=== PATIENT | male | born 1975 | race Caucasian/White ===

== ENCOUNTER 2018-07-10 16:10 | Inpatient (IN) ==
[2018-07-10] MEDS ORDERED: Aspirin 81 MG TAB.CHEW PO ONE (16:31)
[2018-07-10] MEDS ORDERED: Ondansetron ODT 4 MG TAB.RAPDIS SL ONE (16:32)
[2018-07-10] MEDS ORDERED: *HR* FentaNYL (PF) 100 MCG/2 ML VIAL IVP ONE (16:32)
--- NOTE | 2018-07-10 16:35 | Emergency Department Note ---
Disposition Clinical Impression: Pleural effusion Pneumonia Qualifiers: Pneumonia type: due to unspecified organism Laterality: left Lung location: lower lobe of lung Qualified Code(s): J18.1 - Lobar pneumonia, unspecified organism Disposition: Admitted As Inpatient Condition: Good Referrals: Kip Rojas DO [Primary Care Provider] - Time of Disposition: 18:52 Chest Pain HPI - General Chief Complaint: ED Chest Pain Stated Complaint: Chest Pain DEEPTHI Time Seen by Provider: 07/10/18 16:21 Source: patient Mode of arrival: ambulatory Limitations: no limitations Vital Signs Reviewed: Yes Nursing Notes Reviewed: Yes - History of Present Illness HPI Narrative: Mr. Prescott is a 43 year old male with history of chronic back pain with stimulator and COPD who presents to the ED with complaints of chest pain that radiates to his back and shortness of breath that gradually started to get worse over the last 4 days. Chest pain described as pressure and heavy and constant without necessarily any worsening with exertion. Patient reports some associated nausea and sweats. Patient reports that he also feels generalized weak overall that is unchanged since his hospitalization in 04/2018 for chest pain. Upon review of last hospitalization in 04/2018 for which patient reported similar symptoms, was determined to have a pleural effusion and inflammatory cells in fluid removed. Patient denies cough or productive cough. Patient denies fevers, headaches, changes in vision or hearing, neck pain, cough, abdominal pain, changes in bowels or bladder, loss of sensation, or rash. Severity scale (1-10): 9 - Related Data Home Medications Medication Instructions Recorded Confirmed Bupropion HCl [Wellbutrin Xl] 300 mg PO DAILY 04/21/18 04/21/18 Cyclobenzaprine [Flexeril] 10 mg PO TID PRN 04/21/18 04/21/18 Fesoterodine Fumarate [Toviaz] 8 mg PO HS 04/21/18 04/21/18 Lurasidone HCl [Latuda] 60 mg PO HS 04/21/18 04/21/18 OxyCODONE ER (12 HR) [OxyCONTIN] 20 mg PO Q12H 04/21/18 04/21/18 Oxycodone HCl/Acetaminophen 1 each PO Q4H PRN 04/21/18 04/21/18 [Percocet 10-325 mg Tablet] Pregabalin [Lyrica] 100 mg PO TID 04/21/18 04/21/18 Sertraline [Zoloft] 100 mg PO HS 04/21/18 04/21/18 Previous Rx's Medication Instructions Recorded Acetaminophen [Tylenol] 500 mg PO Q6HR PRN tablet 04/28/18 Ipratropium/Albuterol Neb [Duoneb] 3 ml IH [id number] inhsol 04/28/18 Allergies Allergy/AdvReac Type Severity Reaction Status Date / Time morphine Allergy Anaphylaxis Verified 07/10/18 16:17 Review of Systems: As Per HPI Chest Pain PMH - Past Medical History Medical history: Reports: COPD, other (chronic back pain with stimulator. ) Psychiatric history: Reports: depression - Social History Smoking Status: Former smoker Alcohol use: Reports: none Drug use: Reports: none Physical Exam - General General appearance: alert, in no apparent distress - Head Head exam: atraumatic - Eye Eye exam: Present: normal appearance - ENT ENT exam: normal exam, normal oropharynx, mucous membranes moist - Neck Neck exam: Present: normal inspection, full ROM, trachea midline. Absent: tenderness, lymphadenopathy - Chest Chest inspection: Present: normal inspection, symmetric chest wall rise - Respiratory Respiratory exam: Present: normal lung sounds bilaterally - Cardiovascular Cardiovascular exam: Present: regular rate, normal rhythm, normal heart sounds - Abdominal Exam Abdominal exam: Present: soft, Non-Tender, normal bowel sounds. Absent: tenderness, guarding, rigidity - Extremities Exam Extremities exam: Present: normal inspection, full ROM, normal capillary refill. Absent: tenderness, pedal edema - Back Exam Back exam: Present: normal inspection, full ROM. Absent: tenderness, CVA tenderness (R), CVA tenderness (L) - Neurological Exam Neurological exam: Present: alert, oriented X3, normal gait, reflexes normal - Psychiatric Psychiatric exam: Present: normal affect, normal mood - Skin Skin exam: Present: warm, intact, normal color, diaphoresis. Absent: rash, erythema Course Vital Signs Temperature 97.6 F 07/10/18 16:13 Pulse Rate 75 07/10/18 16:13 Respiratory Rate 16 07/10/18 16:13 Blood Pressure 113/75 07/10/18 16:13 O2 Sat by Pulse Oximetry 98 07/10/18 16:13 Temperature 97.6 F 07/10/18 16:13 Pulse Rate 71 07/10/18 19:01 Respiratory Rate 16 07/10/18 19:01 Blood Pressure 112/66 07/10/18 19:01 O2 Sat by Pulse Oximetry 97 07/10/18 19:01 Oxygen Delivery Oxygen Delivery Room Air Chest Pain - MDM Narrative Medical decision making narrative: 43 year old male with complaint of worsening chest pain that radiates to back an d shortness of breath that gradually got worse over last 4 days. Vitals stable. DDx including but not limited to ACS, pleural effusion, pneumonia, arrhythmia. Will obtain EKG, CXR, lab work. Administer aspirin and continue cardiac monitoring. EKG unchanged from prior but with T wave inversion in V1-V4. Spoke with Admitter about likely admission 16:58p Labs returned with elevated WBC and low potassium. Replaced with 40meQ oral potassium. CXR with confluent left lower lobe opaciication and effusion. Ordered zosyn and vancomycin for possible pneuomia as WBC elevated and sweats. 1745 - Medical Records Medical records reviewed: Yes I reviewed the patient's medical records. prior hospitalization in [facility] - Lab Data Lab results reviewed: Yes I reviewed the patient's lab results. Lab results narrative: potassium low, administer 40mEq oral potassium Laboratory Last Values WBC 13.5 K/mcL (4.3-11.1) H 07/10/18 16:59 RBC 4.25 M/mcL (4.19-5.50) 07/10/18 16:59 Hgb 10.2 g/dL (12.9-16.9) L 07/10/18 16:59 Hct 34.5 % (37.5-50.1) L 07/10/18 16:59 MCV 81.2 fL (83.0-100.0) L 07/10/18 16:59 MCH 24.0 pg (28.0-33.3) L 07/10/18 16:59 MCHC 29.6 g/dL (31.6-35.5) L 07/10/18 16:59 RDW 16.1 % (11.5-14.5) H 07/10/18 16:59 Plt Count 251 K/mcL (140-400) 07/10/18 16:59 MPV 10.4 fL (9.4-12.4) 07/10/18 16:59 Immature Gran % 0.4 % (0-4) 07/10/18 16:59 Seg Neutrophils % 83.6 % 07/10/18 16:59 11.8 % 07/10/18 16:59 2.9 % 07/10/18 16:59 1.2 % 07/10/18 16:59 0.1 % 07/10/18 16:59 11.3 K/mcL (1.6-8.9) H 07/10/18 16:59 1.6 K/mcL (0.6-4.6) 07/10/18 16:59 0.4 K/mcL (0.0-1.3) 07/10/18 16:59 0.2 K/mcL (0.0-0.6) 07/10/18 16:59 0.0 K/mcL (0.0-0.2) 07/10/18 16:59 PT 18.2 Seconds (9.4-12.1) H 07/10/18 16:31 INR 1.6 07/10/18 16:31 APTT 37.2 Seconds (26.0-36.0) H 07/10/18 16:31 Sodium 135 mEq/L (136-145) L 07/10/18 16:59 Potassium 2.9 mEq/L (3.5-5.1) L 07/10/18 16:59 Chloride 95 mEq/L (98-107) L 07/10/18 16:59 Carbon Dioxide 30 mEq/L (23-29) H 07/10/18 16:59 BUN 6 mg/dL (6-20) 07/10/18 16:59 0.86 mg/dL (0.70-1.30) 07/10/18 16:59 Est GFR ( Amer) > 60 (> 60) 07/10/18 16:59 Est GFR (Non-Af Amer) > 60 (> 60) 07/10/18 16:59 7 (6-26) 07/10/18 16:59 Glucose 107 mg/dL (70-105) H 07/10/18 16:59 278 (280-300) L 07/10/18 16:59 Calcium 8.5 mg/dL (8.6-10.3) L 07/10/18 16:59 < 0.03 ng/mL (< 0.04) 07/10/18 16:59 Result diagrams: 07/10/18 16:59 07/10/18 16:59 Lab Results 07/10/18 07/10/18 07/10/18 Range/Units 16:31 16:59 16:59 WBC 13.5 H (4.3-11.1) K/mcL RBC 4.25 (4.19-5.50) M/mcL Hgb 10.2 L (12.9-16.9) g/dL Hct 34.5 L (37.5-50.1) % MCV 81.2 L (83.0-100.0) fL MCH 24.0 L (28.0-33.3) pg MCHC 29.6 L (31.6-35.5) g/dL RDW 16.1 H (11.5-14.5) % Plt Count 251 (140-400) K/mcL MPV 10.4 (9.4-12.4) fL Immature Gran % 0.4 (0-4) % Seg Neutrophils % 83.6 % Lymphocytes % 11.8 % Monocytes % 2.9 % Eosinophils % 1.2 % Basophils % 0.1 % Neutrophils # 11.3 H (1.6-8.9) K/mcL Lymphocytes # 1.6 (0.6-4.6) K/mcL Monocytes # 0.4 (0.0-1.3) K/mcL Eosinophils # 0.2 (0.0-0.6) K/mcL Basophils # 0.0 (0.0-0.2) K/mcL PT 18.2 H (9.4-12.1) Seconds INR 1.6 APTT 37.2 H (26.0-36.0) Seconds Sodium 135 L (136-145) mEq/L Potassium 2.9 L (3.5-5.1) mEq/L Chloride 95 L (98-107) mEq/L Carbon Dioxide 30 H (23-29) mEq/L BUN 6 (6-20) mg/dL Creatinine 0.86 (0.70-1.30) mg/dL Est GFR ( Amer) > 60 (> 60) Est GFR (Non-Af Amer) > 60 (> 60) BUN/Creatinine Ratio 7 (6-26) Glucose 107 H (70-105) mg/dL Calculated Osmolality 278 L (280-300) Calcium 8.5 L (8.6-10.3) mg/dL Troponin I < 0.03 (< 0.04) ng/mL - Radiology Data Radiology results reviewed: Yes I reviewed the patient's radiology results. Chest X-Ray 07/10/18 16:31 IMPRESSION: More confluent left lower lobe opacification and effusion. Stable cardiomegaly. D/ / Jose Martinez MD / Jose Martinez MD Interpreting Provider: Jose Martinez MD - EKG Data EKG attestation: Yes I reviewed and interpreted this EKG. EKG results narrative: multiple consistent pacing spikes, but consistent with back pain stimulator EKG shows normal: sinus rhythm Rate: normal Rhythm: NSR T wave inversions noted in: v1, v2, v3, v4 When compared to previous EKG there are: other (st depressions vs t wave inversions in v1-v2-v3-v4 and compared to prior ekgs with variable findings of these) Interpretation: no acute changes, nonspecific ST-T wave changes Heart Score - Score History: Slightly Suspicious EKG: Non Specific repolarisation Disturbance Age: Less than 45 Risk Factors: No risk factors known Troponin: Less than normal limit HEART Score Total: 1
[2018-07-10 16:58] LABS: Basophils % 0.1 %; Eosinophils # 0.2 K/mcL (0.0-0.6); Eosinophils % 1.2 %; Hematocrit 34.5 % (37.5-50.1); Hemoglobin 10.2 g/dL (12.9-16.9); Immature Granulocytes % 0.4 % (0-4); Lymphocytes # 1.6 K/mcL (0.6-4.6); Lymphocytes % 11.8 %; Mean Corpuscular HGB Conc 29.6 g/dL (31.6-35.5); Mean Corpuscular Volume 81.2 fL (83.0-100.0); Mean Platelet Volume 10.4 fL (9.4-12.4); Monocytes # 0.4 K/mcL (0.0-1.3); Monocytes % 2.9 %; Neutrophils # 11.3 K/mcL (1.6-8.9); Platelet Count 251 K/mcL (140-400); Red Blood Count 4.25 M/mcL (4.19-5.50); Red Cell Distribution Width 16.1 % (11.5-14.5); Segmented Neutrophils % 83.6 %; White Blood Count 13.5 K/mcL (4.3-11.1)
[2018-07-10 16:59] LABS: INR 1.6; Prothrombin Time 18.2 Seconds (9.4-12.1)
[2018-07-10 17:01] LABS: Activated Partial Thrombo Time 37.2 Seconds (26.0-36.0)
[2018-07-10 17:12] LABS: BUN/Creatinine Ratio 7 (6-26); Blood Urea Nitrogen 6 mg/dL (6-20); Calcium 8.5 mg/dL (8.6-10.3); Carbon Dioxide 30 mEq/L (23-29); Chloride 95 mEq/L (98-107); Glucose 107 mg/dL (70-105); Osmolality,Calculated 278 (280-300); Potassium 2.9 mEq/L (3.5-5.1); Sodium 135 mEq/L (136-145); eGFR For African Americans > 60 (> 60); eGFR For Non-African Americans > 60 (> 60)
[2018-07-10 17:19] LABS: Troponin I < 0.03 ng/mL (< 0.04)
[2018-07-10] MEDS ORDERED: Piperacillin/Tazobactam 3.375 GM in 0.9 % Sodium Chloride Mini Bag 100 ML IVPB ONE (17:47)
--- NOTE | 2018-07-10 19:14 | Emergency Department Note ---
Disposition Clinical Impression: Pleural effusion Pneumonia Qualifiers: Pneumonia type: due to unspecified organism Laterality: left Lung location: lower lobe of lung Qualified Code(s): J18.1 - Lobar pneumonia, unspecified organism Disposition: Admitted As Inpatient Condition: Good Referrals: Kip Rojas DO [Primary Care Provider] - Time of Disposition: 18:52 General Adult HPI - General Chief complaint: ED Chest Pain Stated complaint: Chest Pain DEEPTHI Time Seen by Provider: 07/10/18 16:21 Source: patient Mode of arrival: ambulatory Limitations: no limitations - History of Present Illness Pain Scale: 9 - Related Data Home Medications Medication Instructions Recorded Confirmed Bupropion HCl [Wellbutrin Xl] 300 mg PO DAILY 04/21/18 04/21/18 Cyclobenzaprine [Flexeril] 10 mg PO TID PRN 04/21/18 04/21/18 Fesoterodine Fumarate [Toviaz] 8 mg PO HS 04/21/18 04/21/18 Lurasidone HCl [Latuda] 60 mg PO HS 04/21/18 04/21/18 OxyCODONE ER (12 HR) [OxyCONTIN] 20 mg PO Q12H 04/21/18 04/21/18 Oxycodone HCl/Acetaminophen 1 each PO Q4H PRN 04/21/18 04/21/18 [Percocet 10-325 mg Tablet] Pregabalin [Lyrica] 100 mg PO TID 04/21/18 04/21/18 Sertraline [Zoloft] 100 mg PO HS 04/21/18 04/21/18 Previous Rx's Medication Instructions Recorded Acetaminophen [Tylenol] 500 mg PO Q6HR PRN tablet 04/28/18 Ipratropium/Albuterol Neb [Duoneb] 3 ml IH [id number] inhsol 04/28/18 Allergies Allergy/AdvReac Type Severity Reaction Status Date / Time morphine Allergy Anaphylaxis Verified 07/10/18 16:17 Past Medical History - Past Medical History Medical history: Reports: COPD, other (chronic back pain with stimulator. ) Psychiatric history: Reports: depression - Social History Smoking Status: Former smoker Smokeless Tobacco Status: No Alcohol use: Reports: none Drug use: Reports: none Physical Exam - General Limitations: no limitations General appearance: alert, in no apparent distress Course Vital Signs Temperature 97.6 F 07/10/18 16:13 Pulse Rate 75 07/10/18 16:13 Respiratory Rate 16 07/10/18 16:13 Blood Pressure 113/75 07/10/18 16:13 O2 Sat by Pulse Oximetry 98 07/10/18 16:13 Temperature 97.6 F 07/10/18 16:13 Pulse Rate 71 07/10/18 19:01 Respiratory Rate 16 07/10/18 19:01 Blood Pressure 112/66 07/10/18 19:01 O2 Sat by Pulse Oximetry 97 07/10/18 19:01 Oxygen Delivery Oxygen Delivery Room Air Medical Decision Making - Lab Data Result diagrams: 07/10/18 16:59 07/10/18 16:59 Lab Results 07/10/18 07/10/18 07/10/18 Range/Units 16:31 16:59 16:59 WBC 13.5 H (4.3-11.1) K/mcL RBC 4.25 (4.19-5.50) M/mcL Hgb 10.2 L (12.9-16.9) g/dL Hct 34.5 L (37.5-50.1) % MCV 81.2 L (83.0-100.0) fL MCH 24.0 L (28.0-33.3) pg MCHC 29.6 L (31.6-35.5) g/dL RDW 16.1 H (11.5-14.5) % Plt Count 251 (140-400) K/mcL MPV 10.4 (9.4-12.4) fL Immature Gran % 0.4 (0-4) % Seg Neutrophils % 83.6 % Lymphocytes % 11.8 % Monocytes % 2.9 % Eosinophils % 1.2 % Basophils % 0.1 % Neutrophils # 11.3 H (1.6-8.9) K/mcL Lymphocytes # 1.6 (0.6-4.6) K/mcL Monocytes # 0.4 (0.0-1.3) K/mcL Eosinophils # 0.2 (0.0-0.6) K/mcL Basophils # 0.0 (0.0-0.2) K/mcL PT 18.2 H (9.4-12.1) Seconds INR 1.6 APTT 37.2 H (26.0-36.0) Seconds Sodium 135 L (136-145) mEq/L Potassium 2.9 L (3.5-5.1) mEq/L Chloride 95 L (98-107) mEq/L Carbon Dioxide 30 H (23-29) mEq/L BUN 6 (6-20) mg/dL Creatinine 0.86 (0.70-1.30) mg/dL Est GFR ( Amer) > 60 (> 60) Est GFR (Non-Af Amer) > 60 (> 60) BUN/Creatinine Ratio 7 (6-26) Glucose 107 H (70-105) mg/dL Calculated Osmolality 278 L (280-300) Calcium 8.5 L (8.6-10.3) mg/dL Troponin I < 0.03 (< 0.04) ng/mL Attestation Statement - Attestation Attestation: I saw and evalated the patient and and reviewed the resident's note/PA note/AUTOMOTIVE SERVICE CONSULTANT note, and I agree with the resident's findings and plan. I personally supervised and was present for the waldron/critical portions of the procedures. The medical decision-making was reviewed with the GARNETT MACHINE OPERATOR HELPER/PA/Advanced Practice Nurse/Resident Physician. I agree with the documented findings, disposition and treatment plan as described except to the extent set forth below. I did see the patient is spoke with him and examined him and evaluated the test results and the patient will be admitted for further evaluation of pleural effusion and treatment of pneumonia and this was discussed with the hospitalist who accepted the patient for admission. He is breathing comfortably. No acute distress. Nontoxic in appearance. [id number]
--- NOTE | 2018-07-10 20:06 | Internal Med History&Physical ---
<Tank Bowen S - Last Filed: 07/10/18 22:02> Date of Encounter: 07/10/18 Time of Encounter: 21:13 Internal Medicine - H&P: HPI Chief complaint: sob Admitted From: Home Plans for Post Hospital Care: Home History of present illness: Mr. Hutson is a 43 year old male with PMH of COPD and chronic back pain. He presented to the ER with the chief complaint of chest pain that felt like a tightness in his chest and had radiation to his back. The chest pain felt "heavy" and has been constant. Nothing has made it better or worse. Unrelated to exercise. No change with exertion. He also endorses shortness of breath that began to get worse in the last few days but is chronic in nature. He doesn't wear home oxygen. He has had some fevers/chills. He denies any hemoptysis, nosebleeds. He has had a cough but denies any associated sputum production. He denies TB contact, time spent in correction, pets other than dogs in the home. Pt does c/o nausea and generalized weakness. He denies any vomiting or abdominal pain. In the ER he was found to have a leukocytosis and XR with More confluent left lower lobe opacification and effusion. He will be admitted for further workup of recurrent pleural effusions. Past Med Surg Social Fam HX - Past Medical History Medical history: COPD, other (chronic back pain with stimulator. ) Additional medical history: CHRONIC BACK PAIN, collapsed lung, pneumonia, perstistant plurocy Psychiatric history: depression - Past Surgical History Additional surgical history: back, lung surgery - Social History Smoking Status: Former smoker Smokeless Tobacco Status: No Alcohol use: none Drug use: none - Family History Mother Living Status: Still Living Hx Family Cancer: No Internal Medicine - H&P: Meds Bupropion HCl [Wellbutrin Xl] 300 mg PO DAILY 04/21/18 [History] Cyclobenzaprine [Flexeril] 10 mg PO TID PRN 04/21/18 [History] Fesoterodine Fumarate [Toviaz] 8 mg PO HS 04/21/18 [History] Lurasidone HCl [Latuda] 60 mg PO HS 04/21/18 [History] OxyCODONE ER (12 HR) [OxyCONTIN] 20 mg PO Q12H 04/21/18 [History] Oxycodone HCl/Acetaminophen [Percocet 10-325 mg Tablet] 1 each PO Q4H PRN 04/21/18 [History] Pregabalin [Lyrica] 100 mg PO TID 04/21/18 [History] Sertraline [Zoloft] 100 mg PO HS 04/21/18 [History] Acetaminophen [Tylenol] 500 mg PO Q6HR PRN tablet 04/28/18 [Rx] Ipratropium/Albuterol Neb [Duoneb] 3 ml IH [id number] inhsol 04/28/18 [Rx] Allergy/AdvReac Type Severity Reaction Status Date / Time morphine Allergy Anaphylaxis Verified 07/10/18 16:17 All Systems PM: A 10-system review of systems was performed and is negative for pertinent findings except as documented above in the HPI. - Constitutional Constitutional: chills, fever(s), malaise - EENT Eyes: no blurry vision, no change in vision Ears: no tinnitus Nose, mouth and throat: no bleeding gums, no epistaxis - Cardiovascular Cardiovascular ROS IM: chest pain, dyspnea, dyspnea on exertion, no palpitations - Respiratory Respiratory: cough, dyspnea, dyspnea on exertion, chest congestion, excessive phlegm production, no hemoptysis - Gastrointestinal Gastrointestinal: no abdominal pain, no diarrhea, no nausea, no vomiting - Genitourinary Genitourinary ROS male: no dysuria, no hematuria - Musculoskeletal Musculoskeletal ROS IM: back pain, neck pain, stiffness - Integumentary Integumentary IM: no rash, no skin ulcer - Neurological Neurological ROS: weakness, no numbness, no tingling - Psychiatric Psychiatric: anxiety, depression - Endocrine Endocrine IM: fatigue - Hematologic/Lymphatic Hematologic/Lymphatic: no easy bleeding, no easy bruising - Constitutional Vitals: Temp Pulse Resp BP Pulse Ox 97.6 F 69 20 112/66 95 07/10/18 16:13 07/10/18 19:30 07/10/18 19:30 07/10/18 19:30 07/10/18 19:30 General appearance: Present: disheveled, mild distress, A&O X 3, obese Exam: general - aox3, mildly uncomfortable, laying in bed, speaking in full sentences heent - MMM, NCAT, no scleral icterus neck - no jvd, trachea midline cardio - rrr, s1s2 cta no mrg back - no rash, brusing or tenderness lungs - decreased breath sounds L > R, mild coarse breath sounds, not in respiratory distress abd - soft, obese, ntnd, no peritoneal signs or rebound/guarding extremities - moves all extremities equally, strength 5/5 UE/LE neuro - no FND, sensation intact psych - tearful on examination, anxious skin - warm,dry,intact Internal Med - H&P Results - Labs CBC & Chem 7: 07/10/18 16:59 07/10/18 16:59 Labs: Short CBC 07/10/18 Range/Units 16:59 WBC 13.5 H (4.3-11.1) K/mcL Hgb 10.2 L (12.9-16.9) g/dL Hct 34.5 L (37.5-50.1) % Plt Count 251 (140-400) K/mcL Neutrophils # 11.3 H (1.6-8.9) K/mcL BMP 07/10/18 16:59 Sodium 135 L Potassium 2.9 L Chloride 95 L Carbon Dioxide 30 H BUN 6 Creatinine 0.86 Glucose 107 H Calcium 8.5 L Cardiac Enzymes 07/10/18 Range/Units 16:59 Troponin I < 0.03 (< 0.04) ng/mL - Impressions ITS Impressions Chest X-Ray 07/10/18 16:31 IMPRESSION: More confluent left lower lobe opacification and effusion. Stable cardiomegaly. D/ / Jose Martinez MD / Jose Martinez MD Interpreting Provider: Jose Martinez MD - Assessment and Plan (1) Pneumonia Current Visit: Yes Status: Acute Assessment and plan: Pt with increasing SOB, cough, congestion and sputum production; pleural eff usion on left side present On 04/21/18 - large left pleural effusion drained by IR CT chest on 04/21/18 - Large left pleural effusion with complete atelectasis of the left lower lobe near total atelectasis of the left upper lobe. On 04/23/18 - Dr Wilson saw the pt for collapsed left lung, bronchoscopy performed at that time extrinsic compression in LLL with moderate airway narrowing BAL was performed SHAAN was negative for malignancy On 06/24/18 - large pleural effusion seen On 07/10/18 - More confluent left lower lobe opacification and effusion. Stable cardiomegaly In April pt had 1200 mL fluid drained from pleural effusion, Light's criteria suggested exudative pathology Cytopathology report showing no malignancy from biopsies performed Pleural effusion pathology report negative for maligancy ECHO on last evaluation: - LVEF 60-65%. - Normal LV chamber size, wall thickness and function. Pt does have a leukocytosis but doesn't meet criteria for SIRS Plan: - continue abx vancomycin and zosyn day 1 - urine antigens pending - continue telemetry monitoring - keep O2 sat >88% - duonebs - consult to pulmonology, pt needs outpatient follow up - will consult IR for thoracentesis all orders for pleural fluid analsis ordered pleural fluid LDH, pleural fluid total protein, gram stain, amylase AFB and fungal cultures pending pleural fluid culture pending - consider consult to CT surgery - FEN: regular diet - DVT prophylaxis: sq heparin - dispo: IR and pulmonology to see, consider cardiothoracic to see Qualifiers: Pneumonia type: due to Pneumococcus Laterality: left Lung location: lower lobe of lung Qualified Code(s): J13 - Pneumonia due to Streptococcus pneumoniae (2) Pleural effusion Current Visit: Yes Status: Acute Assessment and plan: Recurrent pleural effusion. XR chest on admission showed More confluent left lower lobe opacification and effusion. Stable cardiomegaly. Will consult pulmonology. Pt should have thoracentesis and definition by Light's criteria for exudative vs transudative process. (3) Hypokalemia Current Visit: Yes Status: Acute Assessment and plan: Potassium 2.9 on admission. Replaced PO in the ER. Continue to [facility]. (4) Former tobacco use Current Visit: No Status: Chronic Assessment and plan: Quit three years ago. Screened for current tobacco use, denies. (5) DVT prophylaxis Current Visit: No Status: Acute Assessment and plan: sq heparin (6) Leukocytosis Current Visit: Yes Status: Acute Assessment and plan: WBC count 13.5 on admission. Likely secondary to PNA/pleural effusion. Continue to monitor. Qualifiers: Leukocytosis type: unspecified Qualified Code(s): D72.829 - Elevated white blood cell count, unspecified (7) Chronic back pain Current Visit: No Status: Chronic Assessment and plan: Continue home pain meds when medicaion list reconciled. Qualifiers: Back pain location: low back pain Back pain laterality: bilateral Sciatica presence: with sciatica Sciatica laterality: bilateral sciatica Qualified Code(s): M54.42 - Lumbago with sciatica, left side; M54.41 - Lumbago with sciatica, right side; G89.29 - Other chronic pain (8) Obesity (BMI 30.0-34.9) Current Visit: No Status: Chronic Assessment and plan: chronic, BMI 34.3 - Time Spent With Patient Total time spent is greater than 50% in coordination of care (as documented) at patient's floor/unit and/or counseling patient: 25 - 35 minutes <Ryley Moreno - Last Filed: 07/11/18 00:10> Date of Encounter: 07/10/18 Past Med Surg Social Fam HX - Family History Mother Adopted: No Age: 62 Family Member Ethnicity: Non- Living Status: Still Living Hx Family Cardiac Disorders: No Hx Family Respiratory Disorders: Yes (Asthma) Hx Family Cancer: No Hx Family GI Disorders: No Hx Family Genitourinary Disorders: No Hx Family Endocrine Disorder: No Hx Family Musculoskeletal Disorders: No Hx Family Neuromuscular Disorders: No Hx Family Neurologic Disorders: No Hx Family HEENT Disorders: No Hx Family Autoimmune Disorders: No Hx Family Reproductive Disorders: No Hx Family Psychosocial Disorders: No Hx Family Medical Disorders: No Father Family Member Ethnicity: Non- Living Status: Hx Family Cardiac Disorders: Yes (triple bypass) Hx Family Cancer: Yes (gi) Hx Family GI Disorders: No Hx Family Genitourinary Disorders: No Hx Family Endocrine Disorder: No Hx Family Musculoskeletal Disorders: No Hx Family Neuromuscular Disorders: No Hx Family Neurologic Disorders: No Hx Family HEENT Disorders: No Hx Family Autoimmune Disorders: No Hx Family Reproductive Disorders: No Hx Family Psychosocial Disorders: No Hx Family Medical Disorders: No All Systems PM: A 10-system review of systems was performed and is negative for pertinent findings except as documented above in the HPI. - Constitutional Vitals: Temp Pulse Resp BP Pulse Ox 97.9 F 74 16 112/72 95 07/10/18 21:50 07/10/18 21:50 07/10/18 21:50 07/10/18 21:50 07/10/18 21:50 Internal Med - H&P Results - Labs CBC & Chem 7: 07/10/18 16:59 07/10/18 16:59 Labs: Short CBC 07/10/18 Range/Units 16:59 WBC 13.5 H (4.3-11.1) K/mcL Hgb 10.2 L (12.9-16.9) g/dL Hct 34.5 L (37.5-50.1) % Plt Count 251 (140-400) K/mcL Neutrophils # 11.3 H (1.6-8.9) K/mcL BMP 07/10/18 16:59 Sodium 135 L Potassium 2.9 L Chloride 95 L Carbon Dioxide 30 H BUN 6 Creatinine 0.86 Glucose 107 H Calcium 8.5 L Cardiac Enzymes 07/10/18 Range/Units 16:59 Troponin I < 0.03 (< 0.04) ng/mL Liver Function 07/10/18 Range/Units 16:59 Total Bilirubin 0.5 (0.3-1.0) mg/dL Direct Bilirubin 0.1 (0.0-0.2) mg/dL AST 157 H (13-39) Units/L ALT 87 H (7-52) Units/L Alkaline Phosphatase 127 H (34-104) Units/L Albumin 3.3 L (3.5-5.7) g/dL - Impressions ITS Impressions Chest X-Ray 07/10/18 16:31 IMPRESSION: More confluent left lower lobe opacification and effusion. Stable cardiomegaly. D/ / Jose Martinez MD / Jose Martinez MD Interpreting Provider: Jose Martinez MD - Assessment and Plan (1) Pleural effusion Current Visit: Yes Status: Acute (2) Pneumonia Current Visit: Yes Status: Acute Qualifiers: Pneumonia type: due to Pneumococcus Laterality: left Lung location: lower lobe of lung Qualified Code(s): J13 - Pneumonia due to Streptococcus pneumoniae (3) Hypokalemia Current Visit: Yes Status: Acute (4) Former tobacco use Current Visit: No Status: Chronic (5) DVT prophylaxis Current Visit: No Status: Acute (6) Leukocytosis Current Visit: Yes Status: Acute Qualifiers: Leukocytosis type: unspecified Qualified Code(s): D72.829 - Elevated white blood cell count, unspecified (7) Chronic back pain Current Visit: No Status: Chronic Qualifiers: Back pain location: low back pain Back pain laterality: bilateral Sciatica presence: with sciatica Sciatica laterality: bilateral sciatica Qualified Code(s): M54.42 - Lumbago with sciatica, left side; M54.41 - Lumbago with sciatica, right side; G89.29 - Other chronic pain (8) Obesity (BMI 30.0-34.9) Current Visit: No Status: Chronic - Time Spent With Patient Total time spent is greater than 50% in coordination of care (as documented) at patient's floor/unit and/or counseling patient: - Attending Attestation Patient seen on 07/10/18 Epi Hutson is a 43 year old man who was seen here 2 months ago for pneumonia with an effusion of unclear etiology. Studies done at the time were exudative in nature but it seems no cultures were sent on the fluid. Cytology was unremarkable. He also had a bronchoscopy done with no remarkable results other than Radha glabrata isolated on one specimen. He returns with complaints of ongoing left sided chest pain as well as cough and fatigue. CXR again reveals an infiltrate with a reaccumulation of fluid. Reduction of breath sounds on auscultation is in accordance with this finding. The etiology remains unclear. We will keep him on empiric broad spectrum antibiotics, consult IR for thoracentesis and order appropriate fluid studies. He should also be seen by thoracic surgery as he may require thoracoscopy and decortication. STAS COTE.
[2018-07-10] MEDS ORDERED: Naloxone 0.4 MG/ML INJ IVP PRN (20:51)
[2018-07-10] MEDS ORDERED: Ondansetron 4 MG/2 ML VIAL IVP PRN (20:53)
[2018-07-10] MEDS ORDERED: Potassium Chloride Elixir 20 MEQ/15 ML UDC PO ONE (22:02)
[2018-07-10 22:04] LABS: Lactate Dehydrogenase 265 Units/L (140-271); Magnesium 1.7 mg/dL (1.6-2.6); Total Protein 6.1 g/dL (6.4-8.9)
[2018-07-10 22:37] LABS: Alanine Aminotransferase 87 Units/L (7-52); Albumin 3.3 g/dL (3.5-5.7); Albumin/Globulin Ratio 1.2 (1.1-2.2); Alkaline Phosphatase 127 Units/L (34-104); Aspartate Amino Transferase 157 Units/L (13-39); Bilirubin,Direct 0.1 mg/dL (0.0-0.2); Bilirubin,Indirect 0.4 mg/dL (0.0-1.2); Bilirubin,Total 0.5 mg/dL (0.3-1.0); Globulin 2.8 g/dL (2.4-3.5)
[2018-07-10] MEDS: *HR* Heparin 5,000 UNIT/ML VIAL SQ SCH (22:43)
[2018-07-10] MEDS ORDERED: Vancomycin 1,750 MG in 0.9 % Sodium Chloride 250 ML IVPB SCH (23:00)
[2018-07-10] MEDS: Piperacillin/Tazobactam 3.375 GM in 0.9 % Sodium Chloride Mini Bag 100 ML IVPB SCH (23:03)
[2018-07-10] MEDS ORDERED: *HR* OxyCODONE/APAP 10/325 TABLET PO ONE (23:28)
[2018-07-11] MEDS: *HR* OxyCODONE ER (12 HR) 20 MG TABLET PO SCH ×2 (01:02→12:25)
[2018-07-11 02:51] LABS: Mean Corpuscular Hemoglobin 24.3 pg (28.0-33.3); Mean Corpuscular Volume 81.1 fL (83.0-100.0); Mean Platelet Volume 10.9 fL (9.4-12.4); Platelet Count 253 K/mcL (140-400); Red Cell Distribution Width 16.1 % (11.5-14.5); White Blood Count 12.5 K/mcL (4.3-11.1)
[2018-07-11 02:58] LABS: INR 1.6; Prothrombin Time 17.8 Seconds (9.4-12.1)
[2018-07-11 03:05] LABS: BUN/Creatinine Ratio 7 (6-26); Blood Urea Nitrogen 6 mg/dL (6-20); Calcium 8.2 mg/dL (8.6-10.3); Carbon Dioxide 31 mEq/L (23-29); Chloride 97 mEq/L (98-107); Glucose 89 mg/dL (70-105); Osmolality,Calculated 281 (280-300); Potassium 3.5 mEq/L (3.5-5.1); Sodium 137 mEq/L (136-145); eGFR For African Americans > 60 (> 60); eGFR For Non-African Americans > 60 (> 60)
[2018-07-11] MEDS: *HR* OxyCODONE/APAP 10/325 TABLET PO PRN ×4 (04:35→20:21)
--- NOTE | 2018-07-11 06:38 | Pulmonology Consult Note ---
Date of Encounter: 07/11/18 Time of Encounter: 06:38 Assessment and Plan (1) Pleural effusion Current Visit: Yes Status: Acute This is an unclear etiology but in the context of hilar/mediastinal lymphadenopathy suspect the same process and I suspect inflammatory condition (Doubt infectious cause) he would be at risk for a rheumatological conditions and cannot fully exclude malignancy at this time agree with repeat thoracentesis (has been scheduled in IR) please send studies for pH LDH total protein glucose amylase lipase triglycerides cell count Gram stain AFB/fungal/regular culture and cytology. Please send the CCP IgG rheumatoid factor and a panel and ANCA. Patient may need a diagnostic pleuroscopy Otherwise from my perspective a lot of this evaluation can be completed in the outpatient setting as it will take time to get the results back and patient not requiring any supplemental oxygen. If he is having relief after thoracentesis from my perspective could be discharged with appropriate follow-up scheduled. He states that he did not make his last outpatient pulmonary for appointment because his son did not tell him of the date but I suspect that this could be arranged effectively and he is adamant that he will follow up (2) Lymphadenopathy Current Visit: Yes Status: Acute Recommend repeating CT scan without contrast study of the chest abdomen and pel vis to look for a broader etiology as well as examination for transaminitis (3) Transaminitis Current Visit: Yes Status: Acute Unclear etiology patient denies any drug or alcohol abuse possibly medication effect consider GI consult imaging as requested above Pulmonary will continue to follow History of Present Illness Consult date: 07/11/18 Requesting physician: Tank Bowen Reason for consult: pleural effusion Chief complaint: Difficulty in Breathing History of present illness: This is a 43-year-old gentleman who I was consulted to see because of recurrent left-sided pleural effusion. It appears the patient initially had presented in early part of April and had undergone Thoracentesis which was exudative in nature with cytology negative for malignancy. Fel likely s/t to "pneumonia and parapneumonic process." He also underwent bronchoscopy with endobronchial ultrasound/findings aspiration for mediastinal lymph node which was negative for malignancy at that same admission. This too was negative for malignancy. Echocardiogram and limited windows at that time but was negative for any evidence of heart failure and was evaluated by Cardiology. He presented yesterday complaining of chest pain/tightness. In ED found to have elevated WBC count and left pleural effusion. 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 Former smoker from age of 17 developed about 3 years ago. No significant sick contacts travel or exotic pets exposure Past Med Surg Social Fam HX - Past Medical History Medical history: other Additional medical history: CHRONIC BACK PAIN, collapsed lung, pneumonia, perstistant plurocy Psychiatric history: depression - Past Surgical History Additional surgical history: back, lung surgery. nerve stimulator implant in left hip. left foot sx - Social History Smoking Status: Former smoker Smokeless Tobacco Status: No Alcohol use: none Drug use: none - Family History Mother Adopted: No Age: 62 Family Member Ethnicity: Non- Living Status: Still Living Hx Family Cardiac Disorders: No Hx Family Respiratory Disorders: Yes (Asthma) Hx Family Cancer: No Hx Family GI Disorders: No Hx Family Genitourinary Disorders: No Hx Family Endocrine Disorder: No Hx Family Musculoskeletal Disorders: No Hx Family Neuromuscular Disorders: No Hx Family Neurologic Disorders: No Hx Family HEENT Disorders: No Hx Family Autoimmune Disorders: No Hx Family Reproductive Disorders: No Hx Family Psychosocial Disorders: No Hx Family Medical Disorders: No Father Family Member Ethnicity: Non- Living Status: Hx Family Cardiac Disorders: Yes (triple bypass) Hx Family Cancer: Yes (gi) Hx Family GI Disorders: No Hx Family Genitourinary Disorders: No Hx Family Endocrine Disorder: No Hx Family Musculoskeletal Disorders: No Hx Family Neuromuscular Disorders: No Hx Family Neurologic Disorders: No Hx Family HEENT Disorders: No Hx Family Autoimmune Disorders: No Hx Family Reproductive Disorders: No Hx Family Psychosocial Disorders: No Hx Family Medical Disorders: No Medications and Allergies Bupropion HCl [Wellbutrin Xl] 300 mg PO DAILY 04/21/18 [History] Cyclobenzaprine [Flexeril] 10 mg PO TID PRN 04/21/18 [History] Fesoterodine Fumarate [Toviaz] 8 mg PO HS 04/21/18 [History] Lurasidone HCl [Latuda] 60 mg PO HS 04/21/18 [History] OxyCODONE ER (12 HR) [OxyCONTIN] 20 mg PO Q12H 04/21/18 [History] Oxycodone HCl/Acetaminophen [Percocet 10-325 mg Tablet] 1 each PO Q4H PRN 04/21/18 [History] Pregabalin [Lyrica] 100 mg PO TID 04/21/18 [History] Sertraline [Zoloft] 100 mg PO HS 04/21/18 [History] Acetaminophen [Tylenol] 500 mg PO Q6HR PRN tablet 04/28/18 [Rx] Ipratropium/Albuterol Neb [Duoneb] 3 ml IH [id number] inhsol 04/28/18 [Rx] Allergy/AdvReac Type Severity Reaction Status Date / Time morphine Allergy Anaphylaxis Verified 07/10/18 16:17 All Systems: The remainder of the systems were reviewed and are negative Physical Examination Vital Signs: Vital Signs, Last 4 Hours Temp Pulse Resp BP Pulse Ox 07/11/18 03:45 97.7 F 80 16 107/70 92 General appearance: no acute distress Eyes: nonicteric ENT: oropharynx moist Neck: supple Auscultation: left: diminished breath sounds Cardiovascular: regular rate and rhythm Gastrointestinal: normoactive bowel sounds, soft, non-tender Integumentary: normal Extremities: no cyanosis, no edema, no clubbing Musculoskeletal: no deformities normal mental status, non-focal exam mood appropriate Results - Laboratory Findings CBC and BMP: 07/11/18 00:52 07/11/18 00:52 PT/INR, D-dimer PT 17.8 Seconds (9.4-12.1) H 07/11/18 00:52 Abnormal lab findings: Abnormal lab results WBC 12.5 K/mcL (4.3-11.1) H 07/11/18 00:52 RBC 3.70 M/mcL (4.19-5.50) L 07/11/18 00:52 Hgb 9.0 g/dL (12.9-16.9) L 07/11/18 00:52 Hct 30.0 % (37.5-50.1) L 07/11/18 00:52 MCV 81.1 fL (83.0-100.0) L 07/11/18 00:52 MCH 24.3 pg (28.0-33.3) L 07/11/18 00:52 MCHC 30.0 g/dL (31.6-35.5) L 07/11/18 00:52 RDW 16.1 % (11.5-14.5) H 07/11/18 00:52 11.3 K/mcL (1.6-8.9) H 07/10/18 16:59 PT 17.8 Seconds (9.4-12.1) H 07/11/18 00:52 APTT 37.2 Seconds (26.0-36.0) H 07/10/18 16:31 Sodium 135 mEq/L (136-145) L 07/10/18 16:59 Potassium 2.9 mEq/L (3.5-5.1) L 07/10/18 16:59 Chloride 97 mEq/L (98-107) L 07/11/18 00:52 Carbon Dioxide 31 mEq/L (23-29) H 07/11/18 00:52 Glucose 107 mg/dL (70-105) H 07/10/18 16:59 278 (280-300) L 07/10/18 16:59 Calcium 8.2 mg/dL (8.6-10.3) L 07/11/18 00:52 AST 157 Units/L (13-39) H 07/10/18 16:59 ALT 87 Units/L (7-52) H 07/10/18 16:59 127 Units/L (34-104) H 07/10/18 16:59 6.1 g/dL (6.4-8.9) L 07/10/18 16:59 3.3 g/dL (3.5-5.7) L 07/10/18 16:59 - Diagnostic Findings Chest x-ray: report reviewed, image reviewed CT scan - chest: report reviewed, image reviewed - Clinical Findings Intake & Output: Intake & Output 07/10/18 07/10/18 07/11/18 15:59 23:59 07:59 Intake Total 350 / 350 350 / 350 Output Total 400 / 400 Balance 350 / 350 -50 / -50 Weight 114.2 kg 114.2 kg Consult Discharge Plan - Plan Referrals: Kip Rojas, [Primary Care Provider] -
[2018-07-11] MEDS: BuPROPion XL (24 HR) 150 MG TABLET PO SCH (09:06)
[2018-07-11] MEDS: Pregabalin 50 MG CAPSULE PO SCH ×3 (09:06→20:21)
[2018-07-11] MEDS: *HR* Heparin 5,000 UNIT/ML VIAL SQ SCH ×2 (09:07→22:56)
--- NOTE | 2018-07-11 11:32 | Event Note ---
Date of Encounter: 07/11/18 Time of Encounter: 11:31 thoracentesis not performed. Not enough fluid for drainage.
[2018-07-11] MEDS ORDERED: Isovue-370 500 ML BOTTLE IVP ONE (11:34)
[2018-07-11] MEDS: Magnesium Oxide 400 MG TABLET PO SCH (12:25)
[2018-07-11] MEDS: Piperacillin/Tazobactam 3.375 GM in 0.9 % Sodium Chloride Mini Bag 100 ML IVPB SCH ×3 (12:26→23:00)
[2018-07-11] MEDS ORDERED: Isovue-370 500 ML BOTTLE PO ONE (15:27)
[2018-07-11 16:30] LABS: Amphetamine Screen,Urine Negative ng/mL (Cutoff=1000); Barbiturate Screen,Urine Negative ng/mL (Cutoff=200); Benzodiazepines Screen,Urine Positive ng/mL (Cutoff=200); Cannabinoid Screen,Urine Negative ng/mL (Cutoff = 50); Cocaine Screen,Urine Negative ng/mL (Cutoff= 300); Opiate Screen,Urine Positive ng/mL (Cutoff=300); Phencyclidine Screen,Urine Negative ng/mL (Cutoff=25)
--- NOTE | 2018-07-11 17:26 | Electrocardiograph Report ---
[address] [address] Test Date: 2018-07-10 Pat Name: Epi Hutson Department: [id number] Room: 3B64 Gender: M Sole Buffer: : 1975 Requested By: Frank Denson Order Number: [id number] Reading MD: Joe Yao Measurements Intervals Dexter Rate: 72 P: 16 MT: 146 QRS: 29 QRSD: 166 T: 20 QT: 461 QTc: 505 Interpretive Statements Technically poor tracing - please repeat ECG Probable sinus rhythm Nonspecific ST-T abnormalities Electronically Signed On 07-11-2018 17:25:15 EDT by Joe Yao
--- NOTE | 2018-07-11 18:42 | Internal Med Progress Note ---
<Lucho Pruett - Last Filed: 07/11/18 18:42> Hospitalist Progress Note - Encounter Date of Encounter: 07/11/18 Time of Encounter: 08:50 - Subjective Interval History: Patient is resting in bed at time of examination. He is having significant pain in his back. He also says that he is short of breath and that he is having pain when he coughs. He says that he continues to have these problems and is frustrating for him. He did have some relief when he left the hospital last time however he says that this is back and worse. He had no acute issues overnight. - Exam Vitals: Temp Pulse Resp BP Pulse Ox 97.9 F 74 14 101/68 92 07/11/18 11:18 07/11/18 11:18 07/11/18 11:18 07/11/18 11:18 07/11/18 11:18 Exam: general - aox3, mildly uncomfortable, laying in bed, speaking in full sentences heent - MMM, NCAT, no scleral icterus neck - no jvd, trachea midline cardio - rrr, s1s2 cta no mrg back - no rash. Tenderness in left upper back lungs - decreased breath sounds L > R, mild coarse breath sounds, not in respiratory distress abd - soft, obese, ntnd, no peritoneal signs or rebound/guarding extremities - moves all extremities equally, strength 5/5 UE/LE neuro - no FND, sensation intact psych - tearful on examination, anxious skin - warm,dry,intact - Assessment and Plan (1) Empyema Current Visit: Yes Status: Acute Assessment and Plan: Empyema of the left lung with extrathoracic extension demonstrated on CT chest Patient appears stable at this time although he does have significant back pain and pain with deep inspiration Vital signs remained stable, he is afebrile, he has no evidence of tachycardia or hypotension. He is not requiring supplemental oxygen at this time The patient does have a leukocytosis however it is consistent with prior. CT surge consulted, plan for surgery on Saturday morning if patient is amicable (2) Pneumonia Current Visit: Yes Status: Acute Assessment and Plan: Pt with increasing SOB, cough, congestion and sputum production; pleural effusion on left side present On 04/21/18 - large left pleural effusion drained by IR CT chest on 04/21/18 - Large left pleural effusion with complete atelectasis of the left lower lobe near total atelectasis of the left upper lobe. On 04/23/18 - Dr Wilson saw the pt for collapsed left lung, bronchoscopy performed at that time extrinsic compression in LLL with moderate airway narrowing BAL was performed SHAAN was negative for malignancy On 06/24/18 - large pleural effusion seen On 07/10/18 - More confluent left lower lobe opacification and effusion. Stable cardiomegaly In April pt had 1200 mL fluid drained from pleural effusion, Light's criteria suggested exudative pathology Cytopathology report showing no malignancy from biopsies performed Pleural effusion pathology report negative for maligancy ECHO on last evaluation: - LVEF 60-65%. - Normal LV chamber size, wall thickness and function. Pt does have a leukocytosis but doesn't meet criteria for SIRS Plan: - continue abx vancomycin and zosyn day 1 - urine antigens pending - continue telemetry monitoring - keep O2 sat >88% - duonebs - consult to pulmonology, pt needs outpatient follow up (3) Hypokalemia Current Visit: Yes Status: Acute Assessment and Plan: Potassium 2.9 on admission. Replaced PO in the ER. Continue to montior daily. Replace PRN (4) Former tobacco use Current Visit: No Status: Chronic Assessment and Plan: Quit three years ago. Screened for current tobacco use, denies. (5) Chronic back pain Current Visit: No Status: Chronic Assessment and Plan: Continue home pain meds when medicaion list reconciled. (6) Obesity (BMI 30.0-34.9) Current Visit: No Status: Chronic Assessment and Plan: chronic, BMI 34.3 (7) DVT prophylaxis Current Visit: No Status: Acute Assessment and Plan: sq heparin (8) Leukocytosis Current Visit: Yes Status: Acute Assessment and Plan: WBC count 13.5 on admission. Likely secondary to PNA/pleural effusion. Continue to monitor. - Time Spent with Patient Total time spent is greater than 50% in coordination of care (as documented) at patient's floor/unit and/or counseling patient: Internal Medicine: Result - Labs CBC & Chem 7: 07/11/18 00:52 07/11/18 00:52 Labs: Short CBC 07/11/18 Range/Units 00:52 WBC 12.5 H (4.3-11.1) K/mcL Hgb 9.0 L (12.9-16.9) g/dL Hct 30.0 L (37.5-50.1) % Plt Count 253 (140-400) K/mcL BMP 07/11/18 00:52 Sodium 137 Potassium 3.5 Chloride 97 L Carbon Dioxide 31 H BUN 6 Creatinine 0.83 Glucose 89 Calcium 8.2 L Liver Function 07/10/18 Range/Units 16:59 Total Bilirubin 0.5 (0.3-1.0) mg/dL Direct Bilirubin 0.1 (0.0-0.2) mg/dL AST 157 H (13-39) Units/L ALT 87 H (7-52) Units/L Alkaline Phosphatase 127 H (34-104) Units/L Albumin 3.3 L (3.5-5.7) g/dL - ABG Interpretation ABG results: PT/INR, D-dimer PT 17.8 Seconds (9.4-12.1) H 07/11/18 00:52 - Impressions Impressions Chest Ultrasound 07/10/18 21:28 IMPRESSION: Small left pleural effusion, with insufficient fluid for a thoracentesis at this time. D/ / Dragan Hyde MD / Dragan Hyde MD Interpreting Provider: Dragan Hyde MD Abdomen/Pelvis CT 07/11/18 15:00 IMPRESSION: Complex left pleural effusion with enhancing, thickened pleura, concerning for formation of an empyema. In addition, there is extra thoracic extension of that, either through direct invasion of the wall or from seeding from a previous thoracentesis, with multiple abscesses now seen adjacent to the rib cage. Multiple enlarged mediastinal lymph nodes, presumably reactive, but follow-up of these is recommended to ensure stability or resolution. No acute abnormalities identified within the abdomen pelvis. Moderate splenomegaly. Cholelithiasis. D/ / Chon Chiu MD / Chon Chiu MD Interpreting Provider: Chon Chiu MD Chest CT 07/11/18 15:00 IMPRESSION: Complex left pleural effusion with enhancing, thickened pleura, concerning for formation of an empyema. In addition, there is extra thoracic extension of that, either through direct invasion of the wall or from seeding from a previous thoracentesis, with multiple abscesses now seen adjacent to the rib cage. Multiple enlarged mediastinal lymph nodes, presumably reactive, but follow-up of these is recommended to ensure stability or resolution. No acute abnormalities identified within the abdomen pelvis. Moderate splenomegaly. Cholelithiasis. D/ / Chon Chiu MD / Chon Chiu MD Interpreting Provider: Chon Chiu MD Consult Discharge Plan - Plan Referrals: Kip Rojas DO [Primary Care Provider] - <Dustin Ribera - Last Filed: 07/13/18 08:06> Hospitalist Progress Note - Encounter Date of Encounter: 07/11/18 - Exam Vitals: Temp Pulse Resp BP Pulse Ox 98.6 F 84 16 117/76 98 07/13/18 07:39 07/13/18 07:39 07/13/18 07:39 07/13/18 07:39 07/13/18 07:39 - Assessment and Plan (1) Pneumonia Current Visit: Yes Status: Acute (2) Hypokalemia Current Visit: Yes Status: Acute (3) Former tobacco use Current Visit: No Status: Chronic (4) DVT prophylaxis Current Visit: No Status: Acute (5) Chronic back pain Current Visit: No Status: Chronic (6) Obesity (BMI 30.0-34.9) Current Visit: No Status: Chronic (7) Empyema Current Visit: Yes Status: Acute (8) Shoulder pain, right Current Visit: Yes Status: Acute - Time Spent with Patient Total time spent is greater than 50% in coordination of care (as documented) at patient's floor/unit and/or counseling patient: Internal Medicine: Result - Labs CBC & Chem 7: 07/13/18 04:20 07/13/18 04:20 Labs: Short CBC 07/13/18 Range/Units 04:20 WBC 13.5 H (4.3-11.1) K/mcL Hgb 10.1 L (12.9-16.9) g/dL Hct 35.7 L (37.5-50.1) % Plt Count 266 (140-400) K/mcL Neutrophils # 11.2 H (1.6-8.9) K/mcL BMP 07/13/18 04:20 Sodium 138 Potassium 3.6 Chloride 98 Carbon Dioxide 31 H BUN 6 Creatinine 1.20 Glucose 92 Calcium 8.9 - ABG Interpretation ABG results: PT/INR, D-dimer PT 17.8 Seconds (9.4-12.1) H 07/11/18 00:52 - Attending Attestation Please see event note of this date <Lucho Pruett - Last Filed: 07/11/18 18:42> (2) Pneumonia Qualifiers: Pneumonia type: due to Pneumococcus Laterality: left Lung location: lower lobe of lung Qualified Code(s): J13 - Pneumonia due to Streptococcus pneumoniae (5) Chronic back pain Qualifiers: Back pain location: low back pain Back pain laterality: bilateral Sciatica presence: with sciatica Sciatica laterality: bilateral sciatica Qualified Code(s): M54.42 - Lumbago with sciatica, left side; M54.41 - Lumbago with sciatica, right side; G89.29 - Other chronic pain (8) Leukocytosis Qualifiers: Leukocytosis type: unspecified Qualified Code(s): D72.829 - Elevated white blood cell count, unspecified <Dustin Ribera - Last Filed: 07/13/18 08:06> (1) Pneumonia Qualifiers: Pneumonia type: due to Pneumococcus Laterality: left Lung location: lower lobe of lung Qualified Code(s): J13 - Pneumonia due to Streptococcus pneumoniae (5) Chronic back pain Qualifiers: Back pain location: low back pain Back pain laterality: bilateral Sciatica presence: with sciatica Sciatica laterality: bilateral sciatica Qualified Code(s): M54.42 - Lumbago with sciatica, left side; M54.41 - Lumbago with sciatica, right side; G89.29 - Other chronic pain (8) Shoulder pain, right Qualifiers: Chronicity: acute Qualified Code(s): M25.511 - Pain in right shoulder
--- NOTE | 2018-07-11 18:50 | Event Note ---
Date of Encounter: 07/11/18 Time of Encounter: 15:00 I examined this patient and my medical decision-making was reviewed with the Resident Physician on 07/11/18. I agree with the documented findings, disposition and treatment plan as described except to the extent set forth below. Mr Hutson is currently hospitalized for recurrent pleural effusion with dyspnea. He remains moderate to high risk due to potential for worsening clinical status. Mr Hutson is resting. No fever or chills. Breathing about the same. No GI issues. Exam alert Comfortable Mucus membranes dry Heart not tachy No wheeze abd soft No edema I/P 1. Pleural effusion - to have CT today Further diagnoses and plan per progress note of this date.
[2018-07-11] MEDS: Lurasidone 20 MG TABLET PO SCH (20:22)
[2018-07-12] MEDS: *HR* OxyCODONE ER (12 HR) 20 MG TABLET PO SCH ×2 (00:31→13:23)
[2018-07-12 01:45] LABS: Basophils % 0.1 %; Eosinophils # 0.2 K/mcL (0.0-0.6); Eosinophils % 1.2 %; Immature Granulocytes % 0.5 % (0-4); Immature Platelets 2.6 % (1.1-6.1); Lymphocytes # 0.7 K/mcL (0.6-4.6); Lymphocytes % 4.4 %; Mean Corpuscular Hemoglobin 24.7 pg (28.0-33.3); Mean Corpuscular Volume 82.2 fL (83.0-100.0); Mean Platelet Volume 10.2 fL (9.4-12.4); Monocytes # 0.3 K/mcL (0.0-1.3); Monocytes % 2.1 %; Platelet Count 229 K/mcL (140-400); Red Blood Count 3.65 M/mcL (4.19-5.50); Segmented Neutrophils % 91.7 %; White Blood Count 15.3 K/mcL (4.3-11.1)
[2018-07-12 02:03] LABS: BUN/Creatinine Ratio 6 (6-26); Blood Urea Nitrogen 6 mg/dL (6-20); Calcium 7.9 mg/dL (8.6-10.3); Carbon Dioxide 29 mEq/L (23-29); Chloride 100 mEq/L (98-107); Glucose 120 mg/dL (70-105); Osmolality,Calculated 279 (280-300); Potassium 4.2 mEq/L (3.5-5.1); Sodium 135 mEq/L (136-145); eGFR For African Americans > 60 (> 60); eGFR For Non-African Americans > 60 (> 60)
[2018-07-12] MEDS: *HR* OxyCODONE/APAP 10/325 TABLET PO PRN ×3 (03:56→20:16)
[2018-07-12] MEDS: *HR* Heparin 5,000 UNIT/ML VIAL SQ SCH ×3 (06:09→22:38)
--- NOTE | 2018-07-12 06:43 | Pulmonology Progress Note ---
Date of Encounter: 07/12/18 Time of Encounter: 06:43 Assessment and Plan (1) Pleural effusion Current Visit: Yes Status: Acute Patient has empyema necessitants and is scheduled for definitive therapy with VATS decortication he will need a prolonged course of antibiotics including anaerobic coverage likely for the next 3-6 weeks based upon clinical/radi ographic resolution. (2) Lymphadenopathy Current Visit: Yes Status: Acute This is reactive likely secondary to infectious process (3) Transaminitis Current Visit: Yes Status: Acute Workup per primary team Do not hesitate to call me with any questions or concerns Gen Kumar [phone] Subjective Principal diagnosis: Pleural Effusion Interval history: Today he states that he is feeling nauseous and generally not feeling too good. Denies any chest pain vomiting hemoptysis fevers or chills. Underwent CT of the chest abdomen and pelvis with evidence of empyema along with the invasion into the left thorax Objective PUL Vital signs: Last Vital Signs Temp 99.7 F H 07/12/18 03:09 Pulse 100 07/12/18 03:09 Resp 16 07/12/18 03:09 BP 125/78 07/12/18 03:09 Pulse Ox 96 07/12/18 03:09 General appearance: no acute distress Eyes: nonicteric ENT: oropharynx dry Effort: normal Auscultation: left: diminished breath sounds Cardiovascular: regular rate and rhythm Gastrointestinal: normoactive bowel sounds, soft, non-tender Integumentary: normal Extremities: edema Musculoskeletal: no deformities normal mental status, non-focal exam mood appropriate Results - Laboratory Findings CBC and BMP: 07/12/18 01:15 07/12/18 01:15 PT/INR, D-dimer PT 17.8 Seconds (9.4-12.1) H 07/11/18 00:52 Abnormal lab findings: Abnormal lab results WBC 15.3 K/mcL (4.3-11.1) H 07/12/18 01:15 RBC 3.65 M/mcL (4.19-5.50) L 07/12/18 01:15 Hgb 9.0 g/dL (12.9-16.9) L 07/12/18 01:15 Hct 30.0 % (37.5-50.1) L 07/12/18 01:15 MCV 82.2 fL (83.0-100.0) L 07/12/18 01:15 MCH 24.7 pg (28.0-33.3) L 07/12/18 01:15 MCHC 30.0 g/dL (31.6-35.5) L 07/12/18 01:15 RDW 16.0 % (11.5-14.5) H 07/12/18 01:15 14.0 K/mcL (1.6-8.9) H 07/12/18 01:15 PT 17.8 Seconds (9.4-12.1) H 07/11/18 00:52 APTT 37.2 Seconds (26.0-36.0) H 07/10/18 16:31 Sodium 135 mEq/L (136-145) L 07/12/18 01:15 Potassium 2.9 mEq/L (3.5-5.1) L 07/10/18 16:59 Chloride 97 mEq/L (98-107) L 07/11/18 00:52 Carbon Dioxide 31 mEq/L (23-29) H 07/11/18 00:52 Glucose 120 mg/dL (70-105) H 07/12/18 01:15 279 (280-300) L 07/12/18 01:15 Calcium 7.9 mg/dL (8.6-10.3) L 07/12/18 01:15 AST 157 Units/L (13-39) H 07/10/18 16:59 ALT 87 Units/L (7-52) H 07/10/18 16:59 127 Units/L (34-104) H 07/10/18 16:59 6.1 g/dL (6.4-8.9) L 07/10/18 16:59 3.3 g/dL (3.5-5.7) L 07/10/18 16:59 0.44 ng/mL (0.00-0.15) H 07/11/18 09:41 Positive ng/mL (Nvjoco=383) H 07/11/18 16:00 U Benzodiazepines Scrn Positive ng/mL (Ialvgt=062) H 07/11/18 16:00 - Diagnostic Findings Chest x-ray: report reviewed, image reviewed - Clinical Findings Intake & Output: Intake & Output 07/11/18 07/11/18 07/12/18 15:59 23:59 07:59 Intake Total 740 / 1790 700 / 1790 100 / 100 Output Total 300 / 700 600 / 600 Balance 440 / 1090 700 / 1090 -500 / -500 Consult Discharge Plan - Plan Referrals: Kip Rojas DO [Primary Care Provider] -
[2018-07-12] MEDS: Piperacillin/Tazobactam 3.375 GM in 0.9 % Sodium Chloride Mini Bag 100 ML IVPB SCH ×2 (08:04→15:15)
[2018-07-12] MEDS: BuPROPion XL (24 HR) 150 MG TABLET PO SCH (08:05)
[2018-07-12] MEDS: Magnesium Oxide 400 MG TABLET PO SCH (08:05)
[2018-07-12] MEDS: Pregabalin 50 MG CAPSULE PO SCH ×3 (08:05→20:16)
--- NOTE | 2018-07-12 08:05 | Cardiothoracic Consult Note ---
Date of Encounter: 07/12/18 Time of Encounter: 08:05 Assessment and Plan (1) Empyema Current Visit: Yes Status: Acute The patient is a 43-year-old man with a history of COPD and recurrent left pleural effusions. He has undergone repeated left thoracenteses during the last 2-3 months with recurrent symptoms after each procedure. During this admission a chest CT was performed which revealed a left empyema with extension to the chest wall. The patient will undergo a left thoracotomy with decortication by Dr. Tyson Almaguer tomorrow. The assessment and plan as outlined above was discussed with the patient and/or family members who expressed understanding and agreement. All questions were answered. - History of Present Illness Consult date: 07/12/18 Requesting physician: Lucho Pruett Consult reason: Left chest empyema Chief complaint: Shortness of breath, left lateral chest wall pain History of present illness: Mr. Hutson is a 43 year old and with COPD who is admitted to [facility] on 05/10/2018 with complaints of shortness of breath and left lateral chest wall pain. The patient has undergone three left thoracenteses in the last 2-3 months. After each thoracentesis he had improvement in his breathing status; however, is shortness of breath would recur. Prior to this a dmission, the patient complained of shortness of breath and weakness. He was evaluated at [facility] emergency department and a chest x- ray revealed a left lower lobe opacification with recurrent left pleural effusion. A chest CT performed yesterday revealed a complex left pleural effusion with pleural thickening as well as an extrathoracic chest wall mass thought to be due to extension of the pleural process. I have been asked to evaluate the patient for possible surgical intervention. Past Med Surg Social Fam HX - Past Medical History Medical history: COPD, other Additional medical history: CHRONIC BACK PAIN, collapsed lung, pneumonia, perstistant plurocy Psychiatric history: depression - Past Surgical History Surgical History: no surgical history Additional surgical history: back, lung surgery. nerve stimulator implant in left hip. left foot sx - Social History Smoking Status: Former smoker Packs per day: 1PPD x 20YRS (quit 2015) Smokeless Tobacco Status: No Alcohol use: none Drug use: none Occupational status: previously employed Current living situation: Home - Independent Activity Level: Independent ambulation Recent Out of Country Travel Within the Last 8 Weeks: No Exposure or Possible Exposure to Illness During Travel: No - Family History Mother Adopted: No Age: 62 Family Member Ethnicity: Non- Living Status: Still Living Hx Family Cardiac Disorders: No Hx Family Respiratory Disorders: Yes (Asthma) Hx Family Cancer: No Hx Family GI Disorders: No Hx Family Genitourinary Disorders: No Hx Family Endocrine Disorder: No Hx Family Musculoskeletal Disorders: No Hx Family Neuromuscular Disorders: No Hx Family Neurologic Disorders: No Hx Family HEENT Disorders: No Hx Family Autoimmune Disorders: No Hx Family Reproductive Disorders: No Hx Family Psychosocial Disorders: No Hx Family Medical Disorders: No Father Family Member Ethnicity: Non- Living Status: Hx Family Cardiac Disorders: Yes (triple bypass) Hx Family Cancer: Yes (gi) Hx Family GI Disorders: No Hx Family Genitourinary Disorders: No Hx Family Endocrine Disorder: No Hx Family Musculoskeletal Disorders: No Hx Family Neuromuscular Disorders: No Hx Family Neurologic Disorders: No Hx Family HEENT Disorders: No Hx Family Autoimmune Disorders: No Hx Family Reproductive Disorders: No Hx Family Psychosocial Disorders: No Hx Family Medical Disorders: No Medications and Allergies Bupropion HCl [Wellbutrin Xl] 300 mg PO QAM 04/21/18 [History] Cyclobenzaprine [Flexeril] 10 mg PO HS 04/21/18 [History] Fesoterodine Fumarate [Toviaz] 8 mg PO HS 04/21/18 [History] Lurasidone HCl [Latuda] 60 mg PO HS 04/21/18 [History] OxyCODONE ER (12 HR) [OxyCONTIN] 20 mg PO Q12H 04/21/18 [History] Oxycodone HCl/Acetaminophen [Percocet 10-325 mg Tablet] 1 each PO Q4H PRN 04/21/18 [History] Pregabalin [Lyrica] 100 mg PO TID 04/21/18 [History] Sertraline [Zoloft] 100 mg PO HS 04/21/18 [History] diazePAM [Valium] 10 mg PO HS 07/11/18 [History] Allergy/AdvReac Type Severity Reaction Status Date / Time morphine Allergy Anaphylaxis Verified 07/11/18 11:34 All Systems Review: The remainder of the systems were reviewed and are negative Physical Examination General: Conversant, No Apparent Distress HEENT: Atraumatic, Normocephaly, Trachea midline Neck: No JVD, Normal carotid pulses Cardiac: Reg Rate and Rhythm, Normal S1 and S2, No Murmur Lungs: Normal Breath Sounds (Right lung phillips), Decreased breath sounds (Left lung phillips) Neuro: Alert and responsive, No focal deficits noted, Motor nerves intact, Sensory nerves intact Vascular: Normal capillary refill Abdomen: Soft, Non-tender Skin: No rashes noted on visualized skin Musculoskeletal: Other (Left lateral chest wall induration consistent with abscess, no induration noted.) Extremities: No Clubbing, No Cyanosis, No Edema, Normal Pulses Results 07/12/18 01:15 07/12/18 01:15 Lab Results, Last 24 hours 07/12/18 07/12/18 01:15 01:15 WBC 15.3 H Hgb 9.0 L Hct 30.0 L Plt Count 229 Sodium 135 L Potassium 4.2 Chloride 100 Carbon Dioxide 29 BUN 6 Creatinine 1.06 Glucose 120 H Calcium 7.9 L - Imaging Chest Xray: image reviewed (Left lower lobe consolidation and recurrent left pleural effusion.) Consult Discharge Plan - Plan Referrals: Kip Rojas DO [Primary Care Provider] -
--- NOTE | 2018-07-12 08:56 | Internal Med Progress Note ---
<Lucho Pruett - Last Filed: 07/12/18 11:33> Hospitalist Progress Note - Encounter Date of Encounter: 07/12/18 Time of Encounter: 10:30 - Subjective Interval History: Patient is resting in bed at time of examination. He says that he is having pain in his right shoulder which she thinks is musculoskeletal. He otherwise says that he had no K night. He did have pain in his back and he says that his breathing is continuing to cause pain. Otherwise he has no acute complaints. - Exam Vitals: Temp Pulse Resp BP Pulse Ox 97.6 F 82 16 113/71 91 07/12/18 08:06 07/12/18 08:06 07/12/18 08:06 07/12/18 08:06 07/12/18 08:06 Exam: general - aox3, mildly uncomfortable, laying in bed, speaking in full sentences heent - MMM, NCAT, no scleral icterus neck - no jvd, trachea midline cardio - rrr, s1s2 cta no mrg back - no rash. Tenderness in left upper back, as well as upper right scapular region and shoulder as well as tenderness with rotation and flexion of shoulder. lungs - decreased breath sounds L > R, mild coarse breath sounds, not in respiratory distress abd - soft, obese, ntnd, no peritoneal signs or rebound/guarding extremities - moves all extremities equally, strength 5/5 UE/LE neuro - no FND, sensation intact psych - tearful on examination, anxious skin - warm,dry,intact - Assessment and Plan (1) Empyema Current Visit: Yes Status: Acute Assessment and Plan: Empyema of the left lung with extrathoracic extension demonstrated on CT chest Patient appears stable at this time although he does have significant back pain and pain with deep inspiration Vital signs remained stable, he is afebrile. He did have one episode of tachycardia overnight. He is not requiring supplemental oxygen at this time Leukocytosis continues to elevate, up to 15.[address] surg consulted, plan for surgery on Saturday morning if patient is amicable Currently treated with Vancomycin and Zosyn Day 2 (2) Pneumonia Current Visit: Yes Status: Acute Assessment and Plan: Pt with increasing SOB, cough, congestion and sputum production; pleural effusion on left side present On 04/21/18 - large left pleural effusion drained by IR CT chest on 04/21/18 - Large left pleural effusion with complete atelectasis of the left lower lobe near total atelectasis of the left upper lobe. On 04/23/18 - Dr Wilson saw the pt for collapsed left lung, bronchoscopy performed at that time extrinsic compression in LLL with moderate airway narrowing BAL was performed SHAAN was negative for malignancy On 06/24/18 - large pleural effusion seen On 07/10/18 - More confluent left lower lobe opacification and effusion. Stable cardiomegaly In April pt had 1200 mL fluid drained from pleural effusion, Light's criteria suggested exudative pathology Cytopathology report showing no malignancy from biopsies performed Pleural effusion pathology report negative for maligancy ECHO on last evaluation: - LVEF 60-65%. - Normal LV chamber size, wall thickness and function. Pt does have a leukocytosis but doesn't meet criteria for SIRS Plan: - continue abx vancomycin and zosyn day 2 - urine antigens pending - continue telemetry monitoring - keep O2 sat >88% - duonebs - consult to pulmonology, pt needs outpatient follow up (3) Hypokalemia Current Visit: Yes Status: Acute Assessment and Plan: Potassium 2.9 on admission. Replaced PO in the ER. Continue to monitor daily. Replace PRN (4) Former tobacco use Current Visit: No Status: Chronic Assessment and Plan: Quit three years ago. Screened for current tobacco use, denies. (5) Chronic back pain Current Visit: No Status: Chronic Assessment and Plan: Continue home pain meds when medicaion list reconciled. (6) Obesity (BMI 30.0-34.9) Current Visit: No Status: Chronic Assessment and Plan: chronic, BMI 34.3 (7) DVT prophylaxis Current Visit: No Status: Acute Assessment and Plan: sq heparin (8) Shoulder pain, right Current Visit: Yes Status: Acute Assessment and Plan: Right shoulder pain, musculoskeletal in nature. Patient has suffered no acute injury, started overnight Very likely related to position he slept in He has Flexeril ordered along with other medications for pain We will also give Toradol - Time Spent with Patient Total time spent is greater than 50% in coordination of care (as documented) at patient's floor/unit and/or counseling patient: Internal Medicine: Result - Labs CBC & Chem 7: 07/12/18 01:15 07/12/18 01:15 Labs: Short CBC 07/12/18 Range/Units 01:15 WBC 15.3 H (4.3-11.1) K/mcL Hgb 9.0 L (12.9-16.9) g/dL Hct 30.0 L (37.5-50.1) % Plt Count 229 (140-400) K/mcL Neutrophils # 14.0 H (1.6-8.9) K/mcL BMP 07/12/18 01:15 Sodium 135 L Potassium 4.2 Chloride 100 Carbon Dioxide 29 BUN 6 Creatinine 1.06 Glucose 120 H Calcium 7.9 L - ABG Interpretation ABG results: PT/INR, D-dimer PT 17.8 Seconds (9.4-12.1) H 07/11/18 00:52 - Impressions Impressions Chest Ultrasound 07/10/18 21:28 IMPRESSION: Small left pleural effusion, with insufficient fluid for a thoracentesis at this time. D/ / Dragan Hyde MD / Dragan Hyde MD Interpreting Provider: Dragan Hyde MD Abdomen/Pelvis CT 07/11/18 15:00 IMPRESSION: Complex left pleural effusion with enhancing, thickened pleura, concerning for formation of an empyema. In addition, there is extra thoracic extension of that, either through direct invasion of the wall or from seeding from a previous thoracentesis, with multiple abscesses now seen adjacent to the rib cage. Multiple enlarged mediastinal lymph nodes, presumably reactive, but follow-up of these is recommended to ensure stability or resolution. No acute abnormalities identified within the abdomen pelvis. Moderate splenomegaly. Cholelithiasis. D/ / Chon Chiu MD / Chon Chiu MD Interpreting Provider: Chon Chiu MD Chest CT 07/11/18 15:00 IMPRESSION: Complex left pleural effusion with enhancing, thickened pleura, concerning for formation of an empyema. In addition, there is extra thoracic extension of that, either through direct invasion of the wall or from seeding from a previous thoracentesis, with multiple abscesses now seen adjacent to the rib cage. Multiple enlarged mediastinal lymph nodes, presumably reactive, but follow-up of these is recommended to ensure stability or resolution. No acute abnormalities identified within the abdomen pelvis. Moderate splenomegaly. Cholelithiasis. D/ / Chon Chiu MD / Chon Chiu MD Interpreting Provider: Chon Chiu MD Consult Discharge Plan - Plan Referrals: Kip Rojas DO [Primary Care Provider] - <Dustin Ribera - Last Filed: 07/12/18 17:11> Hospitalist Progress Note - Encounter Date of Encounter: 07/12/18 - Exam Vitals: Temp Pulse Resp BP Pulse Ox 98.3 F 80 18 112/75 91 07/12/18 15:23 07/12/18 15:23 07/12/18 15:23 07/12/18 15:23 07/12/18 15:23 - Assessment and Plan (1) Pneumonia Current Visit: Yes Status: Acute (2) Hypokalemia Current Visit: Yes Status: Acute (3) Former tobacco use Current Visit: No Status: Chronic (4) DVT prophylaxis Current Visit: No Status: Acute (5) Chronic back pain Current Visit: No Status: Chronic (6) Obesity (BMI 30.0-34.9) Current Visit: No Status: Chronic (7) Empyema Current Visit: Yes Status: Acute (8) Shoulder pain, right Current Visit: Yes Status: Acute - Time Spent with Patient Total time spent is greater than 50% in coordination of care (as documented) at patient's floor/unit and/or counseling patient: Internal Medicine: Result - Labs CBC & Chem 7: 07/12/18 01:15 07/12/18 01:15 Labs: Short CBC 07/12/18 Range/Units 01:15 WBC 15.3 H (4.3-11.1) K/mcL Hgb 9.0 L (12.9-16.9) g/dL Hct 30.0 L (37.5-50.1) % Plt Count 229 (140-400) K/mcL Neutrophils # 14.0 H (1.6-8.9) K/mcL BMP 07/12/18 01:15 Sodium 135 L Potassium 4.2 Chloride 100 Carbon Dioxide 29 BUN 6 Creatinine 1.06 Glucose 120 H Calcium 7.9 L - ABG Interpretation ABG results: PT/INR, D-dimer PT 17.8 Seconds (9.4-12.1) H 07/11/18 00:52 - Attending Attestation I examined this patient and my medical decision-making was reviewed with the Resident Physician on 07/12/18. I agree with the documented findings, disp osition and treatment plan as described except to the extent set forth below. Mr Hutson is currently admitted for empyema. He remains moderate to high risk due to potential for worsening clinical status. Mr Hutson is resting in bed. He is having some pain in his chest. He is going to OR tomorrow. No fever or chills. 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 <Lucho Pruett - Last Filed: 07/12/18 11:33> (2) Pneumonia Qualifiers: Pneumonia type: due to Pneumococcus Laterality: left Lung location: lower lobe of lung Qualified Code(s): J13 - Pneumonia due to Streptococcus pneumoniae (5) Chronic back pain Qualifiers: Back pain location: low back pain Back pain laterality: bilateral Sciatica presence: with sciatica Sciatica laterality: bilateral sciatica Qualified Code(s): M54.42 - Lumbago with sciatica, left side; M54.41 - Lumbago with sciatica, right side; G89.29 - Other chronic pain (8) Shoulder pain, right Qualifiers: Chronicity: acute Qualified Code(s): M25.511 - Pain in right shoulder <Dustin Ribera - Last Filed: 07/12/18 17:11> (1) Pneumonia Qualifiers: Pneumonia type: due to Pneumococcus Laterality: left Lung location: lower lobe of lung Qualified Code(s): J13 - Pneumonia due to Streptococcus pneumoniae (5) Chronic back pain Qualifiers: Back pain location: low back pain Back pain laterality: bilateral Sciatica presence: with sciatica Sciatica laterality: bilateral sciatica Qualified Code(s): M54.42 - Lumbago with sciatica, left side; M54.41 - Lumbago with sciatica, right side; G89.29 - Other chronic pain (8) Shoulder pain, right Qualifiers: Chronicity: acute Qualified Code(s): M25.511 - Pain in right shoulder
[2018-07-12] MEDS ORDERED: Ketorolac 15 MG/ML VIAL IVP ONE (11:36)
[2018-07-12] MEDS: Lurasidone 20 MG TABLET PO SCH (20:16)
[2018-07-13] MEDS: *HR* OxyCODONE ER (12 HR) 20 MG TABLET PO SCH ×2 (00:33→15:13)
[2018-07-13] MEDS: Piperacillin/Tazobactam 3.375 GM in 0.9 % Sodium Chloride Mini Bag 100 ML IVPB SCH ×3 (00:34→16:16)
[2018-07-13] MEDS: *HR* Heparin 5,000 UNIT/ML VIAL SQ SCH ×2 (05:09→20:54)
[2018-07-13 05:42] LABS: Basophils % 0.1 %; Eosinophils # 0.3 K/mcL (0.0-0.6); Eosinophils % 2.1 %; Hematocrit 35.7 % (37.5-50.1); Hemoglobin 10.1 g/dL (12.9-16.9); Immature Granulocytes % 0.5 % (0-4); Lymphocytes # 1.4 K/mcL (0.6-4.6); Lymphocytes % 10.7 %; Mean Corpuscular HGB Conc 28.3 g/dL (31.6-35.5); Mean Corpuscular Hemoglobin 23.8 pg (28.0-33.3); Mean Platelet Volume 10.5 fL (9.4-12.4); Monocytes # 0.5 K/mcL (0.0-1.3); Monocytes % 3.6 %; Neutrophils # 11.2 K/mcL (1.6-8.9); Platelet Count 266 K/mcL (140-400); Red Blood Count 4.25 M/mcL (4.19-5.50); Red Cell Distribution Width 16.3 % (11.5-14.5); White Blood Count 13.5 K/mcL (4.3-11.1)
[2018-07-13 06:05] LABS: BUN/Creatinine Ratio 5 (6-26); Blood Urea Nitrogen 6 mg/dL (6-20); Calcium 8.9 mg/dL (8.6-10.3); Carbon Dioxide 31 mEq/L (23-29); Chloride 98 mEq/L (98-107); Glucose 92 mg/dL (70-105); Osmolality,Calculated 283 (280-300); Potassium 3.6 mEq/L (3.5-5.1); Sodium 138 mEq/L (136-145); eGFR For African Americans > 60 (> 60); eGFR For Non-African Americans > 60 (> 60)
[2018-07-13 06:17] LABS: Hypochromasia Present (Not Present); Platelet Estimate Normal (Normal); Polychromasia 1+ (Not Present)
[2018-07-13] MEDS: *HR* OxyCODONE/APAP 10/325 TABLET PO PRN ×3 (07:36→20:54)
--- NOTE | 2018-07-13 07:47 | Anesthesia Evaluation PreOp ---
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: Other (chronic back pain S/P SC stimulator) Other Medical History: Other (anxiety/depression) Anesthesia History: No Prior Anesthetic Complications, Past Anesthesia (spinal cord stimulator) Alcohol Use: none Drug use: none Medications and Allergies Bupropion HCl [Wellbutrin Xl] 300 mg PO QAM 04/21/18 [History] Cyclobenzaprine [Flexeril] 10 mg PO HS 04/21/18 [History] Fesoterodine Fumarate [Toviaz] 8 mg PO HS 04/21/18 [History] Lurasidone HCl [Latuda] 60 mg PO HS 04/21/18 [History] OxyCODONE ER (12 HR) [OxyCONTIN] 20 mg PO Q12H 04/21/18 [History] Oxycodone HCl/Acetaminophen [Percocet 10-325 mg Tablet] 1 each PO Q4H PRN 04/21/18 [History] Pregabalin [Lyrica] 100 mg PO TID 04/21/18 [History] Sertraline [Zoloft] 100 mg PO HS 04/21/18 [History] diazePAM [Valium] 10 mg PO HS 07/11/18 [History] Allergy/AdvReac Type Severity Reaction Status Date / Time morphine Allergy Anaphylaxis Verified 07/11/18 11:34 - Meds/Allergy Pre-op Review Medications Reviewed: Yes Allergies Reviewed: Yes Beta Blockers on Current Med List: No Anesthesia Results - Labs 07/13/18 04:20 07/13/18 04:20 - Imaging EKG: report reviewed (07/10/2018 Technically poor tracing - please repeat ECG Probable sinus rhythm Nonspecific ST-T abnormalities) Chest x-ray: report reviewed (07/10/2018 IMPRESSION: More confluent left lower lobe opacification and effusion. Stable cardiomegaly.) Additional studies: 07/11/2018 CT/CT chest w con IMPRESSION: Complex left pleural effusion with enhancing, thickened pleura, concerning for formation of an empyema. In addition, there is extra thoracic extension of that, either through direct invasion of the wall or from seeding from a previous thoracentesis, with multiple abscesses now seen adjacent to the rib cage. Multiple enlarged mediastinal lymph nodes, presumably reactive, but follow-up of these is recommended to ensure stability or resolution. No acute abnormalities identified within the abdomen pelvis. Moderate splenomegaly. Cholelithiasis. 04/21/2018 Echo Impressions: Technically challenging due to body habitus. Grossly normal LV systolic function. LV endocardial border not optimally visualized in all views. Mild left ventricular diastolic dysfunction. Normal right ventricular structure and function. No significant valvular dysfunction by Doppler. No pulmonary hypertension. Trivial pericardial effusion along the lateral border of the LV. No evidence for tamponade. Anesthesia Exam Vital Signs/O2 Sat, Most Current Temp Pulse Resp BP Pulse Ox 98.6 F 84 16 117/76 98 07/13/18 07:39 07/13/18 07:39 07/13/18 07:39 07/13/18 07:39 07/13/18 07:39 Height: 6'/1.83m Weight: 251 lbs/114.2 kg NPO (# of Hours): 8 Pain Scale: 8 (back) Pain Scale Used: Numeric (1 - 10) - HEENT Pupil (Motor): EOMI Mallampati: III Teeth: Poor dentition (only two decayed teeth upper jaw) Oral Opening: Greater than 3 - IN PROCESSING INSTRUCTOR LOC: Oriented IN PROCESSING INSTRUCTOR Motor: Normal RUE, Normal LUE, Normal LLE, Normal Face, Deficit RLE IN PROCESSING INSTRUCTOR Sensory: Normal: RUE, LUE, RLE, LLE, Face - Cardiac Rhythm: Regular Murmur: None - Pulmonary Breath Sounds: bilateral Clear (diminished BS left) Respiratory Effort: Symmetrical Anesthesia Assess/Plan ASA Score: 3 Level of consciousness: Cooperative, Oriented, Tranquil Anesthetic Plan: General Monitoring Plan: Standard Monitors Recovery Plan: PACU
--- NOTE | 2018-07-13 08:41 | Internal Med Progress Note ---
<Lucho Pruett - Last Filed: 07/13/18 16:39> Hospitalist Progress Note - Encounter Date of Encounter: 07/13/18 Time of Encounter: 09:00 - Subjective Interval History: Patient is resting comfortably in bed at time of examination. He is nervous about his procedure today however he would like to get it over with. He continues to have significant pain however he desaturates because of depressed respirations so he cannot get his pain medication as scheduled. No acute complaints at this time. - Exam Vitals: Temp Pulse Resp BP Pulse Ox 98.6 F 84 16 117/76 98 07/13/18 07:39 07/13/18 07:39 07/13/18 07:39 07/13/18 07:39 07/13/18 07:39 Exam: general - aox3, mildly uncomfortable, laying in bed, speaking in full sentences heent - MMM, NCAT, no scleral icterus neck - no jvd, trachea midline cardio - rrr, s1s2 cta no mrg back - no rash. Tenderness in left upper back, as well as upper right scapular region and shoulder as well as tenderness with rotation and flexion of shoulder. lungs - decreased breath sounds L > R, mild coarse breath sounds, not in respiratory distress abd - soft, obese, ntnd, no peritoneal signs or rebound/guarding extremities - moves all extremities equally, strength 5/5 UE/LE neuro - no FND, sensation intact psych - tearful on examination, anxious skin - warm,dry,intact - Assessment and Plan (1) Hypokalemia Current Visit: Yes Status: Acute Assessment and Plan: Potassium 2.9 on admission. Replaced PO in the ER. Continue to monitor daily. Replace PRN (2) Former tobacco use Current Visit: No Status: Chronic Assessment and Plan: Quit three years ago. Screened for current tobacco use, denies. (3) Chronic back pain Current Visit: No Status: Chronic Assessment and Plan: Continue home pain meds when medicaion list reconciled. (4) Obesity (BMI 30.0-34.9) Current Visit: No Status: Chronic Assessment and Plan: chronic, BMI 34.3 (5) DVT prophylaxis Current Visit: No Status: Acute Assessment and Plan: sq heparin (6) Empyema Current Visit: Yes Status: Acute Assessment and Plan: Empyema of the left lung with extrathoracic extension demonstrated on CT chest, plan for thoracotomy with decortication today Currently treated with Vancomycin and Zosyn Day 3 - Time Spent with Patient Total time spent is greater than 50% in coordination of care (as documented) at patient's floor/unit and/or counseling patient: Internal Medicine: Result - Labs CBC & Chem 7: 07/13/18 04:20 07/13/18 04:20 Labs: Short CBC 07/13/18 Range/Units 04:20 WBC 13.5 H (4.3-11.1) K/mcL Hgb 10.1 L (12.9-16.9) g/dL Hct 35.7 L (37.5-50.1) % Plt Count 266 (140-400) K/mcL Neutrophils # 11.2 H (1.6-8.9) K/mcL BMP 07/13/18 04:20 Sodium 138 Potassium 3.6 Chloride 98 Carbon Dioxide 31 H BUN 6 Creatinine 1.20 Glucose 92 Calcium 8.9 - ABG Interpretation ABG results: PT/INR, D-dimer PT 17.8 Seconds (9.4-12.1) H 07/11/18 00:52 Consult Discharge Plan - Plan Referrals: Kip Rojas DO [Primary Care Provider] - <Dustin Ribera - Last Filed: 07/13/18 16:48> Hospitalist Progress Note - Encounter Date of Encounter: 07/13/18 - Exam Vitals: Temp Pulse Resp BP Pulse Ox 98.9 F 90 15 123/64 100 07/13/18 14:26 07/13/18 16:15 07/13/18 16:15 07/13/18 16:15 07/13/18 16:15 - Assessment and Plan (1) Hypokalemia Current Visit: Yes Status: Acute (2) Former tobacco use Current Visit: No Status: Chronic (3) DVT prophylaxis Current Visit: No Status: Acute (4) Chronic back pain Current Visit: No Status: Chronic (5) Obesity (BMI 30.0-34.9) Current Visit: No Status: Chronic (6) Empyema Current Visit: Yes Status: Acute - Time Spent with Patient Total time spent is greater than 50% in coordination of care (as documented) at patient's floor/unit and/or counseling patient: Internal Medicine: Result - Labs CBC & Chem 7: 07/13/18 04:20 07/13/18 04:20 Labs: Short CBC 07/13/18 Range/Units 04:20 WBC 13.5 H (4.3-11.1) K/mcL Hgb 10.1 L (12.9-16.9) g/dL Hct 35.7 L (37.5-50.1) % Plt Count 266 (140-400) K/mcL Neutrophils # 11.2 H (1.6-8.9) K/mcL BMP 07/13/18 04:20 Sodium 138 Potassium 3.6 Chloride 98 Carbon Dioxide 31 H BUN 6 Creatinine 1.20 Glucose 92 Calcium 8.9 - ABG Interpretation ABG results: PT/INR, D-dimer PT 17.8 Seconds (9.4-12.1) H 07/11/18 00:52 - Impressions Impressions Chest X-Ray 07/13/18 15:32 IMPRESSION: Persistent left lung base opacity. Left chest tubes have been placed. No definite pneumothorax. D/ / 07/13/2018 16:29:38 Dragan Chopra MD / angelique Interpreting Provider: Dragan Chopra MD - Attending Attestation I examined this patient and my medical decision-making was reviewed with the Resident Physician on 07/13/18. I agree with the documented findings, disposition and treatment plan as described except to the extent set forth below. Mr Hutson is currently admitted for acute empyema. He remains moderate to high risk due to potential for worsening clinical status. Mr Hutson is waiting to go to surgery. Pain is about the same. No fever or chills. No GI issues. Exam alert Comfortable at this time Mucus membranes dry Heart not tachy Decreased breath sounds Abd soft I/P 1. Empyema - to OR today Further diagnoses and plan as above. <Lucho Pruett - Last Filed: 07/13/18 16:39> (3) Chronic back pain Qualifiers: Back pain location: low back pain Back pain laterality: bilateral Sciatica presence: with sciatica Sciatica laterality: bilateral sciatica Qualified Code(s): M54.42 - Lumbago with sciatica, left side; M54.41 - Lumbago with sciatica, right side; G89.29 - Other chronic pain <Dustin Ribera - Last Filed: 07/13/18 16:48> (4) Chronic back pain Qualifiers: Back pain location: low back pain Back pain laterality: bilateral Sciatica presence: with sciatica Sciatica laterality: bilateral sciatica Qualified Code(s): M54.42 - Lumbago with sciatica, left side; M54.41 - Lumbago with sciatica, right side; G89.29 - Other chronic pain
[2018-07-13] MEDS ORDERED: 0.9 % Sodium Chloride 1,000 ML IVC SCH (09:00)
[2018-07-13 09:29] LABS: Myeloperoxidase Ab 0 AU/mL (0-19); Serine Protease-3 Antibody 0 AU/mL (0-19)
[2018-07-13] MEDS ORDERED: Aminoglycoside Consult 1 EACH MC ONE (10:24)
[2018-07-13] MEDS ORDERED: *HR* HYDROmorphone (PF) 1 MG/ML SYRINGE IVP PRN (10:45)
[2018-07-13] MEDS ORDERED: Lidocaine -MPF 4% 5 ML AMPUL ONE ×2 (11:29→13:34)
[2018-07-13] MEDS ORDERED: *HR* FentaNYL (PF) 100 MCG/2 ML VIAL ONE (11:29)
[2018-07-13] MEDS ORDERED: *HR* Midazolam HCl 2 MG/2 ML VIAL ONE (11:30)
[2018-07-13] MEDS ORDERED: *HR* HYDROMORPHONE 2 MG/ML VIAL ONE (12:55)
[2018-07-13] MEDS ORDERED: Dexamethasone 4 MG/ML VIAL ONE (13:34)
[2018-07-13] MEDS ORDERED: Ondansetron 4 MG/2 ML VIAL ONE (13:34)
[2018-07-13] MEDS ORDERED: Propofol 500 MG/50 ML INFUS..BTL ONE (13:35)
--- NOTE | 2018-07-13 14:13 | Operative Note ---
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 Hutson. Patient was brought to the operating room and placed on the operating room table in the supine position. After undergoing general anesthesia with sequential compressive devices on bilateral lower extremities and perioperative antibiotics on board bronchoscopy was used to place the double-lumen endotracheal tube in its correct anatomic position for single lung ventilation. Patient was then placed on the operating room table in the right lateral decubitus position with care to pad all pressure points, prepped, and draped in the usual sterile fashion. Muscle-sparing thoracotomy incision was made above note then patient had empyema fluid eroding through the chest wall into the deep dermal tissue and this was decompressed and debrided. 2 ribs were removed in order to enter the chest due to the dense not only fibrothorax of the long and also of the chest wall due to this her 3 month infection that had been inside of the patient's chest. Once removing the ribs a decortication could be performed but the lower lobe would not completely expand to fill the thoracic cavity because of this active infection and failure to reexpand the lung completely due to fibrothorax latissimus muscle was taken off its origin mobilized down to its insertion preserving the lumbar perforators as its muscle supply. This allowed further mobilization as well as the healthy pink muscle retracted/contracted when stimulated with the Bovie cautery. This was placed through the bed of the resected 2 ribs to help fill the space. 32- [place] chest tube was placed over the dome of the diaphragm and a 36-[place] chest tube placed anteriorly through separate skin incisions and secured in place with Ethibond sutures. 2 Abel drains were placed one concentrating on t he bed of the deep dermal abscess that had been debrided the other on the bed of the resected and mobilized latissimus dorsi muscle. There was bleeding from the edge of the left upper lobe mobilization of the chest and pleurectomy decortication this bleeding was controlled with this small wedge resection. The chest was then closed in layers of #1 Vicryl, 0 Vicryl, and a 4-0 Monocryl subcuticular stitch with dressings consisting of Steri-Strips and sterile gauze. The double-lumen endotracheal tube was exchanged for a single-lumen endotracheal tube and a bronchoscopy with aspiration of thick mucus and blood performed of the left and right The left lower lobe bronchus was now edematous but not as extrinsically compressed as it was hard to starting the thoracotomy decortication. Patient wa s then taken to the ICU.
[2018-07-13] MEDS: Pregabalin 50 MG CAPSULE PO SCH ×3 (15:03→20:54)
[2018-07-13] MEDS: BuPROPion XL (24 HR) 150 MG TABLET PO SCH (15:09)
[2018-07-13] MEDS ORDERED: Ondansetron 4 MG/2 ML VIAL IVP PRN (15:32)
[2018-07-13] MEDS ORDERED: Gabapentin 300 MG CAPSULE PO SCH (15:32)
[2018-07-13] MEDS ORDERED: Naloxone 0.4 MG/ML INJ IVP PRN (15:32)
[2018-07-13] MEDS: 0.9 % Sodium Chloride 1,000 ML IVC SCH (18:44)
[2018-07-13] MEDS: Lurasidone 20 MG TABLET PO SCH (20:54)
[2018-07-14] MEDS: Piperacillin/Tazobactam 3.375 GM in 0.9 % Sodium Chloride Mini Bag 100 ML IVPB SCH ×3 (00:57→15:20)
[2018-07-14] MEDS: *HR* OxyCODONE ER (12 HR) 20 MG TABLET PO SCH ×2 (02:33→12:51)
[2018-07-14 04:27] LABS: Appearance of Pleural Fl Bloody (Clear)
[2018-07-14] MEDS: 0.9 % Sodium Chloride 1,000 ML IVC SCH ×3 (04:43→15:20)
[2018-07-14] MEDS: *HR* OxyCODONE/APAP 10/325 TABLET PO PRN ×3 (05:03→21:20)
[2018-07-14] MEDS: *HR* Heparin 5,000 UNIT/ML VIAL SQ SCH ×3 (05:03→21:20)
[2018-07-14] MEDS: BuPROPion XL (24 HR) 150 MG TABLET PO SCH (08:05)
[2018-07-14] MEDS: Pregabalin 50 MG CAPSULE PO SCH ×3 (08:06→21:20)
--- NOTE | 2018-07-14 09:04 | Cardiothoracic Progress Note ---
Date of Encounter: 07/14/18 Time of Encounter: 09:03 - Assessment and plan (1) Empyema Current Visit: Yes Status: Acute The patient is recovering well from his left thoracotomy with decortication and latissimus dorsi muscle flap. The patient will remain in the ICU today for aggressive pulmonary toilet and postoperative pain management. The assessment and plan as outlined above was discussed with the patient and/or family members who expressed understanding and agreement. All questions were answered. - Subjective Procedure(s) Performed: POD#1 S/P Left thoracotomy with decortication and latissimus dorsi muscle flap Interval history: The patient remained hemodynamically stable overnight. He is sitting in his bed and is breathing comfortably. Vital Signs, Last 4 Hours Temp Pulse Resp BP Pulse Ox 07/14/18 08:08 98.7 F 07/14/18 08:00 86 19 96/55 98 07/14/18 07:00 82 13 94/52 99 07/14/18 06:00 87 13 96/56 99 07/14/18 05:11 98.8 F Oxgyen Flow Rate Oxygen Flow Rate (LPM) 3 Clinical Data, last 8 Hours Output, Chest Tube Drainage 20 Amount [chest tube #2] Output, Chest Tube Drainage 35 Amount [chest tube #2] Output, Chest Tube Drainage 30 Amount [Chest tube #1] Output, Chest Tube Drainage 10 Amount [Chest tube #1] Output, Urine Amount 200 - Physical Examination General: Conversant, No Apparent Distress Neck: No JVD, Normal carotid pulses Cardiac: Reg Rate and Rhythm, Normal S1 and S2, No Murmur Incision: No signs of infection, Dry/intact dressing Chest tubes: Minimal drainage, Other (No air leak) Lungs: Normal Breath Sounds (Right lung phillips), Decreased breath sounds (Left base) Neuro: Alert and responsive, No focal deficits noted Vascular: Normal capillary refill Extremities: No Clubbing, No Cyanosis, No Edema - Labs 07/13/18 04:20 07/13/18 04:20 - Imaging Chest Xray: image reviewed (No pneumothorax. Persistent left pleural effusion.) Consult Discharge Plan - Plan Referrals: Kip Rojas DO [Primary Care Provider] -
[2018-07-14] MEDS ORDERED: *HR* FentaNYL (PF) 100 MCG/2 ML VIAL IVP PRN (09:05)
--- NOTE | 2018-07-14 09:44 | Pulmonology Consult Note ---
Date of Encounter: 07/14/18 Past Med Surg Social Fam HX - Past Medical History Medical history: COPD, other Additional medical history: CHRONIC BACK PAIN, collapsed lung, pneumonia, perstistant plurocy Psychiatric history: depression - Past Surgical History Surgical History: no surgical history Additional surgical history: back, lung surgery. nerve stimulator implant in left hip. left foot sx - Social History Smoking Status: Former smoker Packs per day: 1PPD x 20YRS (quit 2015) Smokeless Tobacco Status: No Alcohol use: none Drug use: none - Family History Mother Adopted: No Age: 62 Family Member Ethnicity: Non- Living Status: Still Living Hx Family Cardiac Disorders: No Hx Family Respiratory Disorders: Yes (Asthma) Hx Family Cancer: No Hx Family GI Disorders: No Hx Family Genitourinary Disorders: No Hx Family Endocrine Disorder: No Hx Family Musculoskeletal Disorders: No Hx Family Neuromuscular Disorders: No Hx Family Neurologic Disorders: No Hx Family HEENT Disorders: No Hx Family Autoimmune Disorders: No Hx Family Reproductive Disorders: No Hx Family Psychosocial Disorders: No Hx Family Medical Disorders: No Father Family Member Ethnicity: Non- Living Status: Hx Family Cardiac Disorders: Yes (triple bypass) Hx Family Cancer: Yes (gi) Hx Family GI Disorders: No Hx Family Genitourinary Disorders: No Hx Family Endocrine Disorder: No Hx Family Musculoskeletal Disorders: No Hx Family Neuromuscular Disorders: No Hx Family Neurologic Disorders: No Hx Family HEENT Disorders: No Hx Family Autoimmune Disorders: No Hx Family Reproductive Disorders: No Hx Family Psychosocial Disorders: No Hx Family Medical Disorders: No Medications and Allergies Bupropion HCl [Wellbutrin Xl] 300 mg PO QAM 04/21/18 [History] Cyclobenzaprine [Flexeril] 10 mg PO HS 04/21/18 [History] Fesoterodine Fumarate [Toviaz] 8 mg PO HS 04/21/18 [History] Lurasidone HCl [Latuda] 60 mg PO HS 04/21/18 [History] OxyCODONE ER (12 HR) [OxyCONTIN] 20 mg PO Q12H 04/21/18 [History] Oxycodone HCl/Acetaminophen [Percocet 10-325 mg Tablet] 1 each PO Q4H PRN 04/21/18 [History] Pregabalin [Lyrica] 100 mg PO TID 04/21/18 [History] Sertraline [Zoloft] 100 mg PO HS 04/21/18 [History] diazePAM [Valium] 10 mg PO HS 07/11/18 [History] Allergy/AdvReac Type Severity Reaction Status Date / Time morphine Allergy Anaphylaxis Verified 07/11/18 11:34 All Systems: The remainder of the systems were reviewed and are negative Physical Examination Vital Signs: Vital Signs, Last 4 Hours Temp Pulse Resp BP Pulse Ox 07/14/18 08:08 98.7 F 07/14/18 08:00 86 19 96/55 98 07/14/18 07:00 85 13 94/52 99 07/14/18 06:00 87 13 96/56 99 Results - Laboratory Findings CBC and BMP: 07/13/18 04:20 07/13/18 04:20 PT/INR, D-dimer PT 17.8 Seconds (9.4-12.1) H 07/11/18 00:52 Abnormal lab findings: Abnormal lab results WBC 13.5 K/mcL (4.3-11.1) H 07/13/18 04:20 RBC 3.65 M/mcL (4.19-5.50) L 07/12/18 01:15 Hgb 10.1 g/dL (12.9-16.9) L 07/13/18 04:20 Hct 35.7 % (37.5-50.1) L 07/13/18 04:20 MCV 82.2 fL (83.0-100.0) L 07/12/18 01:15 MCH 23.8 pg (28.0-33.3) L 07/13/18 04:20 MCHC 28.3 g/dL (31.6-35.5) L 07/13/18 04:20 RDW 16.3 % (11.5-14.5) H 07/13/18 04:20 11.2 K/mcL (1.6-8.9) H 07/13/18 04:20 1+ (Not Present) A 07/13/18 04:20 Present (Not Present) A 07/13/18 04:20 PT 17.8 Seconds (9.4-12.1) H 07/11/18 00:52 APTT 37.2 Seconds (26.0-36.0) H 07/10/18 16:31 Sodium 135 mEq/L (136-145) L 07/12/18 01:15 Potassium 2.9 mEq/L (3.5-5.1) L 07/10/18 16:59 Chloride 97 mEq/L (98-107) L 07/11/18 00:52 Carbon Dioxide 31 mEq/L (23-29) H 07/13/18 04:20 5 (6-26) L 07/13/18 04:20 Glucose 120 mg/dL (70-105) H 07/12/18 01:15 POC Glucose 114 mg/dL (70-99) H 07/13/18 14:25 279 (280-300) L 07/12/18 01:15 Calcium 7.9 mg/dL (8.6-10.3) L 07/12/18 01:15 AST 157 Units/L (13-39) H 07/10/18 16:59 ALT 87 Units/L (7-52) H 07/10/18 16:59 127 Units/L (34-104) H 07/10/18 16:59 6.1 g/dL (6.4-8.9) L 07/10/18 16:59 3.3 g/dL (3.5-5.7) L 07/10/18 16:59 0.44 ng/mL (0.00-0.15) H 07/11/18 09:41 Pleural Appearance Bloody (Clear) A 07/13/18 13:40 Vancomycin Trough 23 mcg/mL (5-10) H 07/12/18 18:31 Positive ng/mL (Vbgbov=531) H 07/11/18 16:00 U Benzodiazepines Scrn Positive ng/mL (Kibznw=947) H 07/11/18 16:00 - Microbiology Findings Microbiology Findings: Microbiology, Last 48 Hours 07/13/18 13:40 Body Fluid Culture - Preliminary Pleural Fluid 07/11/18 16:00 Legionella Antigen - Final Urine,Clean Catch Streptococcus pneumoniae Antigen (M - Final - Clinical Findings Intake & Output: Intake & Output 07/13/18 07/14/18 07/14/18 23:59 07:59 15:59 Intake Total 100 / 950 1100 / 1100 Output Total 492 / 1017 310 / 390 80 / 390 Balance -392 / -67 790 / 710 -80 / 710 Consult Discharge Plan - Plan Referrals: Sevy,Kip C, DO [Primary Care Provider] -
[2018-07-14 12:41] LABS: Basophils % 0.1 %; Eosinophils % 0.2 %; Hematocrit 21.5 % (37.5-50.1); Immature Granulocytes % 0.6 % (0-4); Lymphocytes # 0.9 K/mcL (0.6-4.6); Lymphocytes % 6.9 %; Mean Corpuscular HGB Conc 29.8 g/dL (31.6-35.5); Mean Corpuscular Hemoglobin 24.9 pg (28.0-33.3); Mean Corpuscular Volume 83.7 fL (83.0-100.0); Mean Platelet Volume 9.8 fL (9.4-12.4); Monocytes # 0.4 K/mcL (0.0-1.3); Monocytes % 3.2 %; Neutrophils # 12.1 K/mcL (1.6-8.9); Platelet Count 207 K/mcL (140-400); Red Blood Count 2.57 M/mcL (4.19-5.50); Red Cell Distribution Width 16.3 % (11.5-14.5); White Blood Count 13.6 K/mcL (4.3-11.1)
[2018-07-14 12:45] LABS: Hemoglobin 6.4 g/dL (12.9-16.9)
[2018-07-14 13:04] LABS: Calcium 7.4 mg/dL (8.6-10.3); Potassium 4.3 mEq/L (3.5-5.1)
--- NOTE | 2018-07-14 14:22 | Pulmonology Progress Note ---
Date of Encounter: 07/14/18 Time of Encounter: 07:30 Assessment and Plan (1) Pleural effusion Current Visit: Yes Status: Resolved Patient status post thoracotomy and continue incentive spirometry. Chest tube management per cardiothoracic. Patient will remain in ICU and transferred out when cardiothoracic agree with that. Early mobilization as soon as possible. Subjective Principal diagnosis: Pleural Effusion Interval history: Patient is feeling better and is asking for pain medication even though he is lethargic and does not look in any acute pain. Objective PUL Vital signs: Last Vital Signs Temp 98.7 F 07/14/18 11:52 Pulse 87 07/14/18 12:00 Resp 16 07/14/18 12:00 BP 100/59 07/14/18 12:00 Pulse Ox 100 07/14/18 12:00 General appearance: no acute distress Eyes: nonicteric ENT: oropharynx dry Neck: supple Effort: normal Auscultation: left: diminished breath sounds, right: rhonchi Cardiovascular: regular rate and rhythm Gastrointestinal: normoactive bowel sounds, non-distended Extremities: no cyanosis normal mental status, non-focal exam mood appropriate Results - Laboratory Findings CBC and BMP: 07/14/18 12:29 07/14/18 12:29 PT/INR, D-dimer PT 17.8 Seconds (9.4-12.1) H 07/11/18 00:52 Abnormal lab findings: Abnormal lab results WBC 13.6 K/mcL (4.3-11.1) H 07/14/18 12:29 RBC 2.57 M/mcL (4.19-5.50) L 07/14/18 12:29 Hgb 6.4 g/dL (12.9-16.9) L D 07/14/18 12:29 Hct 21.5 % (37.5-50.1) L 07/14/18 12:29 MCV 82.2 fL (83.0-100.0) L 07/12/18 01:15 MCH 24.9 pg (28.0-33.3) L 07/14/18 12:29 MCHC 29.8 g/dL (31.6-35.5) L 07/14/18 12:29 RDW 16.3 % (11.5-14.5) H 07/14/18 12:29 12.1 K/mcL (1.6-8.9) H 07/14/18 12:29 1+ (Not Present) A 07/13/18 04:20 Present (Not Present) A 07/13/18 04:20 PT 17.8 Seconds (9.4-12.1) H 07/11/18 00:52 APTT 37.2 Seconds (26.0-36.0) H 07/10/18 16:31 Sodium 135 mEq/L (136-145) L 07/14/18 12:29 Potassium 2.9 mEq/L (3.5-5.1) L 07/10/18 16:59 Chloride 97 mEq/L (98-107) L 07/11/18 00:52 Carbon Dioxide 31 mEq/L (23-29) H 07/13/18 04:20 3.33 mg/dL (0.70-1.30) H 07/14/18 12:29 Est GFR ( Amer) 25 (> 60) L 07/14/18 12:29 Est GFR (Non-Af Amer) 21 (> 60) L 07/14/18 12:29 5 (6-26) L 07/14/18 12:29 Glucose 144 mg/dL (70-105) H 07/14/18 12:29 POC Glucose 114 mg/dL (70-99) H 07/13/18 14:25 279 (280-300) L 07/12/18 01:15 Calcium 7.4 mg/dL (8.6-10.3) L 07/14/18 12:29 AST 157 Units/L (13-39) H 07/10/18 16:59 ALT 87 Units/L (7-52) H 07/10/18 16:59 127 Units/L (34-104) H 07/10/18 16:59 6.1 g/dL (6.4-8.9) L 07/10/18 16:59 3.3 g/dL (3.5-5.7) L 07/10/18 16:59 0.44 ng/mL (0.00-0.15) H 07/11/18 09:41 Pleural Appearance Bloody (Clear) A 07/13/18 13:40 Vancomycin Trough 23 mcg/mL (5-10) H 07/12/18 18:31 Positive ng/mL (Evkern=197) H 07/11/18 16:00 U Benzodiazepines Scrn Positive ng/mL (Hpadob=048) H 07/11/18 16:00 - Microbiology Findings Microbiology Findings: Microbiology, Last 48 Hours 07/13/18 13:40 Body Fluid Culture - Preliminary Pleural Fluid 07/11/18 16:00 Legionella Antigen - Final Urine,Clean Catch Streptococcus pneumoniae Antigen (M - Final - Clinical Findings Intake & Output: Intake & Output 07/13/18 07/14/18 07/14/18 23:59 07:59 15:59 Intake Total 100 / 950 1100 / 1100 Output Total 492 / 1017 310 / 740 430 / 740 Balance -392 / -67 790 / 360 -430 / 360 Consult Discharge Plan - Plan Referrals: Kip Rojas DO [Primary Care Provider] -
[2018-07-14 16:35] LABS: Basophils % 0.1 %; Eosinophils # 0.1 K/mcL (0.0-0.6); Eosinophils % 0.6 %; Hematocrit 23.7 % (37.5-50.1); Immature Granulocytes % 0.6 % (0-4); Lymphocytes % 7.2 %; Mean Corpuscular HGB Conc 29.5 g/dL (31.6-35.5); Mean Corpuscular Hemoglobin 24.9 pg (28.0-33.3); Mean Corpuscular Volume 84.3 fL (83.0-100.0); Monocytes # 0.6 K/mcL (0.0-1.3); Neutrophils # 12.5 K/mcL (1.6-8.9); Platelet Count 217 K/mcL (140-400); Red Blood Count 2.81 M/mcL (4.19-5.50); Red Cell Distribution Width 16.2 % (11.5-14.5); Segmented Neutrophils % 87.5 %; White Blood Count 14.2 K/mcL (4.3-11.1)
[2018-07-14 16:50] LABS: Calcium 7.6 mg/dL (8.6-10.3); Potassium 4.1 mEq/L (3.5-5.1)
--- NOTE | 2018-07-14 17:05 | Internal Med Progress Note ---
<Lucho Pruett - Last Filed: 07/14/18 17:01> Hospitalist Progress Note - Encounter Date of Encounter: 07/14/18 Time of Encounter: 13:20 - Subjective Interval History: Patient is resting comfortably in bed at time of examination. He has no acute complaints today. He did undergo a significant surgery yesterday with cardiotho racic surgery. He is postop day 1. He says that he is having a lot of pain and he is feeling very weak overall. He has laboratory studies pending. - Exam Vitals: Temp Pulse Resp BP Pulse Ox 98.6 F 87 18 93/59 96 07/14/18 16:17 07/14/18 16:00 07/14/18 16:00 07/14/18 16:00 07/14/18 16:00 Exam: general - aox3, mildly uncomfortable, laying in bed, speaking in full sentences. Pale appearing heent - MMM, NCAT, no scleral icterus neck - no jvd, trachea midline cardio - rrr, s1s2 cta no mrg back - no rash. Tenderness in left upper back, as well as upper right scapular region and shoulder as well as tenderness with rotation and flexion of shoulder. lungs - decreased breath sounds L > R, mild coarse breath sounds, not in respiratory distress. Two chest tubes in place with serosanguineous drainage abd - soft, obese, ntnd, no peritoneal signs or rebound/guarding extremities - moves all extremities equally, strength 5/5 UE/LE neuro - no FND, sensation intact psych - tearful on examination, anxious skin - warm,dry,intact - Assessment and Plan (1) Acute kidney injury Current Visit: Yes Status: Acute Assessment and Plan: Severe acute kidney injury which is oliguric, patient output roughly 200 mL at time of examination Serum creatinine elevation to 3.33 following acute blood loss and drop of hemoglobin of 4g Suspect that this is due to acute blood loss and some hypotension I will be giving the patient 2 units of blood and and likely we will give fluids following I will also check urine studies including sodium and creatinine as well as urine protein Consult to nephrology for further recommendations (2) Empyema Current Visit: Yes Status: Acute Assessment and Plan: Empyema of the left lung with extrathoracic extension demonstrated on CT chest, POD1 Patient currently in the ICU with chest tube management per CT surgery Cultures pending, AFB/ fungal pending Currently treated with Vancomycin and Zosyn Day 5 We will consult infectious disease (3) Hypokalemia Current Visit: Yes Status: Acute Assessment and Plan: Potassium 2.9 on admission. Replaced PO in the ER. Continue to monitor daily. Replace PRN (4) Former tobacco use Current Visit: No Status: Chronic Assessment and Plan: Quit three years ago. Screened for current tobacco use, denies. (5) Chronic back pain Current Visit: No Status: Chronic Assessment and Plan: Continue home pain meds (6) Obesity (BMI 30.0-34.9) Current Visit: No Status: Chronic Assessment and Plan: chronic, BMI 34.3 (7) DVT prophylaxis Current Visit: No Status: Acute Assessment and Plan: sq heparin (8) Acute blood loss as cause of postoperative anemia Current Visit: Yes Status: Acute Assessment and Plan: Acute blood loss anemia, hemoglobin 6.4 Patient appears pale, had episodes of hypotension. Developed severe HA Ordered 2 units packed red blood cells Repeat hemoglobin following transfusions - Time Spent with Patient Total time spent is greater than 50% in coordination of care (as documented) at patient's floor/unit and/or counseling patient: Internal Medicine: Result - Labs CBC & Chem 7: 07/14/18 16:23 07/14/18 16:23 Labs: Short CBC 07/14/18 07/14/18 Range/Units 12:29 16:23 WBC 13.6 H 14.2 H (4.3-11.1) K/mcL Hgb 6.4 L D 7.0 L (12.9-16.9) g/dL Hct 21.5 L 23.7 L (37.5-50.1) % Plt Count 207 217 (140-400) K/mcL Neutrophils # 12.1 H 12.5 H (1.6-8.9) K/mcL BMP 07/14/18 07/14/18 12:29 16:23 Sodium 135 L 137 Potassium 4.3 4.1 Chloride 101 100 Carbon Dioxide 25 27 BUN 16 17 Creatinine 3.33 H 3.61 H Glucose 144 H 116 H Calcium 7.4 L 7.6 L - ABG Interpretation ABG results: PT/INR, D-dimer PT 17.8 Seconds (9.4-12.1) H 07/11/18 00:52 - Impressions Impressions Chest X-Ray 07/14/18 15:32 IMPRESSION: Left greater than right basilar predominant heterogeneous opacities with left basilar consolidation and left pleural effusion. Stable life-support devices. D/ / Tank Sessions / Tank Sessions Interpreting Provider: Tank Sessions Consult Discharge Plan - Plan Referrals: Kip Rojas, [Primary Care Provider] - <Dustin Ribera - Last Filed: 07/14/18 17:36> Hospitalist Progress Note - Encounter Date of Encounter: 07/14/18 - Exam Vitals: Temp Pulse Resp BP Pulse Ox 98.6 F 87 18 93/59 96 07/14/18 16:17 07/14/18 16:00 07/14/18 16:00 07/14/18 16:00 07/14/18 16:00 - Assessment and Plan (1) Hypokalemia Current Visit: Yes Status: Acute (2) Former tobacco use Current Visit: No Status: Chronic (3) DVT prophylaxis Current Visit: No Status: Acute (4) Chronic back pain Current Visit: No Status: Chronic (5) Obesity (BMI 30.0-34.9) Current Visit: No Status: Chronic (6) Empyema Current Visit: Yes Status: Acute (7) Acute kidney injury Current Visit: Yes Status: Acute (8) Acute blood loss as cause of postoperative anemia Current Visit: Yes Status: Acute - Time Spent with Patient Total time spent is greater than 50% in coordination of care (as documented) at patient's floor/unit and/or counseling patient: Internal Medicine: Result - Labs CBC & Chem 7: 07/14/18 16:23 07/14/18 16:23 Labs: Short CBC 07/14/18 07/14/18 Range/Units 12:29 16:23 WBC 13.6 H 14.2 H (4.3-11.1) K/mcL Hgb 6.4 L D 7.0 L (12.9-16.9) g/dL Hct 21.5 L 23.7 L (37.5-50.1) % Plt Count 207 217 (140-400) K/mcL Neutrophils # 12.1 H 12.5 H (1.6-8.9) K/mcL BMP 07/14/18 07/14/18 12:29 16:23 Sodium 135 L 137 Potassium 4.3 4.1 Chloride 101 100 Carbon Dioxide 25 27 BUN 16 17 Creatinine 3.33 H 3.61 H Glucose 144 H 116 H Calcium 7.4 L 7.6 L - ABG Interpretation ABG results: PT/INR, D-dimer PT 17.8 Seconds (9.4-12.1) H 07/11/18 00:52 - Impressions Impressions Chest X-Ray 07/14/18 15:32 IMPRESSION: Left greater than right basilar predominant heterogeneous opacities with left basilar consolidation and left pleural effusion. Stable life-support devices. D/ / Tank Oliver / Tank Oliver Interpreting Provider: Tank Oliver - Attending Attestation I examined this patient and my medical decision-making was reviewed with the Resident Physician on 07/14/18. I agree with the documented findings, disposition and treatment plan as described except to the extent set forth below . Mr Hutson is currently admitted for L empyema. He is s/p debridement. He remains moderate to high risk due to potential for worsening clinical status. Mr Hutson is resting at this time. Pain is up and down. He has developed anemia and acute renal failure. No fever or chills. Exam Alert Resting Mucus membranes dry Heart not tachy Decreased breath sounds Abd soft I/P 1. Empyema s/p debridement - cultures pending 2. HA - 3. Anemia - most likely acute blood loss Further diagnoses and plan as above. <Lucho rPuett - Last Filed: 07/14/18 17:01> (5) Chronic back pain Qualifiers: Back pain location: low back pain Back pain laterality: bilateral Sciatica presence: with sciatica Sciatica laterality: bilateral sciatica Qualified Code(s): M54.42 - Lumbago with sciatica, left side; M54.41 - Lumbago with sciatica, right side; G89.29 - Other chronic pain <Dustin Ribera - Last Filed: 07/14/18 17:36> (4) Chronic back pain Qualifiers: Back pain location: low back pain Back pain laterality: bilateral Sciatica presence: with sciatica Sciatica laterality: bilateral sciatica Qualified Code(s): M54.42 - Lumbago with sciatica, left side; M54.41 - Lumbago with sciatica, right side; G89.29 - Other chronic pain
--- NOTE | 2018-07-14 17:12 | Nephrology Consult Note ---
Date of Encounter: 07/14/18 Time of Encounter: 17:00 Assessment and Plan (1) Empyema Current Visit: Yes Status: Acute POD#1 L thoracotomy, per CTS Continue abx, ID consulted (2) Acute kidney injury Current Visit: Yes Status: Acute Elevated SCr in the setting of acute blood loss and vanco exposure Agree with transfusion pRBcs today and then IVF for volume repletion Avid nephrotoxins if possible, vanco by levels only if absolutely needed No acute indication for WOMEN SPECIALIST at this time but will assess by tomorrow Await urinalysis and sodium already ordered by primary team. (3) Acute blood loss as cause of postoperative anemia Current Visit: Yes Status: Acute Hgb dropped from 10 to 7 today, see above History of Present Illness - Reason for Consult Consult date: 07/14/18 Acute Kidney Injury Requesting physician: Lucho Pruett - History of Present Illness 43 y o male with PMH of COPD and recurrent pleural effusion s/p several thoracentenses admitted with chest pain and SOB diagnosed with empyema necessitans requiring left thoracotomy decortication on 07/13/[address] Almaguer. Renal consulted today for acute rise in SCr overnight from 1.2 to 3.61, GFR 19 along with acute drop in hgb from 10.1 to 6.4 to 7.0 on repeat. Pt seen and examined resting comfortably but easily awaken. Past Med Surg Social Fam HX - Past Medical History Medical history: COPD, other Additional medical history: CHRONIC BACK PAIN, collapsed lung, pneumonia, perstistant plurocy Psychiatric history: depression - Past Surgical History Surgical History: no surgical history Additional surgical history: back, lung surgery. nerve stimulator implant in left hip. left foot sx - Social History Smoking Status: Former smoker Packs per day: 1PPD x 20YRS (quit 2015) Smokeless Tobacco Status: No Alcohol use: none Drug use: none - Family History Mother Adopted: No Age: 62 Family Member Ethnicity: Non- Living Status: Still Living Hx Family Cardiac Disorders: No Hx Family Respiratory Disorders: Yes (Asthma) Hx Family Cancer: No Hx Family GI Disorders: No Hx Family Genitourinary Disorders: No Hx Family Endocrine Disorder: No Hx Family Musculoskeletal Disorders: No Hx Family Neuromuscular Disorders: No Hx Family Neurologic Disorders: No Hx Family HEENT Disorders: No Hx Family Autoimmune Disorders: No Hx Family Reproductive Disorders: No Hx Family Psychosocial Disorders: No Hx Family Medical Disorders: No Father Family Member Ethnicity: Non- Living Status: Hx Family Cardiac Disorders: Yes (triple bypass) Hx Family Cancer: Yes (gi) Hx Family GI Disorders: No Hx Family Genitourinary Disorders: No Hx Family Endocrine Disorder: No Hx Family Musculoskeletal Disorders: No Hx Family Neuromuscular Disorders: No Hx Family Neurologic Disorders: No Hx Family HEENT Disorders: No Hx Family Autoimmune Disorders: No Hx Family Reproductive Disorders: No Hx Family Psychosocial Disorders: No Hx Family Medical Disorders: No Medications and Allergies Bupropion HCl [Wellbutrin Xl] 300 mg PO QAM 04/21/18 [History] Cyclobenzaprine [Flexeril] 10 mg PO HS 04/21/18 [History] Fesoterodine Fumarate [Toviaz] 8 mg PO HS 04/21/18 [History] Lurasidone HCl [Latuda] 60 mg PO HS 04/21/18 [History] OxyCODONE ER (12 HR) [OxyCONTIN] 20 mg PO Q12H 04/21/18 [History] Oxycodone HCl/Acetaminophen [Percocet 10-325 mg Tablet] 1 each PO Q4H PRN 04/21/18 [History] Pregabalin [Lyrica] 100 mg PO TID 04/21/18 [History] Sertraline [Zoloft] 100 mg PO HS 04/21/18 [History] diazePAM [Valium] 10 mg PO HS 07/11/18 [History] Allergy/AdvReac Type Severity Reaction Status Date / Time morphine Allergy Anaphylaxis Verified 07/11/18 11:34 Review of Systems All Systems review (narrative): The rest of the systems are negative Constitutional: fatigue (admits) Cardiovascular: chest pain (denies), leg edema (denies) Respiratory: dyspnea (admits on admission) Exam - Vital Signs Vital signs: Initial Vital Signs Temp Pulse Resp BP Pulse Ox 97.6 F 75 16 113/75 98 07/10/18 16:13 07/10/18 16:13 07/10/18 16:13 07/10/18 16:13 07/10/18 16:13 Vital Signs - Last 8 Hours Temp Pulse Resp BP Pulse Ox 07/14/18 16:17 98.6 F 07/14/18 16:00 87 18 93/59 96 07/14/18 15:00 85 17 107/51 98 07/14/18 14:00 86 18 101/51 98 07/14/18 13:00 90 19 102/61 97 07/14/18 12:00 87 16 100/59 100 07/14/18 11:52 98.7 F 07/14/18 11:00 89 16 100/57 100 07/14/18 10:00 83 17 98/53 100 Intake and Output 07/14/18 07/14/18 07/14/18 07:59 15:59 23:59 Intake Total 1100 / 2200 1100 / 2200 Output Total 310 / 934 430 / 934 194 / 934 Balance 790 / 1266 670 / 1266 -194 / 1266 Intake: IV Fluids 1100 / 2200 1100 / 2200 0.9 % Sodium Chloride 1,000 ML 1000 / 2000 1000 / 2000 @ 125 mls/hr IVC .Q8H NEFT[facility] Rx#: [id number] Zosyn 3.375 GM In 0.9 % Sodium 100 / 200 100 / 200 Chloride (Mini-Bag +) 100 ML @ 25 mls/hr IVPB Q8HR NEFTALI Rx#: [id number] Output: Urine 200 / 500 300 / 500 Wound Drainage 65 / 215 80 / 215 70 / 215 Left Chest #1 40 / 115 30 / 115 45 / 115 Left Chest #2 25 / 100 50 / 100 25 / 100 Chest Tube Drainage 45 / 219 50 / 219 124 / 219 Chest tube #1 10 / 100 30 / 100 60 / 100 chest tube #2 35 / 119 20 / 119 64 / 119 - General Appearance General appearance: well-developed, well-nourished EENT: ATNC, mucous membranes moist Neck: no JVD, supple Respiratory: course breath sounds (R Lung) Additional Comments: Decreased BS bases bilat Cardiology: no edema, normal S1, normal S2 Gastrointestinal: no tenderness, no guarding Neurologic: no focal deficit Musculoskeletal: no deformities Psychiatric: mood/affect appropriate Results - Lab Results 07/14/18 16:23 07/14/18 16:23 Most recent lab results 07/14/18 07/14/18 12:29 16:23 Calcium 7.4 L 7.6 L Consult Discharge Plan - Plan Referrals: Kip Rojas DO [Primary Care Provider] -
[2018-07-14] MEDS ORDERED: 0.9 % Sodium Chloride 500 ML ONE (17:44)
[2018-07-14] MEDS: Lurasidone 20 MG TABLET PO SCH (21:20)
[2018-07-15] MEDS: *HR* OxyCODONE ER (12 HR) 20 MG TABLET PO SCH ×2 (00:01→13:02)
[2018-07-15] MEDS: 0.9 % Sodium Chloride 1,000 ML IVC SCH ×3 (00:08→15:11)
[2018-07-15] MEDS: Piperacillin/Tazobactam 3.375 GM in 0.9 % Sodium Chloride Mini Bag 100 ML IVPB SCH ×3 (00:28→15:11)
[2018-07-15] MEDS: *HR* Heparin 5,000 UNIT/ML VIAL SQ SCH ×3 (06:11→22:12)
[2018-07-15 06:49] LABS: Basophils % 0.1 %; Eosinophils # 0.2 K/mcL (0.0-0.6); Eosinophils % 1.2 %; Hematocrit 25.7 % (37.5-50.1); Hemoglobin 7.7 g/dL (12.9-16.9); Immature Granulocytes % 1.1 % (0-4); Lymphocytes % 6.5 %; Mean Corpuscular Hemoglobin 25.7 pg (28.0-33.3); Mean Corpuscular Volume 85.7 fL (83.0-100.0); Mean Platelet Volume 10.3 fL (9.4-12.4); Monocytes # 0.4 K/mcL (0.0-1.3); Neutrophils # 13.1 K/mcL (1.6-8.9); Platelet Count 212 K/mcL (140-400); Red Cell Distribution Width 15.9 % (11.5-14.5); Segmented Neutrophils % 88.1 %; White Blood Count 14.9 K/mcL (4.3-11.1)
[2018-07-15 07:08] LABS: Albumin 2.5 g/dL (3.5-5.7); Bilirubin,Total 0.4 mg/dL (0.3-1.0); Calcium 7.3 mg/dL (8.6-10.3); Globulin 2.5 g/dL (2.4-3.5); Phosphorous 5.5 mg/dL (2.7-4.5); Potassium 4.8 mEq/L (3.5-5.1)
[2018-07-15] MEDS: BuPROPion XL (24 HR) 150 MG TABLET PO SCH (09:17)
[2018-07-15] MEDS: Pregabalin 50 MG CAPSULE PO SCH ×3 (09:17→20:33)
[2018-07-15 10:49] LABS: Bilirubin,Urine Negative (Negative); Blood,Urine Small (Negative); Color,Urine Yellow (Yellow); Glucose,Urine (UA) Normal (Normal); Ketones,Urine Negative (Negative); Leukocyte Esterase,Urine Negative (Negative); Nitrite,Urine Negative (Negative); Protein,Urine Trace mg/dL (Neg-Trace); Specific Gravity,Urine < 1.005 (1.010-1.025); Urobilinogen,Urine Normal (Normal)
[2018-07-15 10:54] LABS: Clarity,Urine Clear (Clear)
[2018-07-15 10:58] LABS: Protein/Creatinine Ratio,Urine 0.95 mg/mg (0.00-0.20); Sodium, Urine 22.6 mEq/L
--- NOTE | 2018-07-15 11:54 | Infectious Disease Consult ---
Infectious Disease-Consult - Encounter Date/Time Date of Encounter: 07/15/18 Time of Encounter: 11:50 - Data of Consult Patient: new to practice Reason for consult: Empyema Consult date: 07/15/18 Requesting Physician: Dustin Ribera DO Primary Care Provider: Kip Rojas DO - HPI HPI: Mr. Hutson is a 43-year-old male with a past medical history of COPD, depression, and chronic back pain status post spinal cord stimulator placement. The patient was admitted to the hospital 07/10/18 for pneumonia and pleural effusion. We are consulted 07/15/18 for further workup and treatment recommendations for empyema. Briefly, the patient's a 43-year-old male with past medical history as stated above. The patient presented to the emergency department on the day of admission with a 4 day history of chest pain and shortness of breath. Upon arrival, the patient was afebrile and hemodynamically stable. He had leukocytosis with neutrophilic predominance. Renal function was normal. Liver transaminases were mildly elevated. Troponin was negative. He had a chest x- ray that showed a left lower lobe opacification and effusion. He was started empirically on IV vancomycin and Zosyn and admitted to the hospital for further evaluation. After admission, pulmonology was consult and to recommended interventional radiology consult for drainage of the pleural effusion. The patient underwent an ultrasound of the chest that revealed that there was not enough fluid to drain per interventional radiology. He had a CT of the chest, abdomen, and pelvis that showed a complex left pleural effusion concerning for empyema with multiple abscesses adjacent to the rib cage and moderate splenomegaly and cholelithiasis. Cardiothoracic surgery was consulted and recommended operative intervention. He was taken to the OR 07/13/18 and underwent bronchoscopy with aspiration, left thoracotomy with decortication, reverse latissimus MM flap, and wedge of the left upper lobe by Dr. Almaguer. Intraoperative cultures are no growth in the Gram stain is negative. Postop, the patient has developed an acute kidney injury and nephrology's been consulted. Repeat chest x-ray this morning shows a persistent left pleural effusion with bibasilar airspace disease/atelectasis left greater than right. This morning, the patient was febrile with a MAXIMUM TEMPERATURE of 100.9. He continues to have some intermittent tachycardia. He continues to have leukocytosis. Repeat LFTs reveal normal transaminases. He had a MRSA nasal screen was negative. Her calcitonin was elevated at 0.44. Strep pneumococcal and legionella urinary antigens were negative. Currently, the patient is on IV Zosyn. We have been asked to evaluate and make further recommendations. Review of the medical record reveals that the patient was hospitalized here back in April at which time he had a CT of the chest that showed a large left pleural effusion. Interventional radiology was consulted for drainage. The fluid was exudative her lites criteria, but the culture and pathology were negative. He also underwent a bronchoscopy 04/23/18. BAL cultures were negative. He had a transthoracic echocardiogram that showed an EF of 60-65%. During my exam today, the patient's mental status precludes his ability to provide me with much information regarding the events leading up to his hospitalization. There is no family at the bedside, therefore, all of the information is obtained from the medical record. Review of systems is very limited due to the patient's mental status. He complains of pain in the left lower back from his recent surgery and left middle and right lower back that is chronic for him. According to nursing, the patient lives at home with his mother. His employment status is unknown. According to the records, he quit smoking 3 years ago and has denied drug or alcohol use to other providers. - ROS Review of Systems: Review of systems limited due to the patient's mental status. - Results CBC & Chem 7: 07/16/18 02:20 07/16/18 02:20 - Exam Vitals: Temp Pulse Resp BP Pulse Ox 100.9 F H 101 19 106/54 97 07/15/18 07:00 07/15/18 10:00 07/15/18 10:00 07/15/18 10:00 07/15/18 10:00 Exam: Head: Atraumatic, normal inspection, normocephalic. Eye: PERRLA, no scleral icterus noted. ENT: Mucous membranes moist. No odontogenic infection noted. Neck: Normal inspection, no meningismus. Respiratory: Clear to auscultation, diminished in the bilateral bases. No rales, respiratory distress, rhonchi, or wheezes noted. Surgical site noted to the left lateral chest with chest tubes 2 with serosanguineous drainage. No crepitus or air leak noted. Tenderness noted with palpation. Cardiovascular: Regular rhythm, tachycardic, S1 and S2 audible. No murmurs, rubs, or gallops. GI: Soft, nondistended, normal bowel sounds. Smith catheter draining small amount of clear yellow urine. Extremities:No joint swelling, pedal edema, or tenderness noted. Neurological: Drowsy, somnolent, difficult to maintain wakefulness during exam. Psychiatric: normal affect, normal mood. Skin: Dry, intact, warm. Normal color. No rashes. Bupropion HCl [Wellbutrin Xl] 300 mg PO QAM 04/21/18 [History] Cyclobenzaprine [Flexeril] 10 mg PO HS 04/21/18 [History] Fesoterodine Fumarate [Toviaz] 8 mg PO HS 04/21/18 [History] Lurasidone HCl [Latuda] 60 mg PO HS 04/21/18 [History] OxyCODONE ER (12 HR) [OxyCONTIN] 20 mg PO Q12H 04/21/18 [History] Oxycodone HCl/Acetaminophen [Percocet 10-325 mg Tablet] 1 each PO Q4H PRN 04/21/18 [History] Pregabalin [Lyrica] 100 mg PO TID 04/21/18 [History] Sertraline [Zoloft] 100 mg PO HS 04/21/18 [History] diazePAM [Valium] 10 mg PO HS 07/11/18 [History] Allergy/AdvReac Type Severity Reaction Status Date / Time morphine Allergy Anaphylaxis Verified 07/11/18 11:34 - Assessment and Plan (1) Sepsis Current Visit: Yes Status: Acute The patient has to sirs criteria. Likely secondary to empyema. Concern for additional infectious source given the patient's new onset of fever and tachycardia despite recent surgery/source control and antibiotics. Continues to have leukocytosis. MAXIMUM TEMPERATURE 101 today. Tachycardia noted. No blood cultures have been drawn. Qualifiers: Sepsis type: sepsis due to unspecified organism Qualified Code(s): A41.9 - Sepsis, unspecified organism SNOMED Code(s): 45295183 (2) Empyema Current Visit: Yes Status: Acute Location: Left lateral chest. Causative organism: Unclear. Etiology: Unclear. The patient has had a recurrent pleural effusion since April. CT of the chest showed a complex left pleural effusion concerning for empyema with multiple abscesses adjacent to the rib cage. Cardiothoracic surgery consulted. Status post bronchoscopy with aspiration, left thoracotomy with decortication, reverse latissimus MM flap, and wedge left upper lobe 07/13/[address] Almaguer. Operative note reviewed. Intraoperative cultures pending, but the Gram stain is negative. Currently on IV Zosyn. SNOMED Code(s): 972951048 (3) Acute kidney injury Current Visit: Yes Status: Acute Likely multifactorial: Hypoperfusion plus nephrotoxic medications plus sepsis. Serum creatinine elevated at 4.3 today. Nephrology consulted. Monitor renal function closely and dose adjust medications. Avoid nephrotoxins as able. SNOMED Code(s): 32562146, 33445146 (4) Pleural effusion Current Visit: Yes Status: Resolved Etiology: Unclear. Location: Left chest. Recurrent since April after he had a diagnostic thoracentesis. Cultures and pathology were negative at that time. SNOMED Code(s): 03615961 (5) Chest pain Current Visit: No Status: Acute Likely secondary to empyema. Troponin was negative. Pain management per the primary team. Qualifiers: Chest pain type: chest pain on breathing Qualified Code(s): R07.1 - Chest pain on breathing; R07.81 - Pleurodynia SNOMED Code(s): 80473234 (6) Lymphadenopathy Current Visit: Yes Status: Acute CT of the chest showed multiple enlarged mediastinal lymph nodes, presumably reactive. SNOMED Code(s): 44075087 (7) Transaminitis Current Visit: Yes Status: Acute Etiology: Unclear. Improved. Continue to trend. SNOMED Code(s): 463611370, 784929641 (8) Hypokalemia Current Visit: Yes Status: Resolved Replacement per the primary team. Resolved. SNOMED Code(s): 83223746 (9) Former tobacco use Current Visit: No Status: Chronic SNOMED Code(s): 032771980 (10) Chronic back pain Current Visit: No Status: Chronic Qualifiers: Back pain location: low back pain Back pain laterality: bilateral Sciatica presence: with sciatica Sciatica laterality: bilateral sciatica Qualified Code(s): M54.42 - Lumbago with sciatica, left side; M54.41 - Lumbago with sciatica, right side; G89.29 - Other chronic pain SNOMED Code(s): 397865035 (11) Obesity (BMI 30.0-34.9) Current Visit: No Status: Chronic SNOMED Code(s): 333125128642846 - Recommendations Recommendations: Get blood cultures x 2 stat. Check lactic acid. Await intra-op cultures. Wound care and activity per the CTS team. Continue Zosyn 3.375 grams IV Q8H for now until nephrology makes recommendations. If not started on PYROMETER OPERATOR/HD, will need to dose-adjust to Q12H. Discussed with Martín Owusu. Duration of treatment depends on the clinical picture. Monitor renal function and dose-adjust antibiotics. Past Med Surg Social Fam HX - Past Medical History Medical history: COPD, other Additional medical history: CHRONIC BACK PAIN, collapsed lung, pneumonia, perstistant plurocy Psychiatric history: depression - Past Surgical History Surgical History: no surgical history Additional surgical history: back, lung surgery. nerve stimulator implant in left hip. left foot sx - Social History Smoking Status: Former smoker Packs per day: 1PPD x 20YRS (quit 2015) Smokeless Tobacco Status: No Alcohol use: none Drug use: none - Family History Mother Adopted: No Age: 62 Family Member Ethnicity: Non- Living Status: Still Living Hx Family Cardiac Disorders: No Hx Family Respiratory Disorders: Yes (Asthma) Hx Family Cancer: No Hx Family GI Disorders: No Hx Family Genitourinary Disorders: No Hx Family Endocrine Disorder: No Hx Family Musculoskeletal Disorders: No Hx Family Neuromuscular Disorders: No Hx Family Neurologic Disorders: No Hx Family HEENT Disorders: No Hx Family Autoimmune Disorders: No Hx Family Reproductive Disorders: No Hx Family Psychosocial Disorders: No Hx Family Medical Disorders: No Father Family Member Ethnicity: Non- Living Status: Hx Family Cardiac Disorders: Yes (triple bypass) Hx Family Cancer: Yes (gi) Hx Family GI Disorders: No Hx Family Genitourinary Disorders: No Hx Family Endocrine Disorder: No Hx Family Musculoskeletal Disorders: No Hx Family Neuromuscular Disorders: No Hx Family Neurologic Disorders: No Hx Family HEENT Disorders: No Hx Family Autoimmune Disorders: No Hx Family Reproductive Disorders: No Hx Family Psychosocial Disorders: No Hx Family Medical Disorders: No Consult Discharge Plan - Plan Referrals: Kip Rojas DO [Primary Care Provider] - - Attending Attestation I have personally performed a face to face evaluation on this patient. I have reviewed and agree with the care plan. History and Exam by me shows: This is an addendum to original report dictated by Betty Toth CNP. Please refer to Betty's note for full details. Patient is a 43-year-old gentleman with extensive past medical history mentioned below has been having a community-acquired pneumonia with recurrent pleural effusion. 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 Patient was taken to surgery 07/13/2018 where he underwent a bronchoscopy with aspiration, left thoracotomy decortication, reversed lets his room flap, repair section 2 and wedge upper lobe by Dr. Almaguer. Patient is currently in the ICU we were asked to evaluate the patient and make antibiotics recommendations. Assessment and plan Severe sepsis Empyema necessitans status post bronchoscopy with aspiration, left thoracotomy decortication, reversed lets his room flap, repair section 2 and wedge upper lobe 07/13/18 Acute kidney injury Acute respiratory failure requiring vent support Transaminitis Altered mental status Recommendations I believe Zosyn should cover the possible polymicrobial infection. No signs of MRSA and patient is in acute kidney injury so I will stop vancomycin for now Await Intra-Op cultures to finalize Prognosis guarded
[2018-07-15 11:56] LABS: Renal Epithelial Cells,Urine Few per hpf (None-Few); Squamous Epithelial Cell,Urine Few per lpf (None-Few); Transitional Epi Cells,Urine Few per hpf (None-Few)
[2018-07-15 11:59] LABS: Amorphous Sediment,Urine Moderate (Few); Bacteria,Urine Few per hpf (None-Few); RBC,Urine 0-3 per hpf (0-3)
[2018-07-15] MEDS ORDERED: Ringers Solution, Lactated 1,000 ML IVC ONE (12:15)
[2018-07-15 12:32] LABS: Phosphorous 5.1 mg/dL (2.7-4.5)
--- NOTE | 2018-07-15 13:45 | Cardiothoracic Progress Note ---
Date of Encounter: 07/15/18 Time of Encounter: 13:43 - Assessment and plan (1) Empyema of left pleural space Current Visit: Yes Status: Acute The assessment and plan as outlined above was discussed with the patient and/or family members who expressed understanding and agreement. All questions were answered. continue drains to suction and bulb drainage (2) Acute kidney insufficiency Current Visit: Yes Status: Acute The assessment and plan as outlined above was discussed with the patient and/or family members who expressed understanding and agreement. All questions were answered. due to vancomycin. ID on board. OR cultures currently without growth. Vital Signs, Last 4 Hours Temp Pulse Resp BP Pulse Ox 07/15/18 12:00 102 21 110/66 99 07/15/18 11:48 101.4 F H 07/15/18 11:00 102 21 102/65 98 07/15/18 10:00 101 19 106/54 97 Oxgyen Flow Rate Oxygen Flow Rate (LPM) 3 Clinical Data, last 8 Hours Output, Chest Tube Drainage 0 Amount [chest tube #2] Output, Chest Tube Drainage 20 Amount [chest tube #2] Output, Chest Tube Drainage 0 Amount [Chest tube #1] Output, Chest Tube Drainage 20 Amount [Chest tube #1] Weight 07/13/18 07/14/18 07/15/18 23:59 23:59 23:59 Weight 126.6 kg - Physical Examination General: Other (resting ) HEENT: Atraumatic, Normocephaly Neck: No JVD Cardiac: Reg Rate and Rhythm, Normal S1 and S2 Incision: No signs of infection Chest tubes: Other (thin serosanguinous drianage ) Lungs: Normal Breath Sounds Abdomen: Soft, Non-tender, Other (bs present. ) - Labs 07/15/18 06:28 07/15/18 06:28 Lab Results, Last 24 hours 07/14/18 07/14/18 07/15/18 16:23 16:23 06:28 WBC 14.2 H 14.9 H Hgb 7.0 L 7.7 L Hct 23.7 L 25.7 L Plt Count 217 212 Sodium 137 Potassium 4.1 Chloride 100 Carbon Dioxide 27 BUN 17 Creatinine 3.61 H Glucose 116 H Calcium 7.6 L Total Bilirubin AST ALT Alkaline Phosphatase 07/15/18 06:28 WBC Hgb Hct Plt Count Sodium 134 L Potassium 4.8 Chloride 102 Carbon Dioxide 24 BUN 20 Creatinine 4.38 H Glucose 107 H Calcium 7.3 L Total Bilirubin 0.4 AST 41 H ALT 42 Alkaline Phosphatase 79 - Imaging Chest Xray: image reviewed Consult Discharge Plan - Plan Referrals: Kip Rojas DO [Primary Care Provider] -
[2018-07-15] MEDS: Albumin 25% 25gram/100mL 25 GM/100 ML IV.SOLN IVC SCH ×4 (15:12→20:31)
--- NOTE | 2018-07-15 16:11 | Internal Med Progress Note ---
<Lucho Pruett - Last Filed: 07/15/18 18:23> Hospitalist Progress Note - Encounter Date of Encounter: 07/15/18 Time of Encounter: 09:30 - Subjective Interval History: Patient is resting in bed at time of examination. He is significantly more disoriented than he was previously. He has acute complaint today of pain in his back and difficulty urinating. He otherwise has no acute complaints. - Exam Vitals: Temp Pulse Resp BP Pulse Ox 101.4 F H 105 24 118/58 97 07/15/18 11:48 07/15/18 15:00 07/15/18 15:00 07/15/18 15:00 07/15/18 15:00 Exam: general - aox3, mildly uncomfortable, laying in bed, speaking in full sentences. Pale appearing. Somewhat comfused. heent - MMM, NCAT, no scleral icterus neck - no jvd, trachea midline cardio - rrr, s1s2 cta no mrg back - no rash. Tenderness in left upper back, as well as upper right scapular region and shoulder as well as tenderness with rotation and flexion of shoulder. lungs - decreased breath sounds L > R, mild coarse breath sounds, not in respiratory distress. Two chest tubes in place with serosanguineous drainage abd - soft, obese, ntnd, no peritoneal signs or rebound/guarding extremities - moves all extremities equally, strength 5/5 UE/LE neuro - no FND, sensation intact psych - tearful on examination, anxious skin - warm,dry,intact - Assessment and Plan (1) Sepsis Current Visit: Yes Status: Acute Assessment and Plan: Sepsis secondary to empyema s/p thoracotomy + decortication Patient has developed fever, tachycardia, tachypnea. He is somewhat confused at this time At this time, there is no elevation of lactic acid Draw blood cultures, Intra-op cultures pending. sepsis protocol initiated Zosyn day 6, management per ID Gave 1L bolus, started albumin, continue IVF (2) Acute kidney injury Current Visit: Yes Status: Acute Assessment and Plan: Severe acute kidney injury which is oliguric, however patient not urinating consistently Serum creatinine elevation to 3.33 following acute blood loss and drop of hemoglobin of 4g Suspect that this is due to acute blood loss and some hypotension Urine protein mildly elevated, consistent with possible ATN Consult to nephrology for further recommendations May need HD in future, however will continue with fluids at this time Placed ward for I/Os Stopped vanc (3) Empyema Current Visit: Yes Status: Acute Assessment and Plan: Empyema of the left lung with extrathoracic extension demonstrated on CT chest, POD2 Patient currently in the ICU with chest tube management per CT surgery Cultures pending, AFB/ fungal pending Currently treated with Zosyn Day 6, stopped vanc We consulted infectious disease Appears to be developing sepsis, Febrile, tachycardic, tacypneic. (4) Hypokalemia Current Visit: Yes Status: Resolved Assessment and Plan: Potassium 2.9 on admission. Replaced PO in the ER. Continue to monitor daily. Replace PRN (5) Former tobacco use Current Visit: No Status: Chronic Assessment and Plan: Quit three years ago. Screened for current tobacco use, denies. (6) Chronic back pain Current Visit: No Status: Chronic Assessment and Plan: Continue home pain meds (7) Obesity (BMI 30.0-34.9) Current Visit: No Status: Chronic Assessment and Plan: chronic, BMI 34.3 (8) DVT prophylaxis Current Visit: No Status: Acute Assessment and Plan: sq heparin (9) Acute blood loss as cause of postoperative anemia Current Visit: Yes Status: Acute Assessment and Plan: Acute blood loss anemia, hemoglobin 7.7 s/p 2u PRBC Patient appears pale, had episodes of hypotension. Developed severe HA Repeat hemoglobin pending - Time Spent with Patient Total time spent is greater than 50% in coordination of care (as documented) at patient's floor/unit and/or counseling patient: Internal Medicine: Result - Labs CBC & Chem 7: 07/15/18 06:28 07/15/18 06:28 Labs: Short CBC 07/14/18 07/15/18 Range/Units 16:23 06:28 WBC 14.2 H 14.9 H (4.3-11.1) K/mcL Hgb 7.0 L 7.7 L (12.9-16.9) g/dL Hct 23.7 L 25.7 L (37.5-50.1) % Plt Count 217 212 (140-400) K/mcL Neutrophils # 12.5 H 13.1 H (1.6-8.9) K/mcL BMP 07/14/18 07/15/18 16:23 06:28 Sodium 137 134 L Potassium 4.1 4.8 Chloride 100 102 Carbon Dioxide 27 24 BUN 17 20 Creatinine 3.61 H 4.38 H Glucose 116 H 107 H Calcium 7.6 L 7.3 L Liver Function 07/15/18 Range/Units 06:28 Total Bilirubin 0.4 (0.3-1.0) mg/dL AST 41 H (13-39) Units/L ALT 42 (7-52) Units/L Alkaline Phosphatase 79 (34-104) Units/L Albumin 2.5 L (3.5-5.7) g/dL Urine 07/15/18 Range/Units 10:25 Urine Color Yellow (Yellow) Urine Clarity Clear (Clear) Urine pH 5.0 (5.0-8.0) pH Units Ur Specific [place] < 1.005 L (1.010-1.025) Urine Protein Trace (Neg-Trace) mg/dL Urine Glucose (UA) Normal (Normal) mg/dL - ABG Interpretation ABG results: PT/INR, D-dimer PT 17.8 Seconds (9.4-12.1) H 07/11/18 00:52 - Impressions Impressions Chest X-Ray 07/15/18 06:00 IMPRESSION: Persistent left pleural effusion with bibasilar airspace disease/atelectasis left greater than right. D/ / 07/15/2018 07:23:24 Baldev Fernandez MD / [email or web address] Interpreting Provider: Baldev Fernandez MD Consult Discharge Plan - Plan Referrals: Kip Rojas DO [Primary Care Provider] - <Dustin Ribrea - Last Filed: 07/15/18 18:41> Hospitalist Progress Note - Encounter Date of Encounter: 07/15/18 - Exam Vitals: Temp Pulse Resp BP Pulse Ox 101.4 F H 105 24 118/58 97 07/15/18 11:48 07/15/18 15:00 07/15/18 15:00 07/15/18 15:00 07/15/18 15:00 - Assessment and Plan (1) Hypokalemia Current Visit: Yes Status: Resolved (2) Former tobacco use Current Visit: No Status: Chronic (3) DVT prophylaxis Current Visit: No Status: Acute (4) Sepsis Current Visit: Yes Status: Acute (5) Chronic back pain Current Visit: No Status: Chronic (6) Obesity (BMI 30.0-34.9) Current Visit: No Status: Chronic (7) Empyema Current Visit: Yes Status: Acute (8) Acute kidney injury Current Visit: Yes Status: Acute (9) Acute blood loss as cause of postoperative anemia Current Visit: Yes Status: Acute - Time Spent with Patient Total time spent is greater than 50% in coordination of care (as documented) at patient's floor/unit and/or counseling patient: Internal Medicine: Result - Labs CBC & Chem 7: 07/15/18 06:28 07/15/18 06:28 Labs: Short CBC 07/15/18 Range/Units 06:28 WBC 14.9 H (4.3-11.1) K/mcL Hgb 7.7 L (12.9-16.9) g/dL Hct 25.7 L (37.5-50.1) % Plt Count 212 (140-400) K/mcL Neutrophils # 13.1 H (1.6-8.9) K/mcL BMP 07/14/18 07/15/18 16:23 06:28 Sodium 137 134 L Potassium 4.1 4.8 Chloride 100 102 Carbon Dioxide 27 24 BUN 17 20 Creatinine 3.61 H 4.38 H Glucose 116 H 107 H Calcium 7.6 L 7.3 L Liver Function 07/15/18 Range/Units 06:28 Total Bilirubin 0.4 (0.3-1.0) mg/dL AST 41 H (13-39) Units/L ALT 42 (7-52) Units/L Alkaline Phosphatase 79 (34-104) Units/L Albumin 2.5 L (3.5-5.7) g/dL Urine 07/15/18 Range/Units 10:25 Urine Color Yellow (Yellow) Urine Clarity Clear (Clear) Urine pH 5.0 (5.0-8.0) pH Units Ur Specific [place] < 1.005 L (1.010-1.025) Urine Protein Trace (Neg-Trace) mg/dL Urine Glucose (UA) Normal (Normal) mg/dL - ABG Interpretation ABG results: PT/INR, D-dimer PT 17.8 Seconds (9.4-12.1) H 07/11/18 00:52 - Impressions Impressions Chest X-Ray 07/15/18 06:00 IMPRESSION: Persistent left pleural effusion with bibasilar airspace disease/atelectasis left greater than right. D/ / 07/15/2018 07:23:24 Baldev Fernandez MD / sakina Interpreting Provider: Baldev Fernandez MD - Attending Attestation I examined this patient and my medical decision-making was reviewed with the Resident Physician on 07/15/18. I agree with the documented findings, disposition and treatment plan as described except to the extent set forth below. Mr Hutson is currently admitted for acute empyema. He is s/p resection. He remains moderate to high risk due to potential for worsening clinical and respiratory status. Mr Hutson is having pain. He has a fever today as well. Cultures negative thus far. Renal function has worsened. ID to see today. Exam Alert but somnolent Mucus membranes dry Heart reg - not tachy now Decreased breath sounds abd soft Nonpitting edema noted I/P 1. Empyema s/p resection - appreciate CTS. ID to see today. 2. Sepsis due to above. Cultures pending 3. Acute renal failure - most likely ATNFrank Brumfieldey placed today. Further diagnoses and plan as above. <Lucho Pruett - Last Filed: 07/15/18 18:23> (1) Sepsis Qualifiers: Sepsis type: sepsis due to unspecified organism Qualified Code(s): A41.9 - Sepsis, unspecified organism (6) Chronic back pain Qualifiers: Back pain location: low back pain Back pain laterality: bilateral Sciatica presence: with sciatica Sciatica laterality: bilateral sciatica Qualified Code(s): M54.42 - Lumbago with sciatica, left side; M54.41 - Lumbago with sciatica, right side; G89.29 - Other chronic pain <Dustin Ribera - Last Filed: 07/15/18 18:41> (4) Sepsis Qualifiers: Sepsis type: sepsis due to unspecified organism Qualified Code(s): A41.9 - Sepsis, unspecified organism (5) Chronic back pain Qualifiers: Back pain location: low back pain Back pain laterality: bilateral Sciatica presence: with sciatica Sciatica laterality: bilateral sciatica Qualified Code(s): M54.42 - Lumbago with sciatica, left side; M54.41 - Lumbago with sciatica, right side; G89.29 - Other chronic pain
[2018-07-15] MEDS ORDERED: *HR* OxyCODONE Immed Rel 5 MG TABLET PO PRN (18:39)
[2018-07-15 18:52] LABS: Hematocrit 24.3 % (37.5-50.1); Hemoglobin 7.2 g/dL (12.9-16.9)
[2018-07-15] MEDS: *HR* OxyCODONE ER (12 HR) 10 MG TABLET PO SCH (20:33)
[2018-07-15] MEDS: Lurasidone 20 MG TABLET PO SCH (20:33)
--- NOTE | 2018-07-15 22:33 | Event Note ---
Date of Encounter: 07/15/18 Time of Encounter: 22:15 Discussed with patient's mother who is at bedside. She requested that the patient's code status be changed to FULL CODE. She indicates that she feels that the patient did not fully understand what he was saying when he said he wanted to be DNR/DNI. His concerns were that he did not want to be kept alive on machines for a long period of time. He did indicate to the nurse earlier that he would be ok with temporary intubation if it were necessary, no longer than 48 hours. Patient currently altered mental status, but does respond to voice name and answers questions. We will change the patient's code status to FULL CODE now, and continue to monitor. Will also hold off on additional fluids and add breathing treatments to help with respiratory status.
--- NOTE | 2018-07-15 23:07 | Nephrology Progress Note ---
Date of Encounter: 07/15/18 Time of Encounter: 12:00 - Assessment and Plan (1) Empyema Current Visit: Yes Status: Acute POD#2 L thoracotomy, per CTS Continue abx, ID on board with recs appreciated (2) Acute kidney injury Current Visit: Yes Status: Acute SCr continues to worsen at 4.38, GFR 15, suspect ATN at this point Continue volume repletion with IVF Avoid nephrotoxins if possible, vanco by levels only if absolutely needed No acute indication for GYROSCOPE TECHNICIAN at this time but will assess by tomorrow UOP noted at 700cc in the past 24hrs, will monitor (3) Acute blood loss as cause of postoperative anemia Current Visit: Yes Status: Acute Hgb not significantly improved from 7 to 7.7 despite transfusions pRBCs Transfusion parameters per primary team (4) Sepsis Current Visit: Yes Status: Acute Per ID and primary team Qualifiers: Sepsis type: sepsis due to unspecified organism Qualified Code(s): A41.9 - Sepsis, unspecified organism Subjective Principal diagnosis: Pleural Effusion Interval history: Pt seen and examined very emotional and tearful. Reports some pain in chest around chest tubes. No other complaints Objective - Vital Signs Vital signs: Vital Signs Temp Pulse Resp BP Pulse Ox 07/15/18 22:00 102 23 128/76 99 07/15/18 21:00 98 23 129/70 99 07/15/18 20:00 99.3 F 98 20 102/71 99 07/15/18 19:00 101 23 121/61 99 07/15/18 18:00 99 18 119/62 99 07/15/18 17:00 98 19 116/64 98 07/15/18 16:00 100.0 F H 101 21 111/49 98 07/15/18 15:00 105 24 118/58 97 07/15/18 14:00 101 18 112/64 99 07/15/18 13:00 104 19 109/59 99 07/15/18 12:00 102 21 110/66 99 07/15/18 11:48 101.4 F H 07/15/18 11:00 102 21 102/65 98 07/15/18 10:00 101 19 106/54 97 07/15/18 09:00 99 20 116/68 98 07/15/18 08:00 98 19 111/64 100 07/15/18 07:00 100.9 F H 84 17 112/62 99 07/15/18 06:00 94 20 110/70 100 07/15/18 05:46 100 F H 07/15/18 05:00 94 18 113/67 100 07/15/18 04:00 93 16 120/71 99 07/15/18 03:45 92 07/15/18 03:00 95 20 132/63 100 07/15/18 02:00 94 16 116/66 100 07/15/18 01:13 98.2 F 07/15/18 01:00 89 18 109/67 100 07/15/18 00:08 89 07/15/18 00:04 98.2 F 90 20 103/55 99 07/15/18 00:00 89 22 88/66 100 Intake and Output 07/15/18 07/15/18 07/15/18 07:59 15:59 23:59 Intake Total 413 / 3813 2100 / 3813 1300 / 3813 Output Total 190 / 1390 980 / 1390 220 / 1390 Balance 223 / 2423 1120 / 2423 1080 / 2423 Intake: IV Fluids 100 / 3500 2100 / 3500 1300 / 3500 0.9 % Sodium Chloride 1,000 ML 1000 / 2000 1000 / 2000 @ 125 mls/hr IVC .Q8H ON LICENSE OF [facility] Rx#: [id number] Flexbumin 25 gm In 100 ml @ 60 300 / 300 mls/hr IVC .Q1H40M NEFTALI Rx#: [id number] Lactated Ringers 1,000 ML @ 999 1000 / 1000 mls/hr IVC .Q1H1M ONE Rx#: [id number] Zosyn 3.375 GM In 0.9 % Sodium 100 / 200 100 / 200 Chloride (Mini-Bag +) 100 ML @ 25 mls/hr IVPB Q8HR ON LICENSE OF [facility] Rx#: [id number] Blood Product 313 / 313 Rbcs Leuko Poor As-1 Unit 313 / 313 [id number] Output: Catheter 740 / 840 100 / 840 Wound Drainage 110 / 350 170 / 350 70 / 350 Left Chest #1 60 / 190 90 / 190 40 / 190 Left Chest #2 50 / 160 80 / 160 30 / 160 Chest Tube Drainage 80 / 200 70 / 200 50 / 200 Chest tube #1 50 / 130 50 / 130 30 / 130 chest tube #2 30 / 70 20 / 70 20 / 70 Other: Weight 126.6 kg Patient Weight 07/15/18 23:59 Weight 126.6 kg - Lab 07/16/18 02:20 07/16/18 02:20 Most recent lab results 07/14/18 16:23 Calcium 7.6 L Phosphorus 5.1 H Consult Discharge Plan - Plan Referrals: Kip Rojas DO [Primary Care Provider] -
[2018-07-16] MEDS: Ipratropium/Albuterol Neb 3 ML IH PRN (00:27)
[2018-07-16 02:21] LABS: ABG Base Excess -6 mEq/L (-2 to 3); ABG HCO3 22 mEq/L (21-27); ABG Oxygen Saturation 85 % (95-98); ABG PCO2 57 mmHg (35-45); ABG PO2 62 mmHg (85-104); ABG TCO2 24 mEq/L (20-26)
[2018-07-16 02:46] LABS: Basophils % 0.2 %; Eosinophils # 0.1 K/mcL (0.0-0.6); Eosinophils % 0.4 %; Hematocrit 24.3 % (37.5-50.1); Hemoglobin 7.2 g/dL (12.9-16.9); Immature Granulocytes % 3.4 % (0-4); Lymphocytes # 0.7 K/mcL (0.6-4.6); Lymphocytes % 3.9 %; Mean Corpuscular HGB Conc 29.6 g/dL (31.6-35.5); Mean Corpuscular Hemoglobin 26.1 pg (28.0-33.3); Mean Platelet Volume 10.7 fL (9.4-12.4); Monocytes # 0.4 K/mcL (0.0-1.3); Monocytes % 2.2 %; Neutrophils # 16.3 K/mcL (1.6-8.9); Platelet Count 176 K/mcL (140-400); Red Blood Count 2.76 M/mcL (4.19-5.50); Red Cell Distribution Width 16.1 % (11.5-14.5); Segmented Neutrophils % 89.9 %; White Blood Count 18.1 K/mcL (4.3-11.1)
[2018-07-16 03:02] LABS: Albumin 3.4 g/dL (3.5-5.7); Albumin/Globulin Ratio 1.5 (1.1-2.2); Bilirubin,Total 0.5 mg/dL (0.3-1.0); Calcium 7.7 mg/dL (8.6-10.3); Globulin 2.3 g/dL (2.4-3.5); Potassium 5.1 mEq/L (3.5-5.1); Total Protein 5.7 g/dL (6.4-8.9)
[2018-07-16] MEDS: Piperacillin/Tazobactam 3.375 GM in 0.9 % Sodium Chloride Mini Bag 100 ML IVPB SCH ×2 (03:07→16:21)
[2018-07-16] MEDS ORDERED: Nitroglycerin 25 MG/250 ML INFUS..BTL IVC SCH (03:30)
[2018-07-16 04:47] LABS: ABG Base Excess -6 mEq/L (-2 to 3); ABG HCO3 23 mEq/L (21-27); ABG Oxygen Saturation 96 % (95-98); ABG PCO2 58 mmHg (35-45); ABG PO2 104 mmHg (85-104); ABG TCO2 24 mEq/L (20-26); Blood Gas Modality BiLevel; Blood Gas PEEP 12 cm H2O; Blood Gas Pressure Support 6 cm H2O
[2018-07-16] MEDS: *HR* OxyCODONE ER (12 HR) 10 MG TABLET PO SCH (04:59)
[2018-07-16] MEDS: *HR* Heparin 5,000 UNIT/ML VIAL SQ SCH ×3 (05:01→23:33)
[2018-07-16] MEDS: FentaNYL (PF) 1,000 MCG in 0.9 % Sodium Chloride 80 ML IVC SCH ×2 (06:04→22:13)
--- NOTE | 2018-07-16 06:04 | Event Note ---
Date of Encounter: 07/16/18 Time of Encounter: 05:29 Notified throughout the night regarding the patient's worsening respiratory status. As discussed below in previous event note patient's mother had code status changed to full. ABG indicated elevated pCO2 levels despite BiPAP and eventually AVAPS. No improvement. Repeat chest x-ray showed no significant change in left pleural effusion with worsening airspace disease on right compared to previous. Physical exam demonstrated worsening breath sounds, increased rales bilaterally. Attempted nitroglycerin drip in setting of suspected flash pulmonary edema. Fluids had been discontinued. Lasix not given due to acute renal failure and decreased urine output. Decision was made to intubate by respiratory therapy under my direct supervision. Patient was adequately sedated and intubation was successful on 3rd attempt. Please see respiratory therapy note for further details. Will place consult for critical care, and follow up with recommendations from nephrology. Patient may likely benefit from temporary dialysis. Continue ICU care. Total critical care time 60 minutes
[2018-07-16 07:03] LABS: ABG Base Excess -6 mEq/L (-2 to 3); ABG HCO3 22 mEq/L (21-27); ABG Oxygen Saturation 100 % (95-98); ABG PCO2 56 mmHg (35-45); ABG PH 7.19 pH Units (7.32-7.45); ABG PO2 378 mmHg (85-104); ABG TCO2 23 mEq/L (20-26); Blood Gas Modality ASSIST CONTROL; Blood Gas PEEP 5 cm H2O; Blood Gas VT 450 cc
[2018-07-16] MEDS: BuPROPion XL (24 HR) 150 MG TABLET PO SCH (07:55)
[2018-07-16] MEDS ORDERED: Artificial Tears SOLN 15 ML BOTTLE BOTH EYES PRN (08:06)
[2018-07-16] MEDS: Pregabalin 50 MG CAPSULE PO SCH ×2 (08:52→20:28)
[2018-07-16] MEDS ORDERED: *HR* Heparin 10,000 UNIT/10 ML VIAL IV PRN (09:19)
[2018-07-16] MEDS ORDERED: 0.9 % Sodium Chloride 250 ML IVC PRN (09:19)
[2018-07-16] MEDS ORDERED: 0.9 % Sodium Chloride 1,000 ML PRIME SCH (09:30)
[2018-07-16] MEDS: Chlorhexidine Rinse 15 ML MOUTHWASH MM SCH ×2 (10:12→20:28)
[2018-07-16] MEDS: Micafungin 100 MG in 0.9 % Sodium Chloride Mini Bag 100 ML IVPB SCH (10:12)
[2018-07-16] MEDS: Pantoprazole 40 MG VIAL IVP SCH (10:14)
[2018-07-16 10:20] LABS: ABG Base Excess -5 mEq/L (-2 to 3); ABG HCO3 22 mEq/L (21-27); ABG Oxygen Saturation 99 % (95-98); ABG PCO2 48 mmHg (35-45); ABG PH 7.27 pH Units (7.32-7.45); ABG PO2 138 mmHg (85-104); ABG TCO2 23 mEq/L (20-26); Blood Gas PEEP 5 cm H2O; Blood Gas VT 500 cc
--- NOTE | 2018-07-16 10:34 | Cardiothoracic Progress Note ---
Date of Encounter: 07/16/18 Time of Encounter: 10:32 - Assessment and plan (1) Empyema of left pleural space Current Visit: Yes Status: Acute The assessment and plan as outlined above was discussed with the patient and/or family members who expressed understanding and agreement. All questions were answered. continue drains to suction and bulb drainage cultures wiht yeast (2) Acute kidney insufficiency Current Visit: Yes Status: Acute The assessment and plan as outlined above was discussed with the patient and/or family members who expressed understanding and agreement. All questions were answered. due to vancomycin. ID on board. (3) Acute renal failure on dialysis Current Visit: Yes Status: Acute The assessment and plan as outlined above was discussed with the patient and/or family members who expressed understanding and agreement. All questions were answered. Vital Signs, Last 4 Hours Temp Pulse Resp BP Pulse Ox 07/16/18 09:02 87 16 110/59 100 07/16/18 08:10 98.6 F 07/16/18 08:00 90 16 111/60 99 07/16/18 07:45 86 07/16/18 07:20 96 16 113/58 Oxgyen Flow Rate Oxygen Flow Rate (LPM) 50 Clinical Data, last 8 Hours Output, Chest Tube Drainage 10 Amount [chest tube #2] Output, Chest Tube Drainage 0 Amount [chest tube #2] Output, Chest Tube Drainage 20 Amount [chest tube #2] Output, Chest Tube Drainage 20 Amount [Chest tube #1] Output, Chest Tube Drainage 0 Amount [Chest tube #1] Output, Chest Tube Drainage 10 Amount [Chest tube #1] Weight 07/14/18 07/15/18 07/16/18 23:59 23:59 23:59 Weight 126.6 kg 126.4 kg - Physical Examination General: Other (intubated and sedated. ) HEENT: Atraumatic, Normocephaly Neck: Normal carotid pulses Cardiac: Reg Rate and Rhythm, Normal S1 and S2 Incision: No signs of infection, Dry/intact dressing, Open to air Chest tubes: Minimal drainage Lungs: Other (faint crackles throughout) Abdomen: Soft, Non-tender - Labs 07/16/18 02:20 07/16/18 02:20 Lab Results, Last 24 hours 07/14/18 07/15/18 07/16/18 16:23 18:35 02:20 WBC Hgb 7.2 L Hct 24.3 L Plt Count Sodium 137 135 L Potassium 4.1 5.1 Chloride 100 104 Carbon Dioxide 27 21 L BUN 17 26 H Creatinine 3.61 H 5.26 H Glucose 116 H 103 Calcium 7.6 L 7.7 L Total Bilirubin 0.5 AST 28 ALT 31 Alkaline Phosphatase 68 07/16/18 02:20 WBC 18.1 H Hgb 7.2 L Hct 24.3 L Plt Count 176 Sodium Potassium Chloride Carbon Dioxide BUN Creatinine Glucose Calcium Total Bilirubin AST ALT Alkaline Phosphatase - Imaging Chest Xray: image reviewed Consult Discharge Plan - Plan Referrals: Kip Rojas DO [Primary Care Provider] -
--- NOTE | 2018-07-16 11:01 | Infectious Disease Progress No ---
ID Progress Note Date of Encounter: 07/16/18 Time of Encounter: 09:15 - Subjective Subjective: Patient seen and examined. Overnight events noted. Patient required emergent intubation overnight due to worsening respiratory failure. He is intubated and sedated on the ventilator this morning. Renal function continues to worsen. Nephrology planning to start dialysis. Review of systems unobtainable from the patient. Discussed with nursing. - Objective CBC & Chem 7: 07/17/18 03:30 07/17/18 03:30 - Exam Vitals: Temp Pulse Resp BP Pulse Ox 98.6 F 81 16 103/59 100 07/16/18 08:10 07/16/18 10:00 07/16/18 10:00 07/16/18 10:00 07/16/18 10:00 Exam: Head: Atraumatic, normal inspection, normocephalic. Eye: PERRLA, no scleral icterus noted. ENT: Mucous membranes moist. No odontogenic infection noted. Neck: Normal inspection, no meningismus. Respiratory: Clear to auscultation, diminished in the bilateral bases. No rales, respiratory distress, rhonchi, or wheezes noted. Surgical site noted to the left lateral chest with chest tubes 2 with serosanguineous drainage. RAY drain 2 with serosanguineous drainage. No crepitus or air leak noted. Cardiovascular: Regular rhythm, tachycardic, S1 and S2 audible. No murmurs, rubs, or gallops. GI: Soft, nondistended, normal bowel sounds. Smith catheter draining small amount of clear yellow urine. Extremities:No joint swelling or tenderness noted. 1+ edema noted to the bilateral lower extremities. Neurological: Sedated, does not respond to verbal or tactile stimuli. Skin: Dry, intact, warm. Normal color. No rashes. - Assessment and Plan (1) Sepsis Current Visit: Yes Status: Acute The patient had three SIRS criteria. Likely secondary to empyema. Concern for additional infectious source given the patient's new onset of fever and tachycardia despite recent surgery/source control and antibiotics. Leukocytosis worse this morning, likely reactive to overnight events. MAXIMUM TEMPERATURE 101 in the past 24 hours. Intermittent tachycardia noted. Blood cultures drawn 07/15/18 are no growth to date 2 sets. Lactic acid was normal. Qualifiers: Sepsis type: sepsis due to unspecified organism Qualified Code(s): A41.9 - Sepsis, unspecified organism SNOMED Code(s): 61012197 (2) Acute respiratory failure Current Visit: Yes Status: Acute Likely multifactorial: Pulmonary edema plus altered mental status plus possible pneumonia. Required emergent intubation 07/16/18. Chest x-ray shows findings consistent with ours versus multi lobular pneumonia and small bilateral pleural effusions, left greater than right. Pulmonology consult and following. Qualifiers: Respiratory failure complication: unspecified whether with hypoxia or hypercapnia Qualified Code(s): J96.00 - Acute respiratory failure, unspecified whether with hypoxia or hypercapnia SNOMED Code(s): 81932750 (3) Empyema Current Visit: Yes Status: Acute Location: Left lateral chest. Causative organism: Yeast. Etiology: Unclear. The patient has had a recurrent pleural effusion since April. CT of the chest showed a complex left pleural effusion concerning for empyema with multiple abscesses adjacent to the rib cage. Cardiothoracic surgery consulted. Status post bronchoscopy with aspiration, left thoracotomy with decortication, reverse latissimus MM flap, and wedge left upper lobe 07/13/[address] Almaguer. Operative note reviewed. Intraoperative cultures positive for yeast, final ID and sensitivities pending. Currently on IV Zosyn. SNOMED Code(s): 371283638 (4) Acute kidney injury Current Visit: Yes Status: Acute Likely multifactorial: Hypoperfusion plus nephrotoxic medications plus sepsis. Serum creatinine elevated at 5.26 today. Nephrology consulted. Planning intermittent HD per nursing. Monitor renal function closely and dose adjust medications. Avoid nephrotoxins as able. SNOMED Code(s): 07175157, 68141152 (5) Pleural effusion Current Visit: Yes Status: Resolved Etiology: Unclear. Location: Left chest. Recurrent since April after he had a diagnostic thoracentesis. Cultures and pathology were negative at that time. SNOMED Code(s): 11569075 (6) Chest pain Current Visit: No Status: Acute Likely secondary to empyema. Troponin was negative. Pain management per the primary team. Qualifiers: Chest pain type: chest pain on breathing Qualified Code(s): R07.1 - Chest pain on breathing; R07.81 - Pleurodynia SNOMED Code(s): 52868915 (7) Lymphadenopathy Current Visit: Yes Status: Acute CT of the chest showed multiple enlarged mediastinal lymph nodes, presumably reactive. SNOMED Code(s): 92204151 (8) Transaminitis Current Visit: Yes Status: Acute Etiology: Unclear. Resolved. Continue to trend. SNOMED Code(s): 419419101, 387888829 (9) Hypokalemia Current Visit: Yes Status: Resolved Replacement per the primary team. Resolved. SNOMED Code(s): 71010989 (10) Former tobacco use Current Visit: No Status: Chronic SNOMED Code(s): 960443524 (11) Chronic back pain Current Visit: No Status: Chronic Qualifiers: Back pain location: low back pain Back pain laterality: bilateral Sciatica presence: with sciatica Sciatica laterality: bilateral sciatica Qualified Code(s): M54.42 - Lumbago with sciatica, left side; M54.41 - Lumbago with sciatica, right side; G89.29 - Other chronic pain SNOMED Code(s): 299853670 (12) Obesity (BMI 30.0-34.9) Current Visit: No Status: Chronic SNOMED Code(s): 423657173725676 - Recommendations Recommendations: Await blood cultures to finalize. Await final ID and sensitivities on Intra-Op cultures. Wound care and activity per the CTS team. Vent management per the pulmonology team. Acute kidney injury her the nephrology team. Continue Zosyn 3.375 grams IV, but decrease frequency to every 12 hours in light of nephrology starting intermittent dialysis. Start micafungin 100 mg IV daily. Duration of treatment depends on the clinical picture. Monitor renal function and dose-adjust antibiotics. Consult Discharge Plan - Plan Referrals: Kip Rojas DO [Primary Care Provider] - - Attending Attestation I have personally performed a face to face evaluation on this patient. I have reviewed and agree with the care plan. 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 No signs of MRSA and patient is in acute kidney injury so I will stop vancomycin for now Await Intra-Op cultures to finalize Prognosis guarded
[2018-07-16] MEDS: Artificial Tears SOLN 15 ML BOTTLE BOTH EYES SCH ×4 (11:14→23:33)
[2018-07-16 11:39] LABS: Hepatitis B Surface Antibody < 3.10 mIU/mL
[2018-07-16 11:50] LABS: Hepatitis B Surface Antigen Nonreactive (Nonreactive)
[2018-07-16] MEDS ORDERED: *HR* Midazolam HCl 2 MG/2 ML VIAL IV ONE (13:43)
[2018-07-16] MEDS ORDERED: *HR* Midazolam HCl 5 MG/5 ML VIAL IVP ONE (13:43)
[2018-07-16] MEDS ORDERED: *HR* Etomidate 40 MG/20 ML VIAL IVP ONE (13:43)
--- NOTE | 2018-07-16 18:02 | Procedure Note ---
Date of procedure: 07/16/18 Pre-op diagnosis: Acute renal failure requiring hemodialysis Post-op diagnosis: same Procedure: Consent: Patient was explained the indication and risks of procedure. Questions were answered and consent was signed prior to procedure. Procedure summary: A timeout was performed. The patient's left neck region was prepped and draped in sterile fashion using chlorhexidine scrub. The left internal jugular vein was accessed under ultrasound guidance using a finder needle and sheath. Venous blood was withdrawn and the sheath was advanced into the vein and the needle was withdrawn. A guidewire was advanced through the sheath. A small incision was made with a 10 blade scalpel and the sheath was exchanged for a dilator over the guidewire until appropriate dilation was obtained. The dilator was removed and an 12.5-[place] central venous triple- lumen hemodialysis catheter was advanced over the guidewire and secured into place with sutures. At the time of procedure completion, all ports aspirated and flushed properly. Postprocedure x-ray shows the tip of the catheter within the SVC. Complications: None Estimated blood loss: Minimal Anesthesia: IV sedation Surgeon: Pascual Wilson Was there an assistant store manager sales present: No Estimated blood loss (cc): 1 Specimen: 0 Disposition: ICU
--- NOTE | 2018-07-16 18:05 | Pulmonology Progress Note ---
Date of Encounter: 07/16/18 Time of Encounter: 07:15 Assessment and Plan (1) Acute respiratory failure Current Visit: Yes Status: Acute Unfortunately patient's condition has deteriorated that required invasive mechanical ventilation and have checked his ABG before intubation and also after intubation with appropriate changes on the ventilator made and his peak airway pressure is not significantly elevate and Ppl is acceptable. It is unclear at this time what exactly happened, however I suspect worsening of his renal function with possibly combination of sedation as well as side effect of medications has affected his respiratory which did not unfortunately invasive mechanical ventilation. Patient's CODE STATUS was changed appropriately since h e is young age and hopefully this is a reversible condition. I spent 40 min of Critical Care time with this patient. It involved decision making of high complexity to assess, manipulate, and support vital organ system failure and/or to prevent further life threatening deterioration of the patient's condition. The time involved in the performance of separately reportable procedures was not counted toward critical care time. Qualifiers: Respiratory failure complication: hypoxia and hypercapnia Qualified Code(s): J96.01 - Acute respiratory failure with hypoxia; J96.02 - Acute respiratory failure with hypercapnia (2) Pleural effusion Current Visit: Yes Status: Acute Patient still have his chest tube that is managed by thoracic surgeon. Treatment of empyema with broad spectrum coverage and ID is following up. Questionable if this is fungal in nature and to check fluid. Unlikely this is source since it has been treated surgically and covered with broad spectrum antibiotic. Family is aware of what happened. (3) Acute renal failure on dialysis Current Visit: Yes Status: Acute Worsening of renal function and nephrology is consulted and will arrange for placement of HD catheter. Subjective Principal diagnosis: Pleural Effusion Interval history: Patient is on the vent now and worsening in his condition with his respiratory status and mental status. Objective PUL Vital signs: Last Vital Signs Temp 98.8 F 07/16/18 16:05 Pulse 87 07/16/18 16:00 Resp 20 07/16/18 16:34 BP 108/62 07/16/18 16:00 Pulse Ox 96 07/16/18 16:34 General appearance: no acute distress Eyes: nonicteric ENT: oropharynx moist Neck: no lymphadenopathy Effort: normal Auscultation: left: diminished breath sounds, right: rhonchi Cardiovascular: regular rate and rhythm Gastrointestinal: normoactive bowel sounds, non-distended Extremities: no cyanosis Ventilator Settings Ventilator Settings: Ventilator Settings, Last 8 Hours Ventilator Tidal Volume 500 Setting Ventilator Tidal Volume 500 Setting Ventilator Tidal Volume 500 Setting Ventilator Tidal Volume 500 Setting Ventilator Tidal Volume 500 Setting Ventilator Tidal Volume 500 Setting Ventilator Tidal Volume 500 Setting Ventilator Tidal Volume 500 Setting Ventilator Tidal Volume 500 Setting Ventilator Tidal Volume 500 Setting Ventilator Tidal Volume 500 Setting Ventilator Respiratory Rate 16 Setting Ventilator Respiratory Rate 16 Setting Ventilator Respiratory Rate 16 Setting Ventilator Respiratory Rate 16 Setting Ventilator Respiratory Rate 16 Setting Ventilator Respiratory Rate 16 Setting Ventilator Respiratory Rate 16 Setting Ventilator Respiratory Rate 16 Setting Ventilator Respiratory Rate 16 Setting Ventilator Respiratory Rate 16 Setting Ventilator Respiratory Rate 16 Setting Actual Respiratory Rate 20 Actual Respiratory Rate 16 Actual Respiratory Rate 16 Actual Respiratory Rate 16 Actual Respiratory Rate 16 Actual Respiratory Rate 16 Actual Respiratory Rate 16 Actual Respiratory Rate 16 Actual Respiratory Rate 16 Actual Respiratory Rate 16 Positive End Expiratory 5 Pressure Positive End Expiratory 5 Pressure Positive End Expiratory 5 Pressure Positive End Expiratory 5 Pressure Positive End Expiratory 5 Pressure Positive End Expiratory 5 Pressure Positive End Expiratory 5 Pressure Positive End Expiratory 5 Pressure Positive End Expiratory 5 Pressure Positive End Expiratory 5 Pressure Positive End Expiratory 5 Pressure Peak Inspiratory Airway 41 Pressure Peak Inspiratory Airway 41 Pressure Peak Inspiratory Airway 43 Pressure Peak Inspiratory Airway 43 Pressure Peak Inspiratory Airway 41 Pressure Peak Inspiratory Airway 41 Pressure Peak Inspiratory Airway 42 Pressure Peak Inspiratory Airway 42 Pressure Peak Inspiratory Airway 43 Pressure Peak Inspiratory Airway 43 Pressure Results - Laboratory Findings CBC and BMP: 07/19/18 04:45 07/19/18 04:45 ABG ABG pH 7.27 pH Units (7.32-7.45) L 07/16/18 10:17 ABG pCO2 48 mmHg (35-45) H 07/16/18 10:17 ABG pO2 138 mmHg (85-104) H D 07/16/18 10:17 ABG O2 Saturation 99 % (95-98) H 07/16/18 10:17 PT/INR, D-dimer PT 17.8 Seconds (9.4-12.1) H 07/11/18 00:52 Abnormal lab findings: Abnormal lab results WBC 18.1 K/mcL (4.3-11.1) H 07/16/18 02:20 RBC 2.76 M/mcL (4.19-5.50) L 07/16/18 02:20 Hgb 7.2 g/dL (12.9-16.9) L 07/16/18 02:20 Hct 24.3 % (37.5-50.1) L 07/16/18 02:20 MCV 82.2 fL (83.0-100.0) L 07/12/18 01:15 MCH 26.1 pg (28.0-33.3) L 07/16/18 02:20 MCHC 29.6 g/dL (31.6-35.5) L 07/16/18 02:20 RDW 16.1 % (11.5-14.5) H 07/16/18 02:20 16.3 K/mcL (1.6-8.9) H 07/16/18 02:20 1+ (Not Present) A 07/13/18 04:20 Present (Not Present) A 07/13/18 04:20 PT 17.8 Seconds (9.4-12.1) H 07/11/18 00:52 APTT 37.2 Seconds (26.0-36.0) H 07/10/18 16:31 ABG pH 7.27 pH Units (7.32-7.45) L 07/16/18 10:17 ABG pCO2 48 mmHg (35-45) H 07/16/18 10:17 ABG pO2 138 mmHg (85-104) H D 07/16/18 10:17 ABG O2 Saturation 99 % (95-98) H 07/16/18 10:17 ABG Base Excess -5 mEq/L (-2 to 3) L 07/16/18 10:17 Sodium 135 mEq/L (136-145) L 07/16/18 02:20 Potassium 2.9 mEq/L (3.5-5.1) L 07/10/18 16:59 Chloride 97 mEq/L (98-107) L 07/11/18 00:52 Carbon Dioxide 21 mEq/L (23-29) L 07/16/18 02:20 BUN 26 mg/dL (6-20) H 07/16/18 02:20 5.26 mg/dL (0.70-1.30) H 07/16/18 02:20 Est GFR ( Amer) 15 (> 60) L 07/16/18 02:20 Est GFR (Non-Af Amer) 12 (> 60) L 07/16/18 02:20 5 (6-26) L 07/16/18 02:20 Glucose 107 mg/dL (70-105) H 07/15/18 06:28 POC Glucose 114 mg/dL (70-99) H 07/13/18 14:25 279 (280-300) L 07/12/18 01:15 Calcium 7.7 mg/dL (8.6-10.3) L 07/16/18 02:20 Phosphorus 5.5 mg/dL (2.7-4.5) H 07/15/18 06:28 AST 41 Units/L (13-39) H 07/15/18 06:28 ALT 87 Units/L (7-52) H 07/10/18 16:59 127 Units/L (34-104) H 07/10/18 16:59 5.7 g/dL (6.4-8.9) L 07/16/18 02:20 3.4 g/dL (3.5-5.7) L 07/16/18 02:20 2.3 g/dL (2.4-3.5) L 07/16/18 02:20 1.0 (1.1-2.2) L 07/15/18 06:28 0.44 ng/mL (0.00-0.15) H 07/11/18 09:41 Ur Specific Reeves < 1.005 (1.010-1.025) L 07/15/18 10:25 Small (Negative) H 07/15/18 10:25 3-5 per hpf (0-3) H 07/15/18 10:25 Amorphous Sediment Moderate (Few) H 07/15/18 10:25 Protein/Creatinin Ratio 0.95 mg/mg (0.00-0.20) H 07/15/18 10:25 36 mg/dL (1-14) H 07/15/18 10:25 Pleural Appearance Bloody (Clear) A 07/13/18 13:40 Vancomycin Trough 23 mcg/mL (5-10) H 07/12/18 18:31 Positive ng/mL (Kwuxxs=355) H 07/11/18 16:00 U Benzodiazepines Scrn Positive ng/mL (Mskkwn=610) H 07/11/18 16:00 Hep Bs Antibody < 3.10 mIU/mL (10.00-) L 07/16/18 09:22 Crossmatch See Detail 07/12/18 01:15 - Microbiology Findings Microbiology Findings: Microbiology, Last 48 Hours 07/13/18 13:40 Acid Fast Stain - Final Pleural Fluid 07/13/18 13:40 Body Fluid Culture - Preliminary Pleural Fluid Yeast Species 07/15/18 13:26 Blood Culture - Preliminary Peripheral Venipuncture Culture is incubating and being continuously monit ored for growth. Final report to follow. 07/15/18 13:26 Blood Culture - Preliminary Peripheral Venipuncture Culture is incubating and being continuously monitored for growth. Final report to follow. 07/13/18 13:40 Fungal Culture - Preliminary Pleural Fluid Culture is incubating. - Diagnostic Findings Chest x-ray: report reviewed - Clinical Findings Intake & Output: Intake & Output 07/16/18 07/16/18 07/16/18 07:59 15:59 23:59 Intake Total 247.0 / 1250.0 914.0 / 1250.0 89 / 1250.0 Output Total 470 / 2753 2143 / 2753 140 / 2753 Balance -223.0 / -1503.0 -1229.0 / -1503.0 -51 / -1503.0 Weight 126.4 kg Consult Discharge Plan - Plan Referrals: Kip Rojas DO [Primary Care Provider] -
[2018-07-16] MEDS: Lurasidone 20 MG TABLET PO SCH (20:27)
--- NOTE | 2018-07-16 23:36 | Nephrology Progress Note ---
Date of Encounter: 07/16/18 Time of Encounter: 12:00 - Assessment and Plan (1) Empyema Current Visit: Yes Status: Acute POD#3 L thoracotomy, per CTS Continue abx, ID on board with recs appreciated (2) Acute kidney injury Current Visit: Yes Status: Acute SCr continues to worsen at 5.26, GFR 12, suspect ATN at this point IVF stopped with pending resp failure which is reasonable Continue to avoid nephrotoxins if possible, vanco by levels only if absolutely needed Will proceed with [employer] with HD for 2hrs with minimal UF UOP noted at 840cc in the past 24hrs, will monitor (3) Acute blood loss as cause of postoperative anemia Current Visit: Yes Status: Acute Hgb now at 7.2 despite transfusions pRBCs Transfusion parameters per primary team (4) Acute respiratory failure Current Visit: Yes Status: Acute Vent management per pulm/critical care Qualifiers: Respiratory failure complication: unspecified whether with hypoxia or hypercapnia Qualified Code(s): J96.00 - Acute respiratory failure, unspecified whether with hypoxia or hypercapnia Subjective Principal diagnosis: Pleural Effusion Interval history: Pt seen and examined now intubated and sedated due to resp distress overnight after code status changed. s/p temp IJ catheter placement by Dr Wilson and now receiving HD Objective - Vital Signs Vital signs: Vital Signs Temp Pulse Resp BP Pulse Ox 07/16/18 23:00 99 2 116/68 94 07/16/18 22:00 100 17 109/60 94 07/16/18 21:45 17 108/56 94 07/16/18 21:00 97 17 111/58 99 07/16/18 20:00 98 16 116/59 99 07/16/18 19:49 16 107/63 99 07/16/18 19:42 101.0 F H 07/16/18 19:00 86 16 107/61 99 07/16/18 18:02 17 97 07/16/18 18:00 97 17 120/64 95 07/16/18 17:00 90 16 114/66 99 07/16/18 16:34 20 96 07/16/18 16:05 98.8 F 07/16/18 16:00 87 16 108/62 98 07/16/18 15:00 86 16 110/62 99 07/16/18 14:00 83 16 105/59 99 07/16/18 13:28 16 95 07/16/18 13:22 97.1 F L 18 101/54 07/16/18 12:55 78 16 98/57 100 07/16/18 12:40 98/57 07/16/18 12:25 104/58 07/16/18 12:10 101/55 07/16/18 12:00 97.9 F 79 16 101/56 100 07/16/18 11:55 98/59 07/16/18 11:40 99/60 07/16/18 11:35 15 92 07/16/18 11:25 99/58 07/16/18 11:15 80 07/16/18 11:10 97.9 F 18 99/59 07/16/18 11:02 81 16 95/55 94 07/16/18 10:00 81 16 103/59 100 07/16/18 09:02 87 16 110/59 100 07/16/18 08:10 98.6 F 07/16/18 08:00 90 16 111/60 99 07/16/18 07:45 86 07/16/18 07:20 96 16 113/58 07/16/18 06:00 107 19 100 07/16/18 05:51 38 100 07/16/18 05:00 101 24 128/66 98 07/16/18 04:47 36 98 07/16/18 04:00 104 26 145/70 99 07/16/18 03:00 99.8 F H 103 26 138/76 99 07/16/18 02:31 25 142/67 98 07/16/18 02:00 104 34 129/77 85 07/16/18 01:00 105 28 134/64 93 07/16/18 00:30 16 93 07/16/18 00:13 100.1 F H 07/16/18 00:00 106 29 136/72 94 Intake and Output 07/16/18 07/16/18 07/16/18 07:59 15:59 23:59 Intake Total 247.0 / 1550.0 914.0 / 1550.0 389 / 1550.0 Output Total 470 / 2843 2143 / 2843 230 / 2843 Balance -223.0 / -1293.0 -1229.0 / -1293.0 159 / -1293.0 Intake: IV Fluids 247.0 / 950.0 314.0 / 950.0 389 / 950.0 FentaNYL (PF) 1,000 MCG In 0.9 100 / 100 % Sodium Chloride 80 ML @ 50 MCG/HR 5 mls/hr IVC CONT NEFTALI Rx #:[id number] Nitroglycerin Premix 25 MG/250 98.7 / 250.0 151.3 / 250.0 ML 25 mg In 250 ml @ 5 MCG/MIN 3 mls/hr IVC .Q24H NEFTALI Rx#: [id number] Diprivan 1,000 mg In 100 ml @ 48.3 / 300.0 62.7 / 300.0 189 / 300.0 20 MCG/KG/MIN 15.168 mls/hr IVC .Q6H36M NEFTALI Rx#:[id number] Mycamine 100 MG In 0.9 % Sodium 100 / 100 Chloride (Mini-Bag +) 100 ML @ 100 mls/hr IVPB DAILY NEFTALI Rx#: [id number] Zosyn 3.375 GM In 0.9 % Sodium 100 / 200 100 / 200 Chloride (Mini-Bag +) 100 ML @ 25 mls/hr IVPB Q12H NEFTALI Rx#: [id number] Oral 0 / 0 0 / 0 Intake, Rinseback and Flushes 600 / 600 Output: Urine 0 / 0 Total Dialysis (HD) Output 1600 / 1600 Catheter 200 / 383 133 / 383 50 / 383 Gastric Drainage 300 / 400 100 / 400 Wound Drainage 170 / 320 70 / 320 80 / 320 Left Chest #1 120 / 200 30 / 200 50 / 200 Left Chest #2 50 / 120 40 / 120 30 / 120 Chest Tube Drainage 100 / 140 40 / 140 0 / 140 Chest tube #1 40 / 70 30 / 70 0 / 70 chest tube #2 60 / 70 10 / 70 0 / 70 Other: Stool Size Moderate Large Stool Consistency loose soft Stool Color Brown Brown # Bowel Movements 1 1 Weight 126.4 kg Blood Glucose* 106 Hemodialysis Net Fluid Removed 1000 (mL) Patient Weight 07/16/18 23:59 Weight 126.4 kg - Lab 07/16/18 02:20 07/16/18 02:20 Consult Discharge Plan - Plan Referrals: Kip Rojas DO [Primary Care Provider] -
[2018-07-17 03:43] LABS: Hematocrit 23.6 % (37.5-50.1); Hemoglobin 6.9 g/dL (12.9-16.9); Mean Corpuscular HGB Conc 29.2 g/dL (31.6-35.5); Mean Corpuscular Volume 85.5 fL (83.0-100.0); Mean Platelet Volume 10.4 fL (9.4-12.4); Platelet Count 152 K/mcL (140-400); Red Blood Count 2.76 M/mcL (4.19-5.50); Red Cell Distribution Width 16.5 % (11.5-14.5); White Blood Count 18.2 K/mcL (4.3-11.1)
[2018-07-17 04:01] LABS: Calcium 7.8 mg/dL (8.6-10.3); Potassium 4.4 mEq/L (3.5-5.1)
[2018-07-17] MEDS: Piperacillin/Tazobactam 3.375 GM in 0.9 % Sodium Chloride Mini Bag 100 ML IVPB SCH ×2 (04:26→15:36)
[2018-07-17] MEDS: Artificial Tears SOLN 15 ML BOTTLE BOTH EYES SCH ×5 (04:26→21:29)
[2018-07-17 04:47] LABS: ABG Base Excess -3 mEq/L (-2 to 3); ABG HCO3 23 mEq/L (21-27); ABG Oxygen Saturation 88 % (95-98); ABG PCO2 44 mmHg (35-45); ABG PH 7.32 pH Units (7.32-7.45); ABG PO2 59 mmHg (85-104); ABG TCO2 24 mEq/L (20-26); Blood Gas Modality ASSIST CONTROL; Blood Gas PEEP 5 cm H2O; Blood Gas VT 500 cc
[2018-07-17 06:42] LABS: Platelet Estimate Decreased (Normal)
[2018-07-17 06:51] LABS: Basophils % 0.2 %; Eosinophils # 0.3 K/mcL (0.0-0.6); Eosinophils % 1.7 %; Lymphocytes % 5.7 %; Monocytes # 0.4 K/mcL (0.0-1.3); Monocytes % 2.4 %
[2018-07-17] MEDS: *HR* Heparin 5,000 UNIT/ML VIAL SQ SCH (07:02)
[2018-07-17] MEDS: Ipratropium/Albuterol Neb 3 ML IH PRN (07:22)
[2018-07-17] MEDS: Chlorhexidine Rinse 15 ML MOUTHWASH MM SCH ×2 (07:57→21:29)
[2018-07-17] MEDS: Pantoprazole 40 MG VIAL IVP SCH (07:57)
[2018-07-17] MEDS: Micafungin 100 MG in 0.9 % Sodium Chloride Mini Bag 100 ML IVPB SCH (07:58)
[2018-07-17] MEDS: Pregabalin 50 MG CAPSULE PO SCH ×2 (07:58→21:30)
[2018-07-17] MEDS ORDERED: 0.9 % Sodium Chloride 250 ML IVC PRN (09:43)
[2018-07-17] MEDS ORDERED: *HR* Heparin 10,000 UNIT/10 ML VIAL IV PRN (09:43)
[2018-07-17] MEDS ORDERED: 0.9 % Sodium Chloride 1,000 ML PRIME SCH (09:45)
[2018-07-17] MEDS ORDERED: 0.9 % Sodium Chloride 1,000 ML ONE (09:47)
--- NOTE | 2018-07-17 11:05 | Cardiothoracic Progress Note ---
Date of Encounter: 07/17/18 Time of Encounter: 11:03 - Assessment and plan (1) Empyema of left pleural space Current Visit: Yes Status: Acute The assessment and plan as outlined above was discussed with the patient and/or family members who expressed understanding and agreement. All questions were answered. continue drains to suction and bulb drainage cultures wiht yeast (2) Acute kidney insufficiency Current Visit: Yes Status: Acute The assessment and plan as outlined above was discussed with the patient and/or family members who expressed understanding and agreement. All questions were answered. awaiting to hear about dialysis today. (3) Acute renal failure on dialysis Current Visit: Yes Status: Acute The assessment and plan as outlined above was discussed with the patient and/or family members who expressed understanding and agreement. All questions were answered. as above Vital Signs, Last 4 Hours Temp Pulse Resp BP Pulse Ox 07/17/18 10:22 100.9 F H 97 16 111/70 96 07/17/18 10:00 97 16 103/61 96 07/17/18 09:15 16 101/62 97 07/17/18 09:00 98 16 101/62 98 07/17/18 08:36 100.9 F H 100 16 99/64 96 07/17/18 08:21 100.2 F H 102 16 106/67 96 07/17/18 08:06 100.2 F H 102 16 106/62 96 07/17/18 08:00 100.2 F H 102 16 106/62 96 07/17/18 07:45 103 16 109/61 96 07/17/18 07:25 99.4 F 07/17/18 07:15 20 106/64 96 Oxgyen Flow Rate Oxygen Flow Rate (LPM) 50 Clinical Data, last 8 Hours Output, Chest Tube Drainage 10 Amount [chest tube #2] Output, Chest Tube Drainage 0 Amount [chest tube #2] Output, Chest Tube Drainage 10 Amount [Chest tube #1] Output, Chest Tube Drainage 30 Amount [Chest tube #1] Weight 07/15/18 07/16/18 07/17/18 23:59 23:59 23:59 Weight 126.6 kg 126.4 kg - Physical Examination General: Other (intubated and sedated. ) HEENT: Atraumatic, Normocephaly Cardiac: Reg Rate and Rhythm Incision: No signs of infection, Dry/intact dressing Chest tubes: Minimal drainage Lungs: Other (coarse crackles ) Abdomen: Soft - Labs 07/17/18 03:30 07/17/18 03:30 Lab Results, Last 24 hours 07/17/18 07/17/18 03:30 03:30 WBC 18.2 H Hgb 6.9 L Hct 23.6 L Plt Count 152 Sodium 136 Potassium 4.4 Chloride 101 Carbon Dioxide 23 BUN 27 H Creatinine 5.24 H Glucose 103 Calcium 7.8 L - Imaging Chest Xray: image reviewed, other (ct of chest, abd, and pelvis reviewed) Consult Discharge Plan - Plan Referrals: Kip Rojas DO [Primary Care Provider] -
--- NOTE | 2018-07-17 11:09 | Infectious Disease Progress No ---
ID Progress Note Date of Encounter: 07/17/18 Time of Encounter: 09:10 - Subjective Subjective: Patient seen and examined. No acute events noted overnight. Remains intubated and sedated on the ventilator this morning. Febrile and tachycardic overnight. Status post iHD yesterday. Urine output low. Review of systems unobtainable from the patient. Discussed with nursing. - Objective CBC & Chem 7: 07/18/18 03:50 07/18/18 03:50 - Line Documentation Line Documentation: Dialysis Catheter (Temp HD catheter noted to the left neck.), Smith Catheter (Draining small amount of dark brown urine.), Chest Tube, Drain (RAY drain x 2 to the left lateral chest wall with serosanguinous drainage.), Peripheral (x2 to the left lateral chest wall with serosanguinous drainage.) - Exam Vitals: Temp Pulse Resp BP Pulse Ox 100.9 F H 97 16 111/70 96 07/17/18 10:22 07/17/18 10:22 07/17/18 10:22 07/17/18 10:22 07/17/18 10:22 Exam: Head: Atraumatic, normal inspection, normocephalic. Eye: PERRLA, no scleral icterus noted. ENT: Mucous membranes moist. No odontogenic infection noted. Neck: Normal inspection, no meningismus. Temp HD line left neck. Respiratory: Clear to auscultation, diminished in the bilateral bases. No rales, respiratory distress, rhonchi, or wheezes noted. Surgical site noted to the left lateral chest with chest tubes 2 with serosanguineous drainage. RAY drain 2 with serosanguineous drainage. No crepitus or air leak noted. Cardiovascular: Regular rhythm, tachycardic, S1 and S2 audible. No murmurs, rubs, or gallops. GI: Soft, nondistended, normal bowel sounds. Smith catheter draining small amount of dark brown urine. Extremities:No joint swelling or tenderness noted. 1+ edema noted to the bilateral lower and BU extremities. Neurological: Sedated, does not respond to verbal or tactile stimuli. Skin: Dry, intact, warm. Pale. No rashes. - Assessment and Plan (1) Sepsis Current Visit: Yes Status: Acute The patient had three SIRS criteria. Likely secondary to empyema. Concern for additional infectious source given the patient's new onset of fever and tachycardia despite recent surgery/source c ontrol and antibiotics. Leukocytosis worse this morning, likely reactive to overnight events. MAXIMUM TEMPERATURE 101 in the past 24 hours. Tachycardia noted. Blood cultures drawn 07/15/18 are no growth to date 2 sets. Lactic acid was normal. Qualifiers: Sepsis type: sepsis due to unspecified organism Qualified Code(s): A41.9 - Sepsis, unspecified organism SNOMED Code(s): 17046465 (2) Acute respiratory failure Current Visit: Yes Status: Acute Likely multifactorial: Pulmonary edema plus altered mental status plus possible pneumonia plus ARDS. Required emergent intubation 07/16/18. Chest x-ray shows findings consistent with ours versus multi lobular pneumonia and small bilateral pleural effusions, left greater than right. Repeat CXR 07/17/18 showed diffuse airspace disease slightly increased on the right and persistent moderate left pleural effusion. Pulmonology consulted and following. Qualifiers: Respiratory failure complication: unspecified whether with hypoxia or hypercapnia Qualified Code(s): J96.00 - Acute respiratory failure, unspecified whether with hypoxia or hypercapnia SNOMED Code(s): 37771841 (3) Empyema Current Visit: Yes Status: Acute Location: Left lateral chest. Causative organism: Yeast. Etiology: Unclear. The patient has had a recurrent pleural effusion since April. CT of the chest showed a complex left pleural effusion concerning for empyema with multiple abscesses adjacent to the rib cage. Cardiothoracic surgery consulted. Status post bronchoscopy with aspiration, left thoracotomy with decortication, reverse latissimus MM flap, and wedge left upper lobe 07/13/[address] Almaguer. Operative note reviewed. Intraoperative cultures positive for yeast, final ID and sensitivities pending. Currently on IV Zosyn and fluconazole. SNOMED Code(s): 254840277 (4) Acute kidney injury Current Visit: Yes Status: Acute Likely multifactorial: Hypoperfusion plus nephrotoxic medications plus sepsis. Serum creatinine elevated at 5.24 today. Nephrology consulted. iHD started 07/16/18. Monitor renal function closely and dose adjust medications. Avoid nephrotoxins as able. SNOMED Code(s): 85243862, 30143271 (5) Pleural effusion Current Visit: Yes Status: Resolved Etiology: Unclear. Location: Left chest. Recurrent since April after he had a diagnostic thoracentesis. Cultures and pathology were negative at that time. SNOMED Code(s): 32763625 (6) Chest pain Current Visit: No Status: Acute Likely secondary to empyema. Troponin was negative. Pain management per the primary team. Qualifiers: Chest pain type: chest pain on breathing Qualified Code(s): R07.1 - Chest pain on breathing; R07.81 - Pleurodynia SNOMED Code(s): 33932447 (7) Lymphadenopathy Current Visit: Yes Status: Acute CT of the chest showed multiple enlarged mediastinal lymph nodes, presumably reactive. Pulmonology and CTS consulted. SNOMED Code(s): 76115292 (8) Transaminitis Current Visit: Yes Status: Acute Etiology: Unclear. Resolved. Continue to trend. SNOMED Code(s): 435952583, 488937596 (9) Hypokalemia Current Visit: Yes Status: Resolved Replacement per the primary team. Resolved. SNOMED Code(s): 43253708 (10) Former tobacco use Current Visit: No Status: Chronic SNOMED Code(s): 041751967 (11) Chronic back pain Current Visit: No Status: Chronic Qualifiers: Back pain location: low back pain Back pain laterality: bilateral Sciatica presence: with sciatica Sciatica laterality: bilateral sciatica Qualified Code(s): M54.42 - Lumbago with sciatica, left side; M54.41 - Lumbago with sciatica, right side; G89.29 - Other chronic pain SNOMED Code(s): 274054124 (12) Obesity (BMI 30.0-34.9) Current Visit: No Status: Chronic SNOMED Code(s): 348342498629095 - Recommendations Recommendations: Check HIV. Send intra-op pleural fluid for GMS stain. Send intra-op tissue for GMS stain and AFB culture. Await blood cultures to finalize. Await final ID and sensitivities on Intra-Op cultures. Wound care and activity per the CTS team. Vent management per the pulmonology team. Acute kidney injury her the nephrology team. Continue Zosyn 3.375 grams IV, but decrease frequency to every 12 hours in light of nephrology starting intermittent dialysis. Continue micafungin 100 mg IV daily. Will hold off on switching to Voriconazole due to the patient's impaired renal status. Duration of treatment depends on the clinical picture. Monitor renal function and dose-adjust antibiotics. In Consult Discharge Plan - Plan Referrals: Kip Rojas DO [Primary Care Provider] - - Attending Attestation I have personally performed a face to face evaluation on this patient. I have reviewed and agree with the care plan. 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 No signs of MRSA and patient is in acute kidney injury so I will stop vancomycin for now Await Intra-Op cultures to finalize Prognosis guarded dW Dr. Jean from pathology, microbiology lab and Dr. Angel we will get GMS stain and fungal cultures
--- NOTE | 2018-07-17 13:47 | Pulmonology Progress Note ---
Date of Encounter: 07/17/18 Time of Encounter: 07:30 Assessment and Plan (1) Acute renal failure on dialysis Current Visit: Yes Status: Acute Patient remain on the ventilator and he failed spontaneous breathing trial. It appears to be related to agitation and resume his antidepressive medication which hopefully will help. Patient needs to have anemia corrected. Patient is having transfusion and hopefully that will help to improve. Hoping correction of his metabolic abnormalites and renal support could be helpful. (2) Acute respiratory failure Current Visit: Yes Status: Acute Unfortunately patient's condition has deteriorated that required invasive mechanical ventilation and have checked his ABG before intubation and also after intubation with appropriate changes on the ventilator. It is unclear at this time what exactly happened, however I suspect worsening of his renal function with possibly combination of sedation as well as side effect of medications has affected his respiratory which did not unfortunately invasive mechanical ventilation. Patient's CODE STATUS was changed appropriately since he is young age and hopefully this is a reversible condition. I spent 40 min of Critical Care time with this patient. It involved decision making of high complexity to assess, manipulate, and support vital organ system failure and/or to prevent further life threatening deterioration of the patient's condition. The time involved in the performance of separately re portable procedures was not counted toward critical care time. Qualifiers: Respiratory failure complication: hypoxia and hypercapnia Qualified Code(s): J96.01 - Acute respiratory failure with hypoxia; J96.02 - Acute respiratory failure with hypercapnia (3) Pleural effusion Current Visit: Yes Status: Acute Patient status post thoracotomy and continue incentive spirometry. Chest tube management per cardiothoracic. Patient will remain in ICU and transferred out when cardiothoracic agree with that. Early mobilization as soon as possible. Subjective Principal diagnosis: Pleural Effusion Interval history: Patient remain on the ventilator and monitoring his hemoglobin for anemia Objective PUL Vital signs: Last Vital Signs Temp 100.0 F H 07/17/18 12:00 Pulse 100 07/17/18 13:00 Resp 18 07/17/18 13:00 BP 100/63 07/17/18 13:30 Pulse Ox 97 07/17/18 13:00 General appearance: no acute distress Eyes: nonicteric ENT: oropharynx moist Neck: supple Effort: normal Auscultation: left: other (chest tube), bilateral: diminished breath sounds Cardiovascular: regular rate and rhythm Gastrointestinal: normoactive bowel sounds, non-distended Extremities: no cyanosis, edema other (sedated) Ventilator Settings Ventilator Settings: Ventilator Settings, Last 8 Hours Ventilator Tidal Volume 550 Setting Ventilator Tidal Volume 550 Setting Ventilator Tidal Volume 550 Setting Ventilator Tidal Volume 550 Setting Ventilator Tidal Volume 550 Setting Ventilator Tidal Volume 550 Setting Ventilator Tidal Volume 550 Setting Ventilator Tidal Volume 550 Setting Ventilator Tidal Volume 550 Setting Ventilator Tidal Volume 550 Setting Ventilator Tidal Volume 550 Setting Ventilator Tidal Volume 500 Setting Ventilator Respiratory Rate 16 Setting Ventilator Respiratory Rate 16 Setting Ventilator Respiratory Rate 16 Setting Ventilator Respiratory Rate 16 Setting Ventilator Respiratory Rate 16 Setting Ventilator Respiratory Rate 16 Setting Ventilator Respiratory Rate 16 Setting Ventilator Respiratory Rate 16 Setting Ventilator Respiratory Rate 16 Setting Ventilator Respiratory Rate 16 Setting Ventilator Respiratory Rate 16 Setting Ventilator Respiratory Rate 16 Setting Actual Respiratory Rate 18 Actual Respiratory Rate 17 Actual Respiratory Rate 20 Actual Respiratory Rate 18 Actual Respiratory Rate 16 Actual Respiratory Rate 16 Actual Respiratory Rate 16 Actual Respiratory Rate 16 Actual Respiratory Rate 17 Actual Respiratory Rate 20 Actual Respiratory Rate 17 Actual Respiratory Rate 19 Positive End Expiratory 5 Pressure Positive End Expiratory 5 Pressure Positive End Expiratory 5 Pressure Positive End Expiratory 5 Pressure Positive End Expiratory 5 Pressure Positive End Expiratory 5 Pressure Positive End Expiratory 5 Pressure Positive End Expiratory 5 Pressure Positive End Expiratory 5 Pressure Positive End Expiratory 5 Pressure Positive End Expiratory 5 Pressure Positive End Expiratory 5 Pressure Peak Inspiratory Airway 46 Pressure Peak Inspiratory Airway 45 Pressure Peak Inspiratory Airway 45 Pressure Peak Inspiratory Airway 45 Pressure Peak Inspiratory Airway 44 Pressure Peak Inspiratory Airway 46 Pressure Peak Inspiratory Airway 45 Pressure Peak Inspiratory Airway 43 Pressure Peak Inspiratory Airway 45 Pressure Peak Inspiratory Airway 41 Pressure Peak Inspiratory Airway 45 Pressure Peak Inspiratory Airway 40 Pressure Results - Laboratory Findings CBC and BMP: 07/20/18 04:00 07/20/18 04:00 ABG ABG pH 7.32 pH Units (7.32-7.45) 07/17/18 04:43 ABG pCO2 44 mmHg (35-45) 07/17/18 04:43 ABG pO2 59 mmHg (85-104) L 07/17/18 04:43 ABG O2 Saturation 88 % (95-98) L 07/17/18 04:43 PT/INR, D-dimer PT 17.8 Seconds (9.4-12.1) H 07/11/18 00:52 Abnormal lab findings: Abnormal lab results WBC 18.2 K/mcL (4.3-11.1) H 07/17/18 03:30 RBC 2.76 M/mcL (4.19-5.50) L 07/17/18 03:30 Hgb 6.9 g/dL (12.9-16.9) L 07/17/18 03:30 Hct 23.6 % (37.5-50.1) L 07/17/18 03:30 MCV 82.2 fL (83.0-100.0) L 07/12/18 01:15 MCH 25.0 pg (28.0-33.3) L 07/17/18 03:30 MCHC 29.2 g/dL (31.6-35.5) L 07/17/18 03:30 RDW 16.5 % (11.5-14.5) H 07/17/18 03:30 16.0 K/mcL (1.6-8.9) H 07/17/18 03:30 Decreased (Normal) L 07/17/18 03:30 1+ (Not Present) A 07/13/18 04:20 Present (Not Present) A 07/13/18 04:20 PT 17.8 Seconds (9.4-12.1) H 07/11/18 00:52 APTT 37.2 Seconds (26.0-36.0) H 07/10/18 16:31 ABG pH 7.27 pH Units (7.32-7.45) L 07/16/18 10:17 ABG pCO2 48 mmHg (35-45) H 07/16/18 10:17 ABG pO2 59 mmHg (85-104) L 07/17/18 04:43 ABG O2 Saturation 88 % (95-98) L 07/17/18 04:43 ABG Base Excess -3 mEq/L (-2 to 3) L 07/17/18 04:43 Sodium 135 mEq/L (136-145) L 07/16/18 02:20 Potassium 2.9 mEq/L (3.5-5.1) L 07/10/18 16:59 Chloride 97 mEq/L (98-107) L 07/11/18 00:52 Carbon Dioxide 21 mEq/L (23-29) L 07/16/18 02:20 BUN 27 mg/dL (6-20) H 07/17/18 03:30 5.24 mg/dL (0.70-1.30) H 07/17/18 03:30 Est GFR ( Amer) 15 (> 60) L 07/17/18 03:30 Est GFR (Non-Af Amer) 12 (> 60) L 07/17/18 03:30 5 (6-26) L 07/17/18 03:30 Glucose 107 mg/dL (70-105) H 07/15/18 06:28 POC Glucose 115 mg/dL (70-99) H 07/16/18 23:09 279 (280-300) L 07/12/18 01:15 Calcium 7.8 mg/dL (8.6-10.3) L 07/17/18 03:30 Phosphorus 5.5 mg/dL (2.7-4.5) H 07/15/18 06:28 AST 41 Units/L (13-39) H 07/15/18 06:28 ALT 87 Units/L (7-52) H 07/10/18 16:59 127 Units/L (34-104) H 07/10/18 16:59 5.7 g/dL (6.4-8.9) L 07/16/18 02:20 3.4 g/dL (3.5-5.7) L 07/16/18 02:20 2.3 g/dL (2.4-3.5) L 07/16/18 02:20 1.0 (1.1-2.2) L 07/15/18 06:28 0.44 ng/mL (0.00-0.15) H 07/11/18 09:41 Ur Specific [employer] < 1.005 (1.010-1.025) L 07/15/18 10:25 Small (Negative) H 07/15/18 10:25 3-5 per hpf (0-3) H 07/15/18 10:25 Amorphous Sediment Moderate (Few) H 07/15/18 10:25 Protein/Creatinin Ratio 0.95 mg/mg (0.00-0.20) H 07/15/18 10:25 36 mg/dL (1-14) H 07/15/18 10:25 Pleural Appearance Bloody (Clear) A 07/13/18 13:40 Vancomycin Trough 23 mcg/mL (5-10) H 07/12/18 18:31 Positive ng/mL (Vticor=617) H 07/11/18 16:00 U Benzodiazepines Scrn Positive ng/mL (Bnehvh=069) H 07/11/18 16:00 Hep Bs Antibody < 3.10 mIU/mL (10.00-) L 07/16/18 09:22 Crossmatch See Detail 07/12/18 01:15 - Microbiology Findings Microbiology Findings: Microbiology, Last 48 Hours 07/13/18 13:40 Body Fluid Culture - Preliminary Pleural Fluid Yeast Species 07/13/18 13:40 Acid Fast Stain - Final Pleural Fluid 07/15/18 13:26 Blood Culture - Preliminary Peripheral Venipuncture Culture is incubating and being continuously monitored for growth. Final report to follow. 07/15/18 13:26 Blood Culture - Preliminary Peripheral Venipuncture Culture is incubating and being continuously monitored for growth. Final report to follow. 07/13/18 13:40 Fungal Culture - Preliminary Pleural Fluid Culture is incubating. - Diagnostic Findings CT scan - chest: report reviewed, image reviewed - Clinical Findings Intake & Output: Intake & Output 07/16/18 07/17/18 07/17/18 23:59 07:59 15:59 Intake Total 389 / 1550.0 168.7 / 1688.7 1520 / 1688.7 Output Total 230 / 2843 315 / 315 Balance 159 / -1293.0 -146.3 / 1373.7 1520 / 1373.7 Consult Discharge Plan - Plan Referrals: Kip Rojas DO [Primary Care Provider] -
[2018-07-17] MEDS: FentaNYL (PF) 1,000 MCG in 0.9 % Sodium Chloride 80 ML IVC SCH (17:30)
[2018-07-17 17:37] LABS: Hematocrit 29.7 % (37.5-50.1)
[2018-07-17 17:43] LABS: Hemoglobin 9.3 g/dL (12.9-16.9)
[2018-07-17] MEDS: Lurasidone 20 MG TABLET PO SCH (21:29)
--- NOTE | 2018-07-17 23:00 | Nephrology Progress Note ---
Date of Encounter: 07/17/18 Time of Encounter: 12:00 - Assessment and Plan (1) Empyema Current Visit: Yes Status: Acute POD#4 L thoracotomy, per CTS Continue abx, ID on board with recs appreciated (2) Acute kidney injury Current Visit: Yes Status: Acute SCr remains poor, suspect ATN at this point. Will continue second HD today with UF as tolerated Third HD planned tomorrow Continue to avoid nephrotoxins if possible, vanco by levels only if absolutely needed UOP noted at 383cc in the past 24hrs after 1 liter UF, will monitor (3) Acute blood loss as cause of postoperative anemia Current Visit: Yes Status: Acute Hgb noted at 6.9 with 2 units pRBCs transfused (4) Acute respiratory failure Current Visit: Yes Status: Acute Vent management per pulm/critical care Qualifiers: Respiratory failure complication: unspecified whether with hypoxia or hypercapnia Qualified Code(s): J96.00 - Acute respiratory failure, unspecified whether with hypoxia or hypercapnia Subjective Principal diagnosis: Pleural Effusion Interval history: Pt seen and examined remains intubated and sedated with mother and sister at bedside receiving second HD session with no issues. Objective - Vital Signs Vital signs: Vital Signs Temp Pulse Resp BP Pulse Ox 07/17/18 22:17 17 95/61 99 07/17/18 22:00 97 18 98/60 99 07/17/18 21:00 98 18 98/57 99 07/17/18 20:45 98 07/17/18 20:00 100.3 F H 98 17 100/59 98 07/17/18 19:04 103 18 115/72 98 07/17/18 19:00 102 18 106/63 97 07/17/18 18:00 103 19 111/68 97 07/17/18 17:45 18 109/64 987 07/17/18 17:00 97 22 93/55 97 07/17/18 16:00 98 18 99/59 96 07/17/18 15:15 98.6 F 18 104/59 07/17/18 15:12 17 99/59 97 07/17/18 15:00 99.4 F 99 19 99/59 96 07/17/18 14:45 97/59 07/17/18 14:30 99/59 07/17/18 14:15 96/58 07/17/18 14:00 98 17 101/61 97 07/17/18 13:45 106/60 07/17/18 13:30 18 100/63 96 07/17/18 13:15 102/61 07/17/18 13:00 100 18 102/59 97 07/17/18 12:45 103/63 07/17/18 12:30 114/65 07/17/18 12:15 114/65 07/17/18 12:00 100.0 F H 102 18 116/65 95 07/17/18 11:12 20 113/56 95 07/17/18 11:00 101 F H 105 18 113/56 94 07/17/18 10:22 100.9 F H 97 16 111/70 96 07/17/18 10:00 97 16 103/61 96 07/17/18 09:15 16 101/62 97 07/17/18 09:00 98 16 101/62 98 07/17/18 08:36 100.9 F H 100 16 99/64 96 07/17/18 08:21 100.2 F H 102 16 106/67 96 07/17/18 08:06 100.2 F H 102 16 106/62 96 07/17/18 08:00 100.2 F H 102 16 106/62 96 07/17/18 07:45 103 16 109/61 96 07/17/18 07:25 99.4 F 07/17/18 07:15 20 106/64 96 07/17/18 07:00 101 07/17/18 06:36 99.1 F 108 22 109/63 95 07/17/18 06:00 101 19 109/63 95 07/17/18 05:54 99.1 F 102 18 116/63 95 07/17/18 05:39 99.1 F 101 18 116/63 96 07/17/18 05:06 18 108/61 96 07/17/18 05:00 101 20 106/61 90 07/17/18 04:01 100.7 F H 07/17/18 04:00 103 20 115/64 90 07/17/18 03:36 19 110/60 91 07/17/18 03:00 103 19 110/63 90 07/17/18 02:00 99 18 102/64 93 07/17/18 01:00 98 18 103/61 93 07/17/18 00:50 18 107/60 93 07/17/18 00:00 100 18 105/65 92 07/16/18 23:36 18 104/64 92 Intake and Output 07/17/18 07/17/18 07/17/18 07:59 15:59 23:59 Intake Total 168.7 / 1985.6 1520 / 1985.6 296.9 / 1985.6 Output Total 315 / 3045 2710 / 3045 20 / 3045 Balance -146.3 / -1059.4 -1190 / -1059.4 276.9 / -1059.4 Intake: IV Fluids 168.7 / 735.6 270 / 735.6 296.9 / 735.6 FentaNYL (PF) 1,000 MCG In 0.9 38.7 / 100.0 61.3 / 100.0 % Sodium Chloride 80 ML @ 50 MCG/HR 5 mls/hr IVC CONT NEFTALI Rx #:[id number] Diprivan 1,000 mg In 100 ml @ 130 / 335.6 70 / 335.6 135.6 / 335.6 20 MCG/KG/MIN 15.168 mls/hr IVC .[id number] NEFTALI Rx#:[id number] Mycamine 100 MG In 0.9 % Sodium 100 / 100 Chloride (Mini-Bag +) 100 ML @ 100 mls/hr IVPB DAILY NEFTALI Rx#: [id number] Zosyn 3.375 GM In 0.9 % Sodium 100 / 200 100 / 200 Chloride (Mini-Bag +) 100 ML @ 25 mls/hr IVPB Q12H NEFTALI Rx#: [id number] Oral 0 / 0 0 / 0 Blood Product 0 / 650 650 / 650 Rbcs Leuko Poor As-1 Unit 0 / 300 300 / 300 [id number] Rbcs Leuko Poor As-1 Unit 350 / 350 [id number] Intake, Rinseback and Flushes 600 / 600 Output: Urine 0 / 0 Total Dialysis (HD) Output 2600 / 2600 Catheter 40 / 90 50 / 90 0 / 90 Gastric Drainage 150 / 150 Wound Drainage 75 / 135 40 / 135 20 / 135 Left Chest #1 30 / 60 20 / 60 10 / 60 Left Chest #2 45 / 75 20 / 75 10 / 75 Chest Tube Drainage 50 / 70 20 / 70 Chest tube #1 40 / 50 10 / 50 chest tube #2 Other: Stool Size Large Stool Consistency soft Stool Characteristics Pasty Stool Color Brown # Bowel Movements 1 Blood Glucose* 104 100 Hemodialysis Net Fluid Removed 2000 (mL) - General Appearance General appearance: Present: sedated on ventilator, intubated EENT: Present: ATNC, mucous membranes moist Neck: Present: no JVD, supple Respiratory: Present: course breath sounds (with chest tubes in place) Cardiology: Present: normal S1, normal S2 Dialysis Vascular Access: Venous Catheter (temp line IJ) Gastrointestinal: Present: no tenderness, no guarding, obese Integumentary: Present: warm and dry Additional Comments: sedated Musculoskeletal: Present: no deformities Additional Comments: sedated - Lab 07/17/18 16:00 07/17/18 03:30 Consult Discharge Plan - Plan Referrals: Kip Rojas DO [Primary Care Provider] -
[2018-07-18] MEDS: Artificial Tears SOLN 15 ML BOTTLE BOTH EYES SCH ×6 (00:08→20:26)
[2018-07-18] MEDS: Piperacillin/Tazobactam 3.375 GM in 0.9 % Sodium Chloride Mini Bag 100 ML IVPB SCH (03:45)
[2018-07-18 04:04] LABS: Hematocrit 28.8 % (37.5-50.1); Mean Corpuscular HGB Conc 31.3 g/dL (31.6-35.5); Mean Corpuscular Hemoglobin 26.7 pg (28.0-33.3); Mean Corpuscular Volume 85.5 fL (83.0-100.0); Platelet Count 157 K/mcL (140-400); Red Blood Count 3.37 M/mcL (4.19-5.50); Red Cell Distribution Width 16.7 % (11.5-14.5); White Blood Count 21.8 K/mcL (4.3-11.1)
[2018-07-18 04:24] LABS: Calcium 8.6 mg/dL (8.6-10.3); Potassium 4.6 mEq/L (3.5-5.1)
[2018-07-18 05:23] LABS: ABG Base Excess -1 mEq/L (-2 to 3); ABG HCO3 25 mEq/L (21-27); ABG Oxygen Saturation 93 % (95-98); ABG PCO2 44 mmHg (35-45); ABG PH 7.35 pH Units (7.32-7.45); ABG PO2 69 mmHg (85-104); ABG TCO2 26 mEq/L (20-26); Blood Gas Modality ASSIST CONTROL; Blood Gas PEEP 5 cm H2O; Blood Gas VT 550 cc
--- NOTE | 2018-07-18 08:15 | Cardiothoracic Progress Note ---
Date of Encounter: 07/18/18 Time of Encounter: 08:13 - Assessment and plan (1) Empyema of left pleural space Current Visit: Yes Status: Acute The assessment and plan as outlined above was discussed with the patient and/or family members who expressed understanding and agreement. All questions were answered. continue drains to suction and bulb drainage rounded with nurse incorrect read by radiology. ct are inside of the chest (2) Acute kidney insufficiency Current Visit: Yes Status: Acute The assessment and plan as outlined above was discussed with the patient and/or family members who expressed understanding and agreement. All questions were answered. awaiting dialysis today. (3) Acute renal failure on dialysis Current Visit: Yes Status: Acute The assessment and plan as outlined above was discussed with the patient and/or family members who expressed understanding and agreement. All questions were answered. as above Vital Signs, Last 4 Hours Pulse Resp BP Pulse Ox 07/18/18 07:42 17 92 07/18/18 06:00 102 19 119/72 94 07/18/18 05:28 17 93 07/18/18 05:00 101 16 112/68 93 07/18/18 04:33 20 96 Oxgyen Flow Rate Oxygen Flow Rate (LPM) 50 Clinical Data, last 8 Hours Output, Chest Tube Drainage 0 Amount [chest tube #2] Output, Chest Tube Drainage 0 Amount [Chest tube #1] Weight 07/16/18 07/17/18 07/18/18 23:59 23:59 23:59 Weight 126.4 kg - Physical Examination General: Other (intubated and sedated. ) HEENT: Atraumatic, Normocephaly Neck: No JVD Cardiac: Reg Rate and Rhythm, Normal S1 and S2, No Murmur Incision: No signs of infection, Dry/intact dressing Chest tubes: Minimal drainage Lungs: Other (minimal crackles compared to yesterday. ) Neuro: Other (sedated with propofol and fentanyl) Vascular: Normal capillary refill Abdomen: Other (no peritoneal signs, no bs present. ) Extremities: Other (1+ edema ) - Labs 07/18/18 03:50 07/18/18 03:50 Lab Results, Last 24 hours 07/17/18 07/18/18 07/18/18 16:00 03:50 03:50 WBC 21.8 H Hgb 9.3 L D 9.0 L Hct 29.7 L 28.8 L Plt Count 157 Sodium 138 Potassium 4.6 Chloride 98 Carbon Dioxide 23 BUN 25 H Creatinine 4.45 H Glucose 120 H Calcium 8.6 - Imaging Chest Xray: image reviewed Consult Discharge Plan - Plan Referrals: Kip Rojas DO [Primary Care Provider] -
[2018-07-18] MEDS ORDERED: *HR* Heparin 10,000 UNIT/10 ML VIAL IV PRN ×2 (08:33)
[2018-07-18] MEDS ORDERED: 0.9 % Sodium Chloride 250 ML IVC PRN (08:33)
[2018-07-18] MEDS ORDERED: 0.9 % Sodium Chloride 1,000 ML PRIME SCH (08:45)
[2018-07-18] MEDS: Chlorhexidine Rinse 15 ML MOUTHWASH MM SCH ×2 (09:26→20:26)
[2018-07-18] MEDS: Pregabalin 50 MG CAPSULE PO SCH ×2 (09:27→20:27)
[2018-07-18] MEDS: Micafungin 100 MG in 0.9 % Sodium Chloride Mini Bag 100 ML IVPB SCH (09:27)
[2018-07-18] MEDS: Pantoprazole 40 MG VIAL IVP SCH (09:27)
--- NOTE | 2018-07-18 11:05 | Infectious Disease Progress No ---
ID Progress Note Date of Encounter: 07/18/18 Time of Encounter: 09:30 - Subjective Subjective: Patient seen and examined. No acute events noted overnight. Remains intubated and sedated on the ventilator this morning. Febrile and tachycardic overnight. Status post iHD yesterday. Urine output low. Review of systems unobtainable from the patient. Discussed with nursing. Chest tubes removed this morning. Repeat pleural fluid sample sent down this AM. - Objective CBC & Chem 7: 07/18/18 03:50 07/18/18 03:50 - Line Documentation Line Documentation: Dialysis Catheter (Temp HD catheter noted to the left neck.), Smith Catheter (Draining small amount of dark brown urine.), Chest Tube, Drain (RAY drain x 2 to the left lateral chest wall with serosanguinous drainage.), Peripheral (x2 to the left lateral chest wall with serosanguinous drainage.) - Exam Vitals: Temp Pulse Resp BP Pulse Ox 100.7 F H 99 17 119/72 93 07/18/18 08:00 07/18/18 10:00 07/18/18 10:00 07/18/18 10:00 07/18/18 10:00 Exam: Head: Atraumatic, normal inspection, normocephalic. Eye: PERRLA, no scleral icterus noted. ENT: Mucous membranes moist. No odontogenic infection noted. Oropharynx exam limited. Neck: Normal inspection, no meningismus. Temp HD line left neck. Respiratory: Clear to auscultation, diminished in the bilateral bases. No rales, respiratory distress, rhonchi, or wheezes noted. Surgical site noted to the left lateral chest with dressing C/D/I. No crepitus. RAY drain 2 with serosanguineous drainage. Cardiovascular: Regular rhythm, tachycardic, S1 and S2 audible. No murmurs, rubs, or gallops. GI: Soft, nondistended, normal bowel sounds. Smith catheter draining small amount of dark brown urine. Extremities: No joint swelling or tenderness noted. 1+ edema noted to the bilateral lower and BU extremities. Neurological: Sedated, does not respond to verbal or tactile stimuli. Skin: Dry, intact, warm. Pale. No rashes. - Assessment and Plan (1) Sepsis Current Visit: Yes Status: Acute The patient had three SIRS criteria. Likely secondary to empyema. Concern for additional infectious source given the patient's new onset of fever and tachycardia despite recent surgery/source control and antibiotics. Leukocytosis worse this morning. MAXIMUM TEMPERATURE 101 in the past 24 hours. Tachycardia noted. Blood cultures drawn 07/15/18 are no growth to date 2 sets. Lactic acid was normal. Qualifiers: Sepsis type: sepsis due to unspecified organism Qualified Code(s): A41.9 - Sepsis, unspecified organism SNOMED Code(s): 00573730 (2) Acute respiratory failure Current Visit: Yes Status: Acute Likely multifactorial: Pulmonary edema plus altered mental status plus possible pneumonia plus ARDS. Required emergent intubation 07/16/18. Chest x-ray shows findings consistent with ours versus multi lobular pneumonia and small bilateral pleural effusions, left greater than right. Repeat CXR 07/17/18 showed diffuse airspace disease slightly increased on the right and persistent moderate left pleural effusion. CT chest shows new moderate right sided pleural effusion with findings consistent with PNA vs. ARDS and left pleural fluid/gas. Pulmonology consulted and following. Qualifiers: Respiratory failure complication: hypoxia and hypercapnia Qualified Code(s): J96.01 - Acute respiratory failure with hypoxia; J96.02 - Acute respiratory failure with hypercapnia SNOMED Code(s): 81663192 (3) Empyema Current Visit: Yes Status: Acute Location: Left lateral chest. Causative organism: Yeast, final ID and sensitivities pemding. Etiology: Unclear. The patient has had a recurrent pleural effusion since April. CT of the chest showed a complex left pleural effusion concerning for empyema with multiple abscesses adjacent to the rib cage. Cardiothoracic surgery consulted. Status post bronchoscopy with aspiration, left thoracotomy with decortication, reverse latissimus MM flap, and wedge left upper lobe 07/13/[address] Almaguer. Operative note reviewed. Intraoperative cultures positive for yeast, final ID and sensitivities pending. Unable to perform GMS stain on intra-op pleural fluid due to not enough spec imen, but will have histology do it on the specimen sent down this morning. Discussed with Cat in the histology lab. CT chest shows new moderate right sided pleural effusion with findings consistent with PNA vs. ARDS and left pleural fluid/gas. Chest tubes removed 07/18/18. Currently on IV Zosyn and Micafungin. Unable to use Voriconazole due to the patient's impaired renal function. SNOMED Code(s): 565007942 (4) Acute kidney injury Current Visit: Yes Status: Acute Likely multifactorial: Hypoperfusion plus nephrotoxic medications plus sepsis. Serum creatinine elevated at 5.24 today. Nephrology consulted. iHD started 07/16/18. Monitor renal function closely and dose adjust medications. Avoid nephrotoxins as able. SNOMED Code(s): 22031286, 91863746 (5) Pleural effusion Current Visit: Yes Status: Resolved Etiology: Unclear. Location: Left chest. Recurrent since April after he had a diagnostic thoracentesis. Cultures and pathology were negative at that time. SNOMED Code(s): 82927252 (6) Chest pain Current Visit: No Status: Acute Likely secondary to empyema. Troponin was negative. Pain management per the primary team. Qualifiers: Chest pain type: chest pain on breathing Qualified Code(s): R07.1 - Chest pain on breathing; R07.81 - Pleurodynia SNOMED Code(s): 09153520 (7) Lymphadenopathy Current Visit: Yes Status: Acute CT of the chest showed multiple enlarged mediastinal lymph nodes, presumably reactive. Pulmonology and CTS consulted. SNOMED Code(s): 21716997 (8) Transaminitis Current Visit: Yes Status: Acute Etiology: Unclear. Resolved. Continue to trend. SNOMED Code(s): 896138715, 221819014 (9) Hypokalemia Current Visit: Yes Status: Resolved Replacement per the primary team. Resolved. SNOMED Code(s): 79768083 (10) Former tobacco use Current Visit: No Status: Chronic SNOMED Code(s): 878830710 (11) Chronic back pain Current Visit: No Status: Chronic Qualifiers: Back pain location: low back pain Back pain laterality: bilateral Sciatica presence: with sciatica Sciatica laterality: bilateral sciatica Qualified Code(s): M54.42 - Lumbago with sciatica, left side; M54.41 - Lumbago with sciatica, right side; G89.29 - Other chronic pain SNOMED Code(s): 791254636 (12) Obesity (BMI 30.0-34.9) Current Visit: No Status: Chronic SNOMED Code(s): 740863939722253 - Recommendations Recommendations: Repeat blood cultures negative x 2. Send new pleural fluid for GMS stain. Check amylase and lipase. Check procalcitonin. Check fungal serologies: Fungitell, Histo, Blasto, Crypto, Aspergillus galactomannin. Unable to do cultures on wedge specimen due to it already being in formalin. Await blood cultures to finalize. Await final ID and sensitivities on Intra-Op cultures. Wound care and activity per the CTS team. Vent management per the pulmonology team. Acute kidney injury her the nephrology team. Discontinue Zosyn. Start cefepime 1 gram IV daily (dose-adjusted for HD). Start clindamycin 900mg IV Q8H. Continue micafungin 100 mg IV daily. Will hold off on switching to Voriconazole due to the patient's impaired renal status. Duration of treatment depends on the clinical picture. Monitor renal function and dose-adjust antibiotics. In Consult Discharge Plan - Plan Referrals: Kip Rojas DO [Primary Care Provider] - - Attending Attestation I have personally performed a face to face evaluation on this patient. I have reviewed and agree with the care plan. 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 Send new pleural fluid for GMS stain. Check amylase and lipase. Check procalcitonin. Check fungal serologies: Fungitell, Histo, Blasto, Crypto, Aspergillus galactomannin. Discontinue Zosyn. Start cefepime 1 gram IV daily (dose-adjusted for HD). Start clindamycin 900mg IV Q8H. Continue micafungin 100 mg IV daily. Will hold off on switching to Voriconazole due to the patient's impaired renal status. Duration of treatment depends on the clinical picture. Monitor renal function and dose-adjust antibiotics. In
[2018-07-18] MEDS: FentaNYL (PF) 1,000 MCG in 0.9 % Sodium Chloride 80 ML IVC SCH (12:36)
[2018-07-18] MEDS ORDERED: Cefepime HCl 1,000 MG in 0.9 % Sodium Chloride Mini Bag 100 ML IVPB SCH (14:00)
--- NOTE | 2018-07-18 16:09 | Pulmonology Progress Note ---
Date of Encounter: 07/18/18 Time of Encounter: 06:45 Assessment and Plan (1) Acute respiratory failure Current Visit: Yes Status: Acute Unfortunately patient's condition has deteriorated that required invasive mechanical ventilation and have checked his ABG before intubation and also after intubation with appropriate changes on the ventilator. It is unclear at this time what exactly happened, however I suspect worsening of his renal function with possibly combination of sedation as well as side effect of medications has affected his respiratory which did not unfortunately invasive mechanical ventilation. Patient's CODE STATUS was changed appropriately since he is young age and hopefully this is a reversible condition. I spent 40 min of Critical Care time with this patient. It involved decision making of high complexity to assess, manipulate, and support vital organ system failure and/or to prevent further life threatening deterioration of the patient's condition. The time involved in the performance of separately reportable procedures was not counted toward critical care time. 07/18 unfortunately patient failed a spontaneous breathing trial and he was more anxious and continue sedation with daily awaking will be very important with resuming his home psych medications will be helpful. I have discussed with his family at the bedside about plan of care. Qualifiers: Respiratory failure complication: hypoxia and hypercapnia Qualified Code(s): J96.01 - Acute respiratory failure with hypoxia; J96.02 - Acute respiratory failure with hypercapnia (2) Acute renal failure on dialysis Current Visit: Yes Status: Acute Patient remain on the ventilator and he failed spontaneous breathing trial. It appears to be related to agitation and resume his antidepressive medication which hopefully will help. Patient needs to have anemia corrected. Patient is having transfusion and hopefully that will help to improve. 07/18 nephrology is following up and patient had hemodialysis. (3) Pleural effusion Current Visit: Yes Status: Acute Discussed with ID regarding antibiotic coverage and fluid was sent for fungal work up. Thoracic surgeon is following up regarding his chest tubes and he is aware of the radiologist reading of the CT chest and chest tubes position. Subjective Principal diagnosis: Pleural Effusion Interval history: Patient failed SBT and hemoglobin remain stable Objective PUL Vital signs: Last Vital Signs Temp 101.1 F H 07/18/18 15:00 Pulse 95 07/18/18 15:00 Resp 17 07/18/18 15:59 BP 126/76 07/18/18 16:00 Pulse Ox 95 07/18/18 15:59 General appearance: no acute distress Eyes: nonicteric ENT: oropharynx moist Neck: supple Effort: normal Auscultation: left: rhonchi, other (chest tube), right: diminished breath sounds Cardiovascular: regular rate and rhythm Gastrointestinal: normoactive bowel sounds, non-distended Extremities: no cyanosis, edema unable to assess due to mental status Ventilator Settings Ventilator Settings: Ventilator Settings, Last 8 Hours Ventilator Tidal Volume 550 Setting Ventilator Tidal Volume 550 Setting Ventilator Tidal Volume 550 Setting Ventilator Tidal Volume 550 Setting Ventilator Tidal Volume 550 Setting Ventilator Tidal Volume 550 Setting Ventilator Tidal Volume 550 Setting Ventilator Tidal Volume 550 Setting Ventilator Tidal Volume 550 Setting Ventilator Tidal Volume 550 Setting Ventilator Respiratory Rate 16 Setting Ventilator Respiratory Rate 16 Setting Ventilator Respiratory Rate 16 Setting Ventilator Respiratory Rate 16 Setting Ventilator Respiratory Rate 16 Setting Ventilator Respiratory Rate 16 Setting Ventilator Respiratory Rate 524 Setting Ventilator Respiratory Rate 16 Setting Ventilator Respiratory Rate 16 Setting Ventilator Respiratory Rate 16 Setting Actual Respiratory Rate 16 Actual Respiratory Rate 16 Actual Respiratory Rate 16 Actual Respiratory Rate 16 Actual Respiratory Rate 16 Actual Respiratory Rate 17 Actual Respiratory Rate 16 Actual Respiratory Rate 17 Actual Respiratory Rate 18 Actual Respiratory Rate 18 Positive End Expiratory 5 Pressure Positive End Expiratory 5 Pressure Positive End Expiratory 5 Pressure Positive End Expiratory 5 Pressure Positive End Expiratory 5 Pressure Positive End Expiratory 5 Pressure Positive End Expiratory 5 Pressure Positive End Expiratory 5 Pressure Positive End Expiratory 5 Pressure Positive End Expiratory 5 Pressure Peak Inspiratory Airway 38 Pressure Peak Inspiratory Airway 40 Pressure Peak Inspiratory Airway 38 Pressure Peak Inspiratory Airway 39 Pressure Peak Inspiratory Airway 38 Pressure Peak Inspiratory Airway 37 Pressure Peak Inspiratory Airway 38 Pressure Peak Inspiratory Airway 37 Pressure Peak Inspiratory Airway 38 Pressure Peak Inspiratory Airway 38 Pressure Results - Laboratory Findings CBC and BMP: 07/19/18 04:45 07/19/18 04:45 ABG ABG pH 7.35 pH Units (7.32-7.45) 07/18/18 05:20 ABG pCO2 44 mmHg (35-45) 07/18/18 05:20 ABG pO2 69 mmHg (85-104) L 07/18/18 05:20 ABG O2 Saturation 93 % (95-98) L 07/18/18 05:20 PT/INR, D-dimer PT 17.8 Seconds (9.4-12.1) H 07/11/18 00:52 Abnormal lab findings: Abnormal lab results WBC 21.8 K/mcL (4.3-11.1) H 07/18/18 03:50 RBC 3.37 M/mcL (4.19-5.50) L 07/18/18 03:50 Hgb 9.0 g/dL (12.9-16.9) L 07/18/18 03:50 Hct 28.8 % (37.5-50.1) L 07/18/18 03:50 MCV 82.2 fL (83.0-100.0) L 07/12/18 01:15 MCH 26.7 pg (28.0-33.3) L 07/18/18 03:50 MCHC 31.3 g/dL (31.6-35.5) L 07/18/18 03:50 RDW 16.7 % (11.5-14.5) H 07/18/18 03:50 16.0 K/mcL (1.6-8.9) H 07/17/18 03:30 Decreased (Normal) L 07/17/18 03:30 1+ (Not Present) A 07/13/18 04:20 Present (Not Present) A 07/13/18 04:20 PT 17.8 Seconds (9.4-12.1) H 07/11/18 00:52 APTT 37.2 Seconds (26.0-36.0) H 07/10/18 16:31 ABG pH 7.27 pH Units (7.32-7.45) L 07/16/18 10:17 ABG pCO2 48 mmHg (35-45) H 07/16/18 10:17 ABG pO2 69 mmHg (85-104) L 07/18/18 05:20 ABG O2 Saturation 93 % (95-98) L 07/18/18 05:20 ABG Base Excess -3 mEq/L (-2 to 3) L 07/17/18 04:43 Sodium 135 mEq/L (136-145) L 07/16/18 02:20 Potassium 2.9 mEq/L (3.5-5.1) L 07/10/18 16:59 Chloride 97 mEq/L (98-107) L 07/11/18 00:52 Carbon Dioxide 21 mEq/L (23-29) L 07/16/18 02:20 BUN 25 mg/dL (6-20) H 07/18/18 03:50 4.45 mg/dL (0.70-1.30) H 07/18/18 03:50 Est GFR ( Amer) 18 (> 60) L 07/18/18 03:50 Est GFR (Non-Af Amer) 15 (> 60) L 07/18/18 03:50 5 (6-26) L 07/17/18 03:30 Glucose 120 mg/dL (70-105) H 07/18/18 03:50 POC Glucose 123 mg/dL (70-99) H 07/17/18 23:45 279 (280-300) L 07/12/18 01:15 Calcium 7.8 mg/dL (8.6-10.3) L 07/17/18 03:30 Phosphorus 5.5 mg/dL (2.7-4.5) H 07/15/18 06:28 AST 41 Units/L (13-39) H 07/15/18 06:28 ALT 87 Units/L (7-52) H 07/10/18 16:59 127 Units/L (34-104) H 07/10/18 16:59 5.7 g/dL (6.4-8.9) L 07/16/18 02:20 3.4 g/dL (3.5-5.7) L 07/16/18 02:20 2.3 g/dL (2.4-3.5) L 07/16/18 02:20 1.0 (1.1-2.2) L 07/15/18 06:28 0.44 ng/mL (0.00-0.15) H 07/11/18 09:41 Ur Specific [place] < 1.005 (1.010-1.025) L 07/15/18 10:25 Small (Negative) H 07/15/18 10:25 3-5 per hpf (0-3) H 07/15/18 10:25 Amorphous Sediment Moderate (Few) H 07/15/18 10:25 Protein/Creatinin Ratio 0.95 mg/mg (0.00-0.20) H 07/15/18 10:25 36 mg/dL (1-14) H 07/15/18 10:25 Pleural Appearance Bloody (Clear) A 07/13/18 13:40 Vancomycin Trough 23 mcg/mL (5-10) H 07/12/18 18:31 Positive ng/mL (Nrncnr=592) H 07/11/18 16:00 U Benzodiazepines Scrn Positive ng/mL (Tykquj=001) H 07/11/18 16:00 Hep Bs Antibody < 3.10 mIU/mL (10.00-) L 07/16/18 09:22 Crossmatch See Detail 07/12/18 01:15 - Microbiology Findings Microbiology Findings: Microbiology, Last 48 Hours 07/18/18 11:40 Blood Culture - Preliminary Peripheral Venipuncture Culture is incubating and being continuously monitored for growth. Final report to follow. 07/18/18 11:49 Blood Culture - Preliminary Peripheral Venipuncture Culture is incubating and being continuously monitor ed for growth. Final report to follow. 07/18/18 07:24 Acid Fast Stain - Final Pleural Fluid 07/13/18 13:40 Body Fluid Culture - Preliminary Pleural Fluid Yeast Species - Clinical Findings Intake & Output: Intake & Output 07/18/18 07/18/18 07/18/18 07:59 15:59 23:59 Intake Total 184.4 / 4064.4 3880 / 4064.4 Output Total 30 / 1065 1035 / 1065 Balance 154.4 / 2999.4 2845 / 2999.4 Consult Discharge Plan - Plan Referrals: Kip Rojas DO [Primary Care Provider] -
[2018-07-18] MEDS: Clindamycin 900 MG/50 ML 900 MG/50 ML IV.SOLN IVPB SCH (16:45)
[2018-07-18] MEDS: Cefepime HCl 1,000 MG in 0.9 % Sodium Chloride Mini Bag 100 ML IVPB SCH (18:12)
[2018-07-18 19:12] LABS: Amylase 17 Units/L (29-103); Lipase 5 Units/L (11-82)
[2018-07-18] MEDS: Lurasidone 20 MG TABLET PO SCH (20:26)
--- NOTE | 2018-07-18 21:18 | Nephrology Progress Note ---
Date of Encounter: 07/18/18 Time of Encounter: 09:18 - Assessment and Plan (1) Acute kidney injury Current Visit: Yes Status: Acute Acute kidney injury requiring hemodialysis. I reviewed the handoff from my colleague Dr. Vasquez (the etiology is suspected to be ATN), as well as the patient's labs, vital signs, progress notes, imaging and medication list. The patient already has her third treatment of dialysis ordered today. I concur. I recommend following a renal protective strategy as able including strict I's and O's, daily weights, avoidance of nephrotoxic agents and renal diet. She has had have renal dosing of her medications as well. The CT of the abdomen earlier in this hospitalization did not show any hydronephrosis. Urinalysis had subnephrotic proteinuria that might just be tubular levels of proteinuria from ATN. There were no granular casts or any other casts demonstrated on the urinalysis. The serologies that I see in her chart were not consistent with a GN. This patient is complex, and required a high degree of medical decision-making plus evaluation and management. We will closely follow with you. (2) Empyema Current Visit: Yes Status: Acute (3) Acute blood loss as cause of postoperative anemia Current Visit: Yes Status: Acute (4) Acute respiratory failure Current Visit: Yes Status: Acute Qualifiers: Respiratory failure complication: hypoxia and hypercapnia Qualified Code(s): J96.01 - Acute respiratory failure with hypoxia; J96.02 - Acute respiratory failure with hypercapnia Subjective Principal diagnosis: Pleural Effusion Interval history: Patient was seen and examined much earlier today. She was unable to provide any subjective history which limited this portion of the note Objective - Vital Signs Vital signs: Vital Signs Temp Pulse Resp BP Pulse Ox 07/18/18 21:00 91 16 116/74 93 07/18/18 20:15 93 07/18/18 20:08 98.9 F 07/18/18 20:00 93 16 124/76 94 07/18/18 19:47 16 124/72 96 07/18/18 19:00 93 16 119/96 96 07/18/18 18:22 98.5 F 18 108/74 07/18/18 18:00 93 16 119/75 95 07/18/18 17:48 16 96 07/18/18 17:45 113/72 07/18/18 17:30 116/71 07/18/18 17:15 115/72 07/18/18 17:00 99.4 F 94 16 120/77 95 07/18/18 16:45 119/72 07/18/18 16:30 110/72 07/18/18 16:15 117/75 07/18/18 16:00 94 16 127/72 95 07/18/18 15:59 17 95 07/18/18 15:45 109/73 07/18/18 15:30 103/66 07/18/18 15:15 108/68 07/18/18 15:00 101.1 F H 95 16 114/77 94 07/18/18 14:00 99 16 133/73 94 07/18/18 13:57 16 94 07/18/18 13:00 99 16 128/77 94 07/18/18 12:00 101 17 131/82 94 07/18/18 11:00 99.4 F 100 16 125/79 94 07/18/18 10:00 99 17 119/72 93 07/18/18 09:39 17 95 07/18/18 09:00 101 18 110/67 92 07/18/18 08:00 100.7 F H 102 19 119/72 94 07/18/18 07:42 17 92 07/18/18 07:15 100.7 F H 102 16 116/73 93 07/18/18 07:00 101 17 113/78 94 07/18/18 06:00 102 19 119/72 94 07/18/18 05:28 17 93 07/18/18 05:00 101 16 112/68 93 07/18/18 04:33 20 96 07/18/18 04:02 100.0 F H 07/18/18 04:00 99 18 112/70 94 07/18/18 03:55 99 07/18/18 03:00 100 18 112/69 95 07/18/18 02:00 99 18 105/70 95 07/18/18 01:00 99 18 114/68 96 07/18/18 00:43 16 99 07/18/18 00:15 96 07/18/18 00:00 100.8 F H 95 17 93/53 99 07/17/18 23:42 100.8 F H 07/17/18 23:00 97 17 99/59 99 07/17/18 22:17 17 95/61 99 07/17/18 22:00 97 18 98/60 99 Intake and Output 07/18/18 07/18/18 07/18/18 07:59 15:59 23:59 Intake Total 184.4 / 4358.4 3880 / 4358.4 294 / 4358.4 Output Total 30 / 4690 1035 / 4690 3625 / 4690 Balance 154.4 / -331.6 2845 / -331.6 -3331 / -331.6 Intake: IV Fluids 184.4 / 714.4 280 / 714.4 250 / 714.4 FentaNYL (PF) 1,000 MCG In 0.9 100 / 100 % Sodium Chloride 80 ML @ 50 MCG/HR 5 mls/hr IVC CONT NEFTALI Rx #:[id number] Diprivan 1,000 mg In 100 ml @ 84.4 / 264.4 80 / 264.4 100 / 264.4 20 MCG/KG/MIN 15.168 mls/hr IVC .Q6H36M NEFTALI Rx#:[id number] Maxipime 1,000 MG In 0.9 % 100 / 100 Sodium Chloride (Mini-Bag +) 100 ML @ 200 mls/hr IVPB DAILY@ 1600 NEFTALI Rx#:[id number] Cleocin Premix 900 MG/50 ML 900 50 / 50 mg In 50 ml @ 50 mls/hr IVPB Q8HR NEFTALI Rx#:[id number] Mycamine 100 MG In 0.9 % Sodium 100 / 100 Chloride (Mini-Bag +) 100 ML @ 100 mls/hr IVPB DAILY NEFTALI Rx#: [id number] Zosyn 3.375 GM In 0.9 % Sodium 100 / 100 Chloride (Mini-Bag +) 100 ML @ 25 mls/hr IVPB Q12H NEFTALI Rx#: [id number] Oral 0 / 0 Tube Feeding Intake, Rinseback and Flushes 3600 / 3600 Output: Urine 0 / 0 Total Dialysis (HD) Output 3600 / 3600 Catheter Gastric Drainage 950 / 950 Wound Drainage 70 / 105 15 Left Chest #1 Left Chest #2 10 / 40 25 / 40 5 / 40 Chest Tube Drainage 0 / 0 0 / 0 Chest tube #1 0 / 0 0 / 0 chest tube #2 0 / 0 0 / 0 Other: Blood Glucose* 107 96 Hemodialysis Net Fluid Removed 902 3000 (mL) - General Appearance General appearance: Present: well-developed, chronically ill, sedated on ventilator, intubated, fatigue, frail EENT: Present: ATNC, PERRL Neck: Present: no JVD, supple Respiratory: Present: rhonchi Cardiology: Present: edema (puffy hands and feet bilaterally), normal S1, normal S2 Dialysis Vascular Access: Venous Catheter (temporary HD catheter without erythema at the exit site) Integumentary: Present: warm and dry Neurologic: Present: no focal deficit, no asterixis Musculoskeletal: Present: no erythema, no cyanosis - Lab 07/18/18 03:50 07/18/18 03:50 Consult Discharge Plan - Plan Referrals: Kip Rojas DO [Primary Care Provider] -
[2018-07-19] MEDS: Artificial Tears SOLN 15 ML BOTTLE BOTH EYES SCH ×7 (00:06→23:18)
[2018-07-19] MEDS: Clindamycin 900 MG/50 ML 900 MG/50 ML IV.SOLN IVPB SCH ×4 (00:12→23:18)
[2018-07-19 04:48] LABS: ABG Base Excess 2 mEq/L (-2 to 3); ABG HCO3 27 mEq/L (21-27); ABG Oxygen Saturation 95 % (95-98); ABG PCO2 46 mmHg (35-45); ABG PH 7.38 pH Units (7.32-7.45); ABG PO2 75 mmHg (85-104); ABG TCO2 29 mEq/L (20-26); Blood Gas Modality AF
[2018-07-19 05:11] LABS: Hemoglobin 8.2 g/dL (12.9-16.9); Mean Corpuscular HGB Conc 31.5 g/dL (31.6-35.5); Mean Corpuscular Hemoglobin 26.8 pg (28.0-33.3); Mean Platelet Volume 11.5 fL (9.4-12.4); Platelet Count 171 K/mcL (140-400); Red Blood Count 3.06 M/mcL (4.19-5.50); Red Cell Distribution Width 17.3 % (11.5-14.5); White Blood Count 17.6 K/mcL (4.3-11.1)
[2018-07-19 05:30] LABS: Calcium 8.6 mg/dL (8.6-10.3); Potassium 4.1 mEq/L (3.5-5.1)
[2018-07-19 05:31] LABS: Albumin 2.8 g/dL (3.5-5.7)
--- NOTE | 2018-07-19 08:01 | Cardiothoracic Progress Note ---
Date of Encounter: 07/19/18 Time of Encounter: 07:59 - Assessment and plan (1) Empyema Current Visit: Yes Status: Acute The patient is slowly recovering from his left thoracotomy with decortication and latissimus dorsi muscle flap. The patient remains intubated and sedated. His renal function has not changed significantly with his creatinine remaining elevated above 4. The assessment and plan as outlined above was discussed with the patient and/or family members who expressed understanding and agreement. All questions were answered. - Subjective Procedure(s) Performed: POD#6 S/P Left thoracotomy with decortication and latissimus dorsi muscle flap Interval history: The patient remained hemodynamically stable overnight. He remains intubated and sedated. Vital Signs, Last 4 Hours Temp Pulse Resp BP Pulse Ox 07/19/18 07:55 16 102/68 93 07/19/18 07:30 88 07/19/18 07:19 99.1 F 07/19/18 06:00 88 16 102/68 92 07/19/18 05:28 16 102/69 95 07/19/18 05:00 92 16 106/67 100 07/19/18 04:00 99.9 F H 90 16 106/66 95 Oxgyen Flow Rate Oxygen Flow Rate (LPM) 50 Weight 07/17/18 07/18/18 07/19/18 23:59 23:59 23:59 Weight 116 kg - Physical Examination General: Other (Intubated and sedated) Neck: No JVD, Normal carotid pulses Cardiac: Reg Rate and Rhythm, Normal S1 and S2, No Murmur Incision: No signs of infection, Dry/intact dressing Lungs: Normal Breath Sounds, No Wheeze, Rales, Rhonchi Vascular: Normal capillary refill Extremities: No Clubbing, No Cyanosis, No Edema - Labs 07/19/18 04:45 07/19/18 04:45 Lab Results, Last 24 hours 07/18/18 07/19/18 07/19/18 14:40 04:45 04:45 WBC 17.6 H Hgb 8.2 L Hct 26.0 L Plt Count 171 Sodium 137 Potassium 4.1 Chloride 97 L Carbon Dioxide 27 BUN 33 H Creatinine 4.09 H Glucose 122 H Calcium 8.6 Amylase 17 L Lipase 5 L Consult Discharge Plan - Plan Referrals: Kip Rojas DO [Primary Care Provider] -
[2018-07-19] MEDS: Micafungin 100 MG in 0.9 % Sodium Chloride Mini Bag 100 ML IVPB SCH (08:11)
[2018-07-19] MEDS: Pantoprazole 40 MG VIAL IVP SCH (08:11)
[2018-07-19] MEDS: Pregabalin 50 MG CAPSULE PO SCH ×2 (08:12→20:36)
[2018-07-19] MEDS: Chlorhexidine Rinse 15 ML MOUTHWASH MM SCH ×2 (08:12→20:33)
--- NOTE | 2018-07-19 09:36 | Pulmonology Progress Note ---
<Danette Guzman - Last Filed: 07/19/18 13:36> Date of Encounter: 07/19/18 Time of Encounter: 09:00 Assessment and Plan (1) Sepsis Current Visit: Yes Status: Acute Had 3 SIRs criteria with episodes of elevated temperature highest of 101.1 on 07/18/18 at 1500, also had tachycardia and elevated WBC Could be secondary to empyema although underwent cardiothoracic surgical intervention with left thoracotomy and decortication Currently on broad-spectrum antibiotics including clindamycin, cefepime and micafungin CBC in the morning Cultures have not shown any growth thus far Pleural fluid culture shows Radha albicans Continue to follow infectious disease recommendations Qualifiers: Sepsis type: sepsis due to unspecified organism Qualified Code(s): A41.9 - Sepsis, unspecified organism (2) Empyema Current Visit: Yes Status: Acute And complaining of left lateral chest organism to be continued on the can due to polycystic fluid culture Underwent left thoracotomy with decortication by cardiothoracic surgery on 07/13. Currently remains sedated and intubated Infectious disease following currently on micafungin, cefepime and clindamycin duration of antibiotic determined on clinical picture Cardiothoracic surgery following (3) Pleural effusion Current Visit: Yes Status: Acute CT of the chest on 07/17/18 showed on her size fluid and gas collection in the left hemithorax Currently has chest tube in place Cardiothoracic surgery following (4) Acute renal failure on dialysis Current Visit: Yes Status: Acute On 07/14/18 creatinine was elevated at 3.33 Nephrology was consulted and has had 3 treatments of hemodialysis since admission Suspected etiologies ATN, creatinine continues to remain elevated 4.09 Continue to renally dose medications BMP in the morning to continue to monitor renal function (5) Acute respiratory failure Current Visit: Yes Status: Acute On 07/16/18 history status has continued to worsen requiring intubation likely secondary to worsening renal function combination of sedated On 07/18 continued to fail spontaneous breathing trial and appeared more anxious and sedated Additionally has a pleural effusion which could be worsening his respiratory status, currently has a chest tube in place Continue when necessary DuoNeb Continue to treat the underlying infection Continue dialysis per nephrology recommendation Qualifiers: Respiratory failure complication: hypoxia and hypercapnia Qualified Code(s): J96.01 - Acute respiratory failure with hypoxia; J96.02 - Acute respiratory failure with hypercapnia Subjective Principal diagnosis: Pleural Effusion Interval history: Mr. Hutson was seen at bedside this morning. He was sedated and intubated. He is currently recovering from left thoracotomy with decortication. Overnight he had no episodes of fever to have elevated temperature yesterday afternoon. Currently on cefepime, clindamycin and micafungin. Pressure remained stable and not on any pressors. Objective PUL Vital signs: Last Vital Signs Temp 99.1 F 07/19/18 07:19 Pulse 84 07/19/18 09:00 Resp 16 07/19/18 09:00 BP 92/64 07/19/18 09:00 Pulse Ox 92 07/19/18 09:00 General appearance: no acute distress, other Eyes: nonicteric (Sedated and intubated) ENT: oropharynx moist Auscultation: left: rhonchi, bilateral: diminished breath sounds (Bilateral lower lung) Cardiovascular: regular rate and rhythm Gastrointestinal: normoactive bowel sounds, soft, non-distended Integumentary: normal Extremities: no cyanosis, no edema Musculoskeletal: no deformities other (sedated and intubated) Ventilator Settings Ventilator Settings: Ventilator Settings, Last 8 Hours Ventilator Tidal Volume 550 Setting Ventilator Tidal Volume 550 Setting Ventilator Tidal Volume 550 Setting Ventilator Tidal Volume 550 Setting Ventilator Tidal Volume 550 Setting Ventilator Tidal Volume 550 Setting Ventilator Tidal Volume 550 Setting Ventilator Tidal Volume 550 Setting Ventilator Tidal Volume 550 Setting Ventilator Tidal Volume 550 Setting Ventilator Tidal Volume 550 Setting Ventilator Tidal Volume 550 Setting Ventilator Respiratory Rate 16 Setting Ventilator Respiratory Rate 16 Setting Ventilator Respiratory Rate 16 Setting Ventilator Respiratory Rate 16 Setting Ventilator Respiratory Rate 16 Setting Ventilator Respiratory Rate 16 Setting Ventilator Respiratory Rate 16 Setting Ventilator Respiratory Rate 16 Setting Ventilator Respiratory Rate 16 Setting Ventilator Respiratory Rate 16 Setting Ventilator Respiratory Rate 16 Setting Ventilator Respiratory Rate 16 Setting Actual Respiratory Rate 16 Actual Respiratory Rate 16 Actual Respiratory Rate 16 Actual Respiratory Rate 16 Actual Respiratory Rate 16 Actual Respiratory Rate 16 Actual Respiratory Rate 16 Actual Respiratory Rate 16 Actual Respiratory Rate 16 Actual Respiratory Rate 16 Actual Respiratory Rate 16 Positive End Expiratory 5 Pressure Positive End Expiratory 5 Pressure Positive End Expiratory 5 Pressure Positive End Expiratory 5 Pressure Positive End Expiratory 5 Pressure Positive End Expiratory 5 Pressure Positive End Expiratory 5 Pressure Positive End Expiratory 5 Pressure Positive End Expiratory 5 Pressure Positive End Expiratory 5 Pressure Positive End Expiratory 5 Pressure Positive End Expiratory 5 Pressure Peak Inspiratory Airway 39 Pressure Peak Inspiratory Airway 39 Pressure Peak Inspiratory Airway 41 Pressure Peak Inspiratory Airway 42 Pressure Peak Inspiratory Airway 42 Pressure Peak Inspiratory Airway 41 Pressure Peak Inspiratory Airway 40 Pressure Peak Inspiratory Airway 40 Pressure Peak Inspiratory Airway 42 Pressure Peak Inspiratory Airway 41 Pressure Peak Inspiratory Airway 44 Pressure Results - Laboratory Findings CBC and BMP: 07/19/18 04:45 07/19/18 04:45 ABG ABG pH 7.38 pH Units (7.32-7.45) 07/19/18 04:45 ABG pCO2 46 mmHg (35-45) H 07/19/18 04:45 ABG pO2 75 mmHg (85-104) L 07/19/18 04:45 ABG O2 Saturation 95 % (95-98) 07/19/18 04:45 PT/INR, D-dimer PT 17.8 Seconds (9.4-12.1) H 07/11/18 00:52 Abnormal lab findings: Abnormal lab results WBC 17.6 K/mcL (4.3-11.1) H 07/19/18 04:45 RBC 3.06 M/mcL (4.19-5.50) L 07/19/18 04:45 Hgb 8.2 g/dL (12.9-16.9) L 07/19/18 04:45 Hct 26.0 % (37.5-50.1) L 07/19/18 04:45 MCV 82.2 fL (83.0-100.0) L 07/12/18 01:15 MCH 26.8 pg (28.0-33.3) L 07/19/18 04:45 MCHC 31.5 g/dL (31.6-35.5) L 07/19/18 04:45 RDW 17.3 % (11.5-14.5) H 07/19/18 04:45 16.0 K/mcL (1.6-8.9) H 07/17/18 03:30 Decreased (Normal) L 07/17/18 03:30 1+ (Not Present) A 07/13/18 04:20 Present (Not Present) A 07/13/18 04:20 PT 17.8 Seconds (9.4-12.1) H 07/11/18 00:52 APTT 37.2 Seconds (26.0-36.0) H 07/10/18 16:31 ABG pH 7.27 pH Units (7.32-7.45) L 07/16/18 10:17 ABG pCO2 46 mmHg (35-45) H 07/19/18 04:45 ABG pO2 75 mmHg (85-104) L 07/19/18 04:45 ABG Total CO2 29 mEq/L (20-26) H 07/19/18 04:45 ABG O2 Saturation 93 % (95-98) L 07/18/18 05:20 ABG Base Excess -3 mEq/L (-2 to 3) L 07/17/18 04:43 Sodium 135 mEq/L (136-145) L 07/16/18 02:20 Potassium 2.9 mEq/L (3.5-5.1) L 07/10/18 16:59 Chloride 97 mEq/L (98-107) L 07/19/18 04:45 Carbon Dioxide 21 mEq/L (23-29) L 07/16/18 02:20 BUN 33 mg/dL (6-20) H 07/19/18 04:45 4.09 mg/dL (0.70-1.30) H 07/19/18 04:45 Est GFR ( Amer) 20 (> 60) L 07/19/18 04:45 Est GFR (Non-Af Amer) 16 (> 60) L 07/19/18 04:45 5 (6-26) L 07/17/18 03:30 Glucose 122 mg/dL (70-105) H 07/19/18 04:45 POC Glucose 111 mg/dL (70-99) H 07/19/18 00:10 279 (280-300) L 07/12/18 01:15 Calcium 7.8 mg/dL (8.6-10.3) L 07/17/18 03:30 Phosphorus 5.5 mg/dL (2.7-4.5) H 07/15/18 06:28 AST 41 Units/L (13-39) H 07/15/18 06:28 ALT 87 Units/L (7-52) H 07/10/18 16:59 127 Units/L (34-104) H 07/10/18 16:59 5.7 g/dL (6.4-8.9) L 07/16/18 02:20 2.8 g/dL (3.5-5.7) L 07/19/18 04:45 2.3 g/dL (2.4-3.5) L 07/16/18 02:20 1.0 (1.1-2.2) L 07/15/18 06:28 Amylase 17 Units/L (29-103) L 07/18/18 14:40 5 Units/L (11-82) L 07/18/18 14:40 11.90 ng/mL (0.00-0.15) H 07/18/18 14:40 Ur Specific [place] < 1.005 (1.010-1.025) L 07/15/18 10:25 Small (Negative) H 07/15/18 10:25 3-5 per hpf (0-3) H 07/15/18 10:25 Amorphous Sediment Moderate (Few) H 07/15/18 10:25 Protein/Creatinin Ratio 0.95 mg/mg (0.00-0.20) H 07/15/18 10:25 36 mg/dL (1-14) H 07/15/18 10:25 Pleural Appearance Bloody (Clear) A 07/13/18 13:40 Vancomycin Trough 23 mcg/mL (5-10) H 07/12/18 18:31 Positive ng/mL (Ribo[place]=780) H 07/11/18 16:00 U Benzodiazepines Scrn Positive ng/mL (Dyaiuo=606) H 07/11/18 16:00 Hep Bs Antibody < 3.10 mIU/mL (10.00-) L 07/16/18 09:22 Crossmatch See Detail 07/12/18 01:15 - Microbiology Findings Microbiology Findings: Microbiology, Last 48 Hours 07/13/18 13:40 Body Fluid Culture - Final Pleural Fluid Radha albicans 07/18/18 11:40 Blood Culture - Preliminary Peripheral Venipuncture Culture is incubating and being continuously monitored for growth. Final report to follow. 07/18/18 11:49 Blood Culture - Preliminary Peripheral Venipuncture Culture is incubating and being continuously monitored for growth. Final report to follow. 07/18/18 07:24 Acid Fast Stain - Final Pleural Fluid - Clinical Findings Intake & Output: Intake & Output 07/18/18 07/19/18 07/19/18 23:59 07:59 15:59 Intake Total 294 / 4358.4 368 / 368 Output Total 3625 / 4690 65 / 65 Balance -3331 / -331.6 303 / 303 Weight 116 kg Consult Discharge Plan - Plan Referrals: Kip Rojas DO [Primary Care Provider] - <Wendy Larios - Last Filed: 07/20/18 00:04> Date of Encounter: 07/20/18 Objective PUL Vital signs: Last Vital Signs Temp 100.0 F H 07/19/18 20:00 Pulse 81 07/19/18 23:20 Resp 18 07/19/18 23:21 BP 95/62 07/19/18 23:21 Pulse Ox 99 07/19/18 23:21 Ventilator Settings Ventilator Settings: Ventilator Settings, Last 8 Hours Ventilator Tidal Volume 500 Setting Ventilator Tidal Volume 500 Setting Ventilator Tidal Volume 500 Setting Ventilator Tidal Volume 500 Setting Ventilator Tidal Volume 500 Setting Ventilator Tidal Volume 500 Setting Ventilator Tidal Volume 500 Setting Ventilator Tidal Volume 500 Setting Ventilator Tidal Volume 500 Setting Ventilator Tidal Volume 500 Setting Ventilator Tidal Volume 500 Setting Ventilator Tidal Volume 500 Setting Ventilator Respiratory Rate 18 Setting Ventilator Respiratory Rate 18 Setting Ventilator Respiratory Rate 18 Setting Ventilator Respiratory Rate 18 Setting Ventilator Respiratory Rate 18 Setting Ventilator Respiratory Rate 18 Setting Ventilator Respiratory Rate 18 Setting Ventilator Respiratory Rate 18 Setting Ventilator Respiratory Rate 18 Setting Ventilator Respiratory Rate 18 Setting Ventilator Respiratory Rate 18 Setting Ventilator Respiratory Rate 18 Setting Actual Respiratory Rate 18 Actual Respiratory Rate 18 Actual Respiratory Rate 18 Actual Respiratory Rate 18 Actual Respiratory Rate 18 Actual Respiratory Rate 18 Actual Respiratory Rate 18 Actual Respiratory Rate 18 Actual Respiratory Rate 18 Actual Respiratory Rate 18 Actual Respiratory Rate 18 Actual Respiratory Rate 18 Positive End Expiratory 5 Pressure Positive End Expiratory 5 Pressure Positive End Expiratory 5 Pressure Positive End Expiratory 5 Pressure Positive End Expiratory 5 Pressure Positive End Expiratory 5 Pressure Positive End Expiratory 5 Pressure Positive End Expiratory 5 Pressure Positive End Expiratory 5 Pressure Positive End Expiratory 5 Pressure Positive End Expiratory 5 Pressure Positive End Expiratory 5 Pressure Peak Inspiratory Airway 42 Pressure Peak Inspiratory Airway 44 Pressure Peak Inspiratory Airway 39 Pressure Peak Inspiratory Airway 40 Pressure Peak Inspiratory Airway 38 Pressure Peak Inspiratory Airway 40 Pressure Peak Inspiratory Airway 38 Pressure Peak Inspiratory Airway 40 Pressure Peak Inspiratory Airway 39 Pressure Peak Inspiratory Airway 41 Pressure Peak Inspiratory Airway 37 Pressure Peak Inspiratory Airway 37 Pressure Results - Laboratory Findings CBC and BMP: 07/19/18 04:45 07/19/18 04:45 ABG ABG pH 7.38 pH Units (7.32-7.45) 07/19/18 04:45 ABG pCO2 46 mmHg (35-45) H 07/19/18 04:45 ABG pO2 75 mmHg (85-104) L 07/19/18 04:45 ABG O2 Saturation 95 % (95-98) 07/19/18 04:45 PT/INR, D-dimer PT 17.8 Seconds (9.4-12.1) H 07/11/18 00:52 Abnormal lab findings: Abnormal lab results WBC 17.6 K/mcL (4.3-11.1) H 07/19/18 04:45 RBC 3.06 M/mcL (4.19-5.50) L 07/19/18 04:45 Hgb 8.2 g/dL (12.9-16.9) L 07/19/18 04:45 Hct 26.0 % (37.5-50.1) L 07/19/18 04:45 MCV 82.2 fL (83.0-100.0) L 07/12/18 01:15 MCH 26.8 pg (28.0-33.3) L 07/19/18 04:45 MCHC 31.5 g/dL (31.6-35.5) L 07/19/18 04:45 RDW 17.3 % (11.5-14.5) H 07/19/18 04:45 16.0 K/mcL (1.6-8.9) H 07/17/18 03:30 Decreased (Normal) L 07/17/18 03:30 1+ (Not Present) A 07/13/18 04:20 Present (Not Present) A 07/13/18 04:20 PT 17.8 Seconds (9.4-12.1) H 07/11/18 00:52 APTT 37.2 Seconds (26.0-36.0) H 07/10/18 16:31 ABG pH 7.27 pH Units (7.32-7.45) L 07/16/18 10:17 ABG pCO2 46 mmHg (35-45) H 07/19/18 04:45 ABG pO2 75 mmHg (85-104) L 07/19/18 04:45 ABG Total CO2 29 mEq/L (20-26) H 07/19/18 04:45 ABG O2 Saturation 93 % (95-98) L 07/18/18 05:20 ABG Base Excess -3 mEq/L (-2 to 3) L 07/17/18 04:43 Sodium 135 mEq/L (136-145) L 07/16/18 02:20 Potassium 2.9 mEq/L (3.5-5.1) L 07/10/18 16:59 Chloride 97 mEq/L (98-107) L 07/19/18 04:45 Carbon Dioxide 21 mEq/L (23-29) L 07/16/18 02:20 BUN 33 mg/dL (6-20) H 07/19/18 04:45 4.09 mg/dL (0.70-1.30) H 07/19/18 04:45 Est GFR ( Amer) 20 (> 60) L 07/19/18 04:45 Est GFR (Non-Af Amer) 16 (> 60) L 07/19/18 04:45 5 (6-26) L 07/17/18 03:30 Glucose 122 mg/dL (70-105) H 07/19/18 04:45 POC Glucose 111 mg/dL (70-99) H 07/19/18 00:10 279 (280-300) L 07/12/18 01:15 Calcium 7.8 mg/dL (8.6-10.3) L 07/17/18 03:30 Phosphorus 5.5 mg/dL (2.7-4.5) H 07/15/18 06:28 AST 41 Units/L (13-39) H 07/15/18 06:28 ALT 87 Units/L (7-52) H 07/10/18 16:59 127 Units/L (34-104) H 07/10/18 16:59 5.7 g/dL (6.4-8.9) L 07/16/18 02:20 2.8 g/dL (3.5-5.7) L 07/19/18 04:45 2.3 g/dL (2.4-3.5) L 07/16/18 02:20 1.0 (1.1-2.2) L 07/15/18 06:28 Amylase 17 Units/L (29-103) L 07/18/18 14:40 5 Units/L (11-82) L 07/18/18 14:40 11.90 ng/mL (0.00-0.15) H 07/18/18 14:40 Ur Specific [place] < 1.005 (1.010-1.025) L 07/15/18 10:25 Small (Negative) H 07/15/18 10:25 3-5 per hpf (0-3) H 07/15/18 10:25 Amorphous Sediment Moderate (Few) H 07/15/18 10:25 Protein/Creatinin Ratio 0.95 mg/mg (0.00-0.20) H 07/15/18 10:25 36 mg/dL (1-14) H 07/15/18 10:25 Pleural Appearance Bloody (Clear) A 07/13/18 13:40 Vancomycin Trough 23 mcg/mL (5-10) H 07/12/18 18:31 Positive ng/mL (Oyevti=481) H 07/11/18 16:00 U Benzodiazepines Scrn Positive ng/mL (Pwvdxg=518) H 07/11/18 16:00 Hep Bs Antibody < 3.10 mIU/mL (10.00-) L 07/16/18 09:22 Crossmatch See Detail 07/12/18 01:15 - Microbiology Findings Microbiology Findings: Microbiology, Last 48 Hours 07/13/18 13:40 Body Fluid Culture - Final Pleural Fluid Radha albicans 07/18/18 11:40 Blood Culture - Preliminary Peripheral Venipuncture Culture is incubating and being continuously monitored for growth. Final report to follow. 07/18/18 11:49 Blood Culture - Preliminary Peripheral Venipuncture Culture is incubating and being continuously monitored for growth. Final report to follow. 07/18/18 07:24 Acid Fast Stain - Final Pleural Fluid - Clinical Findings Intake & Output: Intake & Output 07/19/18 07/19/18 07/19/18 07:59 15:59 23:59 Intake Total 368 / 1768 500 / 1768 900 / 1768 Output Total 65 / 125 10 / 125 50 / 125 Balance 303 / 1643 490 / 1643 850 / 1643 Weight 116 kg - Attending Attestation I saw and evaluated this patient and my medical decision-making was reviewed with the Resident Physician. I agree with the documented findings, disposition and treatment plan as described except to the extent set forth below. We inde pendently had [id number] contact with the patient I spent 50 minutes of Critical Care time with this patient. It involved decision making of high complexity to assess, manipulate, and support vital organ system failure and/or to prevent further life threatening deterioration of the patient's condition. The time involved in the performance of separately reportable procedures was not counted toward critical care time. Patient seen and examined at bedside Labs, radiology, chart personally reviewed. Management was reviewed during multidisciplinary critical care rounds. CREAM MAKER:Patient is intubated and ventilated patient still has V/Q mismatch will try spontaneous awakening trial . Pulm:Patient had left sided decortication and thoractomy for Empyema still has significant v/q mismatch. Cards: Patient is hemdynamically stable . Patient meeting sepsis criteria high chance of septic shock assess for vaasopressor needs daily FEN-GI: nutrition according to dietary. Renal: Acute Kidney injury nephrology assessing renal replacement therapy needs ID: To de-escalate antibiotics according to her response to follow the current regimen of antibiotics according to infectious disease patient is on IV antifungal. Extensive fungal workup was sent according to ID Heme/Onc: Endo: Glucose Monitored Integ/MSK: Skin Care per routine ICU Nursing Protocol to prevent ulcers. Lines: All lines examined without evidence of infection : Dispo: Critically ill CODE: Full code
[2018-07-19] MEDS: FentaNYL (PF) 1,000 MCG in 0.9 % Sodium Chloride 80 ML IVC SCH (10:43)
--- NOTE | 2018-07-19 13:18 | Nephrology Progress Note ---
Date of Encounter: 07/19/18 Time of Encounter: 08:30 - Assessment and Plan (1) Acute kidney injury Current Visit: Yes Status: Acute Acute kidney injury requiring hemodialysis. Today I reviewed his labs, vital signs, progress notes, imaging and medication list, and he will not require a 4th HD treatment today (Saturday). I recommend following a renal protective strategy as able including strict I's and O's, daily weights, avoidance of nephrotoxic agents and renal diet, and renal dosing. The CT of the abdomen earlier in this hospitalization did not show any hydronephrosis. Urinalysis had subnephrotic proteinuria that might just be tubular levels of proteinuria from ATN. There were no granular casts or any other casts demonstrated on the urinalysis. The serologies that I see in his chart were not consistent with a GN. This patient is complex, and required a high degree of medical decision-making plus evaluation and management. The next tentative dialysis will be planned for Saturday, if needed. Thank you (2) Empyema Current Visit: Yes Status: Acute (3) Acute blood loss as cause of postoperative anemia Current Visit: Yes Status: Acute (4) Acute respiratory failure Current Visit: Yes Status: Acute Qualifiers: Respiratory failure complication: hypoxia and hypercapnia Qualified Code (s): J96.01 - Acute respiratory failure with hypoxia; J96.02 - Acute respiratory failure with hypercapnia Subjective Principal diagnosis: Pleural Effusion Interval history: Patient was seen and examined earlier today in the ICU. He remains intubated, and so the subjective portion of this note is unobtainable Objective - Vital Signs Vital signs: Vital Signs Temp Pulse Resp BP Pulse Ox 07/19/18 11:41 18 95/66 95 07/19/18 11:28 99.6 F 07/19/18 11:00 86 18 95/66 93 07/19/18 10:00 88 18 99/69 91 07/19/18 09:47 16 92/64 91 07/19/18 09:00 84 16 92/64 92 07/19/18 08:00 86 16 97/71 90 07/19/18 07:55 16 102/68 93 07/19/18 07:30 88 07/19/18 07:19 99.1 F 07/19/18 06:00 88 16 102/68 92 06/01/19 05:28 16 102/69 95 07/19/18 05:00 92 16 106/67 100 07/19/18 04:00 99.9 F H 90 16 106/66 95 07/19/18 03:59 90 07/19/18 03:41 16 100/68 94 07/19/18 03:00 90 16 110/72 94 07/19/18 02:00 91 16 113/74 95 07/19/18 01:31 16 100/70 95 07/19/18 01:00 91 16 113/74 95 07/19/18 00:08 98.9 F 07/19/18 00:02 90 07/19/18 00:00 90 16 105/71 96 07/18/18 23:43 16 103/70 95 07/18/18 23:00 90 16 106/70 96 07/18/18 22:00 91 17 101/70 94 07/18/18 21:30 16 112/74 93 07/18/18 21:00 91 16 116/74 93 07/18/18 20:15 93 07/18/18 20:08 98.9 F 07/18/18 20:00 93 16 124/76 94 07/18/18 19:47 16 124/72 96 07/18/18 19:00 93 16 119/96 96 07/18/18 18:22 98.5 F 18 108/74 07/18/18 18:00 93 16 119/75 95 07/18/18 17:48 16 96 07/18/18 17:45 113/72 07/18/18 17:30 116/71 07/18/18 17:15 115/72 07/18/18 17:00 99.4 F 94 16 120/77 95 07/18/18 16:45 119/72 07/18/18 16:30 110/72 07/18/18 16:15 117/75 07/18/18 16:00 94 16 127/72 95 07/18/18 15:59 17 95 07/18/18 15:45 109/73 07/18/18 15:30 103/66 07/18/18 15:15 108/68 07/18/18 15:00 101.1 F H 95 16 114/77 94 07/18/18 14:00 99 16 133/73 94 07/18/18 13:57 16 94 Intake and Output 07/18/18 07/19/18 07/19/18 23:59 07:59 15:59 Intake Total 294 / 4358.4 368 / 539 171 / 539 Output Total 3625 / 4690 Balance -3331 / -331.6 303 / 464 161 / 464 Intake: IV Fluids 250 / 714.4 150 / 250 100 / 250 FentaNYL (PF) 1,000 MCG In 0.9 100 / 100 % Sodium Chloride 80 ML @ 50 MCG/HR 5 mls/hr IVC CONT [facility] Rx #:[id number] Diprivan 1,000 mg In 100 ml @ 100 / 264.4 100 / 100 20 MCG/KG/MIN 15.168 mls/hr IVC .Q6H36M [facility] Rx#:[id number] Maxipime 1,000 MG In 0.9 % 100 / 100 Sodium Chloride (Mini-Bag +) 100 ML @ 200 mls/hr IVPB DAILY@ 1600 [facility] Rx#:[id number] Cleocin Premix 900 MG/50 ML 900 50 / 50 50 / 50 mg In 50 ml @ 50 mls/hr IVPB Q8HR [facility] Rx#:[id number] Tube Feeding 44 / 44 218 / 289 71 / 289 Output: Urine 0 / 0 Total Dialysis (HD) Output 3600 / 3600 Catheter 0 / 0 Gastric Drainage 0 / 0 Wound Drainage Left Chest #1 45 / 50 5 / 50 Left Chest #2 5 40 20 / 25 5 / 25 Other: Stool Size Smear Stool Consistency loose Stool Color Brown Weight 116 kg Blood Glucose* 96 111 121 Hemodialysis Net Fluid Removed 3000 (mL) Patient Weight 07/19/18 23:59 Weight 116 kg - General Appearance Exam: General appearance: Present: well-developed, sedated on ventilator, intubated, fatigue, frail EENT: Present: ATNC, PERRL Neck: Present: no JVD, supple Respiratory: Present: scattered rhonchi on anterior exam Cardiology: Present: edema (puffy hands and feet bilaterally), normal S1, normal S2 Dialysis Vascular Access: Left IJ temporary HD catheter without erythema at the exit site Integumentary: Present: warm and dry Neurologic: Present: no focal deficit, but the neuro exam was limited due to sedation Musculoskeletal: Present: no erythema, no cyanosis - Lab 07/19/18 04:45 07/19/18 04:45 Most recent lab results 07/19/18 07/19/18 04:45 04:45 ABG pH 7.38 ABG pCO2 46 H ABG pO2 75 L ABG HCO3 27 ABG O2 Saturation 95 Calcium 8.6 Consult Discharge Plan - Plan Referrals: Kip Rojas DO [Primary Care Provider] -
[2018-07-19] MEDS: Cefepime HCl 1,000 MG in 0.9 % Sodium Chloride Mini Bag 100 ML IVPB SCH (15:19)
[2018-07-19] MEDS: Norepinephrine 4 MG in D5% in Water 250 ML IVC SCH (20:33)
[2018-07-19] MEDS: Lurasidone 20 MG TABLET PO SCH (20:36)
[2018-07-20] MEDS: Artificial Tears SOLN 15 ML BOTTLE BOTH EYES SCH ×5 (04:03→20:38)
[2018-07-20 04:21] LABS: Basophils % 0.2 %; Eosinophils # 0.2 K/mcL (0.0-0.6); Hematocrit 23.3 % (37.5-50.1); Hemoglobin 7.3 g/dL (12.9-16.9); Immature Granulocytes % 1.7 % (0-4); Lymphocytes # 0.9 K/mcL (0.6-4.6); Lymphocytes % 7.9 %; Mean Corpuscular HGB Conc 31.3 g/dL (31.6-35.5); Mean Corpuscular Hemoglobin 26.8 pg (28.0-33.3); Mean Corpuscular Volume 85.7 fL (83.0-100.0); Mean Platelet Volume 12.1 fL (9.4-12.4); Monocytes # 0.4 K/mcL (0.0-1.3); Monocytes % 3.6 %; Neutrophils # 9.9 K/mcL (1.6-8.9); Nucleated Red Blood Cells 0.2 /100 WBC (0); Platelet Count 144 K/mcL (140-400); Red Blood Count 2.72 M/mcL (4.19-5.50); Red Cell Distribution Width 17.6 % (11.5-14.5); Segmented Neutrophils % 84.6 %; White Blood Count 11.7 K/mcL (4.3-11.1)
[2018-07-20 04:38] LABS: Calcium 8.1 mg/dL (8.6-10.3); Potassium 4.1 mEq/L (3.5-5.1)
[2018-07-20 04:40] LABS: ABG Base Excess 1 mEq/L (-2 to 3); ABG HCO3 27 mEq/L (21-27); ABG Oxygen Saturation 94 % (95-98); ABG PCO2 48 mmHg (35-45); ABG PH 7.36 pH Units (7.32-7.45); ABG PO2 73 mmHg (85-104); ABG TCO2 28 mEq/L (20-26); Blood Gas Modality AF; Blood Gas PEEP 5 cm H2O; Blood Gas VT 500 cc
[2018-07-20] MEDS: FentaNYL (PF) 1,000 MCG in 0.9 % Sodium Chloride 80 ML IVC SCH ×2 (06:19→23:10)
[2018-07-20] MEDS: Clindamycin 900 MG/50 ML 900 MG/50 ML IV.SOLN IVPB SCH ×2 (07:34→15:36)
[2018-07-20] MEDS: Micafungin 100 MG in 0.9 % Sodium Chloride Mini Bag 100 ML IVPB SCH (08:46)
[2018-07-20] MEDS: Pregabalin 50 MG CAPSULE PO SCH ×2 (08:46→20:41)
[2018-07-20] MEDS: Chlorhexidine Rinse 15 ML MOUTHWASH MM SCH ×2 (08:46→20:41)
[2018-07-20] MEDS: Pantoprazole 40 MG VIAL IVP SCH (08:46)
--- NOTE | 2018-07-20 09:23 | Cardiothoracic Progress Note ---
Date of Encounter: 07/20/18 Time of Encounter: 09:21 - Assessment and plan (1) Empyema of left pleural space Current Visit: Yes Status: Acute The assessment and plan as outlined above was discussed with the patient and/or family members who expressed understanding and agreement. All questions were answered. continue drains to suction and bulb drainage (2) Acute kidney insufficiency Current Visit: Yes Status: Acute The assessment and plan as outlined above was discussed with the patient and/or family members who expressed understanding and agreement. All questions were answered. awaiting dialysis today. (3) Acute renal failure on dialysis Current Visit: Yes Status: Acute The assessment and plan as outlined above was discussed with the patient and/or family members who expressed understanding and agreement. All questions were answered. as above Vital Signs, Last 4 Hours Temp Pulse Resp BP Pulse Ox 07/20/18 09:03 18 113/71 99 07/20/18 08:50 100.3 F H 07/20/18 07:49 18 123/74 97 07/20/18 07:00 86 18 123/74 96 07/20/18 06:00 88 18 106/67 95 07/20/18 05:23 18 99/61 93 Oxgyen Flow Rate Oxygen Flow Rate (LPM) 3 Weight 07/18/18 07/19/18 07/20/18 23:59 23:59 23:59 Weight 116 kg 116 kg - Physical Examination General: Other (intubaed and sedated. ) Cardiac: Reg Rate and Rhythm, Normal S1 and S2, No Murmur Incision: No signs of infection Chest tubes: Other (colby drains thin ) Lungs: Other (rhonchi ) Neuro: Other (not following commands) Abdomen: Soft, Non-tender, Other (scant bs ) Extremities: Other (1+ edema ) - Labs 07/20/18 04:00 07/20/18 04:00 Lab Results, Last 24 hours 07/20/18 07/20/18 04:00 04:00 WBC 11.7 H Hgb 7.3 L Hct 23.3 L Plt Count 144 Sodium 137 Potassium 4.1 Chloride 98 Carbon Dioxide 24 BUN 49 H Creatinine 5.32 H Glucose 105 Calcium 8.1 L Consult Discharge Plan - Plan Referrals: Kip Rojas DO [Primary Care Provider] -
--- NOTE | 2018-07-20 11:34 | Pulmonology Progress Note ---
<Danette Guzman - Last Filed: 07/20/18 11:49> Date of Encounter: 07/20/18 Time of Encounter: 09:20 Assessment and Plan (1) Sepsis Current Visit: Yes Status: Acute Had 3 SIRs criteria with episodes of elevated temperature highest of 101.1 on 07/18/18 at 1500, also had tachycardia and elevated WBC Could be secondary to empyema although underwent cardiothoracic surgical intervention with left thoracotomy and decortication Currently on broad-spectrum antibiotics including clindamycin, cefepime and micafungin Cultures have not shown any growth thus far Pleural fluid culture shows Radha albicans Continue to follow infectious disease recommendations CBC in the morning Qualifiers: Sepsis type: sepsis due to unspecified organism Qualified Code(s): A41.9 - Sepsis, unspecified organism (2) Empyema Current Visit: Yes Status: Acute And complaining of left lateral chest organism to be continued on the can due to polycystic fluid culture Underwent left thoracotomy with decortication by cardiothoracic surgery on 07/13. Currently remains sedated and intubated Infectious disease following currently on micafungin, cefepime and clindamycin duration of antibiotic determined on clinical picture Fungal culture and specimens pending Cardiothoracic surgery following (3) Pleural effusion Current Visit: Yes Status: Acute CT of the chest on 07/17/18 showed on her size fluid and gas collection in the left hemithorax Currently has chest tube in place Cardiothoracic surgery following (4) Acute renal failure on dialysis Current Visit: Yes Status: Acute On 07/14/18 creatinine was elevated at 3.33 Nephrology was consulted and has had 3 treatments of hemodialysis since admission Suspected etiologies ATN, creatinine continues to remain elevated at 5.32 Continue to renally dose medications BMP in the morning, continue to monitor renal function Nephrology is following (5) Hypotension Current Visit: Yes Status: Acute Had episodes of hypotension yesterday, received albumin which improved blood pressure significantly. -Added albumin and can be given if MAP below 65 Qualifiers: Hypotension type: idiopathic hypotension Qualified Code(s): I95.0 - Idio pathic hypotension (6) Acute respiratory failure Current Visit: Yes Status: Acute On 07/16/18 history status has continued to worsen requiring intubation likely secondary to worsening renal function combination of sedated On 07/18 continued to fail spontaneous breathing trial and appeared more anxious and sedated Additionally has a pleural effusion which could be worsening his respiratory status, currently has a chest tube in place Continue when necessary DuoNeb Continue to treat the underlying infection Continue dialysis per nephrology recommendation Qualifiers: Respiratory failure complication: hypoxia and hypercapnia Qualified Code(s): J96.01 - Acute respiratory failure with hypoxia; J96.02 - Acute respiratory failure with hypercapnia (7) DVT prophylaxis Current Visit: No Status: Acute SCDs Subjective Principal diagnosis: Pleural Effusion Interval history: Mr. Hutson was seen at bedside this morning. He was sedated and intubated. He is currently recovering from left thoracotomy with decortication. Today had a fe w episodes of elevated temperature. Currently on cefepime, clindamycin and micafungin. Pressure decreased yesterday and received albumin subsequently responded appropriately. Objective PUL Vital signs: Last Vital Signs Temp 100.3 F H 07/20/18 08:50 Pulse 84 07/20/18 11:00 Resp 18 07/20/18 11:28 BP 107/68 07/20/18 11:28 Pulse Ox 96 07/20/18 11:28 General appearance: no acute distress, other (Sedated and intubated) Eyes: nonicteric ENT: oropharynx moist Auscultation: bilateral: diminished breath sounds (lower lung lobes) Cardiovascular: regular rate and rhythm Gastrointestinal: hypoactive bowel sounds, soft, non-distended Extremities: no cyanosis, no edema, no clubbing Musculoskeletal: no deformities unable to assess due to mental status (intubated and sedated) Ventilator Settings Ventilator Settings: Ventilator Settings, Last 8 Hours Ventilator Tidal Volume 500 Setting Ventilator Tidal Volume 500 Setting Ventilator Tidal Volume 500 Setting Ventilator Tidal Volume 500 Setting Ventilator Tidal Volume 500 Setting Ventilator Tidal Volume 500 Setting Ventilator Tidal Volume 500 Setting Ventilator Tidal Volume 500 Setting Ventilator Tidal Volume 500 Setting Ventilator Tidal Volume 500 Setting Ventilator Tidal Volume 500 Setting Ventilator Tidal Volume 500 Setting Ventilator Tidal Volume 500 Setting Ventilator Respiratory Rate 18 Setting Ventilator Respiratory Rate 18 Setting Ventilator Respiratory Rate 18 Setting Ventilator Respiratory Rate 18 Setting Ventilator Respiratory Rate 18 Setting Ventilator Respiratory Rate 18 Setting Ventilator Respiratory Rate 18 Setting Ventilator Respiratory Rate 18 Setting Ventilator Respiratory Rate 18 Setting Ventilator Respiratory Rate 18 Setting Ventilator Respiratory Rate 18 Setting Ventilator Respiratory Rate 18 Setting Ventilator Respiratory Rate 18 Setting Actual Respiratory Rate 18 Actual Respiratory Rate 18 Actual Respiratory Rate 18 Actual Respiratory Rate 18 Actual Respiratory Rate 18 Actual Respiratory Rate 18 Actual Respiratory Rate 18 Actual Respiratory Rate 18 Actual Respiratory Rate 18 Actual Respiratory Rate 18 Actual Respiratory Rate 18 Actual Respiratory Rate 18 Positive End Expiratory 5 Pressure Positive End Expiratory 5 Pressure Positive End Expiratory 5 Pressure Positive End Expiratory 5 Pressure Positive End Expiratory 5 Pressure Positive End Expiratory 5 Pressure Positive End Expiratory 5 Pressure Positive End Expiratory 5 Pressure Positive End Expiratory 5 Pressure Positive End Expiratory 5 Pressure Positive End Expiratory 5 Pressure Positive End Expiratory 5 Pressure Positive End Expiratory 5 Pressure Peak Inspiratory Airway 42 Pressure Peak Inspiratory Airway 42 Pressure Peak Inspiratory Airway 42 Pressure Peak Inspiratory Airway 39 Pressure Peak Inspiratory Airway 39 Pressure Peak Inspiratory Airway 39 Pressure Peak Inspiratory Airway 38 Pressure Peak Inspiratory Airway 37 Pressure Peak Inspiratory Airway 37 Pressure Peak Inspiratory Airway 38 Pressure Peak Inspiratory Airway 40 Pressure Peak Inspiratory Airway 40 Pressure Results - Laboratory Findings CBC and BMP: 07/20/18 04:00 07/20/18 04:00 ABG ABG pH 7.36 pH Units (7.32-7.45) 07/20/18 04:37 ABG pCO2 48 mmHg (35-45) H 07/20/18 04:37 ABG pO2 73 mmHg (85-104) L 07/20/18 04:37 ABG O2 Saturation 94 % (95-98) L 07/20/18 04:37 PT/INR, D-dimer PT 17.8 Seconds (9.4-12.1) H 07/11/18 00:52 Abnormal lab findings: Abnormal lab results WBC 11.7 K/mcL (4.3-11.1) H 07/20/18 04:00 RBC 2.72 M/mcL (4.19-5.50) L 07/20/18 04:00 Hgb 7.3 g/dL (12.9-16.9) L 07/20/18 04:00 Hct 23.3 % (37.5-50.1) L 07/20/18 04:00 MCV 82.2 fL (83.0-100.0) L 07/12/18 01:15 MCH 26.8 pg (28.0-33.3) L 07/20/18 04:00 MCHC 31.3 g/dL (31.6-35.5) L 07/20/18 04:00 RDW 17.6 % (11.5-14.5) H 07/20/18 04:00 9.9 K/mcL (1.6-8.9) H 07/20/18 04:00 Nucleated RBCs/100 WBC 0.2 /100 WBC (0) H 07/20/18 04:00 Decreased (Normal) L 07/17/18 03:30 1+ (Not Present) A 07/13/18 04:20 Present (Not Present) A 07/13/18 04:20 PT 17.8 Seconds (9.4-12.1) H 07/11/18 00:52 APTT 37.2 Seconds (26.0-36.0) H 07/10/18 16:31 ABG pH 7.27 pH Units (7.32-7.45) L 07/16/18 10:17 ABG pCO2 48 mmHg (35-45) H 07/20/18 04:37 ABG pO2 73 mmHg (85-104) L 07/20/18 04:37 ABG Total CO2 28 mEq/L (20-26) H 07/20/18 04:37 ABG O2 Saturation 94 % (95-98) L 07/20/18 04:37 ABG Base Excess -3 mEq/L (-2 to 3) L 07/17/18 04:43 Sodium 135 mEq/L (136-145) L 07/16/18 02:20 Potassium 2.9 mEq/L (3.5-5.1) L 07/10/18 16:59 Chloride 97 mEq/L (98-107) L 07/19/18 04:45 Carbon Dioxide 21 mEq/L (23-29) L 07/16/18 02:20 BUN 49 mg/dL (6-20) H 07/20/18 04:00 5.32 mg/dL (0.70-1.30) H 07/20/18 04:00 Est GFR ( Amer) 15 (> 60) L 07/20/18 04:00 Est GFR (Non-Af Amer) 12 (> 60) L 07/20/18 04:00 5 (6-26) L 07/17/18 03:30 Glucose 122 mg/dL (70-105) H 07/19/18 04:45 POC Glucose 114 mg/dL (70-99) H 07/19/18 23:04 279 (280-300) L 07/12/18 01:15 Calcium 8.1 mg/dL (8.6-10.3) L 07/20/18 04:00 Phosphorus 5.5 mg/dL (2.7-4.5) H 07/15/18 06:28 AST 41 Units/L (13-39) H 07/15/18 06:28 ALT 87 Units/L (7-52) H 07/10/18 16:59 127 Units/L (34-104) H 07/10/18 16:59 5.7 g/dL (6.4-8.9) L 07/16/18 02:20 2.8 g/dL (3.5-5.7) L 07/19/18 04:45 2.3 g/dL (2.4-3.5) L 07/16/18 02:20 1.0 (1.1-2.2) L 07/15/18 06:28 Amylase 17 Units/L (29-103) L 07/18/18 14:40 5 Units/L (11-82) L 07/18/18 14:40 11.90 ng/mL (0.00-0.15) H 07/18/18 14:40 Ur Specific [place] < 1.005 (1.010-1.025) L 07/15/18 10:25 Small (Negative) H 07/15/18 10:25 3-5 per hpf (0-3) H 07/15/18 10:25 Amorphous Sediment Moderate (Few) H 07/15/18 10:25 Protein/Creatinin Ratio 0.95 mg/mg (0.00-0.20) H 07/15/18 10:25 36 mg/dL (1-14) H 07/15/18 10:25 Pleural Appearance Bloody (Clear) A 07/13/18 13:40 Pleur Adenosine Deamin 20.8 U/L (0.0-9.4) H 07/13/18 13:40 Vancomycin Trough 23 mcg/mL (5-10) H 07/12/18 18:31 Positive ng/mL (Kqoddh=737) H 07/11/18 16:00 U Benzodiazepines Scrn Positive ng/mL (Fnvjrc=591) H 07/11/18 16:00 Hep Bs Antibody < 3.10 mIU/mL (10.00-) L 07/16/18 09:22 Crossmatch See Detail 07/12/18 01:15 - Microbiology Findings Microbiology Findings: Microbiology, Last 48 Hours 07/13/18 13:40 Body Fluid Culture - Final Pleural Fluid Radha albicans 07/18/18 11:40 Blood Culture - Preliminary Peripheral Venipuncture Culture is incubating and being continuously monitored for growth. Final report to follow. 07/18/18 11:49 Blood Culture - Preliminary Peripheral Venipuncture Culture is incubating and being continuously monitored for growth. Final report to follow. 07/18/18 07:24 Acid Fast Stain - Final Pleural Fluid - Clinical Findings Intake & Output: Intake & Output 07/19/18 07/20/18 07/20/18 23:59 07:59 15:59 Intake Total 900 / 1768 339 / 594 255 / 594 Output Total 50 / 125 35 / 47 12 / 47 Balance 850 / 1643 304 / 547 243 / 547 Weight 116 kg Consult Discharge Plan - Plan Referrals: Kip Rojas, [Primary Care Provider] - <Wendy Larios - Last Filed: 07/20/18 22:26> Date of Encounter: 07/20/18 Objective PUL Vital signs: Last Vital Signs Temp 99.6 F 07/20/18 20:11 Pulse 84 07/20/18 21:00 Resp 18 07/20/18 21:30 BP 117/70 07/20/18 21:30 Pulse Ox 96 07/20/18 21:30 Ventilator Settings Ventilator Settings: Ventilator Settings, Last 8 Hours Ventilator Tidal Volume 500 Setting Ventilator Tidal Volume 500 Setting Ventilator Tidal Volume 500 Setting Ventilator Tidal Volume 500 Setting Ventilator Tidal Volume 500 Setting Ventilator Tidal Volume 500 Setting Ventilator Tidal Volume 500 Setting Ventilator Tidal Volume 500 Setting Ventilator Tidal Volume 500 Setting Ventilator Tidal Volume 500 Setting Ventilator Tidal Volume 500 Setting Ventilator Respiratory Rate 18 Setting Ventilator Respiratory Rate 18 Setting Ventilator Respiratory Rate 18 Setting Ventilator Respiratory Rate 18 Setting Ventilator Respiratory Rate 18 Setting Ventilator Respiratory Rate 18 Setting Ventilator Respiratory Rate 18 Setting Ventilator Respiratory Rate 18 Setting Ventilator Respiratory Rate 18 Setting Ventilator Respiratory Rate 18 Setting Ventilator Respiratory Rate 18 Setting Actual Respiratory Rate 18 Actual Respiratory Rate 18 Actual Respiratory Rate 18 Actual Respiratory Rate 18 Actual Respiratory Rate 18 Actual Respiratory Rate 18 Actual Respiratory Rate 18 Actual Respiratory Rate 18 Actual Respiratory Rate 18 Actual Respiratory Rate 22 Actual Respiratory Rate 18 Positive End Expiratory 5 Pressure Positive End Expiratory 5 Pressure Positive End Expiratory 5 Pressure Positive End Expiratory 5 Pressure Positive End Expiratory 5 Pressure Positive End Expiratory 5 Pressure Positive End Expiratory 5 Pressure Positive End Expiratory 5 Pressure Positive End Expiratory 5 Pressure Positive End Expiratory 5 Pressure Positive End Expiratory 5 Pressure Peak Inspiratory Airway 41 Pressure Peak Inspiratory Airway 42 Pressure Peak Inspiratory Airway 45 Pressure Peak Inspiratory Airway 44 Pressure Peak Inspiratory Airway 45 Pressure Peak Inspiratory Airway 45 Pressure Peak Inspiratory Airway 45 Pressure Peak Inspiratory Airway 46 Pressure Peak Inspiratory Airway 48 Pressure Peak Inspiratory Airway 45 Pressure Peak Inspiratory Airway 42 Pressure Results - Laboratory Findings CBC and BMP: 07/20/18 04:00 07/20/18 04:00 ABG ABG pH 7.36 pH Units (7.32-7.45) 07/20/18 04:37 ABG pCO2 48 mmHg (35-45) H 07/20/18 04:37 ABG pO2 73 mmHg (85-104) L 07/20/18 04:37 ABG O2 Saturation 94 % (95-98) L 07/20/18 04:37 PT/INR, D-dimer PT 17.8 Seconds (9.4-12.1) H 07/11/18 00:52 Abnormal lab findings: Abnormal lab results WBC 11.7 K/mcL (4.3-11.1) H 07/20/18 04:00 RBC 2.72 M/mcL (4.19-5.50) L 07/20/18 04:00 Hgb 7.3 g/dL (12.9-16.9) L 07/20/18 04:00 Hct 23.3 % (37.5-50.1) L 07/20/18 04:00 MCV 82.2 fL (83.0-100.0) L 07/12/18 01:15 MCH 26.8 pg (28.0-33.3) L 07/20/18 04:00 MCHC 31.3 g/dL (31.6-35.5) L 07/20/18 04:00 RDW 17.6 % (11.5-14.5) H 07/20/18 04:00 9.9 K/mcL (1.6-8.9) H 07/20/18 04:00 Nucleated RBCs/100 WBC 0.2 /100 WBC (0) H 07/20/18 04:00 Decreased (Normal) L 07/17/18 03:30 1+ (Not Present) A 07/13/18 04:20 Present (Not Present) A 07/13/18 04:20 PT 17.8 Seconds (9.4-12.1) H 07/11/18 00:52 APTT 37.2 Seconds (26.0-36.0) H 07/10/18 16:31 ABG pH 7.27 pH Units (7.32-7.45) L 07/16/18 10:17 ABG pCO2 48 mmHg (35-45) H 07/20/18 04:37 ABG pO2 73 mmHg (85-104) L 07/20/18 04:37 ABG Total CO2 28 mEq/L (20-26) H 07/20/18 04:37 ABG O2 Saturation 94 % (95-98) L 07/20/18 04:37 ABG Base Excess -3 mEq/L (-2 to 3) L 07/17/18 04:43 Sodium 135 mEq/L (136-145) L 07/16/18 02:20 Potassium 2.9 mEq/L (3.5-5.1) L 07/10/18 16:59 Chloride 97 mEq/L (98-107) L 07/19/18 04:45 Carbon Dioxide 21 mEq/L (23-29) L 07/16/18 02:20 BUN 49 mg/dL (6-20) H 07/20/18 04:00 5.32 mg/dL (0.70-1.30) H 07/20/18 04:00 Est GFR ( Amer) 15 (> 60) L 07/20/18 04:00 Est GFR (Non-Af Amer) 12 (> 60) L 07/20/18 04:00 5 (6-26) L 07/17/18 03:30 Glucose 122 mg/dL (70-105) H 07/19/18 04:45 POC Glucose 114 mg/dL (70-99) H 07/19/18 23:04 279 (280-300) L 07/12/18 01:15 Calcium 8.1 mg/dL (8.6-10.3) L 07/20/18 04:00 Phosphorus 5.5 mg/dL (2.7-4.5) H 07/15/18 06:28 AST 41 Units/L (13-39) H 07/15/18 06:28 ALT 87 Units/L (7-52) H 07/10/18 16:59 127 Units/L (34-104) H 07/10/18 16:59 5.7 g/dL (6.4-8.9) L 07/16/18 02:20 2.8 g/dL (3.5-5.7) L 07/19/18 04:45 2.3 g/dL (2.4-3.5) L 07/16/18 02:20 1.0 (1.1-2.2) L 07/15/18 06:28 Amylase 17 Units/L (29-103) L 07/18/18 14:40 5 Units/L (11-82) L 07/18/18 14:40 11.90 ng/mL (0.00-0.15) H 07/18/18 14:40 Ur Specific [place] < 1.005 (1.010-1.025) L 07/15/18 10:25 Small (Negative) H 07/15/18 10:25 3-5 per hpf (0-3) H 07/15/18 10:25 Amorphous Sediment Moderate (Few) H 07/15/18 10:25 Protein/Creatinin Ratio 0.95 mg/mg (0.00-0.20) H 07/15/18 10:25 36 mg/dL (1-14) H 07/15/18 10:25 Pleural Appearance Bloody (Clear) A 07/13/18 13:40 Pleur Adenosine Deamin 20.8 U/L (0.0-9.4) H 07/13/18 13:40 Vancomycin Trough 23 mcg/mL (5-10) H 07/12/18 18:31 Positive ng/mL (Ucuydp=568) H 07/11/18 16:00 U Benzodiazepines Scrn Positive ng/mL (Vbrxir=083) H 07/11/18 16:00 Hep Bs Antibody < 3.10 mIU/mL (10.00-) L 07/16/18 09:22 Crossmatch See Detail 07/12/18 01:15 - Microbiology Findings Microbiology Findings: Microbiology, Last 48 Hours 07/15/18 13:26 Blood Culture - Final Peripheral Venipuncture No growth. Final report. 07/15/18 13:26 Blood Culture - Final Peripheral Venipuncture No growth. Final report. 07/13/18 13:40 Body Fluid Culture - Final Pleural Fluid Radha albicans - Clinical Findings Intake & Output: Intake & Output 07/20/18 07/20/18 07/20/18 07:59 15:59 23:59 Intake Total 339 / 882 314 / 882 229 / 882 Output Total 35 / 85 25 / 85 / Balance 304 / 797 289 / 797 204 / 797 Weight 116 kg - Attending Attestation - Attending Attestation I saw and evaluated this patient and my medical decision-making was reviewed with the Resident Physician. I agree with the documented findings, disposition and treatment plan as described except to the extent set forth below. We independently had [id number] contact with the patient I spent 35 minutes of Critical Care time with this patient. It involved decision making of high complexity to assess, manipulate, and support vital organ system failure and/or to prevent further life threatening deterioration of the patient's condition. The time involved in the performance of separately reportable procedures was not counted toward critical care time. Patient seen and examined at bedside Labs, radiology, chart personally reviewed. Management was reviewed during multidisciplinary critical care rounds. 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 Failed spontaneous breathing trial today. Patient also has significant hydrostatic pulmonary edema will need few settings of dialysis with fluid removal that will help his liberation from mechanical venti lation. Cards: Patient is hemdynamically stable . Patient meeting sepsis criteria high chance of septic shock assess for vaasopressor needs daily. Patient was had a borderline low pressures today responded well to albumin did not require vasopressors. FEN-GI: nutrition according to dietary. Renal: Acute Kidney injury nephrology assessing renal replacement therapy needs . Patient will need some fluid removal. ID: To de-escalate antibiotics according to her response to follow the current regimen of antibiotics according to infectious disease patient is on IV antifungal. Extensive fungal workup was sent according to ID Heme/Onc: Endo: Glucose Monitored Integ/MSK: Skin Care per routine ICU Nursing Protocol to prevent ulcers. Lines: All lines examined without evidence of infection : Dispo: Critically ill CODE: Full code
--- NOTE | 2018-07-20 11:35 | Nephrology Progress Note ---
Date of Encounter: 07/20/18 Time of Encounter: 09:10 - Assessment and Plan (1) Acute kidney injury Current Visit: Yes Status: Acute Acute kidney injury s/p HD x3 (Saturday//Saturday). He will likely require more dialysis resuming tomorrow, since he is demonstrated poor clearance. Phos mgt discussed with the OFFICE SERVICES ASSISTANT. I recommend following a renal protective strategy as able including strict I's and O's, daily weights, avoidance of nephrotoxic agents and renal diet, and renal dosing. The CT of the abdomen earlier in this hospitalization did not show any hydronephrosis. Urinalysis had subnephrotic proteinuria that might just be tubular levels of proteinuria from ATN. There were no granular casts or any other casts demonstrated on the urinalysis. The serologies that I see in his chart were not consistent with a GN. This patient is complex, and required a high degree of medical decision-making plus evaluation and management. The next tentative dialysis will be planned for Saturday. Thank you (2) Empyema Current Visit: Yes Status: Acute S/p thoracotomy (3) Acute blood loss as cause of postoperative anemia Current Visit: Yes Status: Acute Will monitor. If he were to require ongoing dialytic needs, then adding an OKSANA such as Aranesp or EPO would be indicated. (4) Acute respiratory failure Current Visit: Yes Status: Acute Vent management per pulm/critical care Qualifiers: Respiratory failure complication: hypoxia and hypercapnia Qualified Code(s): J96.01 - Acute respiratory failure with hypoxia; J96.02 - Acute respiratory failure with hypercapnia Subjective Principal diagnosis: Pleural Effusion Interval history: Patient was seen and examined earlier today in the ICU. He remains intubated, and so the subjective portion of this note is unobtainable. I discussed his care with the ICU team: phosphorus discussed. Objective - Vital Signs Vital signs: Vital Signs Temp Pulse Resp BP Pulse Ox 07/20/18 11:00 84 18 106/66 96 07/20/18 10:00 83 18 104/63 95 07/20/18 09:03 18 113/71 99 07/20/18 09:00 84 18 113/71 96 07/20/18 08:50 100.3 F H 07/20/18 08:00 84 18 120/74 96 07/20/18 07:49 18 123/74 97 07/20/18 07:00 86 18 123/74 96 07/20/18 06:00 88 18 106/67 95 07/20/18 05:23 18 99/61 93 07/20/18 05:00 84 18 94/61 92 07/20/18 04:00 100.1 F H 82 18 101/63 90 07/20/18 03:30 84 07/20/18 03:25 18 100/61 99 07/20/18 03:00 81 18 100/61 94 07/20/18 02:00 80 18 94/59 99 07/20/18 01:18 18 94/60 100 07/20/18 01:00 80 18 94/60 100 07/20/18 00:00 98.3 F 80 18 91/57 100 07/19/18 23:21 18 95/62 99 07/19/18 23:20 81 07/19/18 23:00 82 18 95/62 98 07/19/18 22:00 81 18 82/52 100 07/19/18 21:17 18 89/55 100 07/19/18 21:00 78 18 89/57 100 07/19/18 20:00 100.0 F H 79 18 88/57 100 07/19/18 19:52 18 93/58 100 07/19/18 19:30 79 07/19/18 19:00 78 18 100/64 97 07/19/18 18:00 82 18 86/58 92 07/19/18 17:46 18 82/56 90 07/19/18 17:00 80 18 82/56 90 07/19/18 16:38 99.9 F H 07/19/18 16:00 78 18 91/57 92 07/19/18 15:26 18 94/59 95 07/19/18 15:00 80 18 94/59 94 07/19/18 14:22 12 100/65 100 07/19/18 14:00 84 18 100/65 93 07/19/18 13:39 18 95/66 92 07/19/18 13:00 80 18 90/61 94 07/19/18 12:00 82 18 96/60 96 07/19/18 11:41 18 95/66 95 Intake and Output 07/19/18 07/20/18 07/20/18 23:59 07:59 15:59 Intake Total 900 / 1768 339 / 594 255 / 594 Output Total 50 / 125 35 / 47 12 / Balance 850 / 1643 304 / 547 243 / 547 Intake: IV Fluids 750 / 1250 250 / 400 150 / 400 ALBURX 5% 12.5 gm In 250 ml @ 500 / 500 60 mls/hr IVC .Q4H10M [facility] Rx#: [id number] FentaNYL (PF) 1,000 MCG In 0.9 100 / 100 % Sodium Chloride 80 ML @ 50 MCG/HR 5 mls/hr IVC CONT NEFTALI Rx #:[id number] Diprivan 1,000 mg In 100 ml @ 100 / 300 100 / 100 20 MCG/KG/MIN 15.168 mls/hr IVC .Q6H36M [facility] Rx#:[id number] Maxipime 1,000 MG In 0.9 % 100 / 100 Sodium Chloride (Mini-Bag +) 100 ML @ 200 mls/hr IVPB DAILY@ 1600 [facility] Rx#:[id number] Cleocin Premix 900 MG/50 ML 900 50 / 150 50 / 100 50 / 100 mg In 50 ml @ 50 mls/hr IVPB Q8HR [facility] Rx#:[id number] Mycamine 100 MG In 0.9 % Sodium 100 / 100 Chloride (Mini-Bag +) 100 ML @ 100 mls/hr IVPB DAILY [facility] Rx#: [id number] Tube Feeding 150 / 518 89 / 194 105 / 194 Output: Catheter 0 / 0 25 / 25 Wound Drainage 50 / 125 / 22 Left Chest #1 35 / 85 5 / 12 7 / 12 Left Chest #2 15 / 40 5 / 10 5 / 10 Other: Stool Size Small Stool Consistency soft Stool Color Brown Weight 116 kg Blood Glucose* 114 Patient Weight 07/20/18 23:59 Weight 116 kg - General Appearance Exam: General appearance: Present: well-developed, sedated on ventilator, intubated, fatigue, frail EENT: Present: ATNC, PERRL Neck: Present: no JVD, supple Respiratory: Present: minimal rhonchi on anterior auscultation noted Cardiology: Present: edema (puffy hands and feet bilaterally), normal S1, normal S2 Dialysis Vascular Access: Left IJ temporary HD catheter without erythema at the exit site Integumentary: Present: warm and dry Neurologic: Present: no focal deficit, but the neuro exam was limited due to s edation Musculoskeletal: Present: no erythema, no cyanosis - Lab 07/20/18 04:00 07/20/18 04:00 Most recent lab results 07/20/18 07/20/18 04:00 04:37 ABG pH 7.36 ABG pCO2 48 H ABG pO2 73 L ABG HCO3 27 ABG O2 Saturation 94 L Calcium 8.1 L Consult Discharge Plan - Plan Referrals: Kip Rojas DO [Primary Care Provider] -
[2018-07-20] MEDS ORDERED: Albumin 25% 25gram/100mL 25 GM/100 ML IV.SOLN IVPB ONE (12:12)
[2018-07-20 16:14] LABS: A.galactomannan Ag Index 0.03
[2018-07-20] MEDS: Cefepime HCl 1,000 MG in 0.9 % Sodium Chloride Mini Bag 100 ML IVPB SCH (16:39)
[2018-07-20] MEDS: Lurasidone 20 MG TABLET PO SCH (20:41)
[2018-07-21] MEDS: Clindamycin 900 MG/50 ML 900 MG/50 ML IV.SOLN IVPB SCH ×3 (00:16→18:00)
[2018-07-21] MEDS: Artificial Tears SOLN 15 ML BOTTLE BOTH EYES SCH ×6 (00:16→19:54)
[2018-07-21 04:07] LABS: Basophils % 0.2 %; Eosinophils # 0.3 K/mcL (0.0-0.6); Eosinophils % 2.6 %; Hematocrit 24.2 % (37.5-50.1); Hemoglobin 7.5 g/dL (12.9-16.9); Immature Granulocytes % 2.8 % (0-4); Lymphocytes # 0.9 K/mcL (0.6-4.6); Lymphocytes % 7.7 %; Mean Corpuscular Hemoglobin 26.6 pg (28.0-33.3); Mean Corpuscular Volume 85.8 fL (83.0-100.0); Mean Platelet Volume 11.2 fL (9.4-12.4); Monocytes # 0.5 K/mcL (0.0-1.3); Monocytes % 4.6 %; Neutrophils # 9.6 K/mcL (1.6-8.9); Nucleated Red Blood Cells 0.2 /100 WBC (0); Platelet Count 143 K/mcL (140-400); Red Blood Count 2.82 M/mcL (4.19-5.50); Red Cell Distribution Width 17.8 % (11.5-14.5); Segmented Neutrophils % 82.1 %; White Blood Count 11.6 K/mcL (4.3-11.1)
[2018-07-21 04:26] LABS: Calcium 8.5 mg/dL (8.6-10.3); Potassium 4.6 mEq/L (3.5-5.1)
[2018-07-21 05:02] LABS: ABG Base Excess -1 mEq/L (-2 to 3); ABG HCO3 26 mEq/L (21-27); ABG Oxygen Saturation 92 % (95-98); ABG PCO2 54 mmHg (35-45); ABG PH 7.29 pH Units (7.32-7.45); ABG PO2 73 mmHg (85-104); ABG TCO2 28 mEq/L (20-26); Blood Gas Modality ASSIST CONTROL; Blood Gas PEEP 5 cm H2O; Blood Gas VT 450 cc
[2018-07-21] MEDS ORDERED: Albumin 25% 25gram/100mL 25 GM/100 ML IV.SOLN IVPB PRN (07:09)
[2018-07-21] MEDS ORDERED: 0.9 % Sodium Chloride 250 ML IVC PRN (07:09)
--- NOTE | 2018-07-21 07:44 | Pulmonology Progress Note ---
<Avel Dia - Last Filed: 07/21/18 17:33> Date of Encounter: 07/21/18 Time of Encounter: 10:05 Assessment and Plan (1) Acute respiratory failure Current Visit: Yes Status: Acute - Patient developed worsening respiratory status on 07/16/18 requiring intubation - Etiology is unknown at this time; possibly secondary to empyema - Currently intubated and sedated on propofol and fentanyl - Vent settings: Tidal volume 500, rate 16, PEEP 5, FiO2 40% Plan: - Continue antibiotic therapy with cefepime, clindamycin and fluconazole for empyema - Continue dialysis per nephrology - Duonebs PRN are ordered - Attempt was made to wean patient off sedation today; became diaphoretic and distressed; will continue mechanical ventilation for the time being (2) Empyema Current Visit: Yes Status: Acute - Patient was found to have a pleural effusion on CT of the chest on 07/17 with gas collection in the left hemothorax - Cardiothoracic surgery was consulted; patient underwent a left thoracotomy with decortication on 07/13 - Culture of pleural fluid from 07/13/18 grew Radha albicans - Chest tube removed on saturday Plan: - Continue antibiotic therapy as noted above - Cardiothoracic surgery following; would appreciate any further recommendations (3) Sepsis Current Visit: Yes Status: Acute - During admission, patient has had elevated temperatures with a MAXIMUM TEMPERATURE of 101.1, tachycardia, leukocytosis - Today, patient has been afebrile; white count remains elevated at 11.6 Plan: - Continue antibiotic therapy as above (4) Acute renal failure on dialysis Current Visit: Yes Status: Acute - On 07/14, patient developed acute renal failure with an elevated creatinine at 3.33 - Nephrology was consulted; patient underwent multiple treatments of hemodialysis - Etiology is unknown at this time; likely multifactorial in the setting of sepsis with possible underperfusion or ATN - Labs today demonstrate an elevated creatinine at 6.41; creatinine has continued to steadily increase since 07/14 - Per nephrology note: Patient will likely need a permacath placement and outpatient hemodialysis arrangements due to no improvement in renal function Plan: - Repeat a.m. labs - Nephrology following; would appreciate any further recommendations Subjective Principal diagnosis: Pleural Effusion Interval history: Patient was seen and examined at bedside; currently intubated and sedated. He does not exhibit any signs of respiratory distress. He is status post chest tube placement for empyema; chest tube removed on Saturday. Infectious disease is following for recommendations for empyema; he is currently on cefepime and fluconazole due to pleural culture growing Radha albicans. Nephrology is also following for acute renal failure. Per nephrology, due to patient not showing signs of renal recovery, will likely need a PermaCath and outpatient hemodialysis arrangements. Spoke with nurse today; attempted to wean patient off sedation; patient became diaphoretic and developed distress. We will continue sedation for the time being. Objective PUL Vital signs: Last Vital Signs Temp 98.9 F 07/21/18 07:40 Pulse 83 07/21/18 07:00 Resp 16 07/21/18 07:00 BP 108/63 07/21/18 07:00 Pulse Ox 96 07/21/18 07:00 General: Currently intubated and sedated; no signs of acute distress Head: No acute deformities noted Respiratory: Diminished breath sounds bilaterally; no wheezes, rales, or rhonchi Chest: Bandage present on patients left side where chest tube was; no bleeding or discharge noted; dressing is clean and dry Cardiovascular: RRR, +S1/+S2; no murmurs, rubs, gallops Abdomen: Soft, nontender Extremities: No clubbing, edema, or cyanosis Neurological: Unable to assess Psychiatric: Unable to assess Skin: Dry, intact Ventilator Settings Ventilator Settings: Ventilator Settings, Last 8 Hours Ventilator Tidal Volume 500 Setting Ventilator Tidal Volume 450 Setting Ventilator Tidal Volume 450 Setting Ventilator Tidal Volume 450 Setting Ventilator Tidal Volume 450 Setting Ventilator Tidal Volume 450 Setting Ventilator Tidal Volume 450 Setting Ventilator Tidal Volume 450 Setting Ventilator Tidal Volume 450 Setting Ventilator Tidal Volume 500 Setting Ventilator Tidal Volume 450 Setting Ventilator Tidal Volume 450 Setting Ventilator Respiratory Rate 16 Setting Ventilator Respiratory Rate 20 Setting Ventilator Respiratory Rate 20 Setting Ventilator Respiratory Rate 20 Setting Ventilator Respiratory Rate 20 Setting Ventilator Respiratory Rate 20 Setting Ventilator Respiratory Rate 20 Setting Ventilator Respiratory Rate 20 Setting Ventilator Respiratory Rate 20 Setting Ventilator Respiratory Rate 18 Setting Ventilator Respiratory Rate 20 Setting Ventilator Respiratory Rate 20 Setting Actual Respiratory Rate 16 Actual Respiratory Rate 20 Actual Respiratory Rate 20 Actual Respiratory Rate 20 Actual Respiratory Rate 20 Actual Respiratory Rate 20 Actual Respiratory Rate 20 Actual Respiratory Rate 20 Actual Respiratory Rate 20 Actual Respiratory Rate 20 Actual Respiratory Rate 20 Positive End Expiratory 5 Pressure Positive End Expiratory 5 Pressure Positive End Expiratory 5 Pressure Positive End Expiratory 5 Pressure Positive End Expiratory 5 Pressure Positive End Expiratory 5 Pressure Positive End Expiratory 5 Pressure Positive End Expiratory 5 Pressure Positive End Expiratory 5 Pressure Positive End Expiratory 5 Pressure Positive End Expiratory 5 Pressure Positive End Expiratory 5 Pressure Peak Inspiratory Airway 45 Pressure Peak Inspiratory Airway 38 Pressure Peak Inspiratory Airway 44 Pressure Peak Inspiratory Airway 41 Pressure Peak Inspiratory Airway 45 Pressure Peak Inspiratory Airway 40 Pressure Peak Inspiratory Airway 37 Pressure Peak Inspiratory Airway 38 Pressure Peak Inspiratory Airway 41 Pressure Peak Inspiratory Airway 39 Pressure Peak Inspiratory Airway 39 Pressure Results - Laboratory Findings CBC and BMP: 07/21/18 03:50 07/21/18 03:50 ABG ABG pH 7.29 pH Units (7.32-7.45) L 07/21/18 04:56 ABG pCO2 54 mmHg (35-45) H 07/21/18 04:56 ABG pO2 73 mmHg (85-104) L 07/21/18 04:56 ABG O2 Saturation 92 % (95-98) L 07/21/18 04:56 PT/INR, D-dimer PT 17.8 Seconds (9.4-12.1) H 07/11/18 00:52 Abnormal lab findings: Abnormal lab results WBC 11.6 K/mcL (4.3-11.1) H 07/21/18 03:50 RBC 2.82 M/mcL (4.19-5.50) L 07/21/18 03:50 Hgb 7.5 g/dL (12.9-16.9) L 07/21/18 03:50 Hct 24.2 % (37.5-50.1) L 07/21/18 03:50 MCV 82.2 fL (83.0-100.0) L 07/12/18 01:15 MCH 26.6 pg (28.0-33.3) L 07/21/18 03:50 MCHC 31.0 g/dL (31.6-35.5) L 07/21/18 03:50 RDW 17.8 % (11.5-14.5) H 07/21/18 03:50 9.6 K/mcL (1.6-8.9) H 07/21/18 03:50 Nucleated RBCs/100 WBC 0.2 /100 WBC (0) H 07/21/18 03:50 Decreased (Normal) L 07/17/18 03:30 1+ (Not Present) A 07/13/18 04:20 Present (Not Present) A 07/13/18 04:20 PT 17.8 Seconds (9.4-12.1) H 07/11/18 00:52 APTT 37.2 Seconds (26.0-36.0) H 07/10/18 16:31 ABG pH 7.29 pH Units (7.32-7.45) L 07/21/18 04:56 ABG pCO2 54 mmHg (35-45) H 07/21/18 04:56 ABG pO2 73 mmHg (85-104) L 07/21/18 04:56 ABG Total CO2 28 mEq/L (20-26) H 07/21/18 04:56 ABG O2 Saturation 92 % (95-98) L 07/21/18 04:56 ABG Base Excess -3 mEq/L (-2 to 3) L 07/17/18 04:43 Sodium 135 mEq/L (136-145) L 07/16/18 02:20 Potassium 2.9 mEq/L (3.5-5.1) L 07/10/18 16:59 Chloride 96 mEq/L (98-107) L 07/21/18 03:50 Carbon Dioxide 21 mEq/L (23-29) L 07/16/18 02:20 BUN 73 mg/dL (6-20) H 07/21/18 03:50 6.41 mg/dL (0.70-1.30) H 07/21/18 03:50 Est GFR ( Amer) 12 (> 60) L 07/21/18 03:50 Est GFR (Non-Af Amer) 10 (> 60) L 07/21/18 03:50 5 (6-26) L 07/17/18 03:30 Glucose 108 mg/dL (70-105) H 07/21/18 03:50 POC Glucose 117 mg/dL (70-99) H 07/20/18 23:46 306 (280-300) H 07/21/18 03:50 Calcium 8.5 mg/dL (8.6-10.3) L 07/21/18 03:50 Phosphorus 5.5 mg/dL (2.7-4.5) H 07/15/18 06:28 AST 41 Units/L (13-39) H 07/15/18 06:28 ALT 87 Units/L (7-52) H 07/10/18 16:59 127 Units/L (34-104) H 07/10/18 16:59 5.7 g/dL (6.4-8.9) L 07/16/18 02:20 2.8 g/dL (3.5-5.7) L 07/19/18 04:45 2.3 g/dL (2.4-3.5) L 07/16/18 02:20 1.0 (1.1-2.2) L 07/15/18 06:28 Amylase 17 Units/L (29-103) L 07/18/18 14:40 5 Units/L (11-82) L 07/18/18 14:40 11.90 ng/mL (0.00-0.15) H 07/18/18 14:40 Ur Specific Kimball < 1.005 (1.010-1.025) L 07/15/18 10:25 Small (Negative) H 07/15/18 10:25 3-5 per hpf (0-3) H 07/15/18 10:25 Amorphous Sediment Moderate (Few) H 07/15/18 10:25 Protein/Creatinin Ratio 0.95 mg/mg (0.00-0.20) H 07/15/18 10:25 36 mg/dL (1-14) H 07/15/18 10:25 Pleural Appearance Bloody (Clear) A 07/13/18 13:40 Pleur Adenosine Deamin 20.8 U/L (0.0-9.4) H 07/13/18 13:40 Vancomycin Trough 23 mcg/mL (5-10) H 07/12/18 18:31 Positive ng/mL (Dhotbv=615) H 07/11/18 16:00 U Benzodiazepines Scrn Positive ng/mL (Pfokpb=858) H 07/11/18 16:00 Hep Bs Antibody < 3.10 mIU/mL (10.00-) L 07/16/18 09:22 Crossmatch See Detail 07/12/18 01:15 - Microbiology Findings Microbiology Findings: Microbiology, Last 48 Hours 07/15/18 13:26 Blood Culture - Final Peripheral Venipuncture No growth. Final report. 07/15/18 13:26 Blood Culture - Final Peripheral Venipuncture No growth. Final report. 07/13/18 13:40 Body Fluid Culture - Final Pleural Fluid Radha albicans - Clinical Findings Intake & Output: Intake & Output 07/20/18 07/20/18 07/21/18 15:59 23:59 07:59 Intake Total 314 / 982 329 / 982 150 / 150 Output Total 25 / 105 45 / 105 80 / 80 Balance 289 / 877 284 / 877 70 / 70 Weight 117.9 kg Consult Discharge Plan - Plan Referrals: Kip Rojas DO [Primary Care Provider] - <Pascual Wilson - Last Filed: 07/25/18 08:43> Date of Encounter: 07/21/18 Assessment and Plan (1) Acute renal failure on dialysis Current Visit: Yes Status: Acute (2) Acute respiratory failure Current Visit: Yes Status: Acute Qualifiers: Qualified Code(s): J96.01 - Acute respiratory failure with hypoxia; J96.02 - Acute respiratory failure with hypercapnia (3) Pleural effusion Current Visit: Yes Status: Acute Objective PUL Vital signs: Last Vital Signs Temp 98.9 F 07/21/18 07:40 Pulse 82 07/21/18 09:00 Resp 17 07/21/18 09:42 BP 102/59 07/21/18 09:00 Pulse Ox 95 07/21/18 09:42 Ventilator Settings Ventilator Settings: Ventilator Settings, Last 8 Hours Ventilator Tidal Volume 500 Setting Ventilator Tidal Volume 500 Setting Ventilator Tidal Volume 500 Setting Ventilator Tidal Volume 500 Setting Ventilator Tidal Volume 500 Setting Ventilator Tidal Volume 450 Setting Ventilator Tidal Volume 450 Setting Ventilator Tidal Volume 450 Setting Ventilator Tidal Volume 450 Setting Ventilator Tidal Volume 450 Setting Ventilator Tidal Volume 450 Setting Ventilator Tidal Volume 450 Setting Ventilator Respiratory Rate 16 Setting Ventilator Respiratory Rate 16 Setting Ventilator Respiratory Rate 16 Setting Ventilator Respiratory Rate 16 Setting Ventilator Respiratory Rate 16 Setting Ventilator Respiratory Rate 20 Setting Ventilator Respiratory Rate 20 Setting Ventilator Respiratory Rate 20 Setting Ventilator Respiratory Rate 20 Setting Ventilator Respiratory Rate 20 Setting Ventilator Respiratory Rate 20 Setting Ventilator Respiratory Rate 20 Setting Actual Respiratory Rate 17 Actual Respiratory Rate 19 Actual Respiratory Rate 16 Actual Respiratory Rate 16 Actual Respiratory Rate 16 Actual Respiratory Rate 20 Actual Respiratory Rate 20 Actual Respiratory Rate 20 Actual Respiratory Rate 20 Actual Respiratory Rate 20 Actual Respiratory Rate 20 Positive End Expiratory 5 Pressure Positive End Expiratory 5 Pressure Positive End Expiratory 5 Pressure Positive End Expiratory 5 Pressure Positive End Expiratory 5 Pressure Positive End Expiratory 5 Pressure Positive End Expiratory 5 Pressure Positive End Expiratory 5 Pressure Positive End Expiratory 5 Pressure Positive End Expiratory 5 Pressure Positive End Expiratory 5 Pressure Positive End Expiratory 5 Pressure Peak Inspiratory Airway 48 Pressure Peak Inspiratory Airway 47 Pressure Peak Inspiratory Airway 42 Pressure Peak Inspiratory Airway 41 Pressure Peak Inspiratory Airway 45 Pressure Peak Inspiratory Airway 38 Pressure Peak Inspiratory Airway 44 Pressure Peak Inspiratory Airway 41 Pressure Peak Inspiratory Airway 45 Pressure Peak Inspiratory Airway 40 Pressure Peak Inspiratory Airway 37 Pressure Results - Laboratory Findings CBC and BMP: 07/25/18 03:15 07/25/18 03:15 ABG ABG pH 7.29 pH Units (7.32-7.45) L 07/21/18 04:56 ABG pCO2 54 mmHg (35-45) H 07/21/18 04:56 ABG pO2 73 mmHg (85-104) L 07/21/18 04:56 ABG O2 Saturation 92 % (95-98) L 07/21/18 04:56 PT/INR, D-dimer PT 17.8 Seconds (9.4-12.1) H 07/11/18 00:52 Abnormal lab findings: Abnormal lab results WBC 11.6 K/mcL (4.3-11.1) H 07/21/18 03:50 RBC 2.82 M/mcL (4.19-5.50) L 07/21/18 03:50 Hgb 7.5 g/dL (12.9-16.9) L 07/21/18 03:50 Hct 24.2 % (37.5-50.1) L 07/21/18 03:50 MCV 82.2 fL (83.0-100.0) L 07/12/18 01:15 MCH 26.6 pg (28.0-33.3) L 07/21/18 03:50 MCHC 31.0 g/dL (31.6-35.5) L 07/21/18 03:50 RDW 17.8 % (11.5-14.5) H 07/21/18 03:50 9.6 K/mcL (1.6-8.9) H 07/21/18 03:50 Nucleated RBCs/100 WBC 0.2 /100 WBC (0) H 07/21/18 03:50 Decreased (Normal) L 07/17/18 03:30 1+ (Not Present) A 07/13/18 04:20 Present (Not Present) A 07/13/18 04:20 PT 17.8 Seconds (9.4-12.1) H 07/11/18 00:52 APTT 37.2 Seconds (26.0-36.0) H 07/10/18 16:31 ABG pH 7.29 pH Units (7.32-7.45) L 07/21/18 04:56 ABG pCO2 54 mmHg (35-45) H 07/21/18 04:56 ABG pO2 73 mmHg (85-104) L 07/21/18 04:56 ABG Total CO2 28 mEq/L (20-26) H 07/21/18 04:56 ABG O2 Saturation 92 % (95-98) L 07/21/18 04:56 ABG Base Excess -3 mEq/L (-2 to 3) L 07/17/18 04:43 Sodium 135 mEq/L (136-145) L 07/16/18 02:20 Potassium 2.9 mEq/L (3.5-5.1) L 07/10/18 16:59 Chloride 96 mEq/L (98-107) L 07/21/18 03:50 Carbon Dioxide 21 mEq/L (23-29) L 07/16/18 02:20 BUN 73 mg/dL (6-20) H 07/21/18 03:50 6.41 mg/dL (0.70-1.30) H 07/21/18 03:50 Est GFR ( Amer) 12 (> 60) L 07/21/18 03:50 Est GFR (Non-Af Amer) 10 (> 60) L 07/21/18 03:50 5 (6-26) L 07/17/18 03:30 Glucose 108 mg/dL (70-105) H 07/21/18 03:50 POC Glucose 117 mg/dL (70-99) H 07/20/18 23:46 306 (280-300) H 07/21/18 03:50 Calcium 8.5 mg/dL (8.6-10.3) L 07/21/18 03:50 Phosphorus 5.5 mg/dL (2.7-4.5) H 07/15/18 06:28 AST 41 Units/L (13-39) H 07/15/18 06:28 ALT 87 Units/L (7-52) H 07/10/18 16:59 127 Units/L (34-104) H 07/10/18 16:59 5.7 g/dL (6.4-8.9) L 07/16/18 02:20 2.8 g/dL (3.5-5.7) L 07/19/18 04:45 2.3 g/dL (2.4-3.5) L 07/16/18 02:20 1.0 (1.1-2.2) L 07/15/18 06:28 Amylase 17 Units/L (29-103) L 07/18/18 14:40 5 Units/L (11-82) L 07/18/18 14:40 11.90 ng/mL (0.00-0.15) H 07/18/18 14:40 Ur Specific Kimball < 1.005 (1.010-1.025) L 07/15/18 10:25 Small (Negative) H 07/15/18 10:25 3-5 per hpf (0-3) H 07/15/18 10:25 Amorphous Sediment Moderate (Few) H 07/15/18 10:25 Protein/Creatinin Ratio 0.95 mg/mg (0.00-0.20) H 07/15/18 10:25 36 mg/dL (1-14) H 07/15/18 10:25 Pleural Appearance Bloody (Clear) A 07/13/18 13:40 Pleur Adenosine Deamin 20.8 U/L (0.0-9.4) H 07/13/18 13:40 Vancomycin Trough 23 mcg/mL (5-10) H 07/12/18 18:31 Positive ng/mL (Xgufyt=656) H 07/11/18 16:00 U Benzodiazepines Scrn Positive ng/mL (Gamlyy=160) H 07/11/18 16:00 Hep Bs Antibody < 3.10 mIU/mL (10.00-) L 07/16/18 09:22 Crossmatch See Detail 07/12/18 01:15 - Microbiology Findings Microbiology Findings: Microbiology, Last 48 Hours 07/15/18 13:26 Blood Culture - Final Peripheral Venipuncture No growth. Final report. 07/15/18 13:26 Blood Culture - Final Peripheral Venipuncture No growth. Final report. 07/13/18 13:40 Body Fluid Culture - Final Pleural Fluid Radha albicans - Clinical Findings Intake & Output: Intake & Output 07/20/18 07/21/18 07/21/18 23:59 07:59 15:59 Intake Total 329 / 982 150 / 292 142 / 292 Output Total 45 / 105 80 / 80 Balance 284 / 877 70 / 212 142 / 212 Weight 117.9 kg - Attending Attestation I examined this patient and my medical decision-making was reviewed with the Resident Physician. I agree with the documented findings, disposition and treatment plan as described except to the extent set forth below. Patient seen and examined. Labs, radiology, chart personally reviewed. 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 Pulmonary: Acceptable oxygenation and ventilation. Unfortunately attempted spontaneous breathing trial, work of breathing increased and become anxious with difficulty to wean off patients on the ventilator. Thoracic surgeon is following up regarding his empyema and status post thoracotomy. We will continue bronchodilators since there is some mild intrinsic PEEP which hopefully with bronchodilators and patient then synchrony improve that will help to minim ize it as much as possible. Cardiovascular: Relatively stable GI: Nutrition per dietary and GI prophylaxis per routine Heme: DVT prophylaxis per routine ID: Continue antibiotics and plan to de-escalation and infectious disease is following up Renal; urine out put and renal function reviewed Endorcine: blood glucose is monitored Lines: all lines checked and no evidence of infections Skin: skin care to prevent pressure ulcers per nursing routine care Dispo: ICU Code: Full. Prognosis. Fair I spent 35 min of Critical Care time with this patient. It involved decision making of high complexity to assess, manipulate, and support vital organ system failure and/or to prevent further life threatening deterioration of the patient's condition. The time involved in the performance of separately re portable procedures was not counted toward critical care time.
[2018-07-21] MEDS: Micafungin 100 MG in 0.9 % Sodium Chloride Mini Bag 100 ML IVPB SCH (08:35)
[2018-07-21] MEDS: Pregabalin 50 MG CAPSULE PO SCH (08:50)
[2018-07-21] MEDS: Pantoprazole 40 MG VIAL IVP SCH (08:50)
[2018-07-21] MEDS: Chlorhexidine Rinse 15 ML MOUTHWASH MM SCH ×2 (08:50→20:09)
--- NOTE | 2018-07-21 09:52 | Infectious Disease Progress No ---
ID Progress Note Date of Encounter: 07/21/18 Time of Encounter: 09:50 - Subjective Subjective: Patient seen and examined. No acute events noted overnight. Remains intubated and sedated on the ventilator this morning. Febrile and tachycardic overnight. Status post iHD. Urine output low. Review of systems unobtainable from the patient. Discussed with nursing. Chest tubes removed 07/19/18. Repeat pleural fluid samples no growth. - Objective CBC & Chem 7: 07/21/18 03:50 07/21/18 03:50 - Line Documentation Line Documentation: Dialysis Catheter (Temp HD catheter noted to the left neck.), Smith Catheter (Draining small amount of dark brown urine.), Chest Tube, Drain (RAY drain x 2 to the left lateral chest wall with serosanguinous drainage.), Peripheral (x2 to the left lateral chest wall with serosanguinous drainage.) - Exam Vitals: Temp Pulse Resp BP Pulse Ox 98.9 F 82 17 102/59 95 07/21/18 07:40 07/21/18 09:00 07/21/18 09:42 07/21/18 09:00 07/21/18 09:42 Exam: Head: Atraumatic, normal inspection, normocephalic. Eye: PERRLA, no scleral icterus noted. ENT: Mucous membranes moist. No odontogenic infection noted. Oropharynx exam limited. Neck: Normal inspection, no meningismus. Temp HD line left neck. Respiratory: Clear to auscultation, diminished in the bilateral bases. No rales, respiratory distress, rhonchi, or wheezes noted. Surgical site noted to the left lateral chest with dressing C/D/I. No crepitus. RAY drain 2 with serosanguineous drainage. Cardiovascular: Regular rhythm, tachycardic, S1 and S2 audible. No murmurs, rubs, or gallops. GI: Soft, nondistended, normal bowel sounds. Smith catheter draining small amount of dark yellow urine. Extremities: No joint swelling or tenderness noted. 1+ edema noted to the bilateral lower and BU extremities. Neurological: Sedated, does not respond to verbal or tactile stimuli. Skin: Dry, intact, warm. Pale. No rashes. - Assessment and Plan (1) Sepsis Current Visit: Yes Status: Acute The patient had three SIRS criteria. Likely secondary to empyema. Concern for additional infectious source given the patient's new onset of fever and tachycardia despite recent surgery/source control and antibiotics. Leukocytosis worse this morning. MAXIMUM TEMPERATURE 100.3 in the past 24 hours. Tachycardia noted. Blood cultures drawn 07/15/18 are no growth to date 2 sets. Lactic acid was normal. Qualifiers: Sepsis type: sepsis due to unspecified organism Qualified Code(s): A41.9 - Sepsis, unspecified organism SNOMED Code(s): 91546443 (2) Acute respiratory failure Current Visit: Yes Status: Acute Likely multifactorial: Pulmonary edema plus altered mental status plus possible pneumonia plus ARDS. Required emergent intubation 07/16/18. Chest x-ray shows findings consistent with ours versus multi lobular pneumonia and small bilateral pleural effusions, left greater than right. Repeat CXR 07/17/18 showed diffuse airspace disease slightly increased on the right and persistent moderate left pleural effusion. CT chest shows new moderate right sided pleural effusion with findings consistent with PNA vs. ARDS and left pleural fluid/gas. Repeat CXR shows slight improvement in the bilateral airspace disease. Pulmonology consulted and following. Qualifiers: Respiratory failure complication: hypoxia and hypercapnia Qualified Code(s): J96.01 - Acute respiratory failure with hypoxia; J96.02 - Acute respiratory failure with hypercapnia SNOMED Code(s): 56117116 (3) Empyema Current Visit: Yes Status: Acute Location: Left lateral chest. Causative organism: Yeast, final ID and sensitivities pemding. Etiology: Unclear. The patient has had a recurrent pleural effusion since April. CT of the chest showed a complex left pleural effusion concerning for empyema with multiple abscesses adjacent to the rib cage. Cardiothoracic surgery consulted. Status post bronchoscopy with aspiration, left thoracotomy with decortication, reverse latissimus MM flap, and wedge left upper lobe 07/13/[address] Almaguer. Operative note reviewed. Intraoperative cultures positive for yeast, final ID and sensitivities pending. Unable to perform GMS stain on intra-op pleural fluid due to not enough specimen, but will have histology do it on the specimen sent down this morning. Discussed with Cat in the histology lab. CT chest shows new moderate right sided pleural effusion with findings consistent with PNA vs. ARDS and left pleural fluid/gas. Repeat CXR slightly improved. Chest tubes removed 07/18/18. Currently on IV Zosyn and Micafungin. SNOMED Code(s): 787859819 (4) Acute kidney injury Current Visit: Yes Status: Acute Likely multifactorial: Hypoperfusion plus nephrotoxic medications plus sepsis. Serum creatinine elevated at 5.24 today. Nephrology consulted. iHD started 07/16/18. Monitor renal function closely and dose adjust medications. Avoid nephrotoxins as able. SNOMED Code(s): 77592169, 46577568 (5) Pleural effusion Current Visit: Yes Status: Acute Etiology: Unclear. Location: Left chest. Recurrent since April after he had a diagnostic thoracentesis. Cultures and pathology were negative at that time. SNOMED Code(s): 10817562 (6) Chest pain Current Visit: No Status: Acute Likely secondary to empyema. Troponin was negative. Pain management per the primary team. Qualifiers: Chest pain type: chest pain on breathing Qualified Code(s): R07.1 - Chest pain on breathing; R07.81 - Pleurodynia SNOMED Code(s): 20507985 (7) Lymphadenopathy Current Visit: Yes Status: Acute CT of the chest showed multiple enlarged mediastinal lymph nodes, presumably reactive. Pulmonology and CTS consulted. SNOMED Code(s): 94102213 (8) Transaminitis Current Visit: Yes Status: Acute Etiology: Unclear. Resolved. Continue to trend. SNOMED Code(s): 721480355, 429265912 (9) Hypokalemia Current Visit: Yes Status: Resolved Replacement per the primary team. Resolved. SNOMED Code(s): 06951134 (10) Former tobacco use Current Visit: No Status: Chronic SNOMED Code(s): 054617671 (11) Chronic back pain Current Visit: No Status: Chronic Qualifiers: Back pain location: low back pain Back pain laterality: bilateral Sciatica presence: with sciatica Sciatica laterality: bilateral sciatica Qu alified Code(s): M54.42 - Lumbago with sciatica, left side; M54.41 - Lumbago with sciatica, right side; G89.29 - Other chronic pain SNOMED Code(s): 885471802 (12) Obesity (BMI 30.0-34.9) Current Visit: No Status: Chronic SNOMED Code(s): 423808700311430 - Recommendations Recommendations: Send new pleural fluid for GMS stain. Check fungal serologies: Fungitell, Histo, Blasto, Crypto, Aspergillus galactomannin. --> pending. Unable to do cultures on wedge specimen due to it already being in formalin. Pleural fluid cytology pending. Await blood cultures to finalize. Get KUB to evaluate for ileus. Wound care and activity per the CTS team. Vent management per the pulmonology team. Acute kidney injury her the nephrology team. Continue cefepime 1 gram IV daily (dose-adjusted for HD). Continue clindamycin 900mg IV Q8H. Discontinue mmicafungin and start fluconazole IV. Will ask pharmacy to assist with dosing for HD status. Duration of treatment depends on the clinical picture. Monitor renal function and dose-adjust antibiotics. Consult Discharge Plan - Plan Referrals: Kip Rojas DO [Primary Care Provider] - - Attending Attestation I have personally performed a face to face evaluation on this patient. I have reviewed and agree with the care plan. 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 I think he have an ileus based on the tube feeding and the residuals. Extensive physical exam and findings really not telling on why this patient is not improving. The mother was at bedside and had long discussion with her. Apparently the patient been on narcotics for about 8 years. Not sure if IV drugs or possible we have infection has something to do with it. We will continue the current antibiotics switched to micafungin to fluconazole. Prognosis is guarded at best..
--- NOTE | 2018-07-21 10:27 | Cardiothoracic Progress Note ---
Date of Encounter: 07/21/18 Time of Encounter: 10:26 - Assessment and plan (1) Empyema of left pleural space Current Visit: Yes Status: Acute The assessment and plan as outlined above was discussed with the patient and/or family members who expressed understanding and agreement. All questions were answered. continue drains to suction and bulb drainage rounded with nurse (2) Acute kidney insufficiency Current Visit: Yes Status: Acute The assessment and plan as outlined above was discussed with the patient and/or family members who expressed understanding and agreement. All questions were answered. awaiting dialysis today. (3) Acute renal failure on dialysis Current Visit: Yes Status: Acute The assessment and plan as outlined above was discussed with the patient and/or family members who expressed understanding and agreement. All questions were answered. as above Vital Signs, Last 4 Hours Temp Pulse Resp BP Pulse Ox 07/21/18 09:42 17 95 07/21/18 09:00 82 16 102/59 95 07/21/18 08:05 16 95 07/21/18 08:00 82 16 100/61 95 07/21/18 07:40 98.9 F 07/21/18 07:00 83 16 108/63 96 Oxgyen Flow Rate Oxygen Flow Rate (LPM) 3 Weight 07/19/18 07/20/18 07/21/18 23:59 23:59 23:59 Weight 116 kg 116 kg 117.9 kg - Physical Examination General: Conversant, No Apparent Distress, Other (intubated and sedated. not responding ) HEENT: Trachea midline Cardiac: Reg Rate and Rhythm, Normal S1 and S2, No Murmur Incision: No signs of infection, Dry/intact dressing, Open to air Chest tubes: Minimal drainage Lungs: Other (minimal rhonchi.) Abdomen: Soft, Non-tender, Other (bm this am ) Extremities: Normal Pulses, Other (trace edema ) - Labs 07/21/18 03:50 07/21/18 03:50 Lab Results, Last 24 hours 07/21/18 07/21/18 03:50 03:50 WBC 11.6 H Hgb 7.5 L Hct 24.2 L Plt Count 143 Sodium 137 Potassium 4.6 Chloride 96 L Carbon Dioxide 25 BUN 73 H Creatinine 6.41 H Glucose 108 H Calcium 8.5 L Consult Discharge Plan - Plan Referrals: Kip Rojas DO [Primary Care Provider] -
--- NOTE | 2018-07-21 11:11 | Nephrology Progress Note ---
Date of Encounter: 07/21/18 Time of Encounter: 07:46 - Assessment and Plan (1) Acute kidney injury Current Visit: Yes Status: Acute Acute kidney injury s/p HD x3 (Saturday//Saturday). Earlier today, I reviewed his labs, vital signs, progress notes, imaging and medication lists that required complex evaluation and management plus medical decision-making to compose his hemodialysis orders for today. I have arranged his dialysis such that there is an as needed albumin 25gm IV if he develops intradialytic hypotension. The blood pressure cut off during dialysis while intubated in the ICU be an MAP of less than 60. Because he is not showing signs of renal recovery thus far, he will very likely need a permacath and outpatient hemodialysis arranged during this admission. To help support the odds of any renal recovery, I recommend following a renal protective strategy as able including strict I's and O's, daily weights, avoidance of nephrotoxic agents and renal diet, and renal dosing. The CT of the abdomen earlier in this hospitalization did not show any hydronephrosis. Urinalysis had subnephrotic proteinuria that might just be tubu lar levels of proteinuria from ATN. There were no granular casts or any other casts demonstrated on the urinalysis. The serologies that I see in his chart were not consistent with a GN. Thank you (2) Empyema Current Visit: Yes Status: Acute S/p thoracotomy (3) Acute blood loss as cause of postoperative anemia Current Visit: Yes Status: Acute Will monitor. If he were to require ongoing dialytic needs, then adding an OKSANA such as Aranesp or EPO would be indicated. (4) Acute respiratory failure Current Visit: Yes Status: Acute Vent management per pulm/critical care Qualifiers: Respiratory failure complication: hypoxia and hypercapnia Qualified Code(s): J96.01 - Acute respiratory failure with hypoxia; J96.02 - Acute respiratory failure with hypercapnia Subjective Principal diagnosis: Pleural Effusion Interval history: Patient was seen and examined earlier today in the ICU. He remains intubated, and so the subjective portion of this note is limited. I discussed and coordinated his care with the [employer] and Attending. Objective - Vital Signs Vital signs: Vital Signs Temp Pulse Resp BP Pulse Ox 07/21/18 10:00 85 16 103/58 94 07/21/18 09:42 17 95 07/21/18 09:00 82 16 102/59 95 07/21/18 08:05 16 95 07/21/18 08:00 82 16 100/61 95 07/21/18 07:40 98.9 F 07/21/18 07:00 83 16 108/63 96 07/21/18 06:00 82 20 106/59 94 07/21/18 05:11 20 111/62 94 07/21/18 05:00 83 20 111/62 94 07/21/18 04:18 99.6 F 07/21/18 04:00 84 20 120/66 94 07/21/18 03:49 20 118/69 95 07/21/18 03:00 82 20 116/67 95 07/21/18 02:00 82 20 120/68 94 07/21/18 01:11 20 105/64 94 07/21/18 01:00 80 20 105/64 95 07/21/18 00:30 81 07/21/18 00:00 83 20 117/69 92 07/20/18 23:45 98.9 F 07/20/18 23:00 81 20 108/67 92 07/20/18 22:00 82 18 116/70 94 07/20/18 21:30 18 117/70 96 07/20/18 21:00 84 18 117/70 96 07/20/18 20:11 99.6 F 07/20/18 20:00 80 18 109/63 97 07/20/18 19:52 18 108/63 97 07/20/18 19:00 18 110/64 97 07/20/18 18:00 84 18 111/68 97 07/20/18 17:50 18 114/68 97 07/20/18 17:00 84 18 107/67 97 07/20/18 16:47 100.1 F H 07/20/18 16:00 87 18 114/70 95 07/20/18 15:26 18 97/58 94 07/20/18 15:00 87 18 97/58 95 07/20/18 14:00 88 18 101/65 97 07/20/18 13:45 103/62 96 07/20/18 13:00 86 20 100/60 96 07/20/18 12:00 99.5 F 84 18 107/68 96 07/20/18 11:28 18 107/68 96 Intake and Output 07/20/18 07/21/18 07/21/18 23:59 07:59 15:59 Intake Total 429 / 1082 150 / 392 242 / 392 Output Total 45 / 105 80 / 80 Balance 384 / 977 70 / 312 242 / 312 Intake: IV Fluids 350 / 750 150 / 300 150 / 300 FentaNYL (PF) 1,000 MCG In 0.9 100 / 200 % Sodium Chloride 80 ML @ 50 MCG/HR 5 mls/hr IVC CONT NEFTALI Rx #:[id number] Diprivan 1,000 mg In 100 ml @ 100 / 200 100 / 100 20 MCG/KG/MIN 15.168 mls/hr IVC .[id number] [facility] Rx#:[id number] Maxipime 1,000 MG In 0.9 % 100 / 100 Sodium Chloride (Mini-Bag +) 100 ML @ 200 mls/hr IVPB DAILY@ 1600 [facility] Rx#:[id number] Cleocin Premix 900 MG/50 ML 900 50 / 150 50 / 100 50 / 100 mg In 50 ml @ 50 mls/hr IVPB Q8HR [facility] Rx#:[id number] Mycamine 100 MG In 0.9 % Sodium 100 / 100 Chloride (Mini-Bag +) 100 ML @ 100 mls/hr IVPB DAILY [facility] Rx#: [id number] Tube Feeding 79 / 332 92 / 92 Output: Catheter 50 / 50 Gastric Drainage 0 / 0 Wound Drainage 35 / 70 30 / 30 Left Chest #1 15 32 20 / 20 Left Chest #2 20 / 10 / 10 Other: Stool Size Moderate Small Stool Consistency loose soft Stool Color Brown Brown # Bowel Movements 1 1 Weight 117.9 kg Blood Glucose* 117 108 Patient Weight 07/21/18 23:59 Weight 117.9 kg - General Appearance Exam: General appearance: Present: well-developed, sedated on ventilator, intubated, fatigue, frail EENT: Present: ATNC, PERRL Neck: Present: no JVD, supple Respiratory: Present: minimal rhonchi on anterior auscultation noted Cardiology: Present: stable non-tense edema (puffy hands and feet bilaterally), normal S1, normal S2 Dialysis Vascular Access: Left IJ temporary HD catheter without erythema at the exit site Integumentary: Present: warm and dry Neurologic: Present: no focal deficit, but the neuro exam was limited due to sedation Musculoskeletal: Present: no erythema, no cyanosis - Lab 07/21/18 03:50 07/21/18 03:50 Most recent lab results 07/21/18 07/21/18 03:50 04:56 ABG pH 7.29 L ABG pCO2 54 H ABG pO2 73 L ABG HCO3 26 ABG O2 Saturation 92 L Calcium 8.5 L Consult Discharge Plan - Plan Referrals: Kip Rojas DO [Primary Care Provider] -
[2018-07-21] MEDS ORDERED: 0.9 % Sodium Chloride 1,000 ML ONE (14:17)
[2018-07-21] MEDS ORDERED: Fluconazole 200 MG/100 ML 200 MG/100 ML BAG IVPB SCH (15:15)
[2018-07-21] MEDS: Norepinephrine 4 MG in D5% in Water 250 ML IVC SCH ×2 (16:02→19:54)
[2018-07-21] MEDS: Cefepime HCl 1,000 MG in 0.9 % Sodium Chloride Mini Bag 100 ML IVPB SCH (16:07)
[2018-07-21] MEDS ORDERED: *HR* Alteplase (Cathflo) 2 MG VIAL IVP ONE (16:20)
[2018-07-21] MEDS: Neosporin OINT 15 GM TUBE TP SCH (19:45)
[2018-07-21] MEDS: Lurasidone 20 MG TABLET PO SCH (20:09)
[2018-07-21] MEDS: FentaNYL (PF) 1,000 MCG in 0.9 % Sodium Chloride 80 ML IVC SCH (22:20)
[2018-07-22] MEDS: Artificial Tears SOLN 15 ML BOTTLE BOTH EYES SCH ×5 (00:16→20:23)
[2018-07-22] MEDS: Clindamycin 900 MG/50 ML 900 MG/50 ML IV.SOLN IVPB SCH ×3 (00:19→17:32)
[2018-07-22 04:01] LABS: Hematocrit 22.5 % (37.5-50.1); Hemoglobin 6.9 g/dL (12.9-16.9); Mean Corpuscular HGB Conc 30.7 g/dL (31.6-35.5); Mean Corpuscular Hemoglobin 26.8 pg (28.0-33.3); Mean Corpuscular Volume 87.5 fL (83.0-100.0); Red Blood Count 2.57 M/mcL (4.19-5.50); Red Cell Distribution Width 18.1 % (11.5-14.5); White Blood Count 12.1 K/mcL (4.3-11.1)
[2018-07-22 04:24] LABS: Calcium 8.4 mg/dL (8.6-10.3); Potassium 5.1 mEq/L (3.5-5.1)
[2018-07-22 04:58] LABS: ABG Base Excess -3 mEq/L (-2 to 3); ABG HCO3 24 mEq/L (21-27); ABG Oxygen Saturation 88 % (95-98); ABG PCO2 55 mmHg (35-45); ABG PH 7.25 pH Units (7.32-7.45); ABG PO2 64 mmHg (85-104); ABG TCO2 26 mEq/L (20-26); Blood Gas Modality PRVC; Blood Gas PEEP 5 cm H2O; Blood Gas VT 500 cc
--- NOTE | 2018-07-22 08:13 | Pulmonology Progress Note ---
<Avel Dia - Last Filed: 07/22/18 15:48> Date of Encounter: 07/22/18 Time of Encounter: 09:27 Assessment and Plan (1) Acute respiratory failure Status: Acute - Patient developed worsening respiratory status on 07/16/18 requiring intubation - Etiology is unknown at this time; possibly secondary to empyema - Currently intubated and sedated on propofol and fentanyl - Vent settings: Tidal volume 500, rate 16, PEEP 5, FiO2 40% Plan: - Continue antibiotic therapy with cefepime, clindamycin and fluconazole for empyema - Continue dialysis per nephrology - Duonebs PRN are ordered - Family has been called; consent obtained for bronchoscopy Qualifiers: Qualified Code(s): J96.00 - Acute respiratory failure, unspecified whether with hypoxia or hypercapnia (2) Empyema Status: Acute - Patient was found to have a pleural effusion on CT of the chest on 07/17 with gas collection in the left hemothorax - Cardiothoracic surgery was consulted; patient underwent a left thoracotomy with decortication on 07/13 - Culture of pleural fluid from 07/13/18 grew Radha albicans - Chest tube removed on Saturday - CT abd/pelv demonstrates no changes from previous study; loculated pleural fluid collection still present in L pleural space Plan: - Continue antibiotic therapy as noted above - Cardiothoracic surgery following; would appreciate any further recommendations (3) Acute renal failure on dialysis Status: Acute - On 07/14, patient developed acute renal failure with an elevated creatinine at 3.33 - Nephrology was consulted; patient underwent multiple treatments of hemodialysis - Etiology is unknown at this time; likely multifactorial in the setting of seps is with possible underperfusion or ATN - Creatinine has been consistently rising since 07/14 despite multiple treatments; creatinine today 7.55 - Of note, last night, the flow of CVC was ineffective, as it would not aspirate; plan is to exchange later today - Per nephrology, dialysis planned for today and tomorrow (4) Anemia Status: Acute - Labs this morning demonstrated a low hemoglobin of 6.9 - One unit of packed red blood cells was ordered - A repeat CT scan was performed to rule out enlarging hemothorax - Per CT report, no significant change in amount of hemothorax since prior study Plan: - GI has been consulted to rule out GI bleed - Patient will be NPO at midnight for likely endoscopy tomorrow Qualifiers: Qualified Code(s): D64.9 - Anemia, unspecified (5) Hemothorax Status: Acute - CT abdomen and pelvis on 07/22/18 demonstrated the following: Large amount of diffuse airspace disease throughout right lung, large amount of atelectasis in lower left lung, large amount of abnormal soft tissue and left pleural space consistent with hematoma; no significant change in amount of hemothorax since prior study - Loculated fluid collection posterior and left pleural space (6) Sepsis Status: Acute - Today, patient has been afebrile; white count remains elevated at 12.1 - He has had intermittent fevers since admission; He has been afebrile for the last 24 hours - Likely infection source is empyema Plan: - Continue antibiotic therapy as above Qualifiers: Sepsis type: sepsis due to unspecified organism Qualified Code(s): A41.9 - Sepsis, unspecified organism (7) Encephalopathy Status: Acute - Patient has been difficult to arouse during his time in the ICU - CT scan of the head was obtained today, which showed no acute intracranial abnormalities - We will consider a neurology consult if this does not resolve Subjective Principal diagnosis: Pleural Effusion Interval history: Patient was seen and examined at bedside; does not appear to be in any acute di stress. Patient remains difficult to arouse. CT scan of the head was ordered earlier today to rule out intracranial process; no acute abnormalities were seen. We will consider a neurology consult if his mental status does not improve. On labs, patient was anemic this morning is 6.9. 1 unit of pRBCs was ordered. We will continue to trend H/H and transfuse as necessary. Patients renal function has continued to worsen during his stay in the ICU; creatinine has consistently risen since 07/14 despite multiple treatments with hemodialysis; creatinine today is 7.55. Patients CVC became occluded last night. Interventional radiology has replaced it. Per the recommendations of nephrology, patient will undergo a hemodialysis treatment today and likely tomorrow. Objective PUL Vital signs: Last Vital Signs Temp 97.5 F L 07/22/18 03:45 Pulse 80 07/22/18 06:00 Resp 16 07/22/18 06:00 BP 98/58 07/22/18 06:00 Pulse Ox 100 07/22/18 06:00 General: Currently intubated and sedated; no signs of acute distress Head: No acute deformities noted Respiratory: Diminished breath sounds bilaterally; no wheezes, rales, or rhonchi Chest: Bandage present on patients left side where chest tube was; no bleeding or discharge noted; dressing is clean and dry Cardiovascular: RRR, +S1/+S2; no murmurs, rubs, gallops Abdomen: Soft, nondistended Extremities: No clubbing, edema, or cyanosis Neurological: Unable to assess Psychiatric: Unable to assess Skin: Dry, intact Ventilator Settings Ventilator Settings: Ventilator Settings, Last 8 Hours Ventilator Tidal Volume 500 Setting Ventilator Tidal Volume 500 Setting Ventilator Tidal Volume 500 Setting Ventilator Tidal Volume 500 Setting Ventilator Tidal Volume 500 Setting Ventilator Tidal Volume 500 Setting Ventilator Tidal Volume 500 Setting Ventilator Respiratory Rate 16 Setting Ventilator Respiratory Rate 16 Setting Ventilator Respiratory Rate 16 Setting Ventilator Respiratory Rate 16 Setting Ventilator Respiratory Rate 16 Setting Ventilator Respiratory Rate 16 Setting Ventilator Respiratory Rate 16 Setting Actual Respiratory Rate 16 Actual Respiratory Rate 16 Actual Respiratory Rate 16 Actual Respiratory Rate 16 Actual Respiratory Rate 16 Actual Respiratory Rate 16 Positive End Expiratory 5 Pressure Positive End Expiratory 5 Pressure Positive End Expiratory 5 Pressure Positive End Expiratory 5 Pressure Positive End Expiratory 5 Pressure Positive End Expiratory 5 Pressure Positive End Expiratory 5 Pressure Peak Inspiratory Airway 36 Pressure Peak Inspiratory Airway 38 Pressure Peak Inspiratory Airway 37 Pressure Peak Inspiratory Airway 45 Pressure Peak Inspiratory Airway 38 Pressure Peak Inspiratory Airway 38 Pressure Results - Laboratory Findings CBC and BMP: 07/22/18 03:45 07/22/18 03:45 ABG ABG pH 7.25 pH Units (7.32-7.45) L 07/22/18 04:54 ABG pCO2 55 mmHg (35-45) H 07/22/18 04:54 ABG pO2 64 mmHg (85-104) L 07/22/18 04:54 ABG O2 Saturation 88 % (95-98) L 07/22/18 04:54 PT/INR, D-dimer PT 17.8 Seconds (9.4-12.1) H 07/11/18 00:52 Abnormal lab findings: Abnormal lab results WBC 12.1 K/mcL (4.3-11.1) H 07/22/18 03:45 RBC 2.57 M/mcL (4.19-5.50) L 07/22/18 03:45 Hgb 6.9 g/dL (12.9-16.9) L 07/22/18 03:45 Hct 22.5 % (37.5-50.1) L 07/22/18 03:45 MCV 82.2 fL (83.0-100.0) L 07/12/18 01:15 MCH 26.8 pg (28.0-33.3) L 07/22/18 03:45 MCHC 30.7 g/dL (31.6-35.5) L 07/22/18 03:45 RDW 18.1 % (11.5-14.5) H 07/22/18 03:45 Plt Count 139 K/mcL (140-400) L 07/22/18 03:45 9.6 K/mcL (1.6-8.9) H 07/21/18 03:50 Nucleated RBCs/100 WBC 0.2 /100 WBC (0) H 07/21/18 03:50 Decreased (Normal) L 07/17/18 03:30 1+ (Not Present) A 07/13/18 04:20 Present (Not Present) A 07/13/18 04:20 PT 17.8 Seconds (9.4-12.1) H 07/11/18 00:52 APTT 37.2 Seconds (26.0-36.0) H 07/10/18 16:31 ABG pH 7.25 pH Units (7.32-7.45) L 07/22/18 04:54 ABG pCO2 55 mmHg (35-45) H 07/22/18 04:54 ABG pO2 64 mmHg (85-104) L 07/22/18 04:54 ABG Total CO2 28 mEq/L (20-26) H 07/21/18 04:56 ABG O2 Saturation 88 % (95-98) L 07/22/18 04:54 ABG Base Excess -3 mEq/L (-2 to 3) L 07/22/18 04:54 Sodium 135 mEq/L (136-145) L 07/22/18 03:45 Potassium 2.9 mEq/L (3.5-5.1) L 07/10/18 16:59 Chloride 96 mEq/L (98-107) L 07/21/18 03:50 Carbon Dioxide 21 mEq/L (23-29) L 07/16/18 02:20 BUN 87 mg/dL (6-20) H 07/22/18 03:45 7.55 mg/dL (0.70-1.30) H 07/22/18 03:45 Est GFR ( Amer) 10 (> 60) L 07/22/18 03:45 Est GFR (Non-Af Amer) 8 (> 60) L 07/22/18 03:45 5 (6-26) L 07/17/18 03:30 Glucose 110 mg/dL (70-105) H 07/22/18 03:45 POC Glucose 114 mg/dL (70-99) H 07/21/18 23:55 307 (280-300) H 07/22/18 03:45 Calcium 8.4 mg/dL (8.6-10.3) L 07/22/18 03:45 Phosphorus 5.5 mg/dL (2.7-4.5) H 07/15/18 06:28 AST 41 Units/L (13-39) H 07/15/18 06:28 ALT 87 Units/L (7-52) H 07/10/18 16:59 127 Units/L (34-104) H 07/10/18 16:59 5.7 g/dL (6.4-8.9) L 07/16/18 02:20 2.8 g/dL (3.5-5.7) L 07/19/18 04:45 2.3 g/dL (2.4-3.5) L 07/16/18 02:20 1.0 (1.1-2.2) L 07/15/18 06:28 Amylase 17 Units/L (29-103) L 07/18/18 14:40 5 Units/L (11-82) L 07/18/18 14:40 11.90 ng/mL (0.00-0.15) H 07/18/18 14:40 Ur Specific [place] < 1.005 (1.010-1.025) L 07/15/18 10:25 Small (Negative) H 07/15/18 10:25 3-5 per hpf (0-3) H 07/15/18 10:25 Amorphous Sediment Moderate (Few) H 07/15/18 10:25 Protein/Creatinin Ratio 0.95 mg/mg (0.00-0.20) H 07/15/18 10:25 36 mg/dL (1-14) H 07/15/18 10:25 Pleural Appearance Bloody (Clear) A 07/13/18 13:40 Pleur Adenosine Deamin 20.8 U/L (0.0-9.4) H 07/13/18 13:40 Vancomycin Trough 23 mcg/mL (5-10) H 07/12/18 18:31 Positive ng/mL (Lcmpfb=854) H 07/11/18 16:00 U Benzodiazepines Scrn Positive ng/mL (Wqkfer=513) H 07/11/18 16:00 Hep Bs Antibody < 3.10 mIU/mL (10.00-) L 07/16/18 09:22 Crossmatch See Detail 07/12/18 01:15 - Microbiology Findings Microbiology Findings: Microbiology, Last 48 Hours 07/13/18 13:40 Fungal Culture - Preliminary Pleural Fluid Yeast Species 07/15/18 13:26 Blood Culture - Final Peripheral Venipuncture No growth. Final report. 07/15/18 13:26 Blood Culture - Final Peripheral Venipuncture No growth. Final report. - Clinical Findings Intake & Output: Intake & Output 07/21/18 07/22/18 07/22/18 23:59 07:59 15:59 Intake Total 885 / 1377 272 / 272 Output Total 85 / 220 25 / 25 Balance 800 / 1157 247 / 247 Consult Discharge Plan - Plan Referrals: Kip Rojas DO [Primary Care Provider] - <Pascual Wilson - Last Filed: 07/27/18 06:13> Date of Encounter: 07/22/18 Assessment and Plan (1) Acute renal failure on dialysis Status: Acute (2) Acute respiratory failure Status: Acute Qualifiers: Respiratory failure complication: hypoxia and hypercapnia Qualified Code(s): J96.01 - Acute respiratory failure with hypoxia; J96.02 - Acute respiratory failure with hypercapnia (3) Pleural effusion Status: Acute Objective PUL Vital signs: Last Vital Signs Temp 97.2 F L 07/22/18 17:14 Pulse 67 07/22/18 15:00 Resp 16 07/22/18 17:15 BP 112/68 07/22/18 17:15 Pulse Ox 100 07/22/18 17:15 Ventilator Settings Ventilator Settings: Ventilator Settings, Last 8 Hours Ventilator Tidal Volume 500 Setting Ventilator Tidal Volume 500 Setting Ventilator Tidal Volume 500 Setting Ventilator Respiratory Rate 16 Setting Ventilator Respiratory Rate 16 Setting Ventilator Respiratory Rate 16 Setting Actual Respiratory Rate 16 Actual Respiratory Rate 16 Actual Respiratory Rate 16 Actual Respiratory Rate 14 Positive End Expiratory 5 Pressure Positive End Expiratory 5 Pressure Positive End Expiratory 5 Pressure Positive End Expiratory 5 Pressure Peak Inspiratory Airway 46 Pressure Peak Inspiratory Airway 46 Pressure Peak Inspiratory Airway 56 Pressure Peak Inspiratory Airway 16 Pressure Results - Laboratory Findings CBC and BMP: 07/26/18 04:55 07/26/18 04:55 ABG ABG pH 7.25 pH Units (7.32-7.45) L 07/22/18 04:54 ABG pCO2 55 mmHg (35-45) H 07/22/18 04:54 ABG pO2 64 mmHg (85-104) L 07/22/18 04:54 ABG O2 Saturation 88 % (95-98) L 07/22/18 04:54 PT/INR, D-dimer PT 17.8 Seconds (9.4-12.1) H 07/11/18 00:52 Abnormal lab findings: Abnormal lab results WBC 12.1 K/mcL (4.3-11.1) H 07/22/18 03:45 RBC 2.57 M/mcL (4.19-5.50) L 07/22/18 03:45 Hgb 6.9 g/dL (12.9-16.9) L 07/22/18 03:45 Hct 22.5 % (37.5-50.1) L 07/22/18 03:45 MCV 82.2 fL (83.0-100.0) L 07/12/18 01:15 MCH 26.8 pg (28.0-33.3) L 07/22/18 03:45 MCHC 30.7 g/dL (31.6-35.5) L 07/22/18 03:45 RDW 18.1 % (11.5-14.5) H 07/22/18 03:45 Plt Count 139 K/mcL (140-400) L 07/22/18 03:45 9.6 K/mcL (1.6-8.9) H 07/21/18 03:50 Nucleated RBCs/100 WBC 0.2 /100 WBC (0) H 07/21/18 03:50 Decreased (Normal) L 07/17/18 03:30 1+ (Not Present) A 07/13/18 04:20 Present (Not Present) A 07/13/18 04:20 PT 17.8 Seconds (9.4-12.1) H 07/11/18 00:52 APTT 37.2 Seconds (26.0-36.0) H 07/10/18 16:31 ABG pH 7.25 pH Units (7.32-7.45) L 07/22/18 04:54 ABG pCO2 55 mmHg (35-45) H 07/22/18 04:54 ABG pO2 64 mmHg (85-104) L 07/22/18 04:54 ABG Total CO2 28 mEq/L (20-26) H 07/21/18 04:56 ABG O2 Saturation 88 % (95-98) L 07/22/18 04:54 ABG Base Excess -3 mEq/L (-2 to 3) L 07/22/18 04:54 Sodium 135 mEq/L (136-145) L 07/22/18 03:45 Potassium 2.9 mEq/L (3.5-5.1) L 07/10/18 16:59 Chloride 96 mEq/L (98-107) L 07/21/18 03:50 Carbon Dioxide 21 mEq/L (23-29) L 07/16/18 02:20 BUN 87 mg/dL (6-20) H 07/22/18 03:45 7.55 mg/dL (0.70-1.30) H 07/22/18 03:45 Est GFR ( Amer) 10 (> 60) L 07/22/18 03:45 Est GFR (Non-Af Amer) 8 (> 60) L 07/22/18 03:45 5 (6-26) L 07/17/18 03:30 Glucose 110 mg/dL (70-105) H 07/22/18 03:45 POC Glucose 114 mg/dL (70-99) H 07/21/18 23:55 307 (280-300) H 07/22/18 03:45 Calcium 8.4 mg/dL (8.6-10.3) L 07/22/18 03:45 Phosphorus 5.5 mg/dL (2.7-4.5) H 07/15/18 06:28 AST 41 Units/L (13-39) H 07/15/18 06:28 ALT 87 Units/L (7-52) H 07/10/18 16:59 127 Units/L (34-104) H 07/10/18 16:59 5.7 g/dL (6.4-8.9) L 07/16/18 02:20 2.8 g/dL (3.5-5.7) L 07/19/18 04:45 2.3 g/dL (2.4-3.5) L 07/16/18 02:20 1.0 (1.1-2.2) L 07/15/18 06:28 Amylase 17 Units/L (29-103) L 07/18/18 14:40 5 Units/L (11-82) L 07/18/18 14:40 11.90 ng/mL (0.00-0.15) H 07/18/18 14:40 Ur Specific [place] < 1.005 (1.010-1.025) L 07/15/18 10:25 Small (Negative) H 07/15/18 10:25 3-5 per hpf (0-3) H 07/15/18 10:25 Amorphous Sediment Moderate (Few) H 07/15/18 10:25 Protein/Creatinin Ratio 0.95 mg/mg (0.00-0.20) H 07/15/18 10:25 36 mg/dL (1-14) H 07/15/18 10:25 Pleural Appearance Bloody (Clear) A 07/13/18 13:40 Pleur Adenosine Deamin 20.8 U/L (0.0-9.4) H 07/13/18 13:40 Vancomycin Trough 23 mcg/mL (5-10) H 07/12/18 18:31 Positive ng/mL (Lpcdvc=475) H 07/11/18 16:00 U Benzodiazepines Scrn Positive ng/mL (Ombsym=070) H 07/11/18 16:00 Hep Bs Antibody < 3.10 mIU/mL (10.00-) L 07/16/18 09:22 Crossmatch See Detail 07/22/18 09:55 - Microbiology Findings Microbiology Findings: Microbiology, Last 48 Hours 07/13/18 13:40 Fungal Culture - Preliminary Pleural Fluid Yeast Species 07/15/18 13:26 Blood Culture - Final Peripheral Venipuncture No growth. Final report. 07/15/18 13:26 Blood Culture - Final Peripheral Venipuncture No growth. Final report. - Clinical Findings Intake & Output: Intake & Output 07/22/18 07/22/18 07/22/18 07:59 15:59 23:59 Intake Total 272 / 1272 1000 / 1272 Output Total 25 / 2501 26 / 2501 2450 / 2501 Balance 247 / -1229 974 / -1229 -2450 / -1229 - Attending Attestation I examined this patient and my medical decision-making was reviewed with the Resident Physician. I agree with the documented findings, disposition and treatment plan as described except to the extent set forth below. Patient seen and examined. Labs, radiology, chart personally reviewed. 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 Pulmonary: Acceptable oxygenation and ventilation and still not able to liberate him from the the ventilatior. He doesn't last on hsi SBT and with his mental status and remain weak and still not clear source of anemia. Cardiovascular: relatively stable GI: Nutrition per dietary and GI prophylaxis per routine Heme: DVT prophylaxis per routine and have to montior H&H with blood transfusion and investigate the source of bleeding. Thoracic surgeon is aware of the CT chest findings and GI has been consulted. ID: Continue antibiotics and plan to de-escalation and ifectious disease team still follwoing up Renal; urine out put and renal function reviewed Endorcine: blood glucose is monitored Lines: all lines checked and no evidence of infections Skin: skin care to prevent pressure ulcers per nursing routine care Dispo: ICU Code: Full. Prognosis.Fair I have talked to the mother at the bedside and updated her. I spent 35 min of Critical Care time with this patient. It involved decision making of high complexity to assess, manipulate, and support vital organ system failure and/or to prevent further life threatening deterioration of the pa bruce's condition. The time involved in the performance of separately reportable procedures was not counted toward critical care time.
--- NOTE | 2018-07-22 08:33 | Cardiothoracic Progress Note ---
Date of Encounter: 07/22/18 Time of Encounter: 08:31 - Assessment and plan (1) Empyema of left pleural space Current Visit: Yes Status: Acute The assessment and plan as outlined above was discussed with the patient and/or family members who expressed understanding and agreement. All questions were answered. continue drains to suction and bulb drainage rounded with nurse (2) Acute kidney insufficiency Current Visit: Yes Status: Acute The assessment and plan as outlined above was discussed with the patient and/or family members who expressed understanding and agreement. All questions were answered. . (3) Acute renal failure on dialysis Current Visit: Yes Status: Acute The assessment and plan as outlined above was discussed with the patient and/or family members who expressed understanding and agreement. All questions were answered. as above Vital Signs, Last 4 Hours Pulse Resp BP Pulse Ox 07/22/18 08:20 16 100 07/22/18 06:00 80 16 98/58 100 07/22/18 05:08 16 104/63 99 07/22/18 05:00 71 16 104/63 99 Oxgyen Flow Rate Oxygen Flow Rate (LPM) 15 Weight 07/20/18 07/21/18 07/22/18 23:59 23:59 23:59 Weight 116 kg 117.9 kg - Physical Examination General: Other (intubated and sedated. ) HEENT: Atraumatic, Normocephaly Cardiac: Reg Rate and Rhythm, Normal S1 and S2 Incision: No signs of infection, Dry/intact dressing, Open to air Chest tubes: Minimal drainage Lungs: Other (minimal rhonchi ) Neuro: Alert and responsive, No focal deficits noted, Cranial nerves intact, Motor nerves intact, Other (grimaces while turning patient ) Abdomen: Soft, Other (bm today and yesterday ) - Labs 07/22/18 03:45 07/22/18 03:45 Lab Results, Last 24 hours 07/22/18 07/22/18 03:45 03:45 WBC 12.1 H Hgb 6.9 L Hct 22.5 L Plt Count 139 L Sodium 135 L Potassium 5.1 Chloride 98 Carbon Dioxide 24 BUN 87 H Creatinine 7.55 H Glucose 110 H Calcium 8.4 L Consult Discharge Plan - Plan Referrals: Kip Rojas DO [Primary Care Provider] -
[2018-07-22] MEDS: Pantoprazole 40 MG VIAL IVP SCH (09:27)
[2018-07-22] MEDS: Chlorhexidine Rinse 15 ML MOUTHWASH MM SCH ×2 (09:27→20:20)
[2018-07-22] MEDS: Neosporin OINT 15 GM TUBE TP SCH ×2 (09:40→20:24)
--- NOTE | 2018-07-22 10:06 | Nephrology Progress Note ---
Date of Encounter: 07/22/18 Time of Encounter: 07:40 - Assessment and Plan (1) Acute kidney injury Current Visit: Yes Status: Acute Yesterday his HD catheter did not function and TPA was administered but this still did not improve the flow and aspiration, which was noted after 5pm. 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 Historically: Acute kidney injury s/p HD x3 (Saturday//Saturday). ANCA and RF are negative. Likely he has ATN, but since he does have some subnephrotic proteinuria, I will also work up for any potential GN: check WING, complements, PLA2R and will update a UA if possible. Because he is not showing signs of renal recovery thus far, he will very likely need a permacath and outpatient hemodialysis arranged during this admission. He remains too ill for a Permacath for now. To help support the odds of any renal recovery, I recommend following a renal protective strategy as able including strict I's and O's, daily weights, avoidance of nephrotoxic agents and renal diet, and renal dosing. Thank you (2) Empyema Current Visit: Yes Status: Acute S/p thoracotomy (3) Acute blood loss as cause of postoperative anemia Current Visit: Yes Status: Acute Will monitor. If he were to require ongoing dialytic needs, then adding an OKSANA such as Aranesp or EPO would be indicated. (4) Acute respiratory failure Current Visit: Yes Status: Acute Vent management per pulm/critical care Qualifiers: Respiratory failure complication: hypoxia and hypercapnia Qualified Code(s): J96.01 - Acute respiratory failure with hypoxia; J96.02 - Acute respiratory failure with hypercapnia (5) Proteinuria Current Visit: Yes Status: Acute see above Qualifiers: Proteinuria type: unspecified Qualified Code(s): R80.9 - Proteinuria, unspecified Subjective Principal diagnosis: Pleural Effusion Interval history: Patient was seen and examined earlier today in the ICU. He remains intubated, and so the subjective portion of this note is limited. 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 Objective - Vital Signs Vital signs: Vital Signs Temp Pulse Resp BP Pulse Ox 07/22/18 08:49 96.4 F L 07/22/18 08:20 16 100 06/04/19 07:00 76 17 115/70 95 07/22/18 06:00 80 16 98/58 100 07/22/18 05:08 16 104/63 99 07/22/18 05:00 71 16 104/63 99 07/22/18 04:00 74 16 104/68 95 07/22/18 03:58 16 93/52 95 07/22/18 03:45 97.5 F L 07/22/18 03:30 75 07/22/18 03:00 71 16 93/53 98 07/22/18 02:00 73 16 94/55 98 07/22/18 01:00 75 16 91/53 97 07/22/18 00:58 16 93/56 97 07/22/18 00:00 78 16 101/57 96 07/21/18 23:53 98.4 F 07/21/18 23:36 16 102/60 100 07/21/18 23:30 78 07/21/18 23:00 78 16 100/60 96 07/21/18 22:00 82 16 105/60 99 07/21/18 21:46 16 105/59 99 07/21/18 21:00 87 16 112/65 98 07/21/18 20:00 92 16 119/66 99 07/21/18 19:58 99.2 F 07/21/18 19:56 16 123/66 99 07/21/18 19:00 93 16 145/74 98 07/21/18 18:00 92 16 112/60 96 07/21/18 17:37 16 98 07/21/18 17:00 94 16 120/57 96 07/21/18 16:00 93 16 120/59 97 07/21/18 15:34 99.4 F 07/21/18 15:31 20 90 07/21/18 15:00 86 15 96/60 94 07/21/18 14:00 86 16 129/71 96 07/21/18 13:00 87 17 131/68 95 07/21/18 12:00 85 14 103/46 94 07/21/18 11:36 99.2 F 07/21/18 11:09 16 94 07/21/18 11:00 85 17 110/63 94 Intake and Output 07/21/18 07/22/18 07/22/18 23:59 07:59 15:59 Intake Total 885 / 1377 272 / 272 Output Total 85 / 220 25 / 33 8 / 33 Balance 800 / 1157 247 / 239 - Intake: IV Fluids 450 / 850 150 / 150 FentaNYL (PF) 1,000 MCG In 0.9 100 / 100 % Sodium Chloride 80 ML @ 50 MCG/HR 5 mls/hr IVC CONT [facility] Rx #:[id number] Diprivan 1,000 mg In 100 ml @ 100 / 300 100 / 100 20 MCG/KG/MIN 15.168 mls/hr IVC .[id number] [facility] Rx#:[id number] Maxipime 1,000 MG In 0.9 % 100 / 100 Sodium Chloride (Mini-Bag +) 100 ML @ 200 mls/hr IVPB DAILY@ 1600 [facility] Rx#:[id number] Cleocin Premix 900 MG/50 ML 900 50 / 150 50 / 50 mg In 50 ml @ 50 mls/hr IVPB Q8HR [facility] Rx#:[id number] Diflucan Premix 200 MG/100 ML 100 / 100 200 mg In 100 ml @ 100 mls/hr IVPB DAILY [facility] Rx#:[id number] Tube Feeding 285 / 377 122 / 122 Free Water 60 / 60 Free Water Intake Amount 90 / 90 Output: Catheter 50 / 100 15 / 15 Gastric Drainage 0 / 0 Wound Drainage 35 / 120 18 8 Left Chest #1 15 / 75 5 / 10 5 / 10 Left Chest #2 20 / 45 5 / 8 3 8 Other: Stool Size Moderate Stool Consistency soft Stool Color Brown Blood Glucose* 114 - General Appearance Exam: General appearance: Present: well-developed, sedated on ventilator, intubated, fatigue, frail EENT: Present: ATNC, PERRL Neck: Present: no JVD, supple Respiratory: Present: scattered rhonchi on anterior auscultation noted Cardiology: Present: 1+ non-tense edema (puffy hands and feet bilaterally), normal S1, normal S2 Dialysis Vascular Access: Left IJ temporary HD catheter without erythema at the exit site Integumentary: Present: warm and dry Neurologic: Present: no focal deficit, but the neuro exam was limited due to sedation Musculoskeletal: Present: no erythema, no cyanosis - Lab 07/23/18 07:15 07/23/18 03:28 Most recent lab results 07/22/18 07/22/18 03:45 04:54 ABG pH 7.25 L ABG pCO2 55 H ABG pO2 64 L ABG HCO3 24 ABG O2 Saturation 88 L Calcium 8.4 L Consult Discharge Plan - Plan Referrals: Kip Rojas DO [Primary Care Provider] -
--- NOTE | 2018-07-22 11:07 | Infectious Disease Progress No ---
ID Progress Note Date of Encounter: 07/22/18 Time of Encounter: 09:10 - Subjective Subjective: Patient seen and examined. No acute events noted overnight. Remains intubated and sedated on the ventilator this morning. Remains minimally responsive despite discontinuance of propofol. Currently only on Fentanyl. Afebrile overnight. Tachycardia resolved. Status post iHD. Urine output low. Review of systems unobtainable from the patient. Discussed with nursing. Chest tubes removed 07/19/18. Repeat pleural fluid samples no growth. Per nursing, patient was incontinent of loose brown stool this morning and is tolerating tube feeds without residuals. TF currently off for CPAP. - Objective CBC & Chem 7: 07/24/18 03:40 07/24/18 03:40 - Line Documentation Line Documentation: Dialysis Catheter (Temp HD catheter noted to the left neck.), Smith Catheter (Draining small amount of dark brown urine.), Drain (RAY drain x 2 to the left lateral chest wall with serosanguinous drainage.) - Exam Vitals: Temp Pulse Resp BP Pulse Ox 96.4 F L 88 15 110/51 90 07/22/18 08:49 07/22/18 10:00 07/22/18 10:00 07/22/18 10:00 07/22/18 10:00 Exam: Head: Atraumatic, normal inspection, normocephalic. Eye: PERRLA, no scleral icterus noted. ENT: Mucous membranes moist. No odontogenic infection noted. Oropharynx exam limited. Neck: Normal inspection, no meningismus. Temp HD line left neck. Respiratory: Clear to auscultation, diminished in the bilateral bases. No rales, respiratory distress, rhonchi, or wheezes noted. Surgical site noted to the left lateral chest with dressing C/D/I. No crepitus. RAY drain 2 with sero sanguineous drainage. Cardiovascular: Regular rhythm, regular rate, S1 and S2 audible. No murmurs, rubs, or gallops. GI: Soft, nondistended, normal bowel sounds. Smith catheter draining small amount of dark yellow urine. OGT currently clamped. Extremities: No joint swelling or tenderness noted. 1+ edema noted to the bilateral lower and BU extremities. Neurological: Sedated, does not respond to verbal or tactile stimuli. Skin: Dry, intact, warm. Pale. No rashes. - Assessment and Plan (1) Sepsis Current Visit: Yes Status: Acute The patient had three SIRS criteria. Likely secondary to empyema. Concern for additional infectious source given the patient's new onset of fever and tachycardia despite recent surgery/source control and antibiotics. Leukocytosis improved. Afebrile. Tachycardia resolved. Blood cultures drawn 07/15/18 are no growth to date 2 sets. Lactic acid was normal. Qualifiers: Sepsis type: sepsis due to unspecified organism Qualified Code(s): A41.9 - Sepsis, unspecified organism SNOMED Code(s): 30935754 (2) Acute respiratory failure Current Visit: Yes Status: Acute Likely multifactorial: Pulmonary edema plus altered mental status plus possible pneumonia plus ARDS. Required emergent intubation 07/16/18. Chest x-ray shows findings consistent with ours versus multi lobular pneumonia and small bilateral pleural effusions, left greater than right. Repeat CXR 07/17/18 showed diffuse airspace disease slightly increased on the r ight and persistent moderate left pleural effusion. CT chest shows new moderate right sided pleural effusion with findings consistent with PNA vs. ARDS and left pleural fluid/gas. Repeat CXR shows slight improvement in the bilateral airspace disease. Tolerating CPAP. Pulmonology consulted and following. Qualifiers: Respiratory failure complication: hypoxia and hypercapnia Qualified Code(s): J96.01 - Acute respiratory failure with hypoxia; J96.02 - Acute respiratory failure with hypercapnia SNOMED Code(s): 15909210 (3) Empyema Current Visit: Yes Status: Acute Location: Left lateral chest. Causative organism: Yeast, final ID and sensitivities pemding. Etiology: Unclear. The patient has had a recurrent pleural effusion since April. CT of the chest showed a complex left pleural effusion concerning for empyema with multiple abscesses adjacent to the rib cage. Cardiothoracic surgery consulted. Status post bronchoscopy with aspiration, left thoracotomy with decortication, reverse latissimus MM flap, and wedge left upper lobe 07/13/[address] Almaguer. Operative note reviewed. Intraoperative cultures positive for yeast, final ID and sensitivities pending. Unable to perform GMS stain on intra-op pleural fluid due to not enough spe cimen, but will have histology do it on the specimen sent down this morning. Discussed with Cat in the histology lab. CT chest shows new moderate right sided pleural effusion with findings consistent with PNA vs. ARDS and left pleural fluid/gas. Repeat CXR slightly improved. Chest tubes removed 07/18/18. Currently on IV Zosyn and fluconazole. SNOMED Code(s): 554272597 (4) Acute kidney injury Current Visit: Yes Status: Acute Likely multifactorial: Hypoperfusion plus nephrotoxic medications plus sepsis. Serum creatinine elevated at 7.55 today. Nephrology consulted. iHD started 07/16/18. Monitor renal function closely and dose adjust medications. Avoid nephrotoxins as able. SNOMED Code(s): 03579622, 95849579 (5) Pleural effusion Current Visit: Yes Status: Acute Etiology: Unclear. Location: Left chest. Recurrent since April after he had a diagnostic thoracentesis. Cultures and pathology were negative at that time. SNOMED Code(s): 46784659 (6) Chest pain Current Visit: No Status: Acute Likely secondary to empyema. Troponin was negative. Pain management per the primary team. Qualifiers: Chest pain type: chest pain on breathing Qualified Code(s): R07.1 - Chest pain on breathing; R07.81 - Pleurodynia SNOMED Code(s): 21310953 (7) Lymphadenopathy Current Visit: Yes Status: Acute CT of the chest showed multiple enlarged mediastinal lymph nodes, presumably reactive. Pulmonology and CTS consulted. SNOMED Code(s): 71155981 (8) Transaminitis Current Visit: Yes Status: Resolved Etiology: Unclear. Resolved. Continue to trend. SNOMED Code(s): 189581482, 424079312 (9) Hypokalemia Current Visit: Yes Status: Resolved Replacement per the primary team. Resolved. SNOMED Code(s): 23496231 (10) Former tobacco use Current Visit: No Status: Chronic SNOMED Code(s): 741532128 (11) Chronic back pain Current Visit: No Status: Chronic Per the patient's mother had back surgery 8 years ago and has been on Oxycodone daily since then. Qualifiers: Back pain location: low back pain Back pain laterality: bilateral Sciatica presence: with sciatica Sciatica laterality: bilateral sciatica Qualified Code(s): M54.42 - Lumbago with sciatica, left side; M54.41 - Lumbago with sciatica, right side; G89.29 - Other chronic pain SNOMED Code(s): 016699977 (12) Obesity (BMI 30.0-34.9) Current Visit: No Status: Chronic SNOMED Code(s): 661957586214475 - Recommendations Recommendations: Send new pleural fluid for GMS stain. Check fungal serologies: Fungitell, Histo, Blasto, Crypto, Aspergillus galactomannin. --> negative. Unable to do cultures on wedge specimen due to it already being in formalin. Pleural fluid cytology negative for malignancy. Await blood cultures to finalize. CT chest, abdomen and pelvis and head completed this morning. Results pending. Wound care and activity per the CTS team. Vent management per the pulmonology team. Acute kidney injury her the nephrology team. Continue cefepime 1 gram IV daily (dose-adjusted for HD). Continue clindamycin 900mg IV Q8H. Continue fluconazole IV. Will ask pharmacy to assist with dosing for HD status. Start Vancomycin IV. Pharmacy to dose. Goal trough ~15. Duration of treatment depends on the clinical picture. Monitor renal function and dose-adjust antibiotics. Consult Discharge Plan - Plan Referrals: Kip Rojas DO [Primary Care Provider] - - Attending Attestation I have personally performed a face to face evaluation on this patient. I have reviewed and agree with the care plan. 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 I think he have an ileus based on the tube feeding and the residuals. Extensive physical exam and findings really not telling on why this patient is not improving. The mother was at bedside and had long discussion with her. Apparently the patient been on narcotics for about 8 years. Not sure if IV drugs or possible we have infection has something to do with it. We will continue the current antibiotics switched to micafungin to fluconazole. Prognosis is guarded at best..
[2018-07-22] MEDS ORDERED: *HR* Heparin 5,000 UNIT/ML VIAL ONE (11:39)
--- NOTE | 2018-07-22 12:22 | Gastroenterology Consult Note ---
<BarryLucho Nakia - Last Filed: 07/22/18 12:41> Date of Encounter: 07/22/18 Time of Encounter: 09:45 - Assessment and plan (1) Anemia Status: Acute Assessment and plan: On admission Hgb 10.2 which dropped to 6.4 on 07/14 and he received 2 units PRBC. Today Hgb 6.9 and 2 monre units PRBC ordered. No obvious source of bleeding noted. Continue to monitor CBC and transfuse PRBC as needed. Keep patient NPO at midnight. EGD tomorrow to r/o esophagitis, gastritis, duodenitis, PUD, MW tear, or AVM. Qualifiers: Anemia type: unspecified type Qualified Code(s): D64.9 - Anemia, unspecifi ed (2) Empyema Status: Acute Assessment and plan: s/p thoracotomy per Cardiothoracic Surgery. Receiving antibiotics. ID consulted as well. (3) Acute kidney injury Status: Acute Assessment and plan: Per Nephrology. Receiving HD. (4) Sepsis Status: Acute Assessment and plan: ID consulted. Qualifiers: Sepsis type: sepsis due to unspecified organism Qualified Code(s): A41.9 - Sepsis, unspecified organism (5) Acute respiratory failure Status: Acute Assessment and plan: Intubated and sedated. Qualifiers: Respiratory failure complication: hypoxia and hypercapnia Qualified Code(s): J96.01 - Acute respiratory failure with hypoxia; J96.02 - Acute respiratory failure with hypercapnia - Time Spent With Patient Total time spent is greater than 50% in coordination of care (as documented) at patient's floor/unit and/or counseling patient: GI History of Present Illness - Data of Consult Patient: new to practice Consult date: 07/22/18 Requesting Physician: Capo Thurman - Consult Narrative Reason for consult: Anemia History of present illness: Mr. Hutson is a 43 year old male with PMHx of COPD and chronic back pain was admitted to [facility] on 05/10/2018 with complaints of shortness of breath and left lateral chest wall pain. He was diagnosed with emp yema requiring left thoracotomy decortication on 07/13/[address] Almaguer. He developed HA requiring hemodialysis. Patient developed worsening respiratory status on 07/16/18 requiring intubation. He remains intubated and sedated. We were consulted to evaluate his anemia. On admission Hgb 10.2 which dropped to 6.4 on 07/14 and he received 2 units PRBC. Today Hgb 6.9 and 2 monre units PRBC ordered. No obvious source of bleeding noted. Information obtained by chart review. Procedures: None NSAIDs: None Anticoagulation: None Past Med Surg Social Fam HX - Past Medical History Medical history: COPD, other Additional medical history: CHRONIC BACK PAIN, collapsed lung, pneumonia, perstistant plurocy Psychiatric history: depression - Past Surgical History Surgical History: no surgical history Additional surgical history: back, lung surgery. nerve stimulator implant in left hip. left foot sx - Social History Smoking Status: Former smoker Packs per day: 1PPD x 20YRS (quit 2015) Smokeless Tobacco Status: No Alcohol use: none Drug use: none - Family History Mother Adopted: No Age: 62 Family Member Ethnicity: Non- Living Status: Still Living Hx Family Cardiac Disorders: No Hx Family Respiratory Disorders: Yes (Asthma) Hx Family Cancer: No Hx Family GI Disorders: No Hx Family Genitourinary Disorders: No Hx Family Endocrine Disorder: No Hx Family Musculoskeletal Disorders: No Hx Family Neuromuscular Disorders: No Hx Family Neurologic Disorders: No Hx Family HEENT Disorders: No Hx Family Autoimmune Disorders: No Hx Family Reproductive Disorders: No Hx Family Psychosocial Disorders: No Hx Family Medical Disorders: No Father Family Member Ethnicity: Non- Living Status: Hx Family Cardiac Disorders: Yes (triple bypass) Hx Family Cancer: Yes (gi) Hx Family GI Disorders: No Hx Family Genitourinary Disorders: No Hx Family Endocrine Disorder: No Hx Family Musculoskeletal Disorders: No Hx Family Neuromuscular Disorders: No Hx Family Neurologic Disorders: No Hx Family HEENT Disorders: No Hx Family Autoimmune Disorders: No Hx Family Reproductive Disorders: No Hx Family Psychosocial Disorders: No Hx Family Medical Disorders: No ROS unobtainable: due to endotracheal tube, due to mental status - Constitutional Vitals: Temp Pulse Resp BP Pulse Ox 96.4 F L 88 14 133/40 91 07/22/18 08:49 07/22/18 10:00 07/22/18 11:15 07/22/18 11:15 07/22/18 11:15 Exam: Intubated and sedated. - Head Head exam: Present: atraumatic, normocephalic - Eye Eye exam: Present: normal appearance, sclera anicteric - ENT ENT exam: Present: mucous membranes moist - Neck Neck exam general surgery: Present: normal inspection, trachea midline - Respiratory Additional comments: Mechanical breath sounds. - Cardiovascular Cardiovascular exam: Present: RRR, +S1, +S2 - GI/Abdominal GI/Abdominal exam: Present: soft, no peritoneal signs. Absent: distended, firm, guarding, tenderness Additional comments: OG tube in place. - Rectal Rectal exam: Present: deferred - Extremities Exam Extremities exam: Present: warm - Neurological Exam Neurological exam: Present: no focal deficits - Psychiatric Psychiatric exam: Present: normal affect, normal mood - Skin Skin exam: Present: dry, intact, normal color, warm Results - Labs CBC & Chem 7: 07/22/18 03:45 07/22/18 03:45 Labs: Last Result 07/22/18 03:45 Calcium 8.4 L Entire Visit 07/22/18 03:45 Hgb 6.9 L Hct 22.5 L - ABG ABG results: ABG ABG pH 7.25 pH Units (7.32-7.45) L 07/22/18 04:54 ABG pCO2 55 mmHg (35-45) H 07/22/18 04:54 ABG pO2 64 mmHg (85-104) L 07/22/18 04:54 ABG O2 Saturation 88 % (95-98) L 07/22/18 04:54 PT/INR, D-dimer PT 17.8 Seconds (9.4-12.1) H 07/11/18 00:52 - Impressions Impressions Chest X-Ray 07/22/18 00:00 IMPRESSION: Advancement of a left internal jugular central venous catheter with the tip now projecting over the distal SVC. No discrete thorax otherwise stable chest. D/ / Renata Oliva MD / Renata Oliva MD Interpreting Provider: Renata Oliva MD Chest CT 07/22/18 07:34 IMPRESSION: No significant change in the appearance of the chest. Large amount of diffuse airspace disease throughout the right lung. Large amount of atelectasis in the lower left lung. Large amount of abnormal soft tissue in the left pleural space consistent with hematoma. No significant change in the amount of hemothorax since the prior study. Loculated fluid collection posteriorly in the left pleural space. Small amount of ascites present in the abdomen mildly decreased from the prior study. Cholelithiasis without evidence of acute cholecystitis. Marked splenomegaly mildly increased. No other intra-abdominal abnormality. D/ / Sarmad Montes MD / Sarmad Montes MD Interpreting Provider: Sarmad Montes MD Head CT 07/22/18 07:35 IMPRESSION: No acute intracranial abnormality. D/ / Baldev Fernandez MD / Baldev Fernandez MD Interpreting Provider: Baldev Fernandez MD Abdomen/Pelvis CT 07/22/18 08:00 IMPRESSION: No significant change in the appearance of the chest. Large amount of diffuse airspace disease throughout the right lung. Large amount of atelectasis in the lower left lung. Large amount of abnormal soft tissue in the left pleural space consistent with hematoma. No significant change in the amount of hemothorax since the prior study. Loculated fluid collection posteriorly in the left pleural space. Small amount of ascites present in the abdomen mildly decreased from the prior study. Cholelithiasis without evidence of acute cholecystitis. Marked splenomegaly mildly increased. No other intra-abdominal abnormality. D/ / Sarmad Montes MD / Sarmad Montes MD Interpreting Provider: Sarmad Montes MD Consult Discharge Plan - Plan Referrals: Kip Rojas DO [Primary Care Provider] - <Curtis Andrea - Last Filed: 07/28/18 05:44> Date of Encounter: 07/22/18 - Time Spent With Patient Total time spent is greater than 50% in coordination of care (as documented) at patient's floor/unit and/or counseling patient: GI History of Present Illness - Data of Consult Requesting Physician: Capo Thurman - Consult Narrative History of present illness: Mr. Hutson is a 43 year old male I have personally performed a face to face evaluation on this patient. I have reviewed and agree with the care plan. History and Exam by me shows: aptient admitted with anemia, empyema which is being drained per CT surgery Agtee with EGD and colonscopy when stable prior to discharge from the hospital. Please notify us. Etiology of anemia is multifactorial. - Constitutional Vitals: Temp Pulse Resp BP Pulse Ox 98.5 F 90 16 105/52 96 07/26/18 15:50 07/26/18 16:34 07/26/18 16:34 07/26/18 15:25 07/26/18 16:34 Results - Labs CBC & Chem 7: 07/26/18 04:55 07/26/18 04:55 - ABG ABG results: ABG ABG pH 7.26 pH Units (7.32-7.45) L D 07/26/18 08:33 ABG pCO2 48 mmHg (35-45) H D 07/26/18 08:33 ABG pO2 176 mmHg (85-104) H D 07/26/18 08:33 ABG O2 Saturation 99 % (95-98) H 07/26/18 08:33 PT/INR, D-dimer PT 17.8 Seconds (9.4-12.1) H 07/11/18 00:52
[2018-07-22] MEDS ORDERED: *HR* Heparin 10,000 UNIT/10 ML VIAL IV PRN (12:28)
[2018-07-22] MEDS: Norepinephrine 4 MG in D5% in Water 250 ML IVC SCH (13:04)
[2018-07-22] MEDS ORDERED: Vancomycin 1 EACH in 0.9 % Sodium Chloride 250 ML IVPB PRN (14:00)
[2018-07-22] MEDS: Cefepime HCl 1,000 MG in 0.9 % Sodium Chloride Mini Bag 100 ML IVPB SCH (17:33)
[2018-07-22] MEDS: Fluconazole 200 MG/100 ML 200 MG/100 ML BAG IVPB SCH (17:35)
[2018-07-22] MEDS: Lurasidone 20 MG TABLET PO SCH (20:20)
[2018-07-22] MEDS: FentaNYL (PF) 1,000 MCG in 0.9 % Sodium Chloride 80 ML IVC SCH (20:26)
[2018-07-22] MEDS ORDERED: Pregabalin 75 MG CAPSULE PO SCH (21:00)
[2018-07-22 21:59] LABS: Hematocrit 24.6 % (37.5-50.1); Hemoglobin 7.7 g/dL (12.9-16.9)
[2018-07-23] MEDS: Artificial Tears SOLN 15 ML BOTTLE BOTH EYES SCH ×7 (00:23→23:58)
[2018-07-23] MEDS: Clindamycin 900 MG/50 ML 900 MG/50 ML IV.SOLN IVPB SCH ×2 (00:23→08:07)
[2018-07-23 03:45] LABS: Basophils % 0.3 %; Eosinophils # 0.3 K/mcL (0.0-0.6); Hematocrit 23.6 % (37.5-50.1); Hemoglobin 7.3 g/dL (12.9-16.9); Immature Granulocytes % 3.5 % (0-4); Lymphocytes # 0.7 K/mcL (0.6-4.6); Lymphocytes % 5.2 %; Mean Corpuscular HGB Conc 30.9 g/dL (31.6-35.5); Mean Corpuscular Hemoglobin 26.7 pg (28.0-33.3); Mean Corpuscular Volume 86.4 fL (83.0-100.0); Mean Platelet Volume 11.9 fL (9.4-12.4); Monocytes # 0.9 K/mcL (0.0-1.3); Monocytes % 6.3 %; Neutrophils # 11.3 K/mcL (1.6-8.9); Platelet Count 139 K/mcL (140-400); Red Blood Count 2.73 M/mcL (4.19-5.50); Red Cell Distribution Width 17.5 % (11.5-14.5); Segmented Neutrophils % 82.7 %; White Blood Count 13.6 K/mcL (4.3-11.1)
[2018-07-23 03:59] LABS: Calcium 8.3 mg/dL (8.6-10.3); Potassium 4.1 mEq/L (3.5-5.1)
[2018-07-23 04:47] LABS: ABG Base Excess 0 mEq/L (-2 to 3); ABG HCO3 26 mEq/L (21-27); ABG Oxygen Saturation 98 % (95-98); ABG PCO2 51 mmHg (35-45); ABG PH 7.32 pH Units (7.32-7.45); ABG PO2 119 mmHg (85-104); ABG TCO2 28 mEq/L (20-26); Blood Gas Modality VC; Blood Gas PEEP 5 cm H2O; Blood Gas VT 500 cc
[2018-07-23] MEDS: Chlorhexidine Rinse 15 ML MOUTHWASH MM SCH ×2 (08:07→20:07)
[2018-07-23] MEDS: Pantoprazole 40 MG VIAL IVP SCH (08:07)
[2018-07-23] MEDS: Neosporin OINT 15 GM TUBE TP SCH ×2 (08:08→20:09)
--- NOTE | 2018-07-23 08:42 | Cardiothoracic Progress Note ---
Date of Encounter: 07/23/18 Time of Encounter: 08:40 - Assessment and plan (1) Empyema of left pleural space Current Visit: Yes Status: Acute The assessment and plan as outlined above was discussed with the patient and/or family members who expressed understanding and agreement. All questions were answered. continue drains to suction and bulb drainage rounded with resident (2) Acute kidney insufficiency Current Visit: Yes Status: Acute The assessment and plan as outlined above was discussed with the patient and/or family members who expressed understanding and agreement. All questions were answered. . (3) Acute renal failure on dialysis Current Visit: Yes Status: Acute The assessment and plan as outlined above was discussed with the patient and/or family members who expressed understanding and agreement. All questions were answered. as above (4) Anemia Current Visit: Yes Status: Acute The assessment and plan as outlined above was discussed with the patient and/or family members who expressed understanding and agreement. All questions were answered. check iron studies. multiple ct scans of the body cavities does NOT demonstrate blood loss. given renal filaure and illness, this may be the real reason for anemia. follow up with iron studies. discussed with resident. endoscopy planned for today. tube feedings on hold Qualifiers: Anemia type: unspecified type Qualified Code(s): D64.9 - Anemia, unspecified Vital Signs, Last 4 Hours Pulse Resp BP Pulse Ox 07/23/18 07:33 16 100/56 98 07/23/18 07:00 89 16 106/56 97 07/23/18 06:00 84 16 96/54 99 07/23/18 05:22 16 99/57 99 07/23/18 05:00 85 17 91/55 99 Oxgyen Flow Rate Oxygen Flow Rate (LPM) 15 Weight 07/21/18 07/22/18 07/23/18 23:59 23:59 23:59 Weight 117.9 kg - Physical Examination General: Other (intubated and sedated. ) HEENT: Atraumatic, Normocephaly Neck: No JVD Cardiac: Reg Rate and Rhythm, Normal S1 and S2, No Murmur Incision: No signs of infection, Open to air Chest tubes: Other (colby drains scant ) Lungs: Normal Breath Sounds Neuro: Other (per residnet who discussed with nurse, starting to wake up ) Vascular: Normal capillary refill Abdomen: Soft, Non-tender, Other (bs present ) - Labs 07/23/18 03:28 07/23/18 03:28 Lab Results, Last 24 hours 07/22/18 07/23/18 07/23/18 21:43 03:28 03:28 WBC 13.6 H Hgb 7.7 L 7.3 L Hct 24.6 L 23.6 L Plt Count 139 L Sodium 136 Potassium 4.1 Chloride 99 Carbon Dioxide 25 BUN 48 H Creatinine 4.73 H Glucose 97 Calcium 8.3 L - Imaging Chest Xray: image reviewed, other (ct reviewed with resident (07/17 and 07/22)) Consult Discharge Plan - Plan Referrals: Kip Rojas DO [Primary Care Provider] -
--- NOTE | 2018-07-23 09:42 | Infectious Disease Progress No ---
ID Progress Note Date of Encounter: 07/23/18 Time of Encounter: 09:40 - Subjective Subjective: Patient seen and examined. No acute events noted overnight. Remains intubated and sedated on the ventilator this morning. Failed CPAP this morning. More responsive today. Currently only on Fentanyl. Afebrile overnight. Tachycardia resolved. Status post iHD. Urine output low. Review of systems unobtainable from the patient. Discussed with nursing. Chest tubes removed 07/19/18. Repeat pleural fluid samples no growth. Tolerating tube feeds without residuals. - Objective CBC & Chem 7: 07/24/18 03:40 07/24/18 03:40 - Line Documentation Line Documentation: Dialysis Catheter (Temp HD catheter noted to the left neck.), Smith Catheter (Draining small amount of dark brown urine.), Drain (RAY drain x 2 to the left lateral chest wall with serosanguinous drainage.) - Exam Vitals: Temp Pulse Resp BP Pulse Ox 99.1 F 89 16 100/56 98 07/23/18 04:00 07/23/18 07:00 07/23/18 07:33 07/23/18 07:33 07/23/18 07:33 Exam: Head: Atraumatic, normal inspection, normocephalic. Eye: PERRLA, no scleral icterus noted. ENT: Mucous membranes moist. No odontogenic infection noted. Oropharynx exam limited. Neck: Normal inspection, no meningismus. Temp HD line left neck. Respiratory: Clear to auscultation, diminished in the bilateral bases. No rales, respiratory distress, rhonchi, or wheezes noted. Surgical site noted to the left lateral chest with dressing C/D/I. No crepitus. RAY drain 2 with serosanguineous drainage. Cardiovascular: Regular rhythm, regular rate, S1 and S2 audible. No murmurs, rubs, or gallops. GI: Soft, nondistended, normal bowel sounds. Smith catheter draining small amount of dark yellow urine. OGT with tube feeds infusing. Extremities: No joint swelling or tenderness noted. 1+ edema noted to the bilateral lower and BU extremities. Neurological: Sedated, opens eyes to verbal stimuli and follows some commands. Skin: Dry, intact, warm. Pale. No rashes. - Assessment and Plan (1) Sepsis Current Visit: Yes Status: Acute The patient had three SIRS criteria. Likely secondary to empyema. Concern for additional infectious source given the patient's persistent leukocytosis despite recent surgery/source control and antibiotics. Leukocytosis stable around 13. Afebrile. Tachycardia resolved. Blood cultures drawn 07/15/18 are no growth to date 2 sets. Lactic acid was normal. Qualifiers: Sepsis type: sepsis due to unspecified organism Qualified Code(s): A41.9 - Sepsis, unspecified organism SNOMED Code(s): 61675081 (2) Acute respiratory failure Current Visit: Yes Status: Acute Likely multifactorial: Pulmonary edema plus altered mental status plus possible pneumonia plus ARDS. Required emergent intubation 07/16/18. Chest x-ray shows findings consistent with ours versus multi lobular pneumonia and small bilateral pleural effusions, left greater than right. Repeat CXR 07/17/18 showed diffuse airspace disease slightly increased on the right and persistent moderate left pleural effusion. CT chest shows new moderate right sided pleural effusion with findings consistent with PNA vs. ARDS and left pleural fluid/gas. Repeat CXR shows slight improvement in the bilateral airspace disease. Repeat CT chest 07/22/18 showed no significant change in the appearance of the chest. Large amount of diffuse airspace disease throughout the right lung. La rge amount of atelectasis in the left lower lung. Large amount of abnormal soft tissue in the left pleural space consistent with hematoma. No significant change in the amount of hemothorax since the prior study. Loculated fluid collection posteriorly in the left pleural space. Failed CPAP this morning. Status post bedside bronchoscopy by the pulmonology team. BAL cultures are pending. Will discuss findings with the pulmonology team. Pulmonology consulted and following. Qualifiers: Respiratory failure complication: hypoxia and hypercapnia Qualified Code(s): J96.01 - Acute respiratory failure with hypoxia; J96.02 - Acute respiratory failure with hypercapnia SNOMED Code(s): 83612593 (3) Empyema Current Visit: Yes Status: Acute Location: Left lateral chest. Causative organism: C. albicans Etiology: Unclear. The patient has had a recurrent pleural effusion since April. CT of the chest showed a complex left pleural effusion concerning for empyema with multiple abscesses adjacent to the rib cage. Cardiothoracic surgery consulted. Status post bronchoscopy with aspiration, left thoracotomy with decortication, reverse latissimus MM flap, and wedge left upper lobe 07/13/[address] Almaguer. Operative note reviewed. Intraoperative cultures positive for yeast, final ID and sensitivities pending. Unable to perform GMS stain on intra-op pleural fluid due to not enough specimen. Requested GMS stain on additional pleural fluid sent down 07/18/18, but pathologist did not think this needed to be done so it was not performed. GMS and AFB on the wedge pathology specimen were negative. Fungal serologies negative. CT chest shows new moderate right sided pleural effusion with findings consistent with PNA vs. ARDS and left pleural fluid/gas. Repeat CXR slightly improved. Chest tubes removed 07/18/18.. Repeat CT of the chest 07/22/18 as discussed above. Concern for persistent loculated fluid collection. Will discuss with cardiothoracic surgery. Currently on IV Zosyn and fluconazole. SNOMED Code(s): 590203291 (4) Acute kidney injury Current Visit: Yes Status: Acute Likely multifactorial: Hypoperfusion plus nephrotoxic medications plus sepsis. Serum creatinine elevated at 4.73 today. Nephrology consulted. iHD started 07/16/18. Nephrology planning for permacath placement at some point prior to discharge. Monitor renal function closely and dose adjust medications. Avoid nephrotoxins as able. SNOMED Code(s): 00472937, 04809552 (5) Pleural effusion Current Visit: Yes Status: Acute Etiology: Unclear. Location: Left chest. Recurrent since April after he had a diagnostic thoracentesis. Cultures and pathology were negative at that time. SNOMED Code(s): 66998521 (6) Chest pain Current Visit: No Status: Acute Likely secondary to empyema. Troponin was negative. Pain management per the primary team. Qualifiers: Chest pain type: chest pain on breathing Qualified Code(s): R07.1 - Chest pain on breathing; R07.81 - Pleurodynia SNOMED Code(s): 54643633 (7) Lymphadenopathy Current Visit: Yes Status: Acute CT of the chest showed multiple enlarged mediastinal lymph nodes, presumably reactive. Pulmonology and CTS consulted. SNOMED Code(s): 42636361 (8) Transaminitis Current Visit: Yes Status: Resolved Etiology: Unclear. Resolved. Continue to trend. SNOMED Code(s): 123223025, 845490597 (9) Hypokalemia Current Visit: Yes Status: Resolved Replacement per the primary team. Resolved. SNOMED Code(s): 97115149 (10) Former tobacco use Current Visit: No Status: Chronic SNOMED Code(s): 959754082 (11) Chronic back pain Current Visit: No Status: Chronic Per the patient's mother had back surgery 8 years ago and has been on Oxycodone daily since then. Qualifiers: Back pain location: low back pain Back pain laterality: bilateral Sciatica presence: with sciatica Sciatica laterality: bilateral sciatica Qualified Code(s): M54.42 - Lumbago with sciatica, left side; M54.41 - Lumbago with sciatica, right side; G89.29 - Other chronic pain SNOMED Code(s): 094646361 (12) Obesity (BMI 30.0-34.9) Current Visit: No Status: Chronic SNOMED Code(s): 907381308942827 - Recommendations Recommendations: Continue to trend CBC. Check procalcitonin in the AM. Wound care and activity per the CTS team. Vent management per the pulmonology team. Acute kidney injury her the nephrology team. Continue cefepime 1 gram IV daily (dose-adjusted for HD). Continue fluconazole IV. Will ask pharmacy to assist with dosing for HD status. Continue Vancomycin IV. Pharmacy to dose. Goal trough ~15. Discontinue clindamycin. Duration of treatment depends on the clinical picture. Monitor renal function and dose-adjust antibiotics. Consult Discharge Plan - Plan Referrals: Kip Rojas DO [Primary Care Provider] - - Attending Attestation I have personally performed a face to face evaluation on this patient. I have reviewed and agree with the care plan. 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 Wound care and activity per the CTS team. Vent management per the pulmonology team. Acute kidney injury her the nephrology team. Continue cefepime 1 gram IV daily (dose-adjusted for HD). Continue fluconazole IV. Will ask pharmacy to assist with dosing for HD status. Continue Vancomycin IV. Pharmacy to dose. Goal trough ~15. Discontinue clindamycin. Duration of treatment depends on the clinical picture. Monitor renal function and dose-adjust antibiotics. d/w mother at length
[2018-07-23 09:57] LABS: Hematocrit 23.1 % (37.5-50.1); Hemoglobin 7.4 g/dL (12.9-16.9)
[2018-07-23 10:16] LABS: % Iron Saturation 10 % (20-55); Iron 16 mcg/dL (65-175); Transferrin 113 mg/dL (203-362)
--- NOTE | 2018-07-23 10:33 | Pulmonology Progress Note ---
<Avel Dia - Last Filed: 07/23/18 18:01> Date of Encounter: 07/23/18 Time of Encounter: 09:33 Assessment and Plan (1) Acute respiratory failure Status: Acute - Patient developed worsening respiratory status on 07/16/18 requiring intubation - Etiology is unknown at this time; possibly secondary to empyema - Currently intubated and sedated on propofol and fentanyl - Bronchoscopy was performed today, which showed secretions without any other significant findings Plan: - Continue antibiotic therapy with cefepime, clindamycin and fluconazole for empyema - Continue dialysis per nephrology - Duonebs PRN are ordered Qualifiers: Qualified Code(s): J96.00 - Acute respiratory failure, unspecified whether with hypoxia or hypercapnia (2) Empyema Status: Acute - Patient was found to have a pleural effusion on CT of the chest on 07/17 with gas collection in the left hemothorax - Cardiothoracic surgery was consulted; patient underwent a left thoracotomy with decortication on 07/13 - Culture of pleural fluid from 07/13/18 grew Radha albicans - Chest tube removed on Saturday - CT abd/pelv demonstrates no changes from previous study; loculated pleural fluid collection still present in L pleural space Plan: - Continue antibiotic therapy as noted above - Cardiothoracic surgery following; would appreciate any further recommendations (3) Acute renal failure on dialysis Status: Acute - On 07/14, patient developed acute renal failure with an elevated creatinine at 3.33 - Nephrology was consulted; patient underwent multiple treatments of hemodialysis - Etiology is unknown at this time; likely multifactorial in the setting of sepsis with possible underperfusion or ATN - Creatinine has improved today; 4.73 - Nephrology is still following; hold off on dialysis today due to low blood pressure - Nephrology has ordered additional studies to determine underlying cause of acute renal failure (4) Anemia Status: Acute - Patient has had persistently low hemoglobin the last 24 hours, ranging from 7- 8 - No bleeding source has been identified at this time - He has been transfused with a total of 5 units of packed red blood cells; 2 additional units were ordered in the afternoon due to a hemoglobin of 7.0 - A repeat CT scan was performed to rule out enlarging hemothorax; Per CT report, no significant change in amount of hemothorax since prior study - GI is following; EGD to rule out GI bleed Qualifiers: Qualified Code(s): D64.9 - Anemia, unspecified (5) Hemothorax Status: Acute - CT abdomen and pelvis on 07/22/18 demonstrated the following: Large amount of diffuse airspace disease throughout right lung, large amount of atelectasis in lower left lung, large amount of abnormal soft tissue and left pleural space consistent with hematoma; no significant change in amount of hemothorax since prior study - Loculated fluid collection posterior and left pleural space Subjective Principal diagnosis: Pleural Effusion Interval history: Patient was seen and examined at bedside; remains intubated and sedated. No acute distress visible at this time. He has been successfully weaned off propofol. Per nursing note early this morning, patient was able to follow commands and squeeze fingers, as well as open his eyes when asked. This morning, he only had minimal responses on exam. He was able to open his eyes with verbal stimulation. Patient continues to be persistently anemic; we are trending hemoglobins every 6 hours. He has received a total of 5 units of pac ked red blood cells since his stay here; 2 additional units were ordered in the afternoon after his hemoglobin was found to be 7.0. No active bleeding source has been found as of yet. CT scan of the chest was ordered to rule out enlarging hemothorax; study was unchanged from previous. GI has been consulted to rule out the possibility of a GI bleed. Objective PUL Vital signs: Last Vital Signs Temp 99.1 F 07/23/18 04:00 Pulse 87 07/23/18 09:00 Resp 16 07/23/18 09:00 BP 96/54 07/23/18 09:00 Pulse Ox 98 07/23/18 09:00 General: Currently intubated and sedated; no signs of acute distress Head: No acute deformities noted Respiratory: Diminished breath sounds bilaterally; no wheezes, rales, or rhonchi Chest: Bandage present on patients left side where chest tube was; no bleeding or discharge noted; dressing is clean and dry Cardiovascular: RRR, +S1/+S2; no murmurs, rubs, gallops Abdomen: Soft, nondistended Extremities: No clubbing, edema, or cyanosis Neurological: Opens eyes to verbal stimuli Psychiatric: Unable to assess Skin: Dry, intact Ventilator Settings Ventilator Settings: Ventilator Settings, Last 8 Hours Ventilator Tidal Volume 500 Setting Ventilator Tidal Volume 500 Setting Ventilator Tidal Volume 500 Setting Ventilator Tidal Volume 500 Setting Ventilator Tidal Volume 500 Setting Ventilator Tidal Volume 500 Setting Ventilator Tidal Volume 500 Setting Ventilator Tidal Volume 500 Setting Ventilator Tidal Volume 500 Setting Ventilator Tidal Volume 500 Setting Ventilator Respiratory Rate 16 Setting Ventilator Respiratory Rate 16 Setting Ventilator Respiratory Rate 16 Setting Ventilator Respiratory Rate 16 Setting Ventilator Respiratory Rate 16 Setting Ventilator Respiratory Rate 16 Setting Ventilator Respiratory Rate 16 Setting Ventilator Respiratory Rate 16 Setting Ventilator Respiratory Rate 16 Setting Ventilator Respiratory Rate 16 Setting Actual Respiratory Rate 16 Actual Respiratory Rate 16 Actual Respiratory Rate 16 Actual Respiratory Rate 16 Actual Respiratory Rate 16 Actual Respiratory Rate 17 Actual Respiratory Rate 16 Actual Respiratory Rate 16 Actual Respiratory Rate 16 Positive End Expiratory 5 Pressure Positive End Expiratory 5 Pressure Positive End Expiratory 5 Pressure Positive End Expiratory 5 Pressure Positive End Expiratory 5 Pressure Positive End Expiratory 5 Pressure Positive End Expiratory 5 Pressure Positive End Expiratory 5 Pressure Positive End Expiratory 5 Pressure Positive End Expiratory 5 Pressure Peak Inspiratory Airway 37 Pressure Peak Inspiratory Airway 41 Pressure Peak Inspiratory Airway 41 Pressure Peak Inspiratory Airway 38 Pressure Peak Inspiratory Airway 39 Pressure Peak Inspiratory Airway 39 Pressure Peak Inspiratory Airway 39 Pressure Peak Inspiratory Airway 38 Pressure Peak Inspiratory Airway 38 Pressure Results - Laboratory Findings CBC and BMP: 07/23/18 13:30 07/23/18 03:28 ABG ABG pH 7.32 pH Units (7.32-7.45) 07/23/18 04:45 ABG pCO2 51 mmHg (35-45) H 07/23/18 04:45 ABG pO2 119 mmHg (85-104) H 07/23/18 04:45 ABG O2 Saturation 98 % (95-98) 07/23/18 04:45 PT/INR, D-dimer PT 17.8 Seconds (9.4-12.1) H 07/11/18 00:52 Abnormal lab findings: Abnormal lab results WBC 13.6 K/mcL (4.3-11.1) H 07/23/18 03:28 RBC 2.73 M/mcL (4.19-5.50) L 07/23/18 03:28 Hgb 7.4 g/dL (12.9-16.9) L 07/23/18 07:15 Hct 23.1 % (37.5-50.1) L 07/23/18 07:15 MCV 82.2 fL (83.0-100.0) L 07/12/18 01:15 MCH 26.7 pg (28.0-33.3) L 07/23/18 03:28 MCHC 30.9 g/dL (31.6-35.5) L 07/23/18 03:28 RDW 17.5 % (11.5-14.5) H 07/23/18 03:28 Plt Count 139 K/mcL (140-400) L 07/23/18 03:28 11.3 K/mcL (1.6-8.9) H 07/23/18 03:28 Nucleated RBCs/100 WBC 0.2 /100 WBC (0) H 07/21/18 03:50 Decreased (Normal) L 07/17/18 03:30 1+ (Not Present) A 07/13/18 04:20 Present (Not Present) A 07/13/18 04:20 PT 17.8 Seconds (9.4-12.1) H 07/11/18 00:52 APTT 37.2 Seconds (26.0-36.0) H 07/10/18 16:31 ABG pH 7.25 pH Units (7.32-7.45) L 07/22/18 04:54 ABG pCO2 51 mmHg (35-45) H 07/23/18 04:45 ABG pO2 119 mmHg (85-104) H 07/23/18 04:45 ABG Total CO2 28 mEq/L (20-26) H 07/23/18 04:45 ABG O2 Saturation 88 % (95-98) L 07/22/18 04:54 ABG Base Excess -3 mEq/L (-2 to 3) L 07/22/18 04:54 Sodium 135 mEq/L (136-145) L 07/22/18 03:45 Potassium 2.9 mEq/L (3.5-5.1) L 07/10/18 16:59 Chloride 96 mEq/L (98-107) L 07/21/18 03:50 Carbon Dioxide 21 mEq/L (23-29) L 07/16/18 02:20 BUN 48 mg/dL (6-20) H 07/23/18 03:28 4.73 mg/dL (0.70-1.30) H 07/23/18 03:28 Est GFR ( Amer) 17 (> 60) L 07/23/18 03:28 Est GFR (Non-Af Amer) 14 (> 60) L 07/23/18 03:28 5 (6-26) L 07/17/18 03:30 Glucose 110 mg/dL (70-105) H 07/22/18 03:45 POC Glucose 109 mg/dL (70-99) H 07/22/18 19:40 307 (280-300) H 07/22/18 03:45 Calcium 8.3 mg/dL (8.6-10.3) L 07/23/18 03:28 Phosphorus 5.5 mg/dL (2.7-4.5) H 07/15/18 06:28 Iron 16 mcg/dL (65-175) L 07/23/18 08:39 % Saturation 10 % (20-55) L 07/23/18 08:39 113 mg/dL (203-362) L 07/23/18 08:39 AST 41 Units/L (13-39) H 07/15/18 06:28 ALT 87 Units/L (7-52) H 07/10/18 16:59 127 Units/L (34-104) H 07/10/18 16:59 5.7 g/dL (6.4-8.9) L 07/16/18 02:20 2.8 g/dL (3.5-5.7) L 07/19/18 04:45 2.3 g/dL (2.4-3.5) L 07/16/18 02:20 1.0 (1.1-2.2) L 07/15/18 06:28 Amylase 17 Units/L (29-103) L 07/18/18 14:40 5 Units/L (11-82) L 07/18/18 14:40 11.90 ng/mL (0.00-0.15) H 07/18/18 14:40 Ur Specific [place] < 1.005 (1.010-1.025) L 07/15/18 10:25 Small (Negative) H 07/15/18 10:25 3-5 per hpf (0-3) H 07/15/18 10:25 Amorphous Sediment Moderate (Few) H 07/15/18 10:25 Protein/Creatinin Ratio 0.95 mg/mg (0.00-0.20) H 07/15/18 10:25 36 mg/dL (1-14) H 07/15/18 10:25 Pleural Appearance Bloody (Clear) A 07/13/18 13:40 Pleur Adenosine Deamin 20.8 U/L (0.0-9.4) H 07/13/18 13:40 Vancomycin Trough 23 mcg/mL (5-10) H 07/12/18 18:31 Positive ng/mL (Twjyul=495) H 07/11/18 16:00 U Benzodiazepines Scrn Positive ng/mL (Tkvkwb=802) H 07/11/18 16:00 Hep Bs Antibody < 3.10 mIU/mL (10.00-) L 07/16/18 09:22 Crossmatch See Detail 07/22/18 09:55 - Microbiology Findings Microbiology Findings: Microbiology, Last 48 Hours 07/13/18 13:40 Fungal Culture - Preliminary Pleural Fluid Radha albicans - Clinical Findings Intake & Output: Intake & Output 07/22/18 07/23/18 07/23/18 23:59 07:59 15:59 Intake Total 957 / 2229 96.9 / 122.3 25.4 / 122.3 Output Total 2455 / 2556 60 / 60 Balance -1498 / -327 36.9 / 62.3 25.4 / 62.3 Consult Discharge Plan - Plan Referrals: Kip Rojas DO [Primary Care Provider] - <Pascual Wilson - Last Filed: 07/27/18 08:26> Date of Encounter: 07/23/18 Assessment and Plan (1) Acute renal failure on dialysis Status: Acute (2) Acute respiratory failure Status: Acute Qualifiers: Respiratory failure complication: hypoxia and hypercapnia Qualified Code(s): J96.01 - Acute respiratory failure with hypoxia; J96.02 - Acute respiratory failure with hypercapnia (3) Pleural effusion Status: Acute Objective PUL Vital signs: Last Vital Signs Temp 99.9 F H 07/23/18 11:42 Pulse 93 07/23/18 17:00 Resp 18 07/23/18 17:00 BP 114/68 07/23/18 17:00 Pulse Ox 99 07/23/18 17:00 Ventilator Settings Ventilator Settings: Ventilator Settings, Last 8 Hours Ventilator Tidal Volume 500 Setting Ventilator Tidal Volume 500 Setting Ventilator Tidal Volume 500 Setting Ventilator Tidal Volume 500 Setting Ventilator Tidal Volume 500 Setting Ventilator Tidal Volume 500 Setting Ventilator Respiratory Rate 16 Setting Ventilator Respiratory Rate 16 Setting Ventilator Respiratory Rate 16 Setting Ventilator Respiratory Rate 16 Setting Ventilator Respiratory Rate 16 Setting Ventilator Respiratory Rate 16 Setting Actual Respiratory Rate 16 Actual Respiratory Rate 20 Actual Respiratory Rate 17 Actual Respiratory Rate 16 Actual Respiratory Rate 16 Actual Respiratory Rate 17 Positive End Expiratory 5 Pressure Positive End Expiratory 5 Pressure Positive End Expiratory 5 Pressure Positive End Expiratory 5 Pressure Positive End Expiratory 5 Pressure Positive End Expiratory 5 Pressure Peak Inspiratory Airway 36 Pressure Peak Inspiratory Airway 36 Pressure Peak Inspiratory Airway 35 Pressure Peak Inspiratory Airway 38 Pressure Peak Inspiratory Airway 37 Pressure Peak Inspiratory Airway 37 Pressure Results - Laboratory Findings CBC and BMP: 07/26/18 04:55 07/26/18 04:55 ABG ABG pH 7.32 pH Units (7.32-7.45) 07/23/18 04:45 ABG pCO2 51 mmHg (35-45) H 07/23/18 04:45 ABG pO2 119 mmHg (85-104) H 07/23/18 04:45 ABG O2 Saturation 98 % (95-98) 07/23/18 04:45 PT/INR, D-dimer PT 17.8 Seconds (9.4-12.1) H 07/11/18 00:52 Abnormal lab findings: Abnormal lab results WBC 13.6 K/mcL (4.3-11.1) H 07/23/18 03:28 RBC 2.73 M/mcL (4.19-5.50) L 07/23/18 03:28 Hgb 7.0 g/dL (12.9-16.9) L 07/23/18 13:30 Hct 22.7 % (37.5-50.1) L 07/23/18 13:30 MCV 82.2 fL (83.0-100.0) L 07/12/18 01:15 MCH 26.7 pg (28.0-33.3) L 07/23/18 03:28 MCHC 30.9 g/dL (31.6-35.5) L 07/23/18 03:28 RDW 17.5 % (11.5-14.5) H 07/23/18 03:28 Plt Count 139 K/mcL (140-400) L 07/23/18 03:28 11.3 K/mcL (1.6-8.9) H 07/23/18 03:28 Nucleated RBCs/100 WBC 0.2 /100 WBC (0) H 07/21/18 03:50 Decreased (Normal) L 07/17/18 03:30 1+ (Not Present) A 07/13/18 04:20 Present (Not Present) A 07/13/18 04:20 PT 17.8 Seconds (9.4-12.1) H 07/11/18 00:52 APTT 37.2 Seconds (26.0-36.0) H 07/10/18 16:31 ABG pH 7.25 pH Units (7.32-7.45) L 07/22/18 04:54 ABG pCO2 51 mmHg (35-45) H 07/23/18 04:45 ABG pO2 119 mmHg (85-104) H 07/23/18 04:45 ABG Total CO2 28 mEq/L (20-26) H 07/23/18 04:45 ABG O2 Saturation 88 % (95-98) L 07/22/18 04:54 ABG Base Excess -3 mEq/L (-2 to 3) L 07/22/18 04:54 Sodium 135 mEq/L (136-145) L 07/22/18 03:45 Potassium 2.9 mEq/L (3.5-5.1) L 07/10/18 16:59 Chloride 96 mEq/L (98-107) L 07/21/18 03:50 Carbon Dioxide 21 mEq/L (23-29) L 07/16/18 02:20 BUN 48 mg/dL (6-20) H 07/23/18 03:28 4.73 mg/dL (0.70-1.30) H 07/23/18 03:28 Est GFR ( Amer) 17 (> 60) L 07/23/18 03:28 Est GFR (Non-Af Amer) 14 (> 60) L 07/23/18 03:28 5 (6-26) L 07/17/18 03:30 Glucose 110 mg/dL (70-105) H 07/22/18 03:45 POC Glucose 109 mg/dL (70-99) H 07/22/18 19:40 307 (280-300) H 07/22/18 03:45 Calcium 8.3 mg/dL (8.6-10.3) L 07/23/18 03:28 Phosphorus 5.5 mg/dL (2.7-4.5) H 07/15/18 06:28 Iron 16 mcg/dL (65-175) L 07/23/18 08:39 % Saturation 10 % (20-55) L 07/23/18 08:39 113 mg/dL (203-362) L 07/23/18 08:39 AST 41 Units/L (13-39) H 07/15/18 06:28 ALT 87 Units/L (7-52) H 07/10/18 16:59 127 Units/L (34-104) H 07/10/18 16:59 5.7 g/dL (6.4-8.9) L 07/16/18 02:20 2.8 g/dL (3.5-5.7) L 07/19/18 04:45 2.3 g/dL (2.4-3.5) L 07/16/18 02:20 1.0 (1.1-2.2) L 07/15/18 06:28 Amylase 17 Units/L (29-103) L 07/18/18 14:40 5 Units/L (11-82) L 07/18/18 14:40 11.90 ng/mL (0.00-0.15) H 07/18/18 14:40 Ur Specific [place] < 1.005 (1.010-1.025) L 07/15/18 10:25 Small (Negative) H 07/15/18 10:25 3-5 per hpf (0-3) H 07/15/18 10:25 Amorphous Sediment Moderate (Few) H 07/15/18 10:25 Protein/Creatinin Ratio 0.95 mg/mg (0.00-0.20) H 07/15/18 10:25 36 mg/dL (1-14) H 07/15/18 10:25 Fluid Appearance Slightly Hazy (Clear) A 07/23/18 08:58 Pleural Appearance Bloody (Clear) A 07/13/18 13:40 Pleur Adenosine Deamin 20.8 U/L (0.0-9.4) H 07/13/18 13:40 Vancomycin Trough 23 mcg/mL (5-10) H 07/12/18 18:31 Positive ng/mL (Ldbdeu=211) H 07/11/18 16:00 U Benzodiazepines Scrn Positive ng/mL (Sdmiux=295) H 07/11/18 16:00 Hep Bs Antibody < 3.10 mIU/mL (10.00-) L 07/16/18 09:22 Crossmatch See Detail 07/22/18 09:55 - Microbiology Findings Microbiology Findings: Microbiology, Last 48 Hours 07/18/18 11:40 Blood Culture - Final Peripheral Venipuncture No growth. Final report. 07/18/18 11:49 Blood Culture - Final Peripheral Venipuncture No growth. Final report. 07/23/18 08:58 Respiratory Culture - Preliminary Left Lower Lobe Lung 07/13/18 13:40 Fungal Culture - Preliminary Pleural Fluid Radha albicans - Clinical Findings Intake & Output: Intake & Output 07/23/18 07/23/18 07/23/18 07:59 15:59 23:59 Intake Total 96.9 / 122.3 25.4 / 122.3 Output Total 60 / 70 Balance 36.9 / 52.3 15.4 / 52.3 - Attending Attestation I examined this patient and my medical decision-making was reviewed with the Resident Physician. I agree with the documented findings, disposition and treatment plan as described except to the extent set forth below. Patient seen and examined. Labs, radiology, chart personally reviewed. 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 Pulmonary: Acceptable oxygenation and ventilation, however patient failed his spontaneous breathing trial. Thoracic surgeon is aware of CT chest findings. No interventions. I have talked to the mother at the bedside and she understand that he is hopefully will feel better tomorrow and will try another SBT. Reviewed his ABG which is acceptable and checked his vent and continue to decrease FIO2 as tolerated. Cardiovascular: stable GI: Nutrition per dietary and GI prophylaxis per routine Heme: DVT prophylaxis per routine. Patient continued to be anemic and source of blood loss is still unknown. 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 I discussed this with the mother at the bedside. ID: Continue antibiotics and plan to de-escalation and still covered with broad spectrum antibiotic. Renal; urine out put and renal function reviewed Endorcine: blood glucose is monitored Lines: all lines checked and no evidence of infections Skin: skin care to prevent pressure ulcers per nursing routine care Dispo: ICU Code: Full. Prognosis.guarded to fair I spent 35 min of Critical Care time with this patient. It involved decision making of high complexity to assess, manipulate, and support vital organ system failure and/or to prevent further life threatening deterioration of the patient's condition. The time involved in the performance of separately reportable procedures was not counted toward critical care time.
--- NOTE | 2018-07-23 11:20 | Nephrology Progress Note ---
Date of Encounter: 07/23/18 Time of Encounter: 08:40 - Assessment and Plan (1) Acute kidney injury Current Visit: Yes Status: Acute Status post hemodialysis yesterday, and he has less edema on exam today. His blood pressures are still running relatively low, and so I will continue intermittent dialysis at this point every other day. The next tentative dialysis will be planned for tomorrow (). I coordinated care with the ICU resident. Acute kidney injury s/p HD x3 (Saturday//Saturday). ANCA and RF are negative. Likely he has ATN, but since he does have some subnephrotic proteinuria, I will also work up for any potential GN: check WING, complements, PLA2R and will update a UA if possible. Because he is not showing signs of renal recovery thus far, he will very likely need a permacath and outpatient hemodialysis arranged during this admission. He remains too ill for a Permacath for now. To help support the odds of any renal recovery, I recommend following a renal protective strategy as able including strict I's and O's, daily weights, avoidance of nephrotoxic agents and renal diet, and renal dosing. Thank you (2) Empyema Current Visit: Yes Status: Acute S/p thoracotomy (3) Acute blood loss as cause of postoperative anemia Current Visit: Yes Status: Acute (4) Acute respiratory failure Current Visit: Yes Status: Acute Qualifiers: Respiratory failure complication: hypoxia and hypercapnia Qualified Code(s): J96.01 - Acute respiratory failure with hypoxia; J96.02 - Acute respiratory failure with hypercapnia (5) Proteinuria Current Visit: Yes Status: Acute see above Qualifiers: Proteinuria type: unspecified Qualified Code(s): R80.9 - Proteinuria, unspecified Subjective Principal diagnosis: Pleural Effusion Interval history: Patient was seen and examined earlier today in the ICU. He remains intubated, and so the subjective portion of this note is limited. He underwent dialysis yesterday as well as bronchoscopy earlier today. Discussed with the ICU team Objective - Vital Signs Vital signs: Vital Signs Temp Pulse Resp BP Pulse Ox 07/23/18 09:50 17 96/54 99 07/23/18 09:00 87 16 96/54 98 07/23/18 08:00 87 16 101/54 98 07/23/18 07:33 16 100/56 98 07/23/18 07:00 89 16 106/56 97 07/23/18 06:00 84 16 96/54 99 07/23/18 05:22 16 99/57 99 07/23/18 05:00 85 17 91/55 99 07/23/18 04:00 99.1 F 85 16 97/57 99 07/23/18 03:30 84 07/23/18 03:17 16 90/51 99 07/23/18 03:00 81 16 90/51 99 07/23/18 02:00 83 16 91/50 99 07/23/18 01:12 16 99/59 98 07/23/18 01:00 86 17 99/59 99 07/23/18 00:10 83 07/23/18 00:00 99.2 F 83 16 102/60 99 07/22/18 23:20 16 104/60 99 07/22/18 23:00 85 16 104/60 99 07/22/18 22:00 85 16 109/64 99 07/22/18 21:17 16 113/64 99 07/22/18 21:00 86 16 109/65 99 07/22/18 20:30 85 07/22/18 20:00 85 16 122/75 98 07/22/18 19:49 16 120/73 98 07/22/18 19:32 98.8 F 07/22/18 19:00 77 16 120/72 100 07/22/18 18:00 79 16 120/72 100 07/22/18 17:15 16 112/68 100 07/22/18 17:14 97.2 F L 16 119/69 07/22/18 17:00 69 16 119/69 100 07/22/18 16:55 113/68 07/22/18 16:40 109/68 07/22/18 16:25 117/68 07/22/18 16:10 116/68 07/22/18 16:00 77 16 117/67 99 07/22/18 15:55 123/68 07/22/18 15:51 97.6 F 07/22/18 15:45 16 123/68 99 07/22/18 15:40 121/68 07/22/18 15:25 112/65 07/22/18 15:10 114/70 07/22/18 15:00 67 16 115/74 100 07/22/18 14:55 118/71 07/22/18 14:45 97.6 F 69 16 108/66 100 07/22/18 14:40 109/69 07/22/18 14:30 97.8 F 69 16 107/64 100 07/22/18 14:25 106/65 07/22/18 14:15 98 F 69 16 106/66 100 07/22/18 14:10 105/63 07/22/18 14:00 70 16 106/61 100 07/22/18 13:55 105/60 07/22/18 13:40 106/63 07/22/18 13:30 16 106/63 100 07/22/18 13:25 97.8 F 16 104/63 07/22/18 13:00 80 16 89/51 99 07/22/18 12:00 83 16 84/38 98 Intake and Output 07/22/18 07/23/18 07/23/18 23:59 07:59 15:59 Intake Total 957 / 2229 96.9 / 122.3 25.4 / 122.3 Output Total 2455 / 2556 60 / 60 Balance -1498 / -327 36.9 / 62.3 25.4 / 62.3 Intake: IV Fluids 957 / 1157 96.9 / 122.3 25.4 / 122.3 FentaNYL (PF) 1,000 MCG In 0.9 100 / 100 46.9 / 72.3 25.4 / 72.3 % Sodium Chloride 80 ML @ 50 MCG/HR 5 mls/hr IVC CONT NEFTALI Rx #:[id number] Levophed 4 MG In Dextrose 5% 107 / 107 250 ML @ 5 MCG/MIN 19.05 mls/hr IVC CONT NEFTALI Rx#:[id number] Maxipime 1,000 MG In 0.9 % 100 / 100 Sodium Chloride (Mini-Bag +) 100 ML @ 200 mls/hr IVPB DAILY@ 1600 NEFTALI Rx#:[id number] Cleocin Premix 900 MG/50 ML 900 50 / 150 50 / 50 mg In 50 ml @ 50 mls/hr IVPB Q8HR NEFTALI Rx#:[id number] Diflucan Premix 200 MG/100 ML 100 / 100 200 mg In 100 ml @ 100 mls/hr IVPB DAILY@1700 NEFTALI Rx#: [id number] Vancocin 1,750 MG In 0.9 % 500 / 500 Sodium Chloride 500 ML @ 333.3 mls/hr IVPB ONCE ONE Rx#: [id number] Output: Total Dialysis (HD) Output 2450 / 2450 Catheter 0 40 25 / Wound Drainage 35 / 35 Left Chest #1 20 Left Chest #2 Other: Blood Glucose* 109 Hemodialysis Net Fluid Removed 1500 (mL) - General Appearance Exam: General appearance: Present: well-developed, sedated on ventilator, intubated, fatigue, frail EENT: Present: ATNC, PERRL Neck: Present: no JVD, supple Respiratory: Present: scattered rhonchi on anterior auscultation noted Cardiology: Present: trace ankle non-tense pedal edema bilaterally, with puffy hands, normal S1, normal S2 Dialysis Vascular Access: Left IJ temporary HD catheter without erythema at the exit site Integumentary: Present: warm and dry Neurologic: Present: no focal deficit, but the neuro exam was limited due to sedation Musculoskeletal: Present: no erythema, no cyanosis - Lab 07/23/18 07:15 07/23/18 03:28 Most recent lab results 07/23/18 07/23/18 03:28 04:45 ABG pH 7.32 ABG pCO2 51 H ABG pO2 119 H ABG HCO3 26 ABG O2 Saturation 98 Calcium 8.3 L Consult Discharge Plan - Plan Referrals: Kip Rojas DO [Primary Care Provider] -
[2018-07-23 11:25] LABS: Appearance of Body Fluid Slightly Hazy (Clear); Volume of Body Fluid 7 mL
[2018-07-23 13:58] LABS: Hematocrit 22.7 % (37.5-50.1)
[2018-07-23 14:38] LABS: Complement C3 134 mg/dL (87-200)
[2018-07-23] MEDS: Cefepime HCl 1,000 MG in 0.9 % Sodium Chloride Mini Bag 100 ML IVPB SCH (15:49)
[2018-07-23] MEDS: Fluconazole 200 MG/100 ML 200 MG/100 ML BAG IVPB SCH (15:51)
[2018-07-23] MEDS ORDERED: 0.9 % Sodium Chloride 250 ML ONE ×2 (17:46→20:17)
[2018-07-23] MEDS: Lurasidone 20 MG TABLET PO SCH (20:07)
[2018-07-23] MEDS: Norepinephrine 4 MG in D5% in Water 250 ML IVC SCH (20:07)
[2018-07-23] MEDS: Pregabalin 75 MG CAPSULE GTUBE SCH (20:08)
[2018-07-24] MEDS: FentaNYL (PF) 1,000 MCG in 0.9 % Sodium Chloride 80 ML IVC SCH ×2 (01:27→16:30)
[2018-07-24 01:51] LABS: Hematocrit 26.5 % (37.5-50.1); Hemoglobin 8.4 g/dL (12.9-16.9)
[2018-07-24] MEDS: Artificial Tears SOLN 15 ML BOTTLE BOTH EYES SCH ×6 (03:48→23:04)
[2018-07-24 03:53] LABS: Hematocrit 27.7 % (37.5-50.1); Hemoglobin 8.9 g/dL (12.9-16.9); Mean Corpuscular HGB Conc 32.1 g/dL (31.6-35.5); Mean Corpuscular Hemoglobin 27.5 pg (28.0-33.3); Mean Corpuscular Volume 85.5 fL (83.0-100.0); Platelet Count 160 K/mcL (140-400); Red Blood Count 3.24 M/mcL (4.19-5.50); Red Cell Distribution Width 17.2 % (11.5-14.5); White Blood Count 15.8 K/mcL (4.3-11.1)
[2018-07-24 04:10] LABS: Calcium 8.5 mg/dL (8.6-10.3); Potassium 4.3 mEq/L (3.5-5.1)
[2018-07-24 04:14] LABS: ABG Base Excess -3 mEq/L (-2 to 3); ABG HCO3 24 mEq/L (21-27); ABG Oxygen Saturation 96 % (95-98); ABG PCO2 47 mmHg (35-45); ABG PH 7.31 pH Units (7.32-7.45); ABG PO2 88 mmHg (85-104); ABG TCO2 25 mEq/L (20-26); Blood Gas Modality ASSIST CONTROL; Blood Gas PEEP 5 cm H2O; Blood Gas VT 500 cc
[2018-07-24 05:54] LABS: Basophils # 0.1 K/mcL (0.0-0.2); Basophils % 0.4 %; Eosinophils # 0.2 K/mcL (0.0-0.6); Eosinophils % 1.3 %; Immature Granulocytes % 3.9 % (0-4); Lymphocytes # 1.2 K/mcL (0.6-4.6); Lymphocytes % 7.4 %; Monocytes # 0.9 K/mcL (0.0-1.3); Monocytes % 5.4 %; Neutrophils # 12.7 K/mcL (1.6-8.9); Nucleated Red Blood Cells 0.1 /100 WBC (0); Segmented Neutrophils % 81.6 %
[2018-07-24] MEDS ORDERED: 0.9 % Sodium Chloride 250 ML IVC PRN (07:26)
[2018-07-24] MEDS ORDERED: 0.9 % Sodium Chloride 1,000 ML PRIME SCH (07:30)
[2018-07-24] MEDS: Chlorhexidine Rinse 15 ML MOUTHWASH MM SCH ×2 (07:35→20:52)
[2018-07-24] MEDS: Pantoprazole 40 MG VIAL IVP SCH (07:35)
[2018-07-24] MEDS: Neosporin OINT 15 GM TUBE TP SCH ×2 (07:36→20:53)
--- NOTE | 2018-07-24 07:39 | Pulmonology Progress Note ---
<John Paul Garner - Last Filed: 07/24/18 17:32> Date of Encounter: 07/24/18 Time of Encounter: 07:39 Assessment and Plan (1) Acute respiratory failure Current Visit: Yes Status: Acute - Patient developed worsening respiratory status on 07/16/18 requiring intubation - Etiology is unknown at this time; possibly secondary to empyema - Currently intubated and sedated on propofol and fentanyl - Bronchoscopy was performed on 07/23/18, which showed secretions without any other significant findings Plan: - Continue antibiotic therapy per ID with IV Cefepime and Fluconazole. - Continue dialysis per nephrology - Duonebs PRN are ordered Qualifiers: Respiratory failure complication: hypoxia Qualified Code(s): J96.01 - Acute respiratory failure with hypoxia (2) Empyema of left pleural space Current Visit: Yes Status: Acute - Patient was found to have a pleural effusion on CT of the chest on 07/17 with gas collection in the left hemothorax - Cardiothoracic surgery was consulted; patient underwent a left thoracotomy with decortication on 07/13 - Culture of pleural fluid from 07/13/18 grew Radha albicans - Chest tube removed on 07/18/18 - CT abd/pelv demonstrates no changes from previous study; loculated pleural fluid collection still present in L pleural space Plan: - Continue antibiotic therapy as noted above - Cardiothoracic surgery following with no new recommendations at this time (3) Acute renal failure on dialysis Current Visit: Yes Status: Acute - On 07/14, patient developed acute renal failure with an elevated creatinine at 3.33 - Nephrology was consulted; patient underwent multiple treatments of hemodialysis - Etiology suspected to be ATN - Creatinine increased today at 6.45 Plan: - Nephrology is still following; planning for HD today (4) Anemia Current Visit: Yes Status: Acute - Patient has had persistently low hemoglobin the last 24 hours, ranging from 7- 8 - No bleeding source has been identified at this time - He has been transfused with a total of 7 units of packed red blood cells - A repeat CT scan was performed to rule out enlarging hemothorax; Per CT report, no significant change in amount of hemothorax since prior study - GI is following; EGD to rule out GI bleed Plan: - It was reported that GI would be by to evaluate patient, however by 16:00 no one had been by from the GI team. On-call for GI was contacted and reported that Dr Andrea would be by in AM and EGD was postponed once more until 07/26/18. - Venofer transfusion initiated today as iron panel revealed iron deficiency Qualifiers: Anemia type: iron deficiency Iron deficiency anemia type: unspecified iron deficiency Qualified Code(s): D50.9 - Iron deficiency anemia, unspecified (5) DVT prophylaxis Current Visit: Yes Status: Acute Chemical prophylaxis held at this time with anemia Mechanical prophylaxis in place Daily IV Protonix for GI prophylaxis Subjective Principal diagnosis: Pleural Effusion Interval history: Patient seen and examined at bedside. Patient is intubated and resting comfortably on minimal sedation with fentanyl. He is arousable and able to follow commands. Objective PUL Vital signs: Last Vital Signs Temp 99.8 F H 07/24/18 03:34 Pulse 90 07/24/18 07:00 Resp 23 07/24/18 07:04 BP 149/84 07/24/18 07:04 Pulse Ox 89 07/24/18 07:04 General appearance: no acute distress, asleep Eyes: nonicteric ENT: oropharynx moist Neck: supple Effort: normal Auscultation: bilateral: clear Percussion: bilateral: not dull Cardiovascular: regular rate and rhythm Gastrointestinal: soft, non-tender, non-distended Integumentary: normal Extremities: no cyanosis, no edema, no clubbing Musculoskeletal: no deformities pupils equal and round, unable to assess due to mental status Ventilator Settings Ventilator Settings: Ventilator Settings, Last 8 Hours Ventilator Tidal Volume 500 Setting Ventilator Tidal Volume 500 Setting Ventilator Tidal Volume 500 Setting Ventilator Tidal Volume 500 Setting Ventilator Tidal Volume 500 Setting Ventilator Tidal Volume 500 Setting Ventilator Tidal Volume 500 Setting Ventilator Tidal Volume 500 Setting Ventilator Tidal Volume 500 Setting Ventilator Tidal Volume 500 Setting Ventilator Tidal Volume 500 Setting Ventilator Respiratory Rate 16 Setting Ventilator Respiratory Rate 16 Setting Ventilator Respiratory Rate 16 Setting Ventilator Respiratory Rate 12 Setting Ventilator Respiratory Rate 16 Setting Ventilator Respiratory Rate 12 Setting Ventilator Respiratory Rate 12 Setting Ventilator Respiratory Rate 12 Setting Ventilator Respiratory Rate 16 Setting Ventilator Respiratory Rate 12 Setting Ventilator Respiratory Rate 16 Setting Actual Respiratory Rate 23 Actual Respiratory Rate 23 Actual Respiratory Rate 27 Actual Respiratory Rate 16 Actual Respiratory Rate 19 Actual Respiratory Rate 17 Actual Respiratory Rate 21 Actual Respiratory Rate 19 Actual Respiratory Rate 20 Actual Respiratory Rate 24 Actual Respiratory Rate 17 Positive End Expiratory 5 Pressure Positive End Expiratory 5 Pressure Positive End Expiratory 5 Pressure Positive End Expiratory 5 Pressure Positive End Expiratory 5 Pressure Positive End Expiratory 5 Pressure Positive End Expiratory 5 Pressure Positive End Expiratory 5 Pressure Positive End Expiratory 5 Pressure Positive End Expiratory 5 Pressure Positive End Expiratory 5 Pressure Positive End Expiratory 5 Pressure Peak Inspiratory Airway 32 Pressure Peak Inspiratory Airway 46 Pressure Peak Inspiratory Airway 17 Pressure Peak Inspiratory Airway 36 Pressure Peak Inspiratory Airway 36 Pressure Peak Inspiratory Airway 36 Pressure Peak Inspiratory Airway 39 Pressure Peak Inspiratory Airway 38 Pressure Peak Inspiratory Airway 37 Pressure Peak Inspiratory Airway 34 Pressure Peak Inspiratory Airway 36 Pressure Results - Laboratory Findings CBC and BMP: 07/24/18 03:40 07/24/18 03:40 ABG ABG pH 7.31 pH Units (7.32-7.45) L 07/24/18 04:10 ABG pCO2 47 mmHg (35-45) H 07/24/18 04:10 ABG pO2 88 mmHg (85-104) 07/24/18 04:10 ABG O2 Saturation 96 % (95-98) 07/24/18 04:10 PT/INR, D-dimer PT 17.8 Seconds (9.4-12.1) H 07/11/18 00:52 Abnormal lab findings: Abnormal lab results WBC 15.8 K/mcL (4.3-11.1) H 07/24/18 03:40 RBC 3.24 M/mcL (4.19-5.50) L 07/24/18 03:40 Hgb 8.9 g/dL (12.9-16.9) L 07/24/18 03:40 Hct 27.7 % (37.5-50.1) L 07/24/18 03:40 MCV 82.2 fL (83.0-100.0) L 07/12/18 01:15 MCH 27.5 pg (28.0-33.3) L 07/24/18 03:40 MCHC 30.9 g/dL (31.6-35.5) L 07/23/18 03:28 RDW 17.2 % (11.5-14.5) H 07/24/18 03:40 Plt Count 139 K/mcL (140-400) L 07/23/18 03:28 12.7 K/mcL (1.6-8.9) H 07/24/18 03:40 Nucleated RBCs/100 WBC 0.1 /100 WBC (0) H 07/24/18 03:40 Decreased (Normal) L 07/17/18 03:30 1+ (Not Present) A 07/13/18 04:20 Present (Not Present) A 07/13/18 04:20 PT 17.8 Seconds (9.4-12.1) H 07/11/18 00:52 APTT 37.2 Seconds (26.0-36.0) H 07/10/18 16:31 ABG pH 7.31 pH Units (7.32-7.45) L 07/24/18 04:10 ABG pCO2 47 mmHg (35-45) H 07/24/18 04:10 ABG pO2 119 mmHg (85-104) H 07/23/18 04:45 ABG Total CO2 28 mEq/L (20-26) H 07/23/18 04:45 ABG O2 Saturation 88 % (95-98) L 07/22/18 04:54 ABG Base Excess -3 mEq/L (-2 to 3) L 07/24/18 04:10 Sodium 135 mEq/L (136-145) L 07/22/18 03:45 Potassium 2.9 mEq/L (3.5-5.1) L 07/10/18 16:59 Chloride 96 mEq/L (98-107) L 07/21/18 03:50 Carbon Dioxide 21 mEq/L (23-29) L 07/16/18 02:20 BUN 65 mg/dL (6-20) H 07/24/18 03:40 6.45 mg/dL (0.70-1.30) H 07/24/18 03:40 Est GFR ( Amer) 12 (> 60) L 07/24/18 03:40 Est GFR (Non-Af Amer) 10 (> 60) L 07/24/18 03:40 5 (6-26) L 07/17/18 03:30 Glucose 110 mg/dL (70-105) H 07/22/18 03:45 POC Glucose 109 mg/dL (70-99) H 07/22/18 19:40 302 (280-300) H 07/24/18 03:40 Calcium 8.5 mg/dL (8.6-10.3) L 07/24/18 03:40 Phosphorus 5.5 mg/dL (2.7-4.5) H 07/15/18 06:28 Iron 16 mcg/dL (65-175) L 07/23/18 08:39 % Saturation 10 % (20-55) L 07/23/18 08:39 113 mg/dL (203-362) L 07/23/18 08:39 AST 41 Units/L (13-39) H 07/15/18 06:28 ALT 87 Units/L (7-52) H 07/10/18 16:59 127 Units/L (34-104) H 07/10/18 16:59 5.7 g/dL (6.4-8.9) L 07/16/18 02:20 2.8 g/dL (3.5-5.7) L 07/19/18 04:45 2.3 g/dL (2.4-3.5) L 07/16/18 02:20 1.0 (1.1-2.2) L 07/15/18 06:28 Amylase 17 Units/L (29-103) L 07/18/18 14:40 5 Units/L (11-82) L 07/18/18 14:40 9.80 ng/mL (0.00-0.15) H 07/24/18 05:48 Ur Specific [place] < 1.005 (1.010-1.025) L 07/15/18 10:25 Small (Negative) H 07/15/18 10:25 3-5 per hpf (0-3) H 07/15/18 10:25 Amorphous Sediment Moderate (Few) H 07/15/18 10:25 Protein/Creatinin Ratio 0.95 mg/mg (0.00-0.20) H 07/15/18 10:25 36 mg/dL (1-14) H 07/15/18 10:25 Fluid Appearance Slightly Hazy (Clear) A 07/23/18 08:58 Pleural Appearance Bloody (Clear) A 07/13/18 13:40 Pleur Adenosine Deamin 20.8 U/L (0.0-9.4) H 07/13/18 13:40 Vancomycin Trough 23 mcg/mL (5-10) H 07/12/18 18:31 Positive ng/mL (Kwrwtk=626) H 07/11/18 16:00 U Benzodiazepines Scrn Positive ng/mL (Fzgkax=619) H 07/11/18 16:00 Hep Bs Antibody < 3.10 mIU/mL (10.00-) L 07/16/18 09:22 Crossmatch See Detail 07/22/18 09:55 - Microbiology Findings Microbiology Findings: Microbiology, Last 48 Hours 07/18/18 11:40 Blood Culture - Final Peripheral Venipuncture No growth. Final report. 07/18/18 11:49 Blood Culture - Final Peripheral Venipuncture No growth. Final report. 07/23/18 08:58 Respiratory Culture - Preliminary Left Lower Lobe Lung 07/13/18 13:40 Fungal Culture - Preliminary Pleural Fluid Radha albicans - Diagnostic Findings Additional studies: EXAMINATION: RETROPERITONEAL ULTRASOUND OF THE KIDNEYS AND URINARY BLADDER 07/23/2018 COMPARISON: CT abdomen 07/22/2018 HISTORY: ORDERING SYSTEM PROVIDED HISTORY: HA FINDINGS: Kidneys: The right kidney measures 11.9 cm in length and the left kidney measures 12.3 cm in length. There is a possible small amount of left perinephric fluid. Kidneys demonstrate normal cortical echogenicity. No evidence of hydronephrosis or intrarenal stones. Bladder: The urinary bladder is collapsed and therefore limited in evaluation. Smith catheter is present. US/US retroperitoneal comp IMPRESSION: Possible small amount of left perinephric fluid. The kidneys are otherwise unremarkable. Collapsed urinary bladder. D/ / 07/23/2018 18:56:16 Yuriy Gaffney MD / wilma Interpreting Provider: Yuriy Gaffney MD - Clinical Findings Intake & Output: Intake & Output 07/23/18 07/23/18 07/24/18 15:59 23:59 07:59 Intake Total 25.4 / 970.0 847.7 / 970.0 250 / 250 Output Total 10 135 65 / 135 50 / 50 Balance 15.4 / 835.0 782.7 / 835.0 200 / 200 Weight 115.1 kg Consult Discharge Plan - Plan Referrals: Kip Rojas DO [Primary Care Provider] - <Pascual Wilson - Last Filed: 07/24/18 22:37> Date of Encounter: 07/24/18 Assessment and Plan (1) Acute renal failure on dialysis Current Visit: Yes Status: Acute (2) Acute respiratory failure Current Visit: Yes Status: Acute Qualifiers: Respiratory failure complication: hypoxia and hypercapnia Qualified Code(s): J96.01 - Acute respiratory failure with hypoxia; J96.02 - Acute respiratory failure with hypercapnia (3) Pleural effusion Current Visit: Yes Status: Acute Objective PUL Vital signs: Last Vital Signs Temp 98.3 F 07/24/18 16:41 Pulse 89 07/24/18 17:00 Resp 17 07/24/18 17:16 BP 126/72 07/24/18 17:16 Pulse Ox 97 07/24/18 17:16 Ventilator Settings Ventilator Settings: Ventilator Settings, Last 8 Hours Ventilator Tidal Volume 500 Setting Ventilator Tidal Volume 500 Setting Ventilator Tidal Volume 500 Setting Ventilator Tidal Volume 500 Setting Ventilator Tidal Volume 500 Setting Ventilator Tidal Volume 500 Setting Ventilator Tidal Volume 500 Setting Ventilator Tidal Volume 500 Setting Ventilator Tidal Volume 500 Setting Ventilator Tidal Volume 500 Setting Ventilator Respiratory Rate 16 Setting Ventilator Respiratory Rate 16 Setting Ventilator Respiratory Rate 16 Setting Ventilator Respiratory Rate 16 Setting Ventilator Respiratory Rate 16 Setting Ventilator Respiratory Rate 16 Setting Ventilator Respiratory Rate 16 Setting Ventilator Respiratory Rate 16 Setting Ventilator Respiratory Rate 16 Setting Ventilator Respiratory Rate 16 Setting Actual Respiratory Rate 17 Actual Respiratory Rate 19 Actual Respiratory Rate 17 Actual Respiratory Rate 17 Actual Respiratory Rate 17 Actual Respiratory Rate 18 Actual Respiratory Rate 18 Actual Respiratory Rate 23 Actual Respiratory Rate 22 Actual Respiratory Rate 18 Positive End Expiratory 5 Pressure Positive End Expiratory 5 Pressure Positive End Expiratory 5 Pressure Positive End Expiratory 5 Pressure Positive End Expiratory 5 Pressure Positive End Expiratory 5 Pressure Positive End Expiratory 5 Pressure Positive End Expiratory 5 Pressure Positive End Expiratory 5 Pressure Positive End Expiratory 5 Pressure Peak Inspiratory Airway 42 Pressure Peak Inspiratory Airway 41 Pressure Peak Inspiratory Airway 42 Pressure Peak Inspiratory Airway 47 Pressure Peak Inspiratory Airway 50 Pressure Peak Inspiratory Airway 10 Pressure Peak Inspiratory Airway 38 Pressure Peak Inspiratory Airway 38 Pressure Peak Inspiratory Airway 36 Pressure Results - Laboratory Findings CBC and BMP: 07/24/18 03:40 07/24/18 03:40 ABG ABG pH 7.31 pH Units (7.32-7.45) L 07/24/18 04:10 ABG pCO2 47 mmHg (35-45) H 07/24/18 04:10 ABG pO2 88 mmHg (85-104) 07/24/18 04:10 ABG O2 Saturation 96 % (95-98) 07/24/18 04:10 PT/INR, D-dimer PT 17.8 Seconds (9.4-12.1) H 07/11/18 00:52 Abnormal lab findings: Abnormal lab results WBC 15.8 K/mcL (4.3-11.1) H 07/24/18 03:40 RBC 3.24 M/mcL (4.19-5.50) L 07/24/18 03:40 Hgb 8.9 g/dL (12.9-16.9) L 07/24/18 03:40 Hct 27.7 % (37.5-50.1) L 07/24/18 03:40 MCV 82.2 fL (83.0-100.0) L 07/12/18 01:15 MCH 27.5 pg (28.0-33.3) L 07/24/18 03:40 MCHC 30.9 g/dL (31.6-35.5) L 07/23/18 03:28 RDW 17.2 % (11.5-14.5) H 07/24/18 03:40 Plt Count 139 K/mcL (140-400) L 07/23/18 03:28 12.7 K/mcL (1.6-8.9) H 07/24/18 03:40 Nucleated RBCs/100 WBC 0.1 /100 WBC (0) H 07/24/18 03:40 Decreased (Normal) L 07/17/18 03:30 1+ (Not Present) A 07/13/18 04:20 Present (Not Present) A 07/13/18 04:20 PT 17.8 Seconds (9.4-12.1) H 07/11/18 00:52 APTT 37.2 Seconds (26.0-36.0) H 07/10/18 16:31 ABG pH 7.31 pH Units (7.32-7.45) L 07/24/18 04:10 ABG pCO2 47 mmHg (35-45) H 07/24/18 04:10 ABG pO2 119 mmHg (85-104) H 07/23/18 04:45 ABG Total CO2 28 mEq/L (20-26) H 07/23/18 04:45 ABG O2 Saturation 88 % (95-98) L 07/22/18 04:54 ABG Base Excess -3 mEq/L (-2 to 3) L 07/24/18 04:10 Sodium 135 mEq/L (136-145) L 07/22/18 03:45 Potassium 2.9 mEq/L (3.5-5.1) L 07/10/18 16:59 Chloride 96 mEq/L (98-107) L 07/21/18 03:50 Carbon Dioxide 21 mEq/L (23-29) L 07/16/18 02:20 BUN 65 mg/dL (6-20) H 07/24/18 03:40 6.45 mg/dL (0.70-1.30) H 07/24/18 03:40 Est GFR ( Amer) 12 (> 60) L 07/24/18 03:40 Est GFR (Non-Af Amer) 10 (> 60) L 07/24/18 03:40 5 (6-26) L 07/17/18 03:30 Glucose 110 mg/dL (70-105) H 07/22/18 03:45 POC Glucose 109 mg/dL (70-99) H 07/22/18 19:40 302 (280-300) H 07/24/18 03:40 Calcium 8.5 mg/dL (8.6-10.3) L 07/24/18 03:40 Phosphorus 5.5 mg/dL (2.7-4.5) H 07/15/18 06:28 Iron 16 mcg/dL (65-175) L 07/23/18 08:39 % Saturation 10 % (20-55) L 07/23/18 08:39 113 mg/dL (203-362) L 07/23/18 08:39 0.4 mg/dL (0.0-0.2) H 07/24/18 12:50 AST 41 Units/L (13-39) H 07/15/18 06:28 ALT 87 Units/L (7-52) H 07/10/18 16:59 109 Units/L (34-104) H 07/24/18 12:50 6.0 g/dL (6.4-8.9) L 07/24/18 12:50 2.9 g/dL (3.5-5.7) L 07/24/18 12:50 2.3 g/dL (2.4-3.5) L 07/16/18 02:20 0.9 (1.1-2.2) L 07/24/18 12:50 Amylase 17 Units/L (29-103) L 07/18/18 14:40 5 Units/L (11-82) L 07/18/18 14:40 9.80 ng/mL (0.00-0.15) H 07/24/18 05:48 Ur Specific [place] < 1.005 (1.010-1.025) L 07/15/18 10:25 Small (Negative) H 07/15/18 10:25 3-5 per hpf (0-3) H 07/15/18 10:25 Amorphous Sediment Moderate (Few) H 07/15/18 10:25 Protein/Creatinin Ratio 0.95 mg/mg (0.00-0.20) H 07/15/18 10:25 36 mg/dL (1-14) H 07/15/18 10:25 Fluid Appearance Slightly Hazy (Clear) A 07/23/18 08:58 Pleural Appearance Bloody (Clear) A 07/13/18 13:40 Pleur Adenosine Deamin 20.8 U/L (0.0-9.4) H 07/13/18 13:40 Vancomycin Trough 23 mcg/mL (5-10) H 07/12/18 18:31 Positive ng/mL (Zxyxsg=621) H 07/11/18 16:00 U Benzodiazepines Scrn Positive ng/mL (Txkfxp=309) H 07/11/18 16:00 Hep Bs Antibody < 3.10 mIU/mL (10.00-) L 07/16/18 09:22 Crossmatch See Detail 07/22/18 09:55 - Microbiology Findings Microbiology Findings: Microbiology, Last 48 Hours 07/24/18 13:06 Blood Culture - Preliminary Central Venous Catheter Culture is incubating and being continuously m onitored for growth. Final report to follow. 07/24/18 13:06 Blood Culture - Preliminary Peripheral Venipuncture Culture is incubating and being continuously monitored for growth. Final report to follow. 07/24/18 13:06 Blood Culture - Preliminary Peripheral Venipuncture Culture is incubating and being continuously monitored for growth. Final report to follow. 07/23/18 08:58 Acid Fast Stain - Final Left Lower Lobe Lung 05/31/19 14:40 Cryptococcal Antigen - Final Serum 07/23/18 08:58 Respiratory Culture - Preliminary Left Lower Lobe Lung 07/18/18 11:40 Blood Culture - Final Peripheral Venipuncture No growth. Final report. 07/18/18 11:49 Blood Culture - Final Peripheral Venipuncture No growth. Final report. 07/13/18 13:40 Fungal Culture - Preliminary Pleural Fluid Radha albicans - Clinical Findings Intake & Output: Intake & Output 07/24/18 07/24/18 07/24/18 07:59 15:59 23:59 Intake Total 314 / 1325 608 / 1325 403 / 1325 Output Total 220 / 2422 2175 / 2422 27 / 2422 Balance 94 / -1097 -1567 / -1097 376 / -1097 - Attending Attestation I examined this patient and my medical decision-making was reviewed with the Resident Physician. I agree with the documented findings, disposition and treatment plan as described except to the extent set forth below. Patient seen and examined. Labs, radiology, chart personally reviewed. Agree with resident's history and physical, assessment, plan with following comments: BALLOON DIPPER: Patient follows commands, There is some improvement and had to increase sedation unfortunately for the vent synchrony, but overall this is a good news that he is more awake and making some progress. Pulmonary: Acceptable oxygenation and ventilation, unfortunately he failed his SBT and that could be related to anxiety partially. Unfortunately when he is awake there is significant vent dysynchrony because patient wants the tube out and I've explained to him that he is not ready yet. Unfortunately we need to continue vent support now and I've explained this to family at the bedside. When patient become anxious, there is increase in PEEPi and that can affect hemodynamics. Thoracic surgeon is following up and will wait to repeat his next images. Cardiovascular: stable GI: Nutrition per dietary and GI prophylaxis per routine. We have contacted gastroenterology service for 2 days and still waiting for endoscopy to be done. I have talked to the mother at the bedside this situation. Heme: DVT prophylaxis per routine and continue monitor H&H ID: Continue antibiotics and plan to de-escalation Renal; urine out put and renal function reviewed Endorcine: blood glucose is monitored Lines: all lines checked and no evidence of infections Skin: skin care to prevent pressure ulcers per nursing routine care Dispo: ICU Code: Full. Prognosis.Fair I spent 33 min of Critical Care time with this patient. It involved decision making of high complexity to assess, manipulate, and support vital organ system failure and/or to prevent further life threatening deterioration of the patient' s condition. The time involved in the performance of separately reportable procedures was not counted toward critical care time.
[2018-07-24] MEDS ORDERED: *HR* Heparin 10,000 UNIT/10 ML VIAL IV PRN ×2 (08:33)
--- NOTE | 2018-07-24 09:48 | Nephrology Progress Note ---
Date of Encounter: 07/24/18 Time of Encounter: 07:30 - Assessment and Plan (1) Acute kidney injury Current Visit: Yes Status: Acute He continues to be dialysis dependent, and I recommend hemodialysis today. I reviewed his labs, vital signs, progress notes, imaging, and medication lists which required a high degree of evaluation and management plus medical decision making to compose his dialysis orders for today. He has a left IJ temporary dialysis catheter that was replaced on Saturday of this week. I coordinated care with the ICU residents. Acute kidney injury s/p HD x3 (Saturday//Saturday). ANCA and RF are negative. Likely he has ATN, but since he does have some subnephrotic proteinuria, I will also ordered a work up for any potential GN: check WING, complements, PLA2R and will update a UA if possible. Thus far, the complements are negative. I suspect this sub-nephrotic proteinuria is tubular proteinuria from ATN, but I will ask my colleague who is biodiesel plant operations engineer tomorrow to continue to follow up on this workup. Because he is not showing signs of renal recovery thus far, he will very likely need a permacath and outpatient hemodialysis arranged during this admission. He remains too ill for a Permacath for now. To help support the odds of any renal recovery, I recommend following a renal protective strategy as able including strict I's and O's, daily weights, avoidance of nephrotoxic agents and renal diet, and renal dosing. Thank you (2) Empyema Current Visit: Yes Status: Acute S/p thoracotomy with fungal findings on culture. As per primary/ID (3) Acute blood loss as cause of postoperative anemia Current Visit: Yes Status: Acute Will monitor. If he were to require ongoing dialytic needs, then adding an OKSANA such as Aranesp or EPO would be indicated. (4) Acute respiratory failure Current Visit: Yes Status: Acute Vent management per pulm/critical care Qualifiers: Respiratory failure complication: hypoxia and hypercapnia Qualified Code(s): J96.01 - Acute respiratory failure with hypoxia; J96.02 - Acute respiratory failure with hypercapnia (5) Proteinuria Current Visit: Yes Status: Acute see above Qualifiers: Proteinuria type: unspecified Qualified Code(s): R80.9 - Proteinuria, unspecified Subjective Principal diagnosis: Pleural Effusion Interval history: Patient was seen and examined earlier today in the ICU. He remains intubated, but he appeared to respond to verbal commands. No family present during my rounds. Objective - Vital Signs Vital signs: Vital Signs Temp Pulse Resp BP Pulse Ox 07/24/18 09:30 127/76 07/24/18 09:23 17 124/75 96 07/24/18 09:15 99.8 F H 17 131/73 07/24/18 09:00 91 17 133/78 96 07/24/18 08:00 91 20 125/72 95 07/24/18 07:31 99.1 F 07/24/18 07:04 23 149/84 89 07/24/18 07:00 90 23 149/84 94 07/24/18 06:28 27 124/71 91 07/24/18 06:00 96 28 124/71 90 07/24/18 05:08 16 121/69 96 07/24/18 05:00 89 18 118/66 96 07/24/18 04:00 90 17 128/70 96 07/24/18 03:34 99.8 F H 07/24/18 03:33 21 132/74 95 07/24/18 03:00 90 07/24/18 02:00 90 19 127/76 95 07/24/18 01:11 20 126/74 95 07/24/18 01:00 96 19 126/74 95 07/24/18 00:00 87 17 112/69 95 07/23/18 23:30 99.8 F H 07/23/18 23:22 16 110/67 98 07/23/18 23:00 88 18 118/69 95 07/23/18 22:20 87 16 113/67 98 07/23/18 22:00 89 16 110/70 98 07/23/18 21:06 17 112/68 98 07/23/18 21:00 90 16 112/68 98 07/23/18 20:37 100.9 F H 93 17 118/68 07/23/18 20:35 100.9 F H 93 17 118/68 07/23/18 20:22 96 17 125/72 98 07/23/18 20:14 101 F H 96 18 124/75 98 07/23/18 20:00 93 17 113/68 98 07/23/18 19:45 16 115/66 98 07/23/18 19:39 100 F H 07/23/18 19:00 89 16 115/66 98 07/23/18 18:10 99.9 F H 93 18 110/64 98 07/23/18 18:00 99.2 F 93 18 113/66 98 07/23/18 17:55 99.2 F 94 16 113/66 98 07/23/18 17:35 18 113/66 98 07/23/18 17:00 93 18 114/68 99 07/23/18 16:00 90 20 110/66 98 07/23/18 15:59 19 110/66 98 07/23/18 15:00 90 18 110/62 98 07/23/18 14:00 90 18 110/64 98 07/23/18 13:25 16 106/65 99 07/23/18 13:00 87 16 106/65 98 07/23/18 12:00 86 18 100/65 99 07/23/18 11:42 99.9 F H 07/23/18 11:29 16 95/55 100 07/23/18 11:00 83 16 91/56 98 07/23/18 10:00 84 16 90/53 99 07/23/18 09:50 17 96/54 99 Intake and Output 07/23/18 07/24/18 07/24/18 23:59 07:59 15:59 Intake Total 847.7 / 970.0 314 / 814 500 / 814 Output Total 65 / 135 220 / 220 Balance 782.7 / 835.0 94 / 594 500 / 594 Intake: IV Fluids 27.7 / 150.0 314 / 314 FentaNYL (PF) 1,000 MCG In 0.9 27.7 / 100.0 64 / 64 % Sodium Chloride 80 ML @ 50 MCG/HR 5 mls/hr IVC CONT NEFTALI Rx #:[id number] Levophed 4 MG In Dextrose 5% 0 / 0 250 ML @ 5 MCG/MIN 19.05 mls/hr IVC CONT NEFTALI Rx#:[id number] Diprivan 1,000 mg In 100 ml @ 0 / 0 20 MCG/KG/MIN 15.168 mls/hr IVC .Q6H36M NEFTALI Rx#:[id number] Maxipime 1,000 MG In 0.9 % 100 / 100 Sodium Chloride (Mini-Bag +) 100 ML @ 200 mls/hr IVPB DAILY@ 1600 [facility] Rx#:[id number] Cleocin Premix 900 MG/50 ML 900 50 / 50 mg In 50 ml @ 50 mls/hr IVPB Q8HR [facility] Rx#:[id number] Diflucan Premix 200 MG/100 ML 100 / 100 200 mg In 100 ml @ 100 mls/hr IVPB DAILY@1700 [facility] Rx#: [id number] Oral 0 / 0 Blood Product 700 / 700 Rbcs Leuko Poor As-1 Unit 350 / 350 [id number] Rbcs Leuko Poor As-1 Unit 350 / 350 [id number] Intake, Rinseback and Flushes 500 / 500 Free Water Intake Amount 120 / 120 Output: Catheter 25 / 25 Gastric Drainage 150 / 150 Wound Drainage 50 / 95 45 / 45 Left Chest #1 40 25 / 25 Left Chest #2 20 / 20 Other: Weight 115.1 kg Blood Glucose* 83 Hemodialysis Net Fluid Removed 188 (mL) - General Appearance Exam: General appearance: Present: well-developed, sedated on ventilator, intubated, fatigue, frail EENT: Present: ATNC, PERRL, opens his eyes to verbal command Neck: Present: no JVD, supple Respiratory: Present: clear on anterior auscultation noted Cardiology: Present: trace ankle non-tense pedal edema bilaterally, with trace puffy hands, normal S1, normal S2 Dialysis Vascular Access: Left IJ temporary HD catheter with mild abrasion near the exit site, the Tegaderm is well adhered Integumentary: Present: warm and dry Neurologic: Present: no focal deficit, but the neuro exam was limited due to sedation Musculoskeletal: Present: no erythema, no cyanosis - Lab 07/24/18 03:40 07/24/18 03:40 Most recent lab results 07/24/18 07/24/18 03:40 04:10 ABG pH 7.31 L ABG pCO2 47 H ABG pO2 88 ABG HCO3 24 ABG O2 Saturation 96 Calcium 8.5 L Consult Discharge Plan - Plan Referrals: Kip Rojas DO [Primary Care Provider] -
--- NOTE | 2018-07-24 10:22 | Infectious Disease Progress No ---
ID Progress Note Date of Encounter: 07/24/18 Time of Encounter: 09:00 - Subjective Subjective: Patient seen and examined. No acute events noted overnight. Remains intubated and sedated on the ventilator this morning. Failed CPAP this morning. More responsive today. Currently only on Fentanyl. Afebrile overnight. Tachycardia resolved. Status post iHD. Urine output low. Review of systems unobtainable from the patient. Discussed with nursing. Chest tubes removed 07/19/18. Repeat pleural fluid samples no growth. Tolerating tube feeds without residuals. Currently NPO for EGD later today. Febrile overnight. - Objective CBC & Chem 7: 07/25/18 03:15 07/25/18 03:15 - Line Documentation Line Documentation: Dialysis Catheter (Temp HD catheter noted to the left neck.), Smith Catheter (Draining small amount of dark brown urine.), Drain (RAY drain x 2 to the left lateral chest wall with serosanguinous drainage.) - Exam Vitals: Temp Pulse Resp BP Pulse Ox 99.8 F H 91 17 134/77 96 07/24/18 09:15 07/24/18 09:00 07/24/18 09:23 07/24/18 10:00 07/24/18 09:23 Exam: Head: Atraumatic, normal inspection, normocephalic. Scabbed lesion noted to the forehead. Eye: PERRLA, no scleral icterus noted. ENT: Mucous membranes moist. No odontogenic infection noted. Oropharynx exam limited. Neck: Normal inspection, no meningismus. Temp HD line left neck without surrounding erythema. Respiratory: Clear to auscultation, diminished in the bilateral bases. No rales, respiratory distress, rhonchi, or wheezes noted. Surgical site noted to the left lateral chest with dressing C/D/I. No crepitus. RAY drain 2 with sero sanguineous drainage. Cardiovascular: Regular rhythm, regular rate, S1 and S2 audible. No murmurs, rubs, or gallops. GI: Soft, nondistended, normal bowel sounds. Smith catheter draining small amount of dark yellow urine. OGT currently to LIWS. Extremities: No joint swelling or tenderness noted. 1+ edema noted to the bilateral lower and BU extremities. Neurological: Sedated, opens eyes to verbal stimuli, but does not follow commands. Skin: Dry, intact, warm. Pale. No rashes. - Assessment and Plan (1) Sepsis Current Visit: Yes Status: Acute The patient had three SIRS criteria. Likely secondary to empyema. Concern for additional infectious source given the patient's persistent leukocytosis despite recent surgery/source control and antibiotics. WBC worse this morning. Febrile overnight. Tachycardia resolved. Blood cultures drawn 07/15/18 are no growth to date 2 sets. Lactic acid was normal. Procalcitonin improved. Qualifiers: Sepsis type: sepsis due to unspecified organism Qualified Code(s): A41.9 - Sepsis, unspecified organism SNOMED Code(s): 10935729 (2) Acute respiratory failure Current Visit: Yes Status: Acute Likely multifactorial: Pulmonary edema plus altered mental status plus possible pneumonia plus ARDS. Required emergent intubation 07/16/18. Chest x-ray shows findings consistent with ours versus multi lobular pneumonia and small bilateral pleural effusions, left greater than right. Repeat CXR 07/17/18 showed diffuse airspace disease slightly increased on the right and persistent moderate left pleural effusion. CT chest shows new moderate right sided pleural effusion with findings consistent with PNA vs. ARDS and left pleural fluid/gas. Repeat CXR shows slight improvement in the bilateral airspace disease. Repeat CT chest 07/22/18 showed no significant change in the appearance of the chest. Large amount of diffuse airspace disease throughout the right lung. Large amount of atelectasis in the left lower lung. Large amount of abnormal soft tissue in the left pleural space consistent with hematoma. No significant change in the amount of hemothorax since the prior study. Loculated fluid collection posteriorly in the left pleural space. Failed CPAP this morning. Status post bedside bronchoscopy by the pulmonology team. BAL cultures are pending. Will discuss findings with the pulmonology team. Pulmonology consulted and following. Qualifiers: Respiratory failure complication: hypoxia and hypercapnia Qualified Code(s): J96.01 - Acute respiratory failure with hypoxia; J96.02 - Acute respiratory failure with hypercapnia SNOMED Code(s): 49944896 (3) Empyema Current Visit: Yes Status: Acute Location: Left lateral chest. Causative organism: C. albicans Etiology: Unclear. The patient has had a recurrent pleural effusion since April. CT of the chest showed a complex left pleural effusion concerning for empyema with multiple abscesses adjacent to the rib cage. Cardiothoracic surgery consulted. Status post bronchoscopy with aspiration, left thoracotomy with decortication, reverse latissimus MM flap, and wedge left upper lobe 07/13/[address] Almaguer. Operative note reviewed. Intraoperative cultures positive for yeast, final ID and sensitivities pending. Unable to perform GMS stain on intra-op pleural fluid due to not enough specimen. Requested GMS stain on additional pleural fluid sent down 07/18/18, but pathologist did not think this needed to be done so it was not performed. GMS and AFB on the wedge pathology specimen were negative. Fungal serologies negative. CT chest shows new moderate right sided pleural effusion with findings con sistent with PNA vs. ARDS and left pleural fluid/gas. Repeat CXR slightly improved. Chest tubes removed 07/18/18.. Repeat CT of the chest 07/22/18 as discussed above. Concern for persistent loculated fluid collection. Will discuss with cardiothoracic surgery. Currently on IV cefepime and fluconazole. SNOMED Code(s): 125469783 (4) Acute kidney injury Current Visit: Yes Status: Acute Likely multifactorial: Hypoperfusion plus nephrotoxic medications plus sepsis. Serum creatinine elevated at 4.73 today. Nephrology consulted. iHD started 07/16/18. Nephrology planning for permacath placement at some point prior to discharge. Monitor renal function closely and dose adjust medications. Avoid nephrotoxins as able. SNOMED Code(s): 71978845, 16284010 (5) Pleural effusion Current Visit: Yes Status: Acute Etiology: Unclear. Location: Left chest. Recurrent since April after he had a diagnostic thoracentesis. Cultures and pathology were negative at that time. SNOMED Code(s): 95758601 (6) Chest pain Current Visit: No Status: Resolved Likely secondary to empyema. Troponin was negative. Pain management per the primary team. Qualifiers: Chest pain type: chest pain on breathing Qualified Code(s): R07.1 - Chest pain on breathing; R07.81 - Pleurodynia SNOMED Code(s): 56526881 (7) Lymphadenopathy Current Visit: Yes Status: Acute CT of the chest showed multiple enlarged mediastinal lymph nodes, presumably reactive. Pulmonology and CTS consulted. SNOMED Code(s): 69188486 (8) Transaminitis Current Visit: Yes Status: Resolved Etiology: Unclear. Resolved. Continue to trend. SNOMED Code(s): 603144531, 560210398 (9) Hypokalemia Current Visit: Yes Status: Resolved Replacement per the primary team. Resolved. SNOMED Code(s): 84359004 (10) Former tobacco use Current Visit: No Status: Chronic SNOMED Code(s): 298474778 (11) Chronic back pain Current Visit: No Status: Chronic Per the patient's mother had back surgery 8 years ago and has been on Oxycodone daily since then. Qualifiers: Back pain location: low back pain Back pain laterality: bilateral Sciatica presence: with sciatica Sciatica laterality: bilateral sciatica Qualified Code(s): M54.42 - Lumbago with sciatica, left side; M54.41 - Lumbago with sciatica, right side; G89.29 - Other chronic pain SNOMED Code(s): 762972370 (12) Obesity (BMI 30.0-34.9) Current Visit: No Status: Chronic SNOMED Code(s): 940071319403768 - Recommendations Recommendations: Continue to trend CBC. Repeat procalcitonin in 48 hours. Check amylase, lipase, and LFTs. Repeat blood cultures x 3 sets (2 peripheral and 1 central). Wound care and activity per the CTS team. Vent management per the pulmonology team. Acute kidney injury her the nephrology team. Continue cefepime 1 gram IV daily (dose-adjusted for HD). Continue fluconazole IV. Will ask pharmacy to assist with dosing for HD status. Continue Vancomycin IV. Pharmacy to dose. Goal trough ~15. Duration of treatment depends on the clinical picture. Monitor renal function and dose-adjust antibiotics. Consult Discharge Plan - Plan Referrals: Kip Rojas DO [Primary Care Provider] - - Attending Attestation I have personally performed a face to face evaluation on this patient. I have reviewed and agree with the care plan. 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 Continue fluconazole IV. Will ask pharmacy to assist with dosing for HD status. Continue Vancomycin IV. Pharmacy to dose. Goal trough ~15. Discontinue clindamycin. Duration of treatment depends on the clinical picture. Monitor renal function and dose-adjust antibiotics. d/w mother at length Discussed also with the pulmonary team. Not sure what is causing the fluid collection and the hematoma in the lungs and if this is the culprit for the patient's continuous fever and if this is a nidus of infection. If patient does not improve will discuss with cardiothoracic surgery to reevaluate
[2018-07-24] MEDS ORDERED: Iron Sucrose Complex 400 MG in 0.9 % Sodium Chloride 250 ML IVPB ONE (13:03)
--- NOTE | 2018-07-24 13:05 | Cardiothoracic Progress Note ---
Date of Encounter: 07/24/18 Time of Encounter: 13:04 - Assessment and plan (1) Empyema of left pleural space Current Visit: Yes Status: Acute The assessment and plan as outlined above was discussed with the patient and/or family members who expressed understanding and agreement. All questions were answered. continue drains to suction and bulb drainage rounded with resident (2) Acute kidney insufficiency Current Visit: Yes Status: Acute The assessment and plan as outlined above was discussed with the patient and/or family members who expressed understanding and agreement. All questions were answered. . (3) Acute renal failure on dialysis Current Visit: Yes Status: Acute The assessment and plan as outlined above was discussed with the patient and/or family members who expressed understanding and agreement. All questions were answered. as above (4) Anemia Current Visit: Yes Status: Acute The assessment and plan as outlined above was discussed with the patient and/or family members who expressed understanding and agreement. All questions were answered. replace iron Qualifiers: Anemia type: iron deficiency Iron deficiency anemia type: inadequate dietary iron intake Qualified Code(s): D50.8 - Other iron deficiency anemias Vital Signs, Last 4 Hours Temp Pulse Resp BP Pulse Ox 07/24/18 12:58 18 129/73 96 07/24/18 12:00 92 20 138/88 94 07/24/18 11:30 135/77 07/24/18 11:22 21 131/76 96 07/24/18 11:15 141/90 07/24/18 11:05 98.8 F 07/24/18 11:00 86 137/79 07/24/18 10:45 136/77 07/24/18 10:30 127/77 07/24/18 10:15 129/74 07/24/18 10:00 87 18 127/74 96 07/24/18 09:45 122/75 07/24/18 09:30 127/76 07/24/18 09:23 17 124/75 96 07/24/18 09:15 99.8 F H 17 131/73 Oxgyen Flow Rate Oxygen Flow Rate (LPM) 15 Weight 07/22/18 07/23/18 07/24/18 23:59 23:59 23:59 Weight 115.1 kg - Physical Examination General: Other (intubated. ) - Labs 07/24/18 03:40 07/24/18 03:40 Lab Results, Last 24 hours 07/23/18 07/23/18 07/24/18 13:30 Unknown 03:40 WBC 15.8 H Hgb 7.0 L 8.4 L 8.9 L Hct 22.7 L 26.5 L 27.7 L Plt Count 160 Sodium Potassium Chloride Carbon Dioxide BUN Creatinine Glucose Calcium 07/24/18 03:40 WBC Hgb Hct Plt Count Sodium 137 Potassium 4.3 Chloride 99 Carbon Dioxide 23 BUN 65 H Creatinine 6.45 H Glucose 92 Calcium 8.5 L Consult Discharge Plan - Plan Referrals: Kip Rojas DO [Primary Care Provider] -
[2018-07-24 15:00] LABS: Albumin 2.9 g/dL (3.5-5.7); Albumin/Globulin Ratio 0.9 (1.1-2.2); Bilirubin,Direct 0.4 mg/dL (0.0-0.2); Bilirubin,Indirect 0.5 mg/dL (0.0-1.2); Bilirubin,Total 0.9 mg/dL (0.3-1.0); Globulin 3.1 g/dL (2.4-3.5)
[2018-07-24] MEDS: Cefepime HCl 1,000 MG in 0.9 % Sodium Chloride Mini Bag 100 ML IVPB SCH (15:16)
[2018-07-24] MEDS: Norepinephrine 4 MG in D5% in Water 250 ML IVC SCH (15:31)
[2018-07-24] MEDS: Ipratropium/Albuterol Neb 3 ML IH PRN (15:37)
[2018-07-24] MEDS: Fluconazole 200 MG/100 ML 200 MG/100 ML BAG IVPB SCH (16:09)
[2018-07-24] MEDS: Pregabalin 75 MG CAPSULE GTUBE SCH (20:52)
[2018-07-24] MEDS: Lurasidone 20 MG TABLET PO SCH (20:52)
[2018-07-25 03:44] LABS: Basophils % 0.3 %; Eosinophils # 0.2 K/mcL (0.0-0.6); Eosinophils % 1.9 %; Hematocrit 24.7 % (37.5-50.1); Hemoglobin 7.9 g/dL (12.9-16.9); Immature Granulocytes % 4.9 % (0-4); Lymphocytes % 8.8 %; Mean Corpuscular Hemoglobin 27.2 pg (28.0-33.3); Mean Corpuscular Volume 85.2 fL (83.0-100.0); Monocytes # 0.6 K/mcL (0.0-1.3); Monocytes % 5.3 %; Neutrophils # 9.4 K/mcL (1.6-8.9); Platelet Count 181 K/mcL (140-400); Red Cell Distribution Width 17.2 % (11.5-14.5); Segmented Neutrophils % 78.8 %; White Blood Count 11.9 K/mcL (4.3-11.1)
[2018-07-25] MEDS: Ipratropium/Albuterol Neb 3 ML IH PRN (03:49)
[2018-07-25 03:54] LABS: Calcium 8.3 mg/dL (8.6-10.3); Potassium 3.6 mEq/L (3.5-5.1)
[2018-07-25] MEDS: Artificial Tears SOLN 15 ML BOTTLE BOTH EYES SCH ×3 (04:27→09:29)
[2018-07-25 05:04] LABS: ABG Base Excess -1 mEq/L (-2 to 3); ABG HCO3 25 mEq/L (21-27); ABG Oxygen Saturation 94 % (95-98); ABG PCO2 47 mmHg (35-45); ABG PH 7.34 pH Units (7.32-7.45); ABG PO2 78 mmHg (85-104); ABG TCO2 27 mEq/L (20-26); Blood Gas Modality ASSIST CONTROL; Blood Gas PEEP 5 cm H2O; Blood Gas VT 500 cc
[2018-07-25] MEDS: Chlorhexidine Rinse 15 ML MOUTHWASH MM SCH (07:01)
[2018-07-25] MEDS: Pantoprazole 40 MG VIAL IVP SCH ×2 (07:01→22:24)
[2018-07-25] MEDS: Neosporin OINT 15 GM TUBE TP SCH ×2 (07:02→21:45)
--- NOTE | 2018-07-25 07:44 | Pulmonology Progress Note ---
<Manuel Kumar W - Last Filed: 07/25/18 11:48> Date of Encounter: 07/25/18 Assessment and Plan (1) Pleural effusion Current Visit: Yes Status: Acute (2) Lymphadenopathy Current Visit: Yes Status: Acute (3) Transaminitis Current Visit: Yes Status: Resolved Objective PUL Vital signs: Last Vital Signs Temp 101.7 F H 07/25/18 11:39 Pulse 105 07/25/18 10:00 Resp 26 07/25/18 10:00 BP 147/83 07/25/18 10:00 Pulse Ox 98 07/25/18 10:00 Ventilator Settings Ventilator Settings: Ventilator Settings, Last 8 Hours Ventilator Tidal Volume 500 Setting Ventilator Tidal Volume 500 Setting Ventilator Tidal Volume 500 Setting Ventilator Tidal Volume 500 Setting Ventilator Tidal Volume 500 Setting Ventilator Tidal Volume 500 Setting Ventilator Tidal Volume 500 Setting Ventilator Respiratory Rate 16 Setting Ventilator Respiratory Rate 16 Setting Ventilator Respiratory Rate 16 Setting Ventilator Respiratory Rate 16 Setting Ventilator Respiratory Rate 16 Setting Ventilator Respiratory Rate 16 Setting Ventilator Respiratory Rate 16 Setting Actual Respiratory Rate 20 Actual Respiratory Rate 17 Actual Respiratory Rate 17 Actual Respiratory Rate 17 Actual Respiratory Rate 17 Actual Respiratory Rate 16 Positive End Expiratory 5 Pressure Positive End Expiratory 5 Pressure Positive End Expiratory 5 Pressure Positive End Expiratory 5 Pressure Positive End Expiratory 5 Pressure Positive End Expiratory 5 Pressure Positive End Expiratory 5 Pressure Peak Inspiratory Airway 41 Pressure Peak Inspiratory Airway 39 Pressure Peak Inspiratory Airway 42 Pressure Peak Inspiratory Airway 47 Pressure Peak Inspiratory Airway 38 Pressure Peak Inspiratory Airway 42 Pressure Results - Laboratory Findings CBC and BMP: 07/25/18 03:15 07/25/18 03:15 ABG ABG pH 7.34 pH Units (7.32-7.45) 07/25/18 05:01 ABG pCO2 47 mmHg (35-45) H 07/25/18 05:01 ABG pO2 78 mmHg (85-104) L 07/25/18 05:01 ABG O2 Saturation 94 % (95-98) L 07/25/18 05:01 PT/INR, D-dimer PT 17.8 Seconds (9.4-12.1) H 07/11/18 00:52 Abnormal lab findings: Abnormal lab results WBC 11.9 K/mcL (4.3-11.1) H 07/25/18 03:15 RBC 2.90 M/mcL (4.19-5.50) L 07/25/18 03:15 Hgb 7.9 g/dL (12.9-16.9) L 07/25/18 03:15 Hct 24.7 % (37.5-50.1) L 07/25/18 03:15 MCV 82.2 fL (83.0-100.0) L 07/12/18 01:15 MCH 27.2 pg (28.0-33.3) L 07/25/18 03:15 MCHC 30.9 g/dL (31.6-35.5) L 07/23/18 03:28 RDW 17.2 % (11.5-14.5) H 07/25/18 03:15 Plt Count 139 K/mcL (140-400) L 07/23/18 03:28 Immature Gran % 4.9 % (0-4) H 07/25/18 03:15 9.4 K/mcL (1.6-8.9) H 07/25/18 03:15 Nucleated RBCs/100 WBC 0.1 /100 WBC (0) H 07/24/18 03:40 Decreased (Normal) L 07/17/18 03:30 1+ (Not Present) A 07/13/18 04:20 Present (Not Present) A 07/13/18 04:20 PT 17.8 Seconds (9.4-12.1) H 07/11/18 00:52 APTT 37.2 Seconds (26.0-36.0) H 07/10/18 16:31 ABG pH 7.31 pH Units (7.32-7.45) L 07/24/18 04:10 ABG pCO2 47 mmHg (35-45) H 07/25/18 05:01 ABG pO2 78 mmHg (85-104) L 07/25/18 05:01 ABG Total CO2 27 mEq/L (20-26) H 07/25/18 05:01 ABG O2 Saturation 94 % (95-98) L 07/25/18 05:01 ABG Base Excess -3 mEq/L (-2 to 3) L 07/24/18 04:10 Sodium 135 mEq/L (136-145) L 07/22/18 03:45 Potassium 2.9 mEq/L (3.5-5.1) L 07/10/18 16:59 Chloride 96 mEq/L (98-107) L 07/21/18 03:50 Carbon Dioxide 22 mEq/L (23-29) L 07/25/18 03:15 BUN 50 mg/dL (6-20) H 07/25/18 03:15 5.01 mg/dL (0.70-1.30) H 07/25/18 03:15 Est GFR ( Amer) 16 (> 60) L 07/25/18 03:15 Est GFR (Non-Af Amer) 13 (> 60) L 07/25/18 03:15 5 (6-26) L 07/17/18 03:30 Glucose 110 mg/dL (70-105) H 07/22/18 03:45 POC Glucose 109 mg/dL (70-99) H 07/22/18 19:40 302 (280-300) H 07/24/18 03:40 Calcium 8.3 mg/dL (8.6-10.3) L 07/25/18 03:15 Phosphorus 5.5 mg/dL (2.7-4.5) H 07/15/18 06:28 Iron 16 mcg/dL (65-175) L 07/23/18 08:39 % Saturation 10 % (20-55) L 07/23/18 08:39 113 mg/dL (203-362) L 07/23/18 08:39 0.4 mg/dL (0.0-0.2) H 07/24/18 12:50 AST 41 Units/L (13-39) H 07/15/18 06:28 ALT 87 Units/L (7-52) H 07/10/18 16:59 109 Units/L (34-104) H 07/24/18 12:50 6.0 g/dL (6.4-8.9) L 07/24/18 12:50 2.9 g/dL (3.5-5.7) L 07/24/18 12:50 2.3 g/dL (2.4-3.5) L 07/16/18 02:20 0.9 (1.1-2.2) L 07/24/18 12:50 Amylase 17 Units/L (29-103) L 07/18/18 14:40 5 Units/L (11-82) L 07/18/18 14:40 9.80 ng/mL (0.00-0.15) H 07/24/18 05:48 Ur Specific [place] < 1.005 (1.010-1.025) L 07/15/18 10:25 Small (Negative) H 07/15/18 10:25 3-5 per hpf (0-3) H 07/15/18 10:25 Amorphous Sediment Moderate (Few) H 07/15/18 10:25 Protein/Creatinin Ratio 0.95 mg/mg (0.00-0.20) H 07/15/18 10:25 36 mg/dL (1-14) H 07/15/18 10:25 Fluid Appearance Slightly Hazy (Clear) A 07/23/18 08:58 Pleural Appearance Bloody (Clear) A 07/13/18 13:40 Pleur Adenosine Deamin 20.8 U/L (0.0-9.4) H 07/13/18 13:40 Vancomycin Trough 23 mcg/mL (5-10) H 07/12/18 18:31 Positive ng/mL (Kzlwrg=034) H 07/11/18 16:00 U Benzodiazepines Scrn Positive ng/mL (Jxxaxq=228) H 07/11/18 16:00 Hep Bs Antibody < 3.10 mIU/mL (10.00-) L 07/16/18 09:22 Crossmatch See Detail 07/22/18 09:55 - Microbiology Findings Microbiology Findings: Microbiology, Last 48 Hours 07/23/18 08:58 Respiratory Culture - Final Left Lower Lobe Lung 07/24/18 13:06 Blood Culture - Preliminary Central Venous Catheter Culture is incubating and being continuously monitored for growth. Final report to follow. 07/24/18 13:06 Blood Culture - Preliminary Peripheral Venipuncture Culture is incubating and being continuously monitored for growth. Final report to follow. 07/24/18 13:06 Blood Culture - Preliminary Peripheral Venipuncture Culture is incubating and being continuously monitored for growth. Final report to follow. 07/23/18 08:58 Acid Fast Stain - Final Left Lower Lobe Lung 07/18/18 14:40 Cryptococcal Antigen - Final Serum 07/18/18 11:40 Blood Culture - Final Peripheral Venipuncture No growth. Final report. 07/18/18 11:49 Blood Culture - Final Peripheral Venipuncture No growth. Final report. 07/13/18 13:40 Fungal Culture - Preliminary Pleural Fluid Radha albicans - Clinical Findings Intake & Output: Intake & Output 07/24/18 07/25/18 07/25/18 23:59 07:59 15:59 Intake Total 498 / 1420 229 / 229 0 / 229 Output Total 42 / 2437 387 / 397 10 / 397 Balance 456 / -1017 -158 / -168 -10 / -168 Weight 116.2 kg Consult Discharge Plan - Plan Referrals: Kip Rojas DO [Primary Care Provider] - - Attending Attestation I examined this patient and my medical decision-making was reviewed with the Resident Physician. I agree with the documented findings, disposition and treatment plan as described except to the extent set forth below. We independently had [id number] contact with the patient Patient seen and examined at bedside Labs, radiology, chart personally reviewed. Management was reviewed during multidisciplinary critical care rounds. VOLTAGE TESTER: Able to follow commands but is drowsy holding all VOLTAGE TESTER sedatives Pulm: Hypoxic hypercapnic respiratory failure requiring intubation patient had an unplanned extubation today but is doing well on nasal cannula continuous BiPAP as needed. Postop care for empyema which has been corrected list the decortication per CT surgery appreciate their involvement in this case Cards: Blood pressure monitored and stable GI: GI prophylaxis while on the vent was given can stop if no evidence of GI bleeding Nutrition: NPO Renal: HA requiring HD appreciate Nephrology evaluation. UOP Monitored, Cont to Trend sCr and monitor Electrolytes. ID: The patient has Radha empyema and is on broad-spectrum antibiotics appreciated infectious disease Heme/Onc: Continued blood loss anemia possibly from gastrointestinal source or intrathoracic GI has been consulted plan for endoscopy in the next 24 hours will keep nothing by mouth for this reason. Continue transfusion of PRBCs for goal hemoglobin 7 the thoracic surgeon had ordered a 1 time dose of IV iron Endo: Glucose Monitored Integ/MSK: Skin Care per routine ICU Nursing Protocol to prevent ulcers. Lines: All lines examined without evidence of infection : Dispo: We will monitor in ICU if stable throughout the day can likely be discharged to [facility] telemetry for ongoing care CODE: Full. <John Paul Garner - Last Filed: 07/25/18 16:05> Date of Encounter: 07/25/18 Time of Encounter: 06:55 Assessment and Plan (1) Acute respiratory failure Current Visit: Yes Status: Acute - Patient developed worsening respiratory status on 07/16/18 requiring intubation - Etiology is unknown at this time; possibly secondary to empyema - Currently intubated and sedated on propofol and fentanyl - Bronchoscopy was performed on 07/23/18, which showed secretions without any other significant findings - Patient self extubated at 08:30 the morning on 07/25/2018 Plan: - Continue antibiotic therapy per ID with IV Cefepime and Fluconazole. - Continue dialysis per nephrology - Duonebs PRN are ordered Qualifiers: Respiratory failure complication: hypoxia Qualified Code(s): J96.01 - Acute respiratory failure with hypoxia (2) Empyema of left pleural space Current Visit: Yes Status: Acute - Patient was found to have a pleural effusion on CT of the chest on 07/17 with gas collection in the left hemothorax - Cardiothoracic surgery was consulted; patient underwent a left thoracotomy with decortication on 07/13 - Culture of pleural fluid from 07/13/18 grew Radha albicans - Chest tube removed on 07/18/18 - CT abd/pelv demonstrates no changes from previous study; loculated pleural fluid collection still present in L pleural space Plan: - Continue antibiotic therapy as noted above - Cardiothoracic surgery following with no new recommendations at this time (3) Acute renal failure on dialysis Current Visit: Yes Status: Acute - On 07/14, patient developed acute renal failure with an elevated creatinine at 3.33 - Nephrology was consulted; patient underwent multiple treatments of hemodialysis - Etiology suspected to be ATN - Most recent HD was on 07/24/2018 - Creatinine at 5.01 today Plan: - Nephrology is still following; holding HD today (4) Anemia Current Visit: Yes Status: Acute - Patient has had persistently low hemoglobin the last 24 hours, ranging from 7- 8 - No bleeding source has been identified at this time - He has been transfused with a total of 7 units of packed red blood cells - A repeat CT scan was performed on 07/22/18 to rule out enlarging hemothorax; Per CT report, no significant change in amount of hemothorax since prior study - GI was consulted to help rule out GI bleed - On 07/24/2018 patient was transfused with 100 mg Venofer - Dr. Andrea evaluated the patient on 07/25/2018. Reported to this provider that he was concerned about hepatic etiologies. Had pain and a tests previously were negative. Ordered hepatitis C, and ferritin per his recommendations. Also ordered a right upper quadrant ultrasound per his request. Plan: - Plan for EGD in a.m. - May consider further Venofer transfusion tomorrow Qualifiers: Anemia type: iron deficiency Iron deficiency anemia type: unspecified iron deficiency Qualified Code(s): D50.9 - Iron deficiency anemia, unspecified (5) DVT prophylaxis Current Visit: Yes Status: Acute Chemical prophylaxis held at this time with anemia Mechanical prophylaxis in place Daily IV Protonix for GI prophylaxis Subjective Principal diagnosis: Pleural Effusion Interval history: Patient seen and examined at bedside. Patient is intubated and resting comfortably on minimal sedation with fentanyl. He is arousable and able to follow commands. He is expressing with his hands that he wants the endotracheal tube removed. Objective PUL Vital signs: Last Vital Signs Temp 100.5 F H 07/25/18 07:04 Pulse 90 07/25/18 07:00 Resp 20 07/25/18 07:00 BP 120/70 07/25/18 07:00 Pulse Ox 96 07/25/18 07:00 General appearance: no acute distress, alert Eyes: nonicteric ENT: oropharynx moist Effort: normal Auscultation: bilateral: clear Cardiovascular: regular rate and rhythm Gastrointestinal: soft, non-tender, non-distended Integumentary: normal Extremities: no cyanosis, no edema, no clubbing, pink and warm, pulses normal Musculoskeletal: no deformities pupils equal and round Ventilator Settings Ventilator Settings: Ventilator Settings, Last 8 Hours Ventilator Tidal Volume 500 Setting Ventilator Tidal Volume 500 Setting Ventilator Tidal Volume 500 Setting Ventilator Tidal Volume 500 Setting Ventilator Tidal Volume 500 Setting Ventilator Tidal Volume 500 Setting Ventilator Tidal Volume 500 Setting Ventilator Tidal Volume 500 Setting Ventilator Tidal Volume 500 Setting Ventilator Tidal Volume 500 Setting Ventilator Tidal Volume 500 Setting Ventilator Tidal Volume 500 Setting Ventilator Tidal Volume 500 Setting Ventilator Respiratory Rate 16 Setting Ventilator Respiratory Rate 16 Setting Ventilator Respiratory Rate 16 Setting Ventilator Respiratory Rate 16 Setting Ventilator Respiratory Rate 16 Setting Ventilator Respiratory Rate 16 Setting Ventilator Respiratory Rate 16 Setting Ventilator Respiratory Rate 16 Setting Ventilator Respiratory Rate 16 Setting Ventilator Respiratory Rate 16 Setting Ventilator Respiratory Rate 16 Setting Ventilator Respiratory Rate 16 Setting Ventilator Respiratory Rate 16 Setting Actual Respiratory Rate 20 Actual Respiratory Rate 17 Actual Respiratory Rate 17 Actual Respiratory Rate 17 Actual Respiratory Rate 17 Actual Respiratory Rate 16 Actual Respiratory Rate 21 Actual Respiratory Rate 17 Actual Respiratory Rate 19 Actual Respiratory Rate 18 Actual Respiratory Rate 17 Actual Respiratory Rate 17 Positive End Expiratory 5 Pressure Positive End Expiratory 5 Pressure Positive End Expiratory 5 Pressure Positive End Expiratory 5 Pressure Positive End Expiratory 5 Pressure Positive End Expiratory 5 Pressure Positive End Expiratory 5 Pressure Positive End Expiratory 5 Pressure Positive End Expiratory 5 Pressure Positive End Expiratory 5 Pressure Positive End Expiratory 5 Pressure Positive End Expiratory 5 Pressure Positive End Expiratory 5 Pressure Peak Inspiratory Airway 41 Pressure Peak Inspiratory Airway 39 Pressure Peak Inspiratory Airway 42 Pressure Peak Inspiratory Airway 47 Pressure Peak Inspiratory Airway 38 Pressure Peak Inspiratory Airway 42 Pressure Peak Inspiratory Airway 42 Pressure Peak Inspiratory Airway 42 Pressure Peak Inspiratory Airway 41 Pressure Peak Inspiratory Airway 44 Pressure Peak Inspiratory Airway 42 Pressure Peak Inspiratory Airway 44 Pressure Results - Laboratory Findings CBC and BMP: 07/25/18 03:15 07/25/18 03:15 ABG ABG pH 7.34 pH Units (7.32-7.45) 07/25/18 05:01 ABG pCO2 47 mmHg (35-45) H 07/25/18 05:01 ABG pO2 78 mmHg (85-104) L 07/25/18 05:01 ABG O2 Saturation 94 % (95-98) L 07/25/18 05:01 PT/INR, D-dimer PT 17.8 Seconds (9.4-12.1) H 07/11/18 00:52 Abnormal lab findings: Abnormal lab results WBC 11.9 K/mcL (4.3-11.1) H 07/25/18 03:15 RBC 2.90 M/mcL (4.19-5.50) L 07/25/18 03:15 Hgb 7.9 g/dL (12.9-16.9) L 07/25/18 03:15 Hct 24.7 % (37.5-50.1) L 07/25/18 03:15 MCV 82.2 fL (83.0-100.0) L 07/12/18 01:15 MCH 27.2 pg (28.0-33.3) L 07/25/18 03:15 MCHC 30.9 g/dL (31.6-35.5) L 07/23/18 03:28 RDW 17.2 % (11.5-14.5) H 07/25/18 03:15 Plt Count 139 K/mcL (140-400) L 07/23/18 03:28 Immature Gran % 4.9 % (0-4) H 07/25/18 03:15 9.4 K/mcL (1.6-8.9) H 07/25/18 03:15 Nucleated RBCs/100 WBC 0.1 /100 WBC (0) H 07/24/18 03:40 Decreased (Normal) L 07/17/18 03:30 1+ (Not Present) A 07/13/18 04:20 Present (Not Present) A 07/13/18 04:20 PT 17.8 Seconds (9.4-12.1) H 07/11/18 00:52 APTT 37.2 Seconds (26.0-36.0) H 07/10/18 16:31 ABG pH 7.31 pH Units (7.32-7.45) L 07/24/18 04:10 ABG pCO2 47 mmHg (35-45) H 07/25/18 05:01 ABG pO2 78 mmHg (85-104) L 07/25/18 05:01 ABG Total CO2 27 mEq/L (20-26) H 07/25/18 05:01 ABG O2 Saturation 94 % (95-98) L 07/25/18 05:01 ABG Base Excess -3 mEq/L (-2 to 3) L 07/24/18 04:10 Sodium 135 mEq/L (136-145) L 07/22/18 03:45 Potassium 2.9 mEq/L (3.5-5.1) L 07/10/18 16:59 Chloride 96 mEq/L (98-107) L 07/21/18 03:50 Carbon Dioxide 22 mEq/L (23-29) L 07/25/18 03:15 BUN 50 mg/dL (6-20) H 07/25/18 03:15 5.01 mg/dL (0.70-1.30) H 07/25/18 03:15 Est GFR ( Amer) 16 (> 60) L 07/25/18 03:15 Est GFR (Non-Af Amer) 13 (> 60) L 07/25/18 03:15 5 (6-26) L 07/17/18 03:30 Glucose 110 mg/dL (70-105) H 07/22/18 03:45 POC Glucose 109 mg/dL (70-99) H 07/22/18 19:40 302 (280-300) H 07/24/18 03:40 Calcium 8.3 mg/dL (8.6-10.3) L 07/25/18 03:15 Phosphorus 5.5 mg/dL (2.7-4.5) H 07/15/18 06:28 Iron 16 mcg/dL (65-175) L 07/23/18 08:39 % Saturation 10 % (20-55) L 07/23/18 08:39 113 mg/dL (203-362) L 07/23/18 08:39 0.4 mg/dL (0.0-0.2) H 07/24/18 12:50 AST 41 Units/L (13-39) H 07/15/18 06:28 ALT 87 Units/L (7-52) H 07/10/18 16:59 109 Units/L (34-104) H 07/24/18 12:50 6.0 g/dL (6.4-8.9) L 07/24/18 12:50 2.9 g/dL (3.5-5.7) L 07/24/18 12:50 2.3 g/dL (2.4-3.5) L 07/16/18 02:20 0.9 (1.1-2.2) L 07/24/18 12:50 Amylase 17 Units/L (29-103) L 07/18/18 14:40 5 Units/L (11-82) L 07/18/18 14:40 9.80 ng/mL (0.00-0.15) H 07/24/18 05:48 Ur Specific [place] < 1.005 (1.010-1.025) L 07/15/18 10:25 Small (Negative) H 07/15/18 10:25 3-5 per hpf (0-3) H 07/15/18 10:25 Amorphous Sediment Moderate (Few) H 07/15/18 10:25 Protein/Creatinin Ratio 0.95 mg/mg (0.00-0.20) H 07/15/18 10:25 36 mg/dL (1-14) H 07/15/18 10:25 Fluid Appearance Slightly Hazy (Clear) A 07/23/18 08:58 Pleural Appearance Bloody (Clear) A 07/13/18 13:40 Pleur Adenosine Deamin 20.8 U/L (0.0-9.4) H 07/13/18 13:40 Vancomycin Trough 23 mcg/mL (5-10) H 07/12/18 18:31 Positive ng/mL (Hzfnxr=081) H 07/11/18 16:00 U Benzodiazepines Scrn Positive ng/mL (Umutgx=765) H 07/11/18 16:00 Hep Bs Antibody < 3.10 mIU/mL (10.00-) L 07/16/18 09:22 Crossmatch See Detail 07/22/18 09:55 - Microbiology Findings Microbiology Findings: Microbiology, Last 48 Hours 07/24/18 13:06 Blood Culture - Preliminary Central Venous Catheter Culture is incubating and being continuously monitored for growth. Final report to follow. 07/24/18 13:06 Blood Culture - Preliminary Peripheral Venipuncture Culture is incubating and being continuously monitored for growth. Final report to follow. 07/24/18 13:06 Blood Culture - Preliminary Peripheral Venipuncture Culture is incubating and being continuously monitored for growth. Final report to follow. 07/23/18 08:58 Acid Fast Stain - Final Left Lower Lobe Lung 07/18/18 14:40 Cryptococcal Antigen - Final Serum 07/23/18 08:58 Respiratory Culture - Preliminary Left Lower Lobe Lung 07/18/18 11:40 Blood Culture - Final Peripheral Venipuncture No growth. Final report. 07/18/18 11:49 Blood Culture - Final Peripheral Venipuncture No growth. Final report. 07/13/18 13:40 Fungal Culture - Preliminary Pleural Fluid Radha albicans - Clinical Findings Intake & Output: Intake & Output 07/24/18 07/24/18 07/25/18 15:59 23:59 07:59 Intake Total 608 / 1420 498 / 1420 229 / 229 Output Total 2175 / 2437 42 / 2437 387 / 387 Balance -1567 / -1017 456 / -1017 -158 / -158 Weight 116.2 kg
--- NOTE | 2018-07-25 08:53 | Infectious Disease Progress No ---
ID Progress Note Date of Encounter: 07/25/18 Time of Encounter: 08:48 - Subjective Subjective: Patient seen and examined. Self-extubated this morning. Febrile overnight, Tmax 100.5. Tachycardia resolved. Status post iHD. Urine output low. Review of systems unobtainable from the patient. Discussed with nursing. Chest tubes removed 07/19/18. Repeat pleural fluid samples no growth. Currently NPO for possible EGD later today. Febrile overnight. - Objective CBC & Chem 7: 07/25/18 03:15 07/25/18 03:15 - Line Documentation Line Documentation: Dialysis Catheter (Temp HD catheter noted to the left ne ck.), Smith Catheter (Draining small amount of dark brown urine.), Drain (RAY drain x 2 to the left lateral chest wall with serosanguinous drainage.) - Exam Vitals: Temp Pulse Resp BP Pulse Ox 100.5 F H 100 24 140/91 94 07/25/18 07:04 07/25/18 08:00 07/25/18 08:00 07/25/18 08:00 07/25/18 08:00 Exam: Head: Atraumatic, normal inspection, normocephalic. Scabbed lesion noted to the forehead. Eye: PERRLA, no scleral icterus noted. ENT: Mucous membranes moist. No odontogenic infection noted. Oropharynx exam limited. Neck: Normal inspection, no meningismus. Temp HD line left neck without surrounding erythema. Respiratory: Scattered rhonchi throughout with moist cough noted. No rales, respiratory distress, or wheezes noted. Surgical site noted to the left lateral chest with steri-strips intact. Chest tube site dressing C/D/I. No crepitus. RAY drain 2 with serosanguineous drainage. Cardiovascular: Regular rhythm, tachycardic, S1 and S2 audible. No murmurs, rubs, or gallops. GI: Soft, nondistended, normal bowel sounds. Smith catheter draining small amount of dark yellow urine. Extremities: No joint swelling or tenderness noted. 1+ edema noted to the bilateral lower and BU extremities. Neurological: Opens eyes to verbal stimuli. Follows commands. Oriented to person. Skin: Dry, intact, warm. Pale. No rashes. - Assessment and Plan (1) Sepsis Current Visit: Yes Status: Acute The patient had three SIRS criteria. Likely secondary to empyema. Concern for additional infectious source given the patient's persistent leukocytosis despite recent surgery/source control and antibiotics. Leukocytosis improved. Tmax 100.5 overnight. Tachycardic this morning since self-extubating. Blood cultures drawn 07/15/18 are no growth to date 2 sets. Lactic acid was normal. Repeat blood cultures drawn 07/18/18 are negative x 2 sets. Additional blood cultures drawn 07/24/18 are pending x 3 sets (2 peripheral, 1 central). Qualifiers: Sepsis type: sepsis due to unspecified organism Qualified Code(s): A41.9 - Sepsis, unspecified organism SNOMED Code(s): 41614538 (2) Acute respiratory failure Current Visit: Yes Status: Acute Likely multifactorial: Pulmonary edema plus altered mental status plus possible pneumonia plus ARDS. Required emergent intubation 07/16/18. Chest x-ray shows findings consistent with ours versus multi lobular pneumonia and small bilateral pleural effusions, left greater than right. Repeat CXR 07/17/18 showed diffuse airspace disease slightly increased on the right and persistent moderate left pleural effusion. CT chest shows new moderate right sided pleural effusion with findings consistent with PNA vs. ARDS and left pleural fluid/gas. Repeat CXR shows slight improvement in the bilateral airspace disease. Repeat CT chest 07/22/18 showed no significant change in the appearance of the chest. Large amount of diffuse airspace disease throughout the right lung. Large amount of atelectasis in the left lower lung. Large amount of abnormal soft tissue in the left pleural space consistent with hematoma. No significant change in the amount of hemothorax since the prior study. Loculated fluid collection posteriorly in the left pleural space. Status post bedside bronchoscopy by the pulmonology team. BAL cultures NURTF. Pathology negative for malignancy. Self-extubated 07/25/18. Pulmonology consulted and following. Qualifiers: Respiratory failure complication: hypoxia and hypercapnia Qualified Code(s): J96.01 - Acute respiratory failure with hypoxia; J96.02 - Acute re spiratory failure with hypercapnia SNOMED Code(s): 81175370 (3) Empyema Current Visit: Yes Status: Acute Location: Left lateral chest. Causative organism: C. albicans Etiology: Unclear. The patient has had a recurrent pleural effusion since April. CT of the chest showed a complex left pleural effusion concerning for empyema with multiple abscesses adjacent to the rib cage. Cardiothoracic surgery consulted. Status post bronchoscopy with aspiration, left thoracotomy with decortication, reverse latissimus MM flap, and wedge left upper lobe 07/13/[address] Almaguer. Operative note reviewed. Intraoperative cultures positive for yeast, final ID and sensitivities pending. Unable to perform GMS stain on intra-op pleural fluid due to not enough specimen. Requested GMS stain on additional pleural fluid sent down 07/18/18, but pathologist did not think this needed to be done so it was not performed. GMS and AFB on the wedge pathology specimen were negative. Fungal serologies negative. CT chest shows new moderate right sided pleural effusion with findings consistent with PNA vs. ARDS and left pleural fluid/gas. Repeat CXR slightly improved. Chest tubes removed 07/18/18.. Repeat CT of the chest 07/22/18 as discussed above. Concern for persistent loculated fluid collection. Will discuss with cardiothoracic surgery. Currently on IV cefepime and fluconazole. SNOMED Code(s): 885336169 (4) Acute kidney injury Current Visit: Yes Status: Acute Likely multifactorial: Hypoperfusion plus nephrotoxic medications plus sepsis. Serum creatinine persistently elevated with minimal urine output. Nephrology consulted. iHD started 07/16/18. Nephrology planning for permacath placement at some point prior to discharge. Monitor renal function closely and dose adjust medications. Avoid nephrotoxins as able. SNOMED Code(s): 48306937, 32451682 (5) Pleural effusion Current Visit: Yes Status: Acute Etiology: Unclear. Location: Left chest. Recurrent since April after he had a diagnostic thoracentesis. Cultures and pathology were negative at that time. SNOMED Code(s): 39552470 (6) Chest pain Current Visit: No Status: Resolved Likely secondary to empyema. Troponin was negative. Pain management per the primary team. Resolved. Qualifiers: Chest pain type: chest pain on breathing Qualified Code(s): R07.1 - Chest pain on breathing; R07.81 - Pleurodynia SNOMED Code(s): 87034641 (7) Lymphadenopathy Current Visit: Yes Status: Acute CT of the chest showed multiple enlarged mediastinal lymph nodes, presumably reactive. Pulmonology and CTS consulted. SNOMED Code(s): 31795032 (8) Transaminitis Current Visit: Yes Status: Resolved Etiology: Unclear. Resolved. Continue to trend. SNOMED Code(s): 405962159, 626182642 (9) Hypokalemia Current Visit: Yes Status: Resolved Replacement per the primary team. Resolved. SNOMED Code(s): 87222223 (10) Former tobacco use Current Visit: No Status: Chronic SNOMED Code(s): 179937885 (11) Chronic back pain Current Visit: No Status: Chronic Per the patient's mother had back surgery 8 years ago and has been on Oxycodone daily since then. Qualifiers: Back pain location: low back pain Back pain laterality: bilateral Sciatica presence: with sciatica Sciatica laterality: bilateral sciatica Qualified Code(s): M54.42 - Lumbago with sciatica, left side; M54.41 - Lumbago with sciatica, right side; G89.29 - Other chronic pain SNOMED Code(s): 012317140 (12) Obesity (BMI 30.0-34.9) Current Visit: No Status: Chronic SNOMED Code(s): 175081517771306 - Recommendations Recommendations: Wound care and activity per the CTS team. Vent management per the pulmonology team. Acute kidney injury her the nephrology team. Continue cefepime 1 gram IV daily (dose-adjusted for HD). Continue fluconazole IV. Will ask pharmacy to assist with dosing for HD status. Continue Vancomycin IV. Pharmacy to dose. Goal trough ~15. Duration of treatment depends on the clinical picture. Monitor renal function and dose-adjust antibiotics. Consult Discharge Plan - Plan Referrals: Kip Rojas DO [Primary Care Provider] - - Attending Attestation I have personally performed a face to face evaluation on this patient. I have reviewed and agree with the care plan. 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
--- NOTE | 2018-07-25 09:06 | Cardiothoracic Progress Note ---
Date of Encounter: 07/25/18 Time of Encounter: 09:05 - Assessment and plan (1) Empyema of left pleural space Current Visit: Yes Status: Acute The assessment and plan as outlined above was discussed with the patient and/or family members who expressed understanding and agreement. All questions were answered. continue drains to suction and bulb drainage order i/s and percussion therapy (2) Acute kidney insufficiency Current Visit: Yes Status: Acute The assessment and plan as outlined above was discussed with the patient and/or family members who expressed understanding and agreement. All questions were answered. . (3) Acute renal failure on dialysis Current Visit: Yes Status: Acute The assessment and plan as outlined above was discussed with the patient and/or family members who expressed understanding and agreement. All questions were answered. as above (4) Anemia Current Visit: Yes Status: Acute The assessment and plan as outlined above was discussed with the patient and/or family members who expressed understanding and agreement. All questions were answered. replace iron Qualifiers: Anemia type: iron deficiency Iron deficiency anemia type: inadequate tary iron intake Qualified Code(s): D50.8 - Other iron deficiency anemias Vital Signs, Last 4 Hours Temp Pulse Resp BP Pulse Ox 07/25/18 08:00 100 24 140/91 94 07/25/18 07:04 100.5 F H 07/25/18 07:00 90 20 120/70 96 07/25/18 06:00 87 17 117/65 96 07/25/18 05:46 18 97 Oxgyen Flow Rate Oxygen Flow Rate (LPM) 15 Weight 07/23/18 07/24/18 07/25/18 23:59 23:59 23:59 Weight 115.1 kg 116.2 kg - Physical Examination General: Other (very lethargic ) HEENT: Atraumatic, Normocephaly Cardiac: Reg Rate and Rhythm, Normal S1 and S2 Incision: No signs of infection Chest tubes: Minimal drainage Lungs: Other (rhonchi with poor air movement ) Neuro: Alert and responsive, No focal deficits noted Abdomen: Soft, Non-tender - Labs 07/25/18 03:15 07/25/18 03:15 Lab Results, Last 24 hours 07/24/18 07/25/18 07/25/18 12:50 03:15 03:15 WBC 11.9 H Hgb 7.9 L Hct 24.7 L Plt Count 181 Sodium 137 Potassium 3.6 Chloride 99 Carbon Dioxide 22 L BUN 50 H Creatinine 5.01 H Glucose 91 Calcium 8.3 L Total Bilirubin 0.9 AST 38 ALT 23 Alkaline Phosphatase 109 H Amylase 40 Lipase 46 Consult Discharge Plan - Plan Referrals: Kip Rojas DO [Primary Care Provider] -
[2018-07-25] MEDS ORDERED: Acetaminophen IV 1,000 MG/100 ML INFUS..BTL IVPB ONE (13:27)
--- NOTE | 2018-07-25 13:50 | Nephrology Progress Note ---
Date of Encounter: 07/25/18 Time of Encounter: 12:00 - Assessment and Plan (1) Empyema Current Visit: Yes Status: Acute S/p thoracotomy with fungal findings on culture. As per primary/ID (2) Acute kidney injury Current Visit: Yes Status: Acute Scr noted at 5.02 post HD yesterday with minimal UOP at 52cc in the past 24hrs, hence no signs of renal recovery so far. Will plan for permcath next week if no improvement by then Will plan for next HD tomorrow Lytes stable Continue to avoid nephrotoxins if possible Will followup labs results pending (3) Acute blood loss as cause of postoperative anemia Current Visit: Yes Status: Acute Hgb noted at 7.9, will monitor for now Transfusion parameters per primary team (4) Acute respiratory failure Current Visit: Yes Status: Acute s/p self extubation, management per pulm/critical care Qualifiers: Respiratory failure complication: hypoxia and hypercapnia Qualified Code(s): J96.01 - Acute respiratory failure with hypoxia; J96.02 - Acute respir atory failure with hypercapnia (5) Proteinuria Current Visit: Yes Status: Acute Subnephrotic and likely from ATN Qualifiers: Proteinuria type: unspecified Qualified Code(s): R80.9 - Proteinuria, unspecified Subjective Principal diagnosis: Pleural Effusion Interval history: Interim noted, pt seen and examined with nurse present at bedside, resting comfortably s/p self extubation this am. s/p HD yesterday Objective - Vital Signs Vital signs: Vital Signs Temp Pulse Resp BP Pulse Ox 07/25/18 13:00 108 22 149/91 95 07/25/18 12:00 104 26 142/87 97 07/25/18 11:39 101.7 F H 07/25/18 11:00 100 07/25/18 10:00 105 26 147/83 98 07/25/18 09:00 102 24 146/82 99 07/25/18 08:00 100 24 140/91 94 07/25/18 07:04 100.5 F H 07/25/18 07:00 90 20 120/70 96 07/25/18 06:00 87 17 117/65 96 07/25/18 05:46 18 97 07/25/18 05:00 91 17 121/72 96 07/25/18 04:00 88 21 125/68 95 07/25/18 03:50 16 97 07/25/18 03:00 86 21 93/75 98 07/25/18 02:15 17 98 07/25/18 02:00 77 19 109/62 98 07/25/18 01:00 77 18 101/59 98 07/25/18 00:28 99.5 F 07/25/18 00:10 17 97 07/25/18 00:00 77 17 101/63 97 07/24/18 23:00 78 18 100/59 97 07/24/18 22:17 17 96 07/24/18 22:00 81 17 103/63 96 07/24/18 21:00 81 16 122/102 96 07/24/18 20:43 99.3 F 07/24/18 20:00 83 17 101/57 96 07/24/18 19:42 16 96 07/24/18 19:00 84 16 105/60 96 07/24/18 18:00 87 17 128/78 97 07/24/18 17:16 17 126/72 97 07/24/18 17:00 89 19 126/72 96 07/24/18 16:41 98.3 F 07/24/18 16:00 84 17 110/68 97 07/24/18 15:37 17 110/66 97 07/24/18 15:00 84 17 116/71 98 07/24/18 14:00 86 16 117/71 96 Intake and Output 07/24/18 07/25/18 07/25/18 23:59 07:59 15:59 Intake Total 498 / 1420 229 / 229 0 / 229 Output Total 42 / 2437 387 / 397 10 / 397 Balance 456 / -1017 -158 / -168 -10 / -168 Intake: IV Fluids 498 / 920 229 / 229 0 / 229 FentaNYL (PF) 1,000 MCG In 0.9 28 / 100 85 / 85 0 / 85 % Sodium Chloride 80 ML @ 50 MCG/HR 5 mls/hr IVC CONT [facility] [place] Rx #:[id number] Diprivan 1,000 mg In 100 ml @ 100 / 100 144 / 144 0 / 144 20 MCG/KG/MIN 15.168 mls/hr IVC .[id number] [facility] [place] Rx#:[id number] Diflucan Premix 200 MG/100 ML 100 / 200 200 mg In 100 ml @ 100 mls/hr IVPB DAILY@1700 [facility] [place] Rx#: [id number] Venofer 400 MG In 0.9 % Sodium 270 / 270 Chloride 250 ML @ 120 mls/hr IVPB ONCE ONE Rx#:[id number] Oral 0 / 0 Output: Catheter Gastric Drainage 0 / 150 350 / 350 Wound Drainage 35 / 100 25 / 25 0 / 25 Left Chest #1 10 0 / 10 Left Chest #2 15 0 15 Other: Stool Size Large Large Stool Consistency soft soft Stool Characteristics Normal for Patient Stool Color Brown Brown # Bowel Movements 1 1 Weight 116.2 kg Blood Glucose* 85 101 Patient Weight 07/25/18 23:59 Weight 116.2 kg - General Appearance General appearance: Present: well-developed, well-nourished EENT: Present: ATNC, mucous membranes moist Neck: Present: no JVD, supple Respiratory: Present: clear (ant bilat) Cardiology: Present: no edema, normal S1, normal S2 Dialysis Vascular Access: Venous Catheter (temp line) Gastrointestinal: Present: no tenderness, no guarding Integumentary: Present: warm and dry Neurologic: Present: no focal deficit Musculoskeletal: Present: no deformities Psychiatric: Present: mood/affect appropriate - Lab 07/25/18 03:15 07/25/18 03:15 Most recent lab results 07/25/18 07/25/18 03:15 05:01 ABG pH 7.34 ABG pCO2 47 H ABG pO2 78 L ABG HCO3 25 ABG O2 Saturation 94 L Calcium 8.3 L Consult Discharge Plan - Plan Referrals: Kip Rojas DO [Primary Care Provider] -
[2018-07-25] MEDS: Cefepime HCl 1,000 MG in 0.9 % Sodium Chloride Mini Bag 100 ML IVPB SCH (15:38)
[2018-07-25] MEDS: OXYCODONE Oral CONC 10 MG/0.5 ML ORAL.SYG SL PRN ×2 (16:06→22:24)
[2018-07-25] MEDS: Fluconazole 200 MG/100 ML 200 MG/100 ML BAG IVPB SCH (16:07)
[2018-07-25] MEDS: Lurasidone 20 MG TABLET PO SCH (19:13)
[2018-07-25] MEDS: Pregabalin 75 MG CAPSULE GTUBE SCH (19:13)
[2018-07-26 04:52] LABS: ABG Base Excess -9 mEq/L (-2 to 3); ABG HCO3 22 mEq/L (21-27); ABG Oxygen Saturation 84 % (95-98); ABG PCO2 75 mmHg (35-45); ABG PH 7.08 pH Units (7.32-7.45); ABG PO2 69 mmHg (85-104); ABG TCO2 24 mEq/L (20-26)
--- NOTE | 2018-07-26 05:01 | Procedure Note ---
Date of procedure: 07/26/18 Pre-op diagnosis: respiratory failure Post-op diagnosis: same Procedure: Indication: Respiratory Distress Resident: mauri bowen Attending: tevin Paged at 04:43 AM that the pt was not at baseline and was not responding. ABG STAT at bedside showed a pH of 7.01 and pCO2 of 75. A time-out was completed verifying correct patient, procedure, site, positioning, and special equipment if applicable. The patient was placed in a flat position. Sedation was obtained using Versed 5mg, and additionally with Etomidate 20mg. The patient was easily ventilated using an ambu bag. The MAC blade was used and inserted into the oropharynx at which time there was a Grade 1 view of the vocal cords. A 7.5-albanian endotracheal tube was inserted and visualized going through the vocal cords. The stylette was removed. Colorimetric change was visualized on the CO2 meter. Breath sounds were heard in both lung phillips equally. The endotracheal tube was placed at 23 cm, measured at the teeth. Attending and resident was present for the entire procedure. A chest x-ray was ordered to assess for pneumothorax and verify endotrachealtube placement. Estimated Blood Loss: 0cc The patient tolerated the procedure well and there were no complications. Fentanyl and propofol ordered for pain and sedation. ABG pending for 07:00. Restraint order placed. Anesthesia: IV sedation Surgeon: Mauri Bowen Was there an financial services assistant present: Yes Cnc Lathe Machinist: Agustin Pineda Estimated blood loss (cc): 0 IV fluids (cc): 0 Urine output (cc): 0 Specimen: none Pathology: none sent Condition: critical Disposition: ICU
[2018-07-26] MEDS ORDERED: FentaNYL (PF) 1,000 MCG in 0.9 % Sodium Chloride 80 ML IVC SCH (05:15)
[2018-07-26 05:22] LABS: Hematocrit 30.5 % (37.5-50.1); Hemoglobin 9.2 g/dL (12.9-16.9); Mean Corpuscular HGB Conc 30.2 g/dL (31.6-35.5); Mean Corpuscular Hemoglobin 27.4 pg (28.0-33.3); Mean Corpuscular Volume 90.8 fL (83.0-100.0); Mean Platelet Volume 11.3 fL (9.4-12.4); Platelet Count 235 K/mcL (140-400); Red Blood Count 3.36 M/mcL (4.19-5.50)
[2018-07-26 05:24] LABS: White Blood Count 23.4 K/mcL (4.3-11.1)
[2018-07-26 05:47] LABS: Calcium 8.8 mg/dL (8.6-10.3); Potassium 5.7 mEq/L (3.5-5.1)
[2018-07-26] MEDS ORDERED: *HR* Heparin 10,000 UNIT/10 ML VIAL IV PRN ×2 (07:45)
[2018-07-26] MEDS ORDERED: 0.9 % Sodium Chloride 250 ML IVC PRN (07:45)
[2018-07-26] MEDS ORDERED: 0.9 % Sodium Chloride 1,000 ML PRIME SCH (07:45)
[2018-07-26] MEDS: Pantoprazole 40 MG VIAL IVP SCH (08:25)
[2018-07-26] MEDS: Neosporin OINT 15 GM TUBE TP SCH (08:26)
[2018-07-26 08:37] LABS: ABG Base Excess -5 mEq/L (-2 to 3); ABG HCO3 22 mEq/L (21-27); ABG Oxygen Saturation 99 % (95-98); ABG PCO2 48 mmHg (35-45); ABG PH 7.26 pH Units (7.32-7.45); ABG PO2 176 mmHg (85-104); ABG TCO2 23 mEq/L (20-26); Blood Gas Modality VC; Blood Gas PEEP 5 cm H2O; Blood Gas VT 500 cc
--- NOTE | 2018-07-26 09:02 | Pulmonology Progress Note ---
<John Paul Garner - Last Filed: 07/26/18 09:01> Date of Encounter: 07/26/18 Time of Encounter: 08:15 Assessment and Plan (1) Acute respiratory failure Current Visit: Yes Status: Acute - Patient developed worsening respiratory status on 07/16/18 requiring intubation - Etiology is unknown at this time; possibly secondary to empyema - Currently intubated and sedated on propofol and fentanyl - Bronchoscopy was performed on 07/23/18, which showed secretions without any other significant findings - Patient self extubated at 08:30 the morning on 07/25/2018 Plan: - Continue antibiotic therapy per ID with IV Cefepime and Fluconazole. - Continue dialysis per nephrology - Duonebs PRN are ordered Qualifiers: Respiratory failure complication: hypoxia Qualified Code(s): J96.01 - Acute respiratory failure with hypoxia (2) Empyema of left pleural space Current Visit: Yes Status: Acute - Patient was found to have a pleural effusion on CT of the chest on 07/17 with gas collection in the left hemothorax - Cardiothoracic surgery was consulted; patient underwent a left thoracotomy with decortication on 07/13 - Culture of pleural fluid from 07/13/18 grew Radha albicans - Chest tube removed on 07/18/18 - CT abd/pelv demonstrates no changes from previous study; loculated pleural fluid collection still present in L pleural space Plan: - Continue antibiotic therapy as noted above - Cardiothoracic surgery following with no new recommendations at this time (3) Acute renal failure on dialysis Current Visit: Yes Status: Acute - On 07/14, patient developed acute renal failure with an elevated creatinine at 3.33 - Nephrology was consulted; patient underwent multiple treatments of hemodialysis - Etiology suspected to be ATN - Most recent HD was on 07/24/2018 - Creatinine at 5.01 today Plan: - Nephrology is still following; holding HD today (4) Anemia Current Visit: Yes Status: Acute - Patient has had persistently low hemoglobin the last 24 hours, ranging from 7- 8 - No bleeding source has been identified at this time - He has been transfused with a total of 7 units of packed red blood cells - A repeat CT scan was performed on 07/22/18 to rule out enlarging hemothorax; Per CT report, no significant change in amount of hemothorax since prior study - GI was consulted to help rule out GI bleed - On 07/24/2018 patient was transfused with 100 mg Venofer - Dr. Andrea evaluated the patient on 07/25/2018. Reported to this provider that he was concerned about hepatic etiologies. Had pain and a tests previously were negative. Ordered hepatitis C, and ferritin per his recommendations. Also ordered a right upper quadrant ultrasound per his request. Plan: - Plan for EGD in a.m. - May consider further Venofer transfusion tomorrow Qualifiers: Anemia type: iron deficiency Iron deficiency anemia type: unspecified iron deficiency Qualified Code(s): D50.9 - Iron deficiency anemia, unspecified (5) DVT prophylaxis Current Visit: Yes Status: Acute Chemical prophylaxis held at this time with anemia Mechanical prophylaxis in place Daily IV Protonix for GI prophylaxis Subjective Principal diagnosis: Pleural Effusion Interval history: Patient seen and examined at bedside. Patient is intubated and resting comfortably on minimal sedation with fentanyl. He is arousable and able to follow commands. He is expressing with his hands that he wants the endotracheal tube removed. Objective PUL Vital signs: Last Vital Signs Temp 99.1 F 07/26/18 07:30 Pulse 89 07/26/18 08:00 Resp 19 07/26/18 08:00 BP 101/63 07/26/18 08:00 Pulse Ox 97 07/26/18 08:00 Ventilator Settings Ventilator Settings: Ventilator Settings, Last 8 Hours Ventilator Tidal Volume 500 Setting Ventilator Tidal Volume 500 Setting Ventilator Tidal Volume 500 Setting Ventilator Tidal Volume 500 Setting Ventilator Tidal Volume 500 Setting Ventilator Respiratory Rate 16 Setting Ventilator Respiratory Rate 16 Setting Ventilator Respiratory Rate 16 Setting Ventilator Respiratory Rate 16 Setting Ventilator Respiratory Rate 16 Setting Actual Respiratory Rate 17 Actual Respiratory Rate 19 Actual Respiratory Rate 16 Actual Respiratory Rate 20 Actual Respiratory Rate 20 Positive End Expiratory 5 Pressure Positive End Expiratory 5 Pressure Positive End Expiratory 5 Pressure Positive End Expiratory 5 Pressure Positive End Expiratory 5 Pressure Peak Inspiratory Airway 45 Pressure Peak Inspiratory Airway 45 Pressure Peak Inspiratory Airway 45 Pressure Peak Inspiratory Airway 48 Pressure Peak Inspiratory Airway 47 Pressure Results - Laboratory Findings CBC and BMP: 07/26/18 04:55 07/26/18 04:55 ABG ABG pH 7.26 pH Units (7.32-7.45) L D 07/26/18 08:33 ABG pCO2 48 mmHg (35-45) H D 07/26/18 08:33 ABG pO2 176 mmHg (85-104) H D 07/26/18 08:33 ABG O2 Saturation 99 % (95-98) H 07/26/18 08:33 PT/INR, D-dimer PT 17.8 Seconds (9.4-12.1) H 07/11/18 00:52 Abnormal lab findings: Abnormal lab results WBC 23.4 K/mcL (4.3-11.1) H D 07/26/18 04:55 RBC 3.36 M/mcL (4.19-5.50) L 07/26/18 04:55 Hgb 9.2 g/dL (12.9-16.9) L 07/26/18 04:55 Hct 30.5 % (37.5-50.1) L 07/26/18 04:55 MCV 82.2 fL (83.0-100.0) L 07/12/18 01:15 MCH 27.4 pg (28.0-33.3) L 07/26/18 04:55 MCHC 30.2 g/dL (31.6-35.5) L 07/26/18 04:55 RDW 17.0 % (11.5-14.5) H 07/26/18 04:55 Plt Count 139 K/mcL (140-400) L 07/23/18 03:28 Immature Gran % 4.9 % (0-4) H 07/25/18 03:15 9.4 K/mcL (1.6-8.9) H 07/25/18 03:15 Nucleated RBCs/100 WBC 0.1 /100 WBC (0) H 07/24/18 03:40 Decreased (Normal) L 07/17/18 03:30 1+ (Not Present) A 07/13/18 04:20 Present (Not Present) A 07/13/18 04:20 PT 17.8 Seconds (9.4-12.1) H 07/11/18 00:52 APTT 37.2 Seconds (26.0-36.0) H 07/10/18 16:31 ABG pH 7.26 pH Units (7.32-7.45) L D 07/26/18 08:33 ABG pCO2 48 mmHg (35-45) H D 07/26/18 08:33 ABG pO2 176 mmHg (85-104) H D 07/26/18 08:33 ABG Total CO2 27 mEq/L (20-26) H 07/25/18 05:01 ABG O2 Saturation 99 % (95-98) H 07/26/18 08:33 ABG Base Excess -5 mEq/L (-2 to 3) L 07/26/18 08:33 Sodium 135 mEq/L (136-145) L 07/22/18 03:45 Potassium 5.7 mEq/L (3.5-5.1) H 07/26/18 04:55 Chloride 96 mEq/L (98-107) L 07/21/18 03:50 Carbon Dioxide 20 mEq/L (23-29) L 07/26/18 04:55 BUN 72 mg/dL (6-20) H 07/26/18 04:55 7.23 mg/dL (0.70-1.30) H 07/26/18 04:55 Est GFR ( Amer) 10 (> 60) L 07/26/18 04:55 Est GFR (Non-Af Amer) 8 (> 60) L 07/26/18 04:55 5 (6-26) L 07/17/18 03:30 Glucose 116 mg/dL (70-105) H 07/26/18 04:55 POC Glucose 101 mg/dL (70-99) H 07/25/18 23:53 310 (280-300) H 07/26/18 04:55 Lactic Acid 0.4 mmol/L (0.5-2.2) L 07/26/18 07:51 Calcium 8.3 mg/dL (8.6-10.3) L 07/25/18 03:15 Phosphorus 5.5 mg/dL (2.7-4.5) H 07/15/18 06:28 Iron 16 mcg/dL (65-175) L 07/23/18 08:39 % Saturation 10 % (20-55) L 07/23/18 08:39 113 mg/dL (203-362) L 07/23/18 08:39 > 1500 ng/mL (20-250) H 07/25/18 11:04 0.4 mg/dL (0.0-0.2) H 07/24/18 12:50 AST 41 Units/L (13-39) H 07/15/18 06:28 ALT 87 Units/L (7-52) H 07/10/18 16:59 109 Units/L (34-104) H 07/24/18 12:50 6.0 g/dL (6.4-8.9) L 07/24/18 12:50 2.9 g/dL (3.5-5.7) L 07/24/18 12:50 2.3 g/dL (2.4-3.5) L 07/16/18 02:20 0.9 (1.1-2.2) L 07/24/18 12:50 Amylase 17 Units/L (29-103) L 07/18/18 14:40 5 Units/L (11-82) L 07/18/18 14:40 12.80 ng/mL (0.00-0.15) H 07/26/18 04:55 Ur Specific [place] < 1.005 (1.010-1.025) L 07/15/18 10:25 Small (Negative) H 07/15/18 10:25 3-5 per hpf (0-3) H 07/15/18 10:25 Amorphous Sediment Moderate (Few) H 07/15/18 10:25 Protein/Creatinin Ratio 0.95 mg/mg (0.00-0.20) H 07/15/18 10:25 36 mg/dL (1-14) H 07/15/18 10:25 Fluid Appearance Slightly Hazy (Clear) A 07/23/18 08:58 Pleural Appearance Bloody (Clear) A 07/13/18 13:40 Pleur Adenosine Deamin 20.8 U/L (0.0-9.4) H 07/13/18 13:40 Vancomycin Trough 23 mcg/mL (5-10) H 07/12/18 18:31 Positive ng/mL (Vkjzve=460) H 07/11/18 16:00 U Benzodiazepines Scrn Positive ng/mL (Zytydb=441) H 07/11/18 16:00 Hep Bs Antibody < 3.10 mIU/mL (10.00-) L 07/16/18 09:22 Crossmatch See Detail 07/22/18 09:55 - Microbiology Findings Microbiology Findings: Microbiology, Last 48 Hours 07/23/18 08:58 Respiratory Culture - Final Left Lower Lobe Lung 07/24/18 13:06 Blood Culture - Preliminary Central Venous Catheter Culture is incubating and being continuously monitored for growth. Final report to follow. 07/24/18 13:06 Blood Culture - Preliminary Peripheral Venipuncture Culture is incubating and being continuously monitored for growth. Final report to follow. 07/24/18 13:06 Blood Culture - Preliminary Peripheral Venipuncture Culture is incubating and being continuously monitored for growth. Final report to follow. 07/23/18 08:58 Acid Fast Stain - Final Left Lower Lobe Lung 07/18/18 14:40 Cryptococcal Antigen - Final Serum - Clinical Findings Intake & Output: Intake & Output 07/25/18 07/26/18 07/26/18 23:59 07:59 15:59 Intake Total 200 / 529 3.3 / 3.3 Output Total 45 / 442 300 / 300 Balance 155 / 87 -296.7 / -296.7 Consult Discharge Plan - Plan Referrals: Kip Rojas, DO [Primary Care Provider] - <Manuel Kumar - Last Filed: 07/26/18 10:45> Date of Encounter: 07/26/18 Assessment and Plan (1) Pleural effusion Current Visit: Yes Status: Acute (2) Lymphadenopathy Current Visit: Yes Status: Acute (3) Transaminitis Current Visit: Yes Status: Resolved Objective PUL Vital signs: Last Vital Signs Temp 99.1 F 07/26/18 07:30 Pulse 90 07/26/18 09:57 Resp 18 07/26/18 09:57 BP 106/62 07/26/18 09:57 Pulse Ox 96 07/26/18 09:57 Ventilator Settings Ventilator Settings: Ventilator Settings, Last 8 Hours Ventilator Tidal Volume 500 Setting Ventilator Tidal Volume 500 Setting Ventilator Tidal Volume 500 Setting Ventilator Tidal Volume 500 Setting Ventilator Tidal Volume 500 Setting Ventilator Tidal Volume 500 Setting Ventilator Tidal Volume 500 Setting Ventilator Tidal Volume 500 Setting Ventilator Tidal Volume 500 Setting Ventilator Tidal Volume 500 Setting Ventilator Respiratory Rate 18 Setting Ventilator Respiratory Rate 16 Setting Ventilator Respiratory Rate 18 Setting Ventilator Respiratory Rate 16 Setting Ventilator Respiratory Rate 16 Setting Ventilator Respiratory Rate 16 Setting Ventilator Respiratory Rate 16 Setting Ventilator Respiratory Rate 16 Setting Ventilator Respiratory Rate 16 Setting Ventilator Respiratory Rate 16 Setting Ventilator Respiratory Rate 16 Setting Actual Respiratory Rate 18 Actual Respiratory Rate 23 Actual Respiratory Rate 20 Actual Respiratory Rate 17 Actual Respiratory Rate 18 Actual Respiratory Rate 19 Actual Respiratory Rate 16 Actual Respiratory Rate 20 Actual Respiratory Rate 20 Positive End Expiratory 5 Pressure Positive End Expiratory 5 Pressure Positive End Expiratory 5 Pressure Positive End Expiratory 5 Pressure Positive End Expiratory 5 Pressure Positive End Expiratory 5 Pressure Positive End Expiratory 5 Pressure Positive End Expiratory 5 Pressure Positive End Expiratory 5 Pressure Positive End Expiratory 5 Pressure Peak Inspiratory Airway 41 Pressure Peak Inspiratory Airway 53 Pressure Peak Inspiratory Airway 44 Pressure Peak Inspiratory Airway 45 Pressure Peak Inspiratory Airway 45 Pressure Peak Inspiratory Airway 45 Pressure Peak Inspiratory Airway 45 Pressure Peak Inspiratory Airway 48 Pressure Peak Inspiratory Airway 47 Pressure Results - Laboratory Findings CBC and BMP: 07/26/18 04:55 07/26/18 04:55 ABG ABG pH 7.26 pH Units (7.32-7.45) L D 07/26/18 08:33 ABG pCO2 48 mmHg (35-45) H D 07/26/18 08:33 ABG pO2 176 mmHg (85-104) H D 07/26/18 08:33 ABG O2 Saturation 99 % (95-98) H 07/26/18 08:33 PT/INR, D-dimer PT 17.8 Seconds (9.4-12.1) H 07/11/18 00:52 Abnormal lab findings: Abnormal lab results WBC 23.4 K/mcL (4.3-11.1) H D 07/26/18 04:55 RBC 3.36 M/mcL (4.19-5.50) L 07/26/18 04:55 Hgb 9.2 g/dL (12.9-16.9) L 07/26/18 04:55 Hct 30.5 % (37.5-50.1) L 07/26/18 04:55 MCV 82.2 fL (83.0-100.0) L 07/12/18 01:15 MCH 27.4 pg (28.0-33.3) L 07/26/18 04:55 MCHC 30.2 g/dL (31.6-35.5) L 07/26/18 04:55 RDW 17.0 % (11.5-14.5) H 07/26/18 04:55 Plt Count 139 K/mcL (140-400) L 07/23/18 03:28 Immature Gran % 4.9 % (0-4) H 07/25/18 03:15 9.4 K/mcL (1.6-8.9) H 07/25/18 03:15 Nucleated RBCs/100 WBC 0.1 /100 WBC (0) H 07/24/18 03:40 Decreased (Normal) L 07/17/18 03:30 1+ (Not Present) A 07/13/18 04:20 Present (Not Present) A 07/13/18 04:20 PT 17.8 Seconds (9.4-12.1) H 07/11/18 00:52 APTT 37.2 Seconds (26.0-36.0) H 07/10/18 16:31 ABG pH 7.26 pH Units (7.32-7.45) L D 07/26/18 08:33 ABG pCO2 48 mmHg (35-45) H D 07/26/18 08:33 ABG pO2 176 mmHg (85-104) H D 07/26/18 08:33 ABG Total CO2 27 mEq/L (20-26) H 07/25/18 05:01 ABG O2 Saturation 99 % (95-98) H 07/26/18 08:33 ABG Base Excess -5 mEq/L (-2 to 3) L 07/26/18 08:33 Sodium 135 mEq/L (136-145) L 07/22/18 03:45 Potassium 5.7 mEq/L (3.5-5.1) H 07/26/18 04:55 Chloride 96 mEq/L (98-107) L 07/21/18 03:50 Carbon Dioxide 20 mEq/L (23-29) L 07/26/18 04:55 BUN 72 mg/dL (6-20) H 07/26/18 04:55 7.23 mg/dL (0.70-1.30) H 07/26/18 04:55 Est GFR ( Amer) 10 (> 60) L 07/26/18 04:55 Est GFR (Non-Af Amer) 8 (> 60) L 07/26/18 04:55 5 (6-26) L 07/17/18 03:30 Glucose 116 mg/dL (70-105) H 07/26/18 04:55 POC Glucose 101 mg/dL (70-99) H 07/25/18 23:53 310 (280-300) H 07/26/18 04:55 Lactic Acid 0.4 mmol/L (0.5-2.2) L 07/26/18 07:51 Calcium 8.3 mg/dL (8.6-10.3) L 07/25/18 03:15 Phosphorus 5.5 mg/dL (2.7-4.5) H 07/15/18 06:28 Iron 16 mcg/dL (65-175) L 07/23/18 08:39 % Saturation 10 % (20-55) L 07/23/18 08:39 113 mg/dL (203-362) L 07/23/18 08:39 > 1500 ng/mL (20-250) H 07/25/18 11:04 0.4 mg/dL (0.0-0.2) H 07/24/18 12:50 AST 41 Units/L (13-39) H 07/15/18 06:28 ALT 87 Units/L (7-52) H 07/10/18 16:59 109 Units/L (34-104) H 07/24/18 12:50 6.0 g/dL (6.4-8.9) L 07/24/18 12:50 2.9 g/dL (3.5-5.7) L 07/24/18 12:50 2.3 g/dL (2.4-3.5) L 07/16/18 02:20 0.9 (1.1-2.2) L 07/24/18 12:50 Amylase 17 Units/L (29-103) L 07/18/18 14:40 5 Units/L (11-82) L 07/18/18 14:40 12.80 ng/mL (0.00-0.15) H 07/26/18 04:55 Ur Specific [place] < 1.005 (1.010-1.025) L 07/15/18 10:25 Small (Negative) H 07/15/18 10:25 3-5 per hpf (0-3) H 07/15/18 10:25 Amorphous Sediment Moderate (Few) H 07/15/18 10:25 Protein/Creatinin Ratio 0.95 mg/mg (0.00-0.20) H 07/15/18 10:25 36 mg/dL (1-14) H 07/15/18 10:25 Fluid Appearance Slightly Hazy (Clear) A 07/23/18 08:58 Pleural Appearance Bloody (Clear) A 07/13/18 13:40 Pleur Adenosine Deamin 20.8 U/L (0.0-9.4) H 07/13/18 13:40 Vancomycin Trough 23 mcg/mL (5-10) H 07/12/18 18:31 Positive ng/mL (Zqzsnx=198) H 07/11/18 16:00 U Benzodiazepines Scrn Positive ng/mL (Xnpzzq=516) H 07/11/18 16:00 Hep Bs Antibody < 3.10 mIU/mL (10.00-) L 07/16/18 09:22 Crossmatch See Detail 07/22/18 09:55 - Microbiology Findings Microbiology Findings: Microbiology, Last 48 Hours 07/23/18 08:58 Respiratory Culture - Final Left Lower Lobe Lung 07/24/18 13:06 Blood Culture - Preliminary Central Venous Catheter Culture is incubating and being continuously monitored for growth. Final report to follow. 07/24/18 13:06 Blood Culture - Preliminary Peripheral Venipuncture Culture is incubating and being continuously monitored for growth. Final report to follow. 07/24/18 13:06 Blood Culture - Preliminary Peripheral Venipuncture Culture is incubating and being continuously monitored for growth. Final report to follow. 07/23/18 08:58 Acid Fast Stain - Final Left Lower Lobe Lung 07/18/18 14:40 Cryptococcal Antigen - Final Serum - Clinical Findings Intake & Output: Intake & Output 07/25/18 07/26/18 07/26/18 23:59 07:59 15:59 Intake Total 200 / 529 3.3 / 25.3 22 / 25.3 Output Total 45 / 442 300 / 300 Balance 155 / 87 -296.7 / -274.7 22 / -274.7 - Attending Attestation I examined this patient and my medical decision-making was reviewed with the Resident Physician. I agree with the documented findings, disposition and treatment plan as described except to the extent set forth below. We independently had [id number] contact with the patient I spent 34min of Critical Care time with this patient. It involved decision making of high complexity to assess, manipulate, and support vital organ system failure and/or to prevent further life threatening deterioration of the patient's condition. The time involved in the performance of separately reportable procedures was not counted toward critical care time. Patient seen and examined at bedside Labs, radiology, chart personally reviewed. Management was reviewed during multidisciplinary critical care rounds. 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 Acceptable gas exchange now on vent. Chest drains management per thoracic surgery. 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 ID: Severe sepsis which has presented overnight on top of presentation the hospital for empyema. We will broaden out antimicrobials to cover for anaerobic infections as well follow-up on cultures from bronchoscopy and pancultures including from central venous catheter. Heme/Onc: Mechanical DVT prophylaxis as patient has had acute anemia Endo: Glucose Monitored Integ/MSK: Skin Care per routine ICU Nursing Protocol to prevent ulcers. Lines: All lines examined without evidence of infection : Dispo: Monitor in ICU for critical illness CODE: Remains full code I updated his mother on the phone and will also give consent for bronchoscopy
[2018-07-26 10:16] LABS: ANA IgG by ELISA NONE DETECTED (None Detected)
--- NOTE | 2018-07-26 10:18 | Nephrology Progress Note ---
Date of Encounter: 07/26/18 Time of Encounter: 10:30 - Assessment and Plan (1) Empyema Current Visit: Yes Status: Acute S/p thoracotomy with fungal findings on culture. As per primary/ID (2) Acute kidney injury Current Visit: Yes Status: Acute Scr noted at 7.23 with UOP still minimal, no renal recovery noted Will plan for next HD today with UF goal of 3-4kg as tolerated Lytes stable except for hyperkalemia which we will address with HD Continue to avoid nephrotoxins if possible Permcath planned next week if no signs of renal recovery WING negative with complements WNL, ANCA and RF negative (3) Acute blood loss as cause of postoperative anemia Current Visit: Yes Status: Acute Hgb noted at 9.2 improved, will monitor for now Transfusion parameters per primary team (4) Acute respiratory failure Current Visit: Yes Status: Acute s/p self extubation, management per pulm/critical care Qualifiers: Respiratory failure complication: hypoxia and hypercapnia Qualified Code(s): J96.01 - Acute respiratory failure with hypoxia; J96.02 - Acute respiratory failure with hypercapnia (5) Proteinuria Current Visit: Yes Status: Acute Subnephrotic and likely from ATN Qualifiers: Proteinuria type: unspecified Qualified Code(s): R80.9 - Proteinuria, unspecified Subjective Principal diagnosis: Pleural Effusion Interval history: Interim noted s/p bronch this am, pt seen and examined Objective - Vital Signs Vital signs: Vital Signs Temp Pulse Resp BP Pulse Ox 07/26/18 09:57 90 18 106/62 96 07/26/18 09:05 23 114/73 93 07/26/18 09:00 93 21 103/59 94 07/26/18 08:00 89 19 101/63 97 07/26/18 07:50 19 101/63 97 07/26/18 07:30 99.1 F 07/26/18 07:00 89 19 102/61 97 07/26/18 06:00 101 F H 96 19 108/66 96 07/26/18 05:02 20 97 07/26/18 05:01 101 F H 97 17 112/64 96 07/26/18 05:00 102 25 108/65 96 07/26/18 04:00 107 30 116/66 90 07/26/18 03:46 100.6 F H 07/26/18 03:00 106 29 125/71 90 07/26/18 02:00 107 29 128/69 90 07/26/18 01:00 107 34 137/76 94 07/26/18 00:41 100.8 F H 07/26/18 00:00 107 33 138/78 93 07/25/18 23:00 104 32 140/76 96 07/25/18 22:00 106 30 149/87 96 07/25/18 21:00 105 30 148/88 91 07/25/18 20:03 100.2 F H 07/25/18 20:00 104 31 143/87 94 07/25/18 19:00 102 35 142/87 90 07/25/18 18:00 102 30 139/84 94 07/25/18 17:00 103 28 143/86 92 07/25/18 16:00 104 26 145/85 92 07/25/18 15:00 100.2 F H 106 28 144/89 90 07/25/18 14:00 106 34 147/102 97 07/25/18 13:00 108 22 149/91 95 07/25/18 12:00 104 26 142/87 97 07/25/18 11:39 101.7 F H 07/25/18 11:00 100 Intake and Output 07/25/18 07/26/18 07/26/18 23:59 07:59 15:59 Intake Total 200 / 529 3.3 / 25.3 22 / 25.3 Output Total 45 / 442 300 / 300 Balance 155 / 87 -296.7 / -274.7 22 / -274.7 Intake: IV Fluids 200 / 529 3.3 / 25.3 22 / 25.3 Diprivan 1,000 mg In 100 ml @ 5 3.3 / 25.3 22 / 25.3 MCG/KG/MIN 3.486 mls/hr IVC . Q24H [facility] Rx#:[id number] Maxipime 1,000 MG In 0.9 % 100 / 100 Sodium Chloride (Mini-Bag +) 100 ML @ 200 mls/hr IVPB DAILY@ 1600 [facility] Rx#:[id number] Diflucan Premix 200 MG/100 ML 100 / 100 200 mg In 100 ml @ 100 mls/hr IVPB DAILY@1700 [facility] Rx#: [id number] Oral 0 / 0 0 / 0 Output: Catheter 85 / 85 Urethral (Smith) 0 / 0 0 / 0 Gastric Drainage 200 / 200 Wound Drainage Left Chest #1 Left Chest #2 Other: Blood Glucose* 105 - Lab 07/26/18 04:55 07/26/18 04:55 Most recent lab results 07/26/18 07/26/18 07/26/18 04:48 04:55 08:33 ABG pH 7.08 L* 7.26 L D ABG pCO2 75 H* 48 H D ABG pO2 69 L 176 H D ABG HCO3 22 22 ABG O2 Saturation 84 L 99 H Calcium 8.8 Consult Discharge Plan - Plan Referrals: Kip Rojas DO [Primary Care Provider] -
[2018-07-26 12:04] LABS: Source of Body Fluid LLL AND LUL BAL
--- NOTE | 2018-07-26 14:56 | Discharge Summary ---
<John Paul Garner - Last Filed: 07/26/18 17:16> - NOTES TO OUTPATIENT PROVIDER Notes to Outpatient Provider: Mr Hutson was admitted to [facility] on 07/10/18 for chest pain and shortness of breath. He was diagnosed with empyema. He received empiric antibiotics. Underwent left thoracotomy with decortication and wedge resection of the upper lobe, and reverse latissimus muscle flap on 07/13/[address] Almaguer. ICU stay was complicated by acute renal failure, likely ATN, which required hemodialysis. The patient was also anemic postop and required a total of 7 units of blood transfused. No definitive source of bleeding was identified at time of transfer. Family requested transfer to [place] for further care. Orders not resulted at time of discharge: Pending orders 07/10/18 22:05 Fungal Culture [MYC] Routine 07/10/18 22:06 AFB Culture, Body Fluid [TB] Routine 07/11/18 10:38 MRSA Surveillance Screen [MOLMIC] Routine 07/13/18 13:40 AFB Smear [TB] Routine 07/17/18 13:45 AFB Culture, Tissue [TB] Routine 07/17/18 13:47 Fungal Smear [MYC] Routine 07/18/18 07:24 AFB Culture, Body Fluid [TB] Stat AFB Smear [TB] Routine AFB Smear [TB] Stat 07/23/18 08:58 AFB Culture, Respiratory [TB] Routine AFB Smear [TB] Routine Fungal Culture [MYC] Routine 07/23/18 11:21 Urinalysis reflex Microscopic [URIN] Routine 07/23/18 13:30 Antiphospholipid Synd w reflex Routine 07/23/18 15:49 EKG [ECG 12 lead ECG] [ECG] Stat 07/24/18 13:06 Culture,Blood [BC] Stat Culture,Blood [BC] Stat 07/25/18 11:04 Hepatitis C Qnt Reflx Genotype Stat 07/26/18 09:23 Cytology [PTH] Routine 07/26/18 09:24 Cytology [PTH] Routine 07/26/18 12:02 AFB Culture, Respiratory [TB] Routine Cell Count w Diff, Body Fluid [BF] Routine Culture,Respiratory [RM] Routine Fungal Culture [MYC] Routine Gram Stain [RM] Routine HSV DNA [MOLMIC] Routine Legionella Culture [RM] Routine Resp.Virus Panel,Body Fl Routine 07/27/18 04:00 Vancomycin,Random AM 0400 07/27/18 05:00 Arterial Blood Gas DAILY 07/28/18 05:00 Arterial Blood Gas DAILY 07/29/18 05:00 Arterial Blood Gas DAILY 07/30/18 05:00 Arterial Blood Gas DAILY 07/31/18 05:00 Arterial Blood Gas DAILY 08/01/18 05:00 Arterial Blood Gas DAILY 08/02/18 05:00 Arterial Blood Gas DAILY 08/03/18 05:00 Arterial Blood Gas DAILY 08/04/18 05:00 Arterial Blood Gas DAILY Date of Encounter: 07/26/18 Time of Encounter: 12:00 - Discharge Diagnosis (1) Acute respiratory failure Priority: Primary Status: Acute Qualifiers: Respiratory failure complication: hypoxia Qualified Code(s): J96.01 - Acute respiratory failure with hypoxia (2) Empyema of left pleural space Priority: Primary Status: Acute (3) Acute renal failure on dialysis Priority: Secondary Status: Acute (4) Anemia Priority: Secondary Status: Acute Qualifiers: Anemia type: iron deficiency Iron deficiency anemia type: unspecified iron deficiency Qualified Code(s): D50.9 - Iron deficiency anemia, unspecified (5) Transaminitis Priority: Secondary Status: Resolved (6) Chronic back pain Priority: Secondary Status: Chronic Qualifiers: Back pain location: low back pain Back pain laterality: bilateral Sciatica presence: with sciatica Sciatica laterality: bilateral sciatica Qualified Code(s): M54.42 - Lumbago with sciatica, left side; M54.41 - Lumbago with sciatica, right side; G89.29 - Other chronic pain (7) Former tobacco use Priority: Secondary Status: Chronic (8) Obesity (BMI 30.0-34.9) Priority: Secondary Status: Chronic - Discharge Medications Prescriptions: No Action Fesoterodine Fumarate [Toviaz] 8 mg PO HS Bupropion HCl [Wellbutrin Xl] 300 mg PO QAM Sertraline [Zoloft] 100 mg PO HS Pregabalin [Lyrica] 100 mg PO TID OxyCODONE ER (12 HR) [OxyCONTIN] 20 mg PO Q12H Cyclobenzaprine [Flexeril] 10 mg PO HS Oxycodone HCl/Acetaminophen [Percocet 10-325 mg Tablet] 1 each PO Q4H PRN PRN Reason: Breakthrough Pain Lurasidone HCl [Latuda] 60 mg PO HS diazePAM [Valium] 10 mg PO HS Home Medications: Bupropion HCl [Wellbutrin Xl] 300 mg PO QAM 04/21/18 [History] Cyclobenzaprine [Flexeril] 10 mg PO HS 04/21/18 [History] Fesoterodine Fumarate [Toviaz] 8 mg PO HS 04/21/18 [History] Lurasidone HCl [Latuda] 60 mg PO HS 04/21/18 [History] OxyCODONE ER (12 HR) [OxyCONTIN] 20 mg PO Q12H 04/21/18 [History] Oxycodone HCl/Acetaminophen [Percocet 10-325 mg Tablet] 1 each PO Q4H PRN 04/21/18 [History] Pregabalin [Lyrica] 100 mg PO TID 04/21/18 [History] Sertraline [Zoloft] 100 mg PO HS 04/21/18 [History] diazePAM [Valium] 10 mg PO HS 07/11/18 [History] Allergies/Adverse Reactions: Allergy/AdvReac Type Severity Reaction Status Date / Time morphine Allergy Anaphylaxis Verified 07/11/18 11:34 Labs on day of discharge: Labs from last 24 hours 07/26/18 07/26/18 07/26/18 08:33 07:51 04:55 WBC RBC Hgb Hct MCV MCH MCHC RDW Plt Count MPV Sample Site R Radial ABG pH 7.26 L D ABG pCO2 48 H D ABG pO2 176 H D ABG HCO3 22 ABG Total CO2 23 ABG O2 Saturation 99 H ABG Base Excess -5 L Ish Test N/A Respiration Rate 16 O2 Delivery Device Adult Vent Blood Gas Modality VC Inspired O2 70.0 Tidal Volume 500 PEEP 5 Sodium Potassium Chloride Carbon Dioxide BUN Creatinine Est GFR ( Amer) Est GFR (Non-Af Amer) BUN/Creatinine Ratio Glucose POC Glucose Calculated Osmolality Lactic Acid 0.4 L Calcium Procalcitonin Random Vancomycin 16 WING Screen Phospholip A2 Rec IgG Person Notif of Crit 07/26/18 07/26/18 07/26/18 04:55 04:55 04:55 WBC 23.4 H D RBC 3.36 L Hgb 9.2 L Hct 30.5 L MCV 90.8 MCH 27.4 L MCHC 30.2 L RDW 17.0 H Plt Count 235 MPV 11.3 Sample Site ABG pH ABG pCO2 ABG pO2 ABG HCO3 ABG Total CO2 ABG O2 Saturation ABG Base Excess Ish Test Respiration Rate O2 Delivery Device Blood Gas Modality Inspired O2 Tidal Volume PEEP Sodium 139 Potassium 5.7 H Chloride 99 Carbon Dioxide 20 L BUN 72 H Creatinine 7.23 H Est GFR ( Amer) 10 L Est GFR (Non-Af Amer) 8 L BUN/Creatinine Ratio 10 Glucose 116 H POC Glucose Calculated Osmolality 310 H Lactic Acid Calcium 8.8 Procalcitonin 12.80 H Random Vancomycin WING Screen Phospholip A2 Rec IgG Person Notif of Crit 07/26/18 07/25/18 07/25/18 04:48 23:53 11:40 WBC RBC Hgb Hct MCV MCH MCHC RDW Plt Count MPV Sample Site ABG pH 7.08 L* ABG pCO2 75 H* ABG pO2 69 L ABG HCO3 22 ABG Total CO2 24 ABG O2 Saturation 84 L ABG Base Excess -9 L Ish Test Respiration Rate O2 Delivery Device Blood Gas Modality Inspired O2 15.0 Tidal Volume PEEP Sodium Potassium Chloride Carbon Dioxide BUN Creatinine Est GFR ( Amer) Est GFR (Non-Af Amer) BUN/Creatinine Ratio Glucose POC Glucose 101 H 101 H Calculated Osmolality Lactic Acid Calcium Procalcitonin Random Vancomycin WING Screen Phospholip A2 Rec IgG Person Notif of Crit karlee 07/23/18 13:30 WBC RBC Hgb Hct MCV MCH MCHC RDW Plt Count MPV Sample Site ABG pH ABG pCO2 ABG pO2 ABG HCO3 ABG Total CO2 ABG O2 Saturation ABG Base Excess Ish Test Respiration Rate O2 Delivery Device Blood Gas Modality Inspired O2 Tidal Volume PEEP Sodium Potassium Chloride Carbon Dioxide BUN Creatinine Est GFR ( Amer) Est GFR (Non-Af Amer) BUN/Creatinine Ratio Glucose POC Glucose Calculated Osmolality Lactic Acid Calcium Procalcitonin Random Vancomycin WING Screen NONE DETECTED Phospholip A2 Rec IgG <1:10 Person Notif of Crit Preliminary micro results at discharge 07/24/18 13:06 Blood Culture - Preliminary Central Venous Catheter Culture is incubating and being continuously mon itored for growth. Final report to follow. 07/24/18 13:06 Blood Culture - Preliminary Peripheral Venipuncture Culture is incubating and being continuously monitored for growth. Final report to follow. 07/24/18 13:06 Blood Culture - Preliminary Peripheral Venipuncture Culture is incubating and being continuously monitored for growth. Final report to follow. 07/13/18 13:40 Fungal Culture - Preliminary Pleural Fluid Radha albicans - Impressions ITS Impressions Chest X-Ray 07/10/18 16:31 IMPRESSION: More confluent left lower lobe opacification and effusion. Stable cardiomegaly. D/ / Jose Martinez MD / Jose Martinez MD Interpreting Provider: Jose Martinez MD Chest Ultrasound 07/10/18 21:28 IMPRESSION: Small left pleural effusion, with insufficient fluid for a thoracentesis at this time. D/ / Dragan Hyde MD / Dragan Hyde MD Interpreting Provider: Dragan Hyde MD Abdomen/Pelvis CT 07/11/18 15:00 IMPRESSION: Complex left pleural effusion with enhancing, thickened pleura, concerning for formation of an empyema. In addition, there is extra thoracic extension of that, either through direct invasion of the wall or from seeding from a previous thoracentesis, with multiple abscesses now seen adjacent to the rib cage. Multiple enlarged mediastinal lymph nodes, presumably reactive, but follow-up of these is recommended to ensure stability or resolution. No acute abnormalities identified within the abdomen pelvis. Moderate splenomegaly. Cholelithiasis. D/ / Chon Chiu MD / Chon Chiu MD Interpreting Provider: Chon Chiu MD Chest CT 07/11/18 15:00 IMPRESSION: Complex left pleural effusion with enhancing, thickened pleura, concerning for formation of an empyema. In addition, there is extra thoracic extension of that, either through direct invasion of the wall or from seeding from a previous thoracentesis, with multiple abscesses now seen adjacent to the rib cage. Multiple enlarged mediastinal lymph nodes, presumably reactive, but follow-up of these is recommended to ensure stability or resolution. No acute abnormalities identified within the abdomen pelvis. Moderate splenomegaly. Cholelithiasis. D/ / Chon Chiu MD / Chon Chiu MD Interpreting Provider: Chon Chiu MD Chest X-Ray 07/13/18 15:32 IMPRESSION: Persistent left lung base opacity. Left chest tubes have been placed. No definite pneumothorax. D/ / 07/13/2018 16:29:38 Dragan Chopra MD / angelique Interpreting Provider: Dragan Chopra MD Chest X-Ray 07/14/18 15:32 IMPRESSION: Left greater than right basilar predominant heterogeneous opacities with left basilar consolidation and left pleural effusion. Stable life-support devices. D/ / Tank Sessions / Tank Sessions Interpreting Provider: Tank Sessions Chest X-Ray 07/15/18 06:00 IMPRESSION: Persistent left pleural effusion with bibasilar airspace disease/atelectasis left greater than right. D/ / 07/15/2018 07:23:24 Baldev Fernandez MD / sakina Interpreting Provider: Baldev Fernandez MD Chest X-Ray 07/16/18 04:00 IMPRESSION: No significant interval change in left pleural effusion. Bilateral airspace disease is again seen, increasing on the right as compared to prior. D/ / Tyson Mckinley MD / Tyson Mckinley MD Interpreting Provider: Tyson Mckinley MD Chest X-Ray 07/16/18 05:43 IMPRESSION: 1. ETT tip 3.4 cm above the hal. 2. Enteric catheter tip at the level of the gastric fundus. Side hole is not well seen but suspected to be in the distal esophagus. 3. Persistent bilateral multi lobar airspace opacities. Differential includes multi lobar pneumonia and ARDS. 4. Persistent small bilateral pleural effusions, left greater than right. D/ / Soy Smith MD / Soy Smith MD Interpreting Provider: Soy Smith MD X-Ray 07/16/18 05:43 IMPRESSION: 1. ETT tip 3.4 cm above the hal. 2. Enteric catheter tip at the level of the gastric fundus. Side hole is not well seen but suspected to be in the distal esophagus. 3. Persistent bilateral multi lobar airspace opacities. Differential includes multi lobar pneumonia and ARDS. 4. Persistent small bilateral pleural effusions, left greater than right. D/ / Soy Smith MD / Soy Smith MD Interpreting Provider: Soy Smith MD Chest X-Ray 07/16/18 06:25 IMPRESSION: 1. ETT tip 3.1 cm above the hal. 2. Rest of the exam, including bilateral multi lobar airspace opacities, have not significantly changed. Differential includes ARDS and multi lobar pneumonia. 3. Small bilateral pleural effusions, left greater than right. D/ / Soy Smith MD / Soy Smith MD Interpreting Provider: Soy Smith MD Chest X-Ray 07/16/18 09:59 IMPRESSION: 1. Tip of the left IJ central venous catheter projects over the SVC. No evidence of pneumothorax. 2. No significant change in appearance of lungs since 07/16/2018 at 6:30 a.m. Multifocal alveolar and interstitial pulmonary opacities with bilateral pleural effusions. Continued radiographic follow-up is recommended. 3. Additional support hardware, as detailed above. D/ / 07/16/2018 10:36:29 Richard Oliva MD / wilma Interpreting Provider: Richard Oliva MD Chest X-Ray 07/17/18 04:00 IMPRESSION: Diffuse airspace disease is again seen, slightly increased on the right. Persistent moderate left pleural effusion. D/ / Tyson Mckinley MD / Tyson Mckinley MD Interpreting Provider: Tyson Mckinley MD Abdomen/Pelvis CT 07/17/18 07:45 IMPRESSION: 1. There is evidence of a left-sided hemothorax. The more inferior of the patient's left-sided chest tubes terminates in the chest wall and is not in the pleural space. Correlation with tube output is recommended. 2. Tiny gas bubbles present in the left pleural space also noted likely related to chest tube placement. 3. Small right-sided pleural effusion noted. There is extensive bibasilar atelectasis. 4. No evidence of retroperitoneal or intra-abdominal/pelvic hemorrhage. 5. Minor low-density free fluid in the pelvis is likely reactive in nature. This does not have the appearance of blood. 6. Cholelithiasis. D/ / Chavez Sorensen MD / Chavez Sorensen MD Interpreting Provider: Chavez Sorensen MD Chest CT 07/17/18 07:45 IMPRESSION: 1. Moderate-sized mixed attenuation fluid and gas pleural collection in the left hemithorax. Differential includes hemothorax and empyema. By size, the collection has slightly increased in size compared to the exam of July 11, 2018. The presence of gas is new. There is a left chest tube; however, the tube extends anteriorly, away from the pleural collection. 2. Moderate right pleural effusion, new since July 11, 2018. 3. Multilobar airspace consolidations, most pronounced in the right lung. In the proper clinical setting, finding would be indicative of pneumonia. ARDS can have the same appearance. 4. Mediastinal and hilar lymphadenopathy, suspected to be reactive given associated pulmonary findings. 5. Interval drainage of previously seen left lateral chest wall abscess. D/ / 07/17/2018 11:30:55 Soy Smith MD / Amanda Fermin Interpreting Provider: Soy Smith MD Chest X-Ray 07/20/18 06:00 IMPRESSION: Slight interval improvement in bilateral airspace and interstitial opacities. D/ / Renata Oliva MD / Renata Oliva MD Interpreting Provider: Renata Oliva MD Chest X-Ray 07/22/18 00:00 IMPRESSION: Advancement of a left internal jugular central venous catheter with the tip now projecting over the distal SVC. No discrete thorax otherwise stable chest. D/ / Renata Oliva MD / Renata Oliva MD Interpreting Provider: Renata Oliva MD Insertion Non-Tunneled Catheter 07/22/18 00:00 IMPRESSION: Successful catheter exchange of a nontender catheter without guidance D/ / Linwood Rivera MD / Linwood Rivera MD Interpreting Provider: Linwood Rivera MD Chest CT 07/22/18 07:34 IMPRESSION: No significant change in the appearance of the chest. Large amount of diffuse airspace disease throughout the right lung. Large amount of atelectasis in the lower left lung. Large amount of abnormal soft tissue in the left pleural space consistent with hematoma. No significant change in the amount of hemothorax since the prior study. Loculated fluid collection posteriorly in the left pleural space. Small amount of ascites present in the abdomen mildly decreased from the prior study. Cholelithiasis without evidence of acute cholecystitis. Marked splenomegaly mildly increased. No other intra-abdominal abnormality. D/ / Sarmad Montes MD / Sarmad Montes MD Interpreting Provider: Sarmad Montes MD Head CT 07/22/18 07:35 IMPRESSION: No acute intracranial abnormality. D/ / Baldev Fernandez MD / Baldev Fernandez MD Interpreting Provider: Baldev Fernandez MD Abdomen/Pelvis CT 07/22/18 08:00 IMPRESSION: No significant change in the appearance of the chest. Large amount of diffuse airspace disease throughout the right lung. Large amount of atelectasis in the lower left lung. Large amount of abnormal soft tissue in the left pleural space consistent with hematoma. No significant change in the amount of hemothorax since the prior study. Loculated fluid collection posteriorly in the left pleural space. Small amount of ascites present in the abdomen mildly decreased from the prior study. Cholelithiasis without evidence of acute cholecystitis. Marked splenomegaly mildly increased. No other intra-abdominal abnormality. D/ / Sarmad Montes MD / Sarmad Montes MD Interpreting Provider: Sarmad Montes MD Retroperitoneum Ultrasound 07/23/18 16:30 IMPRESSION: Possible small amount of left perinephric fluid. The kidneys are otherwise unremarkable. Collapsed urinary bladder. D/ / 07/23/2018 18:56:16 Yuriy Gaffney MD / wilma Interpreting Provider: Yuriy Gaffney MD Liver Ultrasound 07/25/18 16:00 IMPRESSION: 1. Heterogeneous echotexture of the liver without focal abnormality. Findings are nonspecific for cirrhosis. Please correlate with liver function testing, non target image guided tissue sampling of the liver can be considered if cirrhosis remains of clinical concern. 2. Cholelithiasis. 3. Sonographic imaging in all 4 quadrants demonstrates no evidence of ascites. D/ / Hermilo Bella / Hermilo Bella Interpreting Provider: Hermilo Bella Chest X-Ray 07/26/18 04:56 IMPRESSION: Opacification of the left hemithorax representing a large effusion versus atelectasis. Right-sided pulmonary congestion and potential superimposed pneumonia. Similar-appearing support tubes. D/ / Adrián Emanuel / Adrián Emanuel Interpreting Provider: Adrián Emanuel X-Ray 07/26/18 04:56 IMPRESSION: Gastric tube with the tip just beyond the gastroesophageal junction and this can be advanced. D/ / Adrián Emanuel / Adrián Emanuel Interpreting Provider: Adrián Emanuel Date of admission: 07/10/18 22:40 Primary care physician: Kip Rojas DO Consults: 07/10/18 20:53 Consult to Pulmonology [CONS] Routine Consulting Provider: Pulm Crit Care & Sleep [place] Reason for Consult: recurrent pleural effusion Call Completed: No 07/10/18 21:28 Consult to Interventional Radiology [CONS] Routine Consulting Provider: Radiology Interventional Cols Reason for Consult: recurrent pleural effusion Call Completed: No 07/11/18 09:10 Consult to Nurse Navigator [CONS] Routine Comment: PNEUMONIA 07/11/18 16:31 Consult to Cardiothoracic Surgery [CONS] Routine Consulting Provider: Cardiothoracic Surgery Lorri Reason for Consult: Empyema, extrathoracic extension Time Notified: 16:31 Call Completed: Yes 07/14/18 15:39 Consult to Infectious Diseases [CONS] Routine Consulting Provider: Infectious Disease Lorri Reason for Consult: empyema necessitans Call Completed: Yes 07/14/18 16:10 Consult to Nephrology [CONS] Routine Consulting Provider: Kidney Lorri/WENDIE/ALFREDO/DARWIN Reason for Consult: Oliguric HA s/p thoracotomy Call Completed: Yes 07/15/18 12:07 Consult to Invasive Line Access Team [CONS] Routine Reason for Consult: Limited access Line Type: EPIV 07/16/18 05:51 Consult to Critical Care [CONS] Routine Consulting Provider: Pulm Crit Care & Sleep Lorri Reason for Consult: Intubated, concern for flash pulmonary edema in setting of worsening renal function Call Completed: No 07/16/18 08:21 Consult to Interventional Radiology [CONS] Stat Consulting Provider: Radiology Interventional Cols Reason for Consult: requires temporary dialysis line Time Notified: 08:25 Call Completed: No 07/16/18 09:30 Consult to Dialysis [CONS] ONCE 07/17/18 09:45 Consult to Dialysis [CONS] ONCE 07/18/18 08:45 Consult to Dialysis [CONS] ONCE 07/18/18 12:58 consult to text transcriber [Consult to Nutrition] [CONS] Routine Comment: Consulting Provider: NUTRITION Reason for Dietary Consult: Tube Feed Start & Manage 07/21/18 07:15 Consult to Dialysis [CONS] ONCE 07/22/18 06:29 Consult to Interventional Radiology [CONS] Routine Consulting Provider: Radiology Interventional Cols Reason for Consult: Please assess for guidewire exchange of the HD catheter (no longer working). Thank you. Call Completed: Yes 07/22/18 09:22 Consult to Gastroenterology [CONS] Routine Consulting Provider: Gastroenterology Lorri Reason for Consult: Hb continues to drop with no bleeding source identified Call Completed: Yes 07/24/18 07:30 Consult to Dialysis [CONS] ONCE 07/26/18 07:45 Consult to Dialysis [CONS] ONCE - Patient Status Disposition: Transfer Short-Term Hosp Condition: Critical Overall status at discharge: patient is not back to baseline - Discharge Instructions Follow Up With: Kip Rojas DO [Primary Care Provider] - Forms: ED Satisfaction Letter - Hospital Course Hospital course: Mr. Hutson is a 43 year old male with past medical history of COPD and chronic back pain. He originally presented to the ER on 07/10/18 complaining of chest pain and shortness of breath. The patient was known to have recurrent left- sided pleural effusions. Chest x-ray from ED showed more confluent left lower lobe opacification and effusion with stable cardiomegaly. He was initially diagnosed with pneumonia and started on empiric antibiotics of vancomycin and Zosyn. Interventional radiology was initially consult for possible thoracentesis, however at that time there was no definitive fluid collection for the procedure. CT chest on 05/11/18 revealed a complex pleural effusion, with thickened enhancing pleura concerning for empyema. There was also noted extrathoracic extension with concern for direct invasion into the chest wall. Cardiothoracic surgery was subsequently consulted and plans were made for the patient to undergo left-sided thoracotomy with decortication. On 07/13/18 the patient underwent left thoracotomy with decortication, wedge resection of the left upper lobe, and reverse latissimus muscle flap with Dr. Almaguer. Postoperative period was complicated by acute kidney injury noted on postoperative day one with oliguria as well as anemia. Nephrology was contacted, and 2 units packed red blood cells were transfused. Infectious disease was also consult for further recommendations regarding antibiotic therapy. On 07/16/18 the patient was started on TEST TECHNICIAN with HD for suspected ATN, at that time intraoperative cultures decortication were positive for yeast. Patient received another dialysis treatment following day and also required another 2 units packed red blood cells transfusion. The patient was also started on IV fluconazole, however this was subsequently changed to micafungin as the sensitivities returned. A HD holiday was taken on 07/19/18. During this period the patient continued to fail spontaneous breathing trials. A head CT was obtained on 07/22/18 which showed no acute intracranial abnormality. CT chest from the same day showed no significant change in the appearance of the chest with large amount of diffuse airspace disease throughout the right lung. Large hematoma was appreciated on the left. CT abdomen/pelvis revealed small amount of ascites which is decreased when compared to previous study, and mildly increased splenomegaly. The patient's hemoglobin was also noted to be low again on this date at 6.4. Another units pRBCs were transfused. GI was consulted to evaluate for possible GI etiology of bleed. Original plan was for EGD the following day. Pt was placed on IV Protonix. Pt also underwent further dialysis this day. Hemoglobin remained low on 07/23/18 and the patient received 2 further units of pRBCs. Iron studies were ordered which ultimately revealed significant iron deficiency. Pt was given 400mg Venofer the following day. By 07/24/18 GI had not been in to evaluate the patient again and multiple calls were placed. The patient was then tentatively scheduled for EGD for 07/26/18. Also on 07/24/18 the patient underwent further dialysis. Dr Andrea with GI came by to evaluate the patient on 07/25/18. He expressed to this provider concerns for hepatic etiologies, and recommended RUQ ultrasound and some further lab work. WING and Hepatitis B and C were negative. HIV was also negative. The patient did self-extubate the morning of 07/25/18, but later that night became unresponsive and hypoxic and was subsequently re-intubated. He remained on the ventilator at time of transfer. Bronchoscopy was performed on 07/26/[address] Kumar for worsening respiratory status and pneumonia. That morning the WBC was noted to increase from 11.9 to 23.4. Antibiotic coverage was broadened once more to Zosyn and fluconazole as prior to this the regimen consisted of Cefepime and fluconazole. During the afternoon family expressed concerns about the patient's critical status and requested transfer to [place]. Contacted transfer center and pt was accepted to [place]. Pt was transported via [facility] at 16:35. - Time Spent with Patient Total time spent providing and/or coordinating discharge services: Physical Examination Vital Signs: Vital Signs, Last 4 Hours Temp Pulse Resp BP Pulse Ox 07/26/18 13:51 82/58 07/26/18 13:50 18 93/59 98 07/26/18 13:45 88/65 07/26/18 13:30 90/65 07/26/18 13:15 94/60 07/26/18 13:00 87 16 90/63 97 07/26/18 12:45 86/63 07/26/18 12:30 92/62 07/26/18 12:15 88/60 07/26/18 12:00 85 18 92/53 96 07/26/18 11:45 93/60 07/26/18 11:40 18 90/63 97 07/26/18 11:30 92/58 07/26/18 11:15 88/60 07/26/18 11:00 98.9 F 84 16 88/60 97 07/26/18 10:45 98.9 F 18 100/58 General appearance: no acute distress, asleep Eyes: nonicteric ENT: oropharynx moist Effort: normal Auscultation: right: diminished breath sounds, rales Cardiovascular: regular rate and rhythm Gastrointestinal: soft, non-tender, non-distended Integumentary: normal Extremities: no cyanosis, no clubbing, pink and warm, pulses normal, no ischemia or petechiae Musculoskeletal: no deformities unable to assess due to mental status <Manuel Kumar W - Last Filed: 07/27/18 06:36> Orders not resulted at time of discharge: Pending orders 07/10/18 22:05 Fungal Culture [MYC] Routine 07/10/18 22:06 AFB Culture, Body Fluid [TB] Routine 07/11/18 10:38 MRSA Surveillance Screen [MOLMIC] Routine 07/13/18 13:40 AFB Smear [TB] Routine 07/18/18 07:24 AFB Culture, Body Fluid [TB] Stat AFB Smear [TB] Routine AFB Smear [TB] Stat 07/23/18 08:58 AFB Culture, Respiratory [TB] Routine AFB Smear [TB] Routine Fungal Culture [MYC] Routine 07/23/18 11:21 Urinalysis reflex Microscopic [URIN] Routine 07/23/18 13:30 Antiphospholipid Synd w reflex Routine 07/23/18 15:49 EKG [ECG 12 lead ECG] [ECG] Stat 07/24/18 13:06 Culture,Blood [BC] Stat Culture,Blood [BC] Stat 07/25/18 11:04 Hepatitis C Qnt Reflx Genotype Stat 07/26/18 07:00 AFB Culture, Respiratory [TB] Routine Bronch Asper.galactomannan Routine Culture,Respiratory [RM] Routine Fungal Culture [MYC] Routine Herpes Simplex PCR Body Fl Routine Legionella Culture [RM] Routine Resp.Virus Panel,Body Fl Routine 07/26/18 09:23 Cytology [PTH] Routine 07/26/18 09:24 Cytology [PTH] Routine 07/26/18 12:02 AFB Culture, Respiratory [TB] Routine Bronch Asper.galactomannan Routine Culture,Respiratory [RM] Routine Fungal Culture [MYC] Routine Herpes Simplex PCR Body Fl Routine Legionella Culture [RM] Routine Resp.Virus Panel,Body Fl Routine Date of Encounter: 07/27/18 - Discharge Diagnosis (1) Pleural effusion Status: Acute (2) Lymphadenopathy Status: Acute (3) Transaminitis Status: Resolved Labs on day of discharge: Labs from last 24 hours 07/26/18 07/26/18 07/26/18 12:02 11:49 08:33 Sample Site R Radial ABG pH 7.26 L D ABG pCO2 48 H D ABG pO2 176 H D ABG HCO3 22 ABG Total CO2 23 ABG O2 Saturation 99 H ABG Base Excess -5 L Ish Test N/A Respiration Rate 16 O2 Delivery Device Adult Vent Blood Gas Modality VC Inspired O2 70.0 Tidal Volume 500 PEEP 5 POC Glucose 82 Lactic Acid Fluid Source LLL AND URBAN BAL Fluid Volume 19 Fluid Appearance Hazy A Fluid RBC TNP Fld Tot Nucleated Cell TNP Fluid Seg Neutrophil % 73.0 Fluid Lymphocytes % 23.0 Fluid Monocytes % 4.0 WING Screen Phospholip A2 Rec IgG 07/26/18 07/26/18 07/26/18 07:51 07:00 04:44 Sample Site ABG pH ABG pCO2 ABG pO2 ABG HCO3 ABG Total CO2 ABG O2 Saturation ABG Base Excess Ish Test Respiration Rate O2 Delivery Device Blood Gas Modality Inspired O2 Tidal Volume PEEP POC Glucose 105 H Lactic Acid 0.4 L Fluid Source BAL URBAN Fluid Volume 15 Fluid Appearance Hazy A Fluid RBC TNP Fld Tot Nucleated Cell TNP Fluid Seg Neutrophil % 52.0 Fluid Lymphocytes % 44.0 Fluid Monocytes % 4.0 WING Screen Phospholip A2 Rec IgG 07/23/18 13:30 Sample Site ABG pH ABG pCO2 ABG pO2 ABG HCO3 ABG Total CO2 ABG O2 Saturation ABG Base Excess Ish Test Respiration Rate O2 Delivery Device Blood Gas Modality Inspired O2 Tidal Volume PEEP POC Glucose Lactic Acid Fluid Source Fluid Volume Fluid Appearance Fluid RBC Fld Tot Nucleated Cell Fluid Seg Neutrophil % Fluid Lymphocytes % Fluid Monocytes % WING Screen NONE DETECTED Phospholip A2 Rec IgG <1:10 Preliminary micro results at discharge 07/26/18 12:02 Respiratory Culture - Preliminary Lung - Left Culture is incubating. 07/26/18 07:00 Respiratory Culture - Preliminary Left Upper Lobe Lung Culture is incubating. 07/24/18 13:06 Blood Culture - Preliminary Central Venous Catheter Culture is incubating and being continuously monitored for growth. Final report to follow. 07/24/18 13:06 Blood Culture - Preliminary Peripheral Venipuncture Culture is incubating and being continuously monitored for growth. Final report to follow. 07/24/18 13:06 Blood Culture - Preliminary Peripheral Venipuncture Culture is incubating and being continuously monitored for growth. Final report to follow. 07/13/18 13:40 Fungal Culture - Preliminary Pleural Fluid Radha albicans - Impressions ITS Impressions Chest X-Ray 07/10/18 16:31 IMPRESSION: More confluent left lower lobe opacification and effusion. Stable cardiomegaly. D/ / Jose Martinez MD / Jose Martinez MD Interpreting Provider: Jose Martinez MD Chest Ultrasound 07/10/18 21:28 IMPRESSION: Small left pleural effusion, with insufficient fluid for a thoracentesis at this time. D/ / Dragan Hyde MD / Dragan Hyde MD Interpreting Provider: Dragan Hyde MD Abdomen/Pelvis CT 07/11/18 15:00 IMPRESSION: Complex left pleural effusion with enhancing, thickened pleura, concerning for formation of an empyema. In addition, there is extra thoracic extension of that, either through direct invasion of the wall or from seeding from a previous thoracentesis, with multiple abscesses now seen adjacent to the rib cage. Multiple enlarged mediastinal lymph nodes, presumably reactive, but follow-up of these is recommended to ensure stability or resolution. No acute abnormalities identified within the abdomen pelvis. Moderate splenomegaly. Cholelithiasis. D/ / Chon Chiu MD / Chon Chiu MD Interpreting Provider: Chon Chiu MD Chest CT 07/11/18 15:00 IMPRESSION: Complex left pleural effusion with enhancing, thickened pleura, concerning for formation of an empyema. In addition, there is extra thoracic extension of that, either through direct invasion of the wall or from seeding from a previous thoracentesis, with multiple abscesses now seen adjacent to the rib cage. Multiple enlarged mediastinal lymph nodes, presumably reactive, but follow-up of these is recommended to ensure stability or resolution. No acute abnormalities identified within the abdomen pelvis. Moderate splenomegaly. Cholelithiasis. D/ / Chon Chiu MD / Chon Chiu MD Interpreting Provider: Chon Chiu MD Chest X-Ray 07/13/18 15:32 IMPRESSION: Persistent left lung base opacity. Left chest tubes have been placed. No definite pneumothorax. D/ / 07/13/2018 16:29:38 Dragan Chopra MD / angelique Interpreting Provider: Dragan Chopra MD Chest X-Ray 07/14/18 15:32 IMPRESSION: Left greater than right basilar predominant heterogeneous opacities with left basilar consolidation and left pleural effusion. Stable life-support devices. D/ / Tank Sessions / Tank Sessions Interpreting Provider: Tank Sessions Chest X-Ray 07/15/18 06:00 IMPRESSION: Persistent left pleural effusion with bibasilar airspace disease/atelectasis left greater than right. D/ / 07/15/2018 07:23:24 Baldev Fernandez MD / sakina Interpreting Provider: Baldev Fernandez MD Chest X-Ray 07/16/18 04:00 IMPRESSION: No significant interval change in left pleural effusion. Bilateral airspace disease is again seen, increasing on the right as compared to prior. D/ / Tyson Mckinley MD / Tyson Mckinley MD Interpreting Provider: Tyson Mckinley MD Chest X-Ray 07/16/18 05:43 IMPRESSION: 1. ETT tip 3.4 cm above the hal. 2. Enteric catheter tip at the level of the gastric fundus. Side hole is not well seen but suspected to be in the distal esophagus. 3. Persistent bilateral multi lobar airspace opacities. Differential includes multi lobar pneumonia and ARDS. 4. Persistent small bilateral pleural effusions, left greater than right. D/ / Soy Smith MD / Soy Smith MD Interpreting Provider: Soy Smith MD X-Ray 07/16/18 05:43 IMPRESSION: 1. ETT tip 3.4 cm above the hal. 2. Enteric catheter tip at the level of the gastric fundus. Side hole is not well seen but suspected to be in the distal esophagus. 3. Persistent bilateral multi lobar airspace opacities. Differential includes multi lobar pneumonia and ARDS. 4. Persistent small bilateral pleural effusions, left greater than right. D/ / Soy Smith MD / Soy Smith MD Interpreting Provider: Soy Smith MD Chest X-Ray 07/16/18 06:25 IMPRESSION: 1. ETT tip 3.1 cm above the hal. 2. Rest of the exam, including bilateral multi lobar airspace opacities, have not significantly changed. Differential includes ARDS and multi lobar pneumonia. 3. Small bilateral pleural effusions, left greater than right. D/ / Soy Smith MD / Soy Smith MD Interpreting Provider: Soy Smith MD Chest X-Ray 07/16/18 09:59 IMPRESSION: 1. Tip of the left IJ central venous catheter projects over the SVC. No evidence of pneumothorax. 2. No significant change in appearance of lungs since 07/16/2018 at 6:30 a.m. Multifocal alveolar and interstitial pulmonary opacities with bilateral pleural effusions. Continued radiographic follow-up is recommended. 3. Additional support hardware, as detailed above. D/ / 07/16/2018 10:36:29 Richard Oliva MD / wilma Interpreting Provider: Richard Oliva MD Chest X-Ray 07/17/18 04:00 IMPRESSION: Diffuse airspace disease is again seen, slightly increased on the right. Persistent moderate left pleural effusion. D/ / Tyson Mckinley MD / Tyson Mckinley MD Interpreting Provider: Tyson Mckinley MD Abdomen/Pelvis CT 07/17/18 07:45 IMPRESSION: 1. There is evidence of a left-sided hemothorax. The more inferior of the patient's left-sided chest tubes terminates in the chest wall and is not in the pleural space. Correlation with tube output is recommended. 2. Tiny gas bubbles present in the left pleural space also noted likely related to chest tube placement. 3. Small right-sided pleural effusion noted. There is extensive bibasilar atelectasis. 4. No evidence of retroperitoneal or intra-abdominal/pelvic hemorrhage. 5. Minor low-density free fluid in the pelvis is likely reactive in nature. This does not have the appearance of blood. 6. Cholelithiasis. D/ / Chavez Sorensen MD / Chavez Sorensen MD Interpreting Provider: Chavez Sorensen MD Chest CT 07/17/18 07:45 IMPRESSION: 1. Moderate-sized mixed attenuation fluid and gas pleural collection in the left hemithorax. Differential includes hemothorax and empyema. By size, the collection has slightly increased in size compared to the exam of July 11, 2018. The presence of gas is new. There is a left chest tube; however, the tube extends anteriorly, away from the pleural collection. 2. Moderate right pleural effusion, new since July 11, 2018. 3. Multilobar airspace consolidations, most pronounced in the right lung. In the proper clinical setting, finding would be indicative of pneumonia. ARDS can have the same appearance. 4. Mediastinal and hilar lymphadenopathy, suspected to be reactive given associated pulmonary findings. 5. Interval drainage of previously seen left lateral chest wall abscess. D/ / 07/17/2018 11:30:55 Soy Smith MD / Amanda Fermin Interpreting Provider: Soy Smith MD Chest X-Ray 07/20/18 06:00 IMPRESSION: Slight interval improvement in bilateral airspace and interstitial opacities. D/ / Renata Oliva MD / Renata Oliva MD Interpreting Provider: Renata Oliva MD Chest X-Ray 07/22/18 00:00 IMPRESSION: Advancement of a left internal jugular central venous catheter with the tip now projecting over the distal SVC. No discrete thorax otherwise stable chest. D/ / Renata Oliva MD / Renata Oliva MD Interpreting Provider: Renata Oliva MD Insertion Non-Tunneled Catheter 07/22/18 00:00 IMPRESSION: Successful catheter exchange of a nontender catheter without guidance D/ / Linwood Rivera MD / Linwood Rivera MD Interpreting Provider: Linwood Rivera MD Chest CT 07/22/18 07:34 IMPRESSION: No significant change in the appearance of the chest. Large amount of diffuse airspace disease throughout the right lung. Large amount of atelectasis in the lower left lung. Large amount of abnormal soft tissue in the left pleural space consistent with hematoma. No significant change in the amount of hemothorax since the prior study. Loculated fluid collection posteriorly in the left pleural space. Small amount of ascites present in the abdomen mildly decreased from the prior study. Cholelithiasis without evidence of acute cholecystitis. Marked splenomegaly mildly increased. No other intra-abdominal abnormality. D/ / Sarmad Montes MD / Sarmad Montes MD Interpreting Provider: Sarmad Montes MD Head CT 07/22/18 07:35 IMPRESSION: No acute intracranial abnormality. D/ / Baldev Fernandez MD / Baldev Fernandez MD Interpreting Provider: Baldev Fernandez MD Abdomen/Pelvis CT 07/22/18 08:00 IMPRESSION: No significant change in the appearance of the chest. Large amount of diffuse airspace disease throughout the right lung. Large amount of atelectasis in the lower left lung. Large amount of abnormal soft tissue in the left pleural space consistent with hematoma. No significant change in the amount of hemothorax since the prior study. Loculated fluid collection posteriorly in the left pleural space. Small amount of ascites present in the abdomen mildly decreased from the prior study. Cholelithiasis without evidence of acute cholecystitis. Marked splenomegaly mildly increased. No other intra-abdominal abnormality. D/ / Sarmad Montes MD / Sarmad Montes MD Interpreting Provider: Sarmad Montes MD Retroperitoneum Ultrasound 07/23/18 16:30 IMPRESSION: Possible small amount of left perinephric fluid. The kidneys are otherwise unremarkable. Collapsed urinary bladder. D/ / 07/23/2018 18:56:16 Yuriy Gaffney MD / wilma Interpreting Provider: Yuriy Gaffney MD Liver Ultrasound 07/25/18 16:00 IMPRESSION: 1. Heterogeneous echotexture of the liver without focal abnormality. Findings are nonspecific for cirrhosis. Please correlate with liver function testing, non target image guided tissue sampling of the liver can be considered if cirrhosis remains of clinical concern. 2. Cholelithiasis. 3. Sonographic imaging in all 4 quadrants demonstrates no evidence of ascites. D/ / Hermilo Bella / Hermilo Bella Interpreting Provider: Hermilo Bella Chest X-Ray 07/26/18 04:56 IMPRESSION: Opacification of the left hemithorax representing a large effusion versus atelectasis. Right-sided pulmonary congestion and potential superimposed pneumonia. Similar-appearing support tubes. D/ / Adrián Emanuel / Adrián Emanuel Interpreting Provider: Adrián Emanuel X-Ray 07/26/18 04:56 IMPRESSION: Gastric tube with the tip just beyond the gastroesophageal junction and this can be advanced. D/ / Adrián Emanuel / Adrián Emanuel Interpreting Provider: Adrián Emanuel Date of admission: 07/10/18 22:40 Primary care physician: Kip Rojas DO Consults: 07/10/18 20:53 Consult to Pulmonology [CONS] Routine Consulting Provider: Pulm Crit Care & Sleep [place] Reason for Consult: recurrent pleural effusion Call Completed: No 07/10/18 21:28 Consult to Interventional Radiology [CONS] Routine Consulting Provider: Radiology Interventional Cols Reason for Consult: recurrent pleural effusion Call Completed: No 07/11/18 09:10 Consult to Nurse Navigator [CONS] Routine Comment: PNEUMONIA 07/11/18 16:31 Consult to Cardiothoracic Surgery [CONS] Routine Consulting Provider: Cardiothoracic Surgery Lorri Reason for Consult: Empyema, extrathoracic extension Time Notified: 16:31 Call Completed: Yes 07/14/18 15:39 Consult to Infectious Diseases [CONS] Routine Consulting Provider: Infectious Disease [place] Reason for Consult: empyema necessitans Call Completed: Yes 07/14/18 16:10 Consult to Nephrology [CONS] Routine Consulting Provider: Kidney Lorri/WENDIE/ALFREDO/DARWIN Reason for Consult: Oliguric HA s/p thoracotomy Call Completed: Yes 07/15/18 12:07 Consult to Invasive Line Access Team [CONS] Routine Reason for Consult: Limited access Line Type: EPIV 07/16/18 05:51 Consult to Critical Care [CONS] Routine Consulting Provider: Pulm Crit Care & Sleep Lorri Reason for Consult: Intubated, concern for flash pulmonary edema in setting of worsening renal function Call Completed: No 07/16/18 08:21 Consult to Interventional Radiology [CONS] Stat Consulting Provider: Radiology Interventional Cols Reason for Consult: requires temporary dialysis line Time Notified: 08:25 Call Completed: No 07/16/18 09:30 Consult to Dialysis [CONS] ONCE 07/17/18 09:45 Consult to Dialysis [CONS] ONCE 07/18/18 08:45 Consult to Dialysis [CONS] ONCE 07/18/18 12:58 consult to text transcriber [Consult to Nutrition] [CONS] Routine Comment: Consulting Provider: NUTRITION Reason for Dietary Consult: Tube Feed Start & Manage 07/21/18 07:15 Consult to Dialysis [CONS] ONCE 07/22/18 06:29 Consult to Interventional Radiology [CONS] Routine Consulting Provider: Radiology Interventional Cols Reason for Consult: Please assess for guidewire exchange of the HD catheter (no longer working). Thank you. Call Completed: Yes 07/22/18 09:22 Consult to Gastroenterology [CONS] Routine Consulting Provider: Gastroenterology Lorri Reason for Consult: Hb continues to drop with no bleeding source identified Call Completed: Yes 07/24/18 07:30 Consult to Dialysis [CONS] ONCE 07/26/18 07:45 Consult to Dialysis [CONS] ONCE - Hospital Course Hospital course: Mr. Hutson is a 43 year old male - Time Spent with Patient Total time spent providing and/or coordinating discharge services: - Attending Attestation I examined this patient and my medical decision-making was reviewed with the Resident Physician. I agree with the documented findings, disposition and treatment plan as described except to the extent set forth below. We indep endently had [id number] contact with the patient See daily progress note. I had a 20 minute conversation with the family including the patient's mother and his stepfather in the ICU room and answered all questions to the best of my ability and updated them concerning the clinical course prognosis and plan a care prior to their decision to seek a second opinion
[2018-07-26 15:30] VITALS: BP 105/52
[2018-07-26 15:42] LABS: Source of Body Fluid BAL LUL
[2018-07-26] MEDS ORDERED: Piperacillin/Tazobactam 3.375 GM in 0.9 % Sodium Chloride Mini Bag 100 ML IVPB SCH (16:00)
[2018-07-26] MEDS ORDERED: Vancomycin 500 MG in 0.9 % Sodium Chloride Mini Bag 100 ML IVPB ONE (17:00)
[2018-07-26 17:02] LABS: Appearance of Body Fluid Hazy (Clear); Volume of Body Fluid 15 mL
[2018-07-26 17:17] LABS: Appearance of Body Fluid Hazy (Clear); Volume of Body Fluid 19 mL
[2018-07-27 01:34] LABS: APTT (LE Anticoag) 58 sec (32-48); Diluted Russell Viper Venom 55 sec (33-44); LE Coag APTT Mixing 53 sec (32-48); LE Dil. Russell Viper Mix 1:1 44 sec (33-44); PT (LE-Anticoag) 15.1 sec (12.0-15.5); Thrombin Time 15.2 sec (14.7-19.5)
[2018-07-27 08:53] LABS: HCV Quant Interpretation NOT DETECTED (Not Detected); HCV Quant Log NOT DETECTED log IU/mL
[2018-07-28 17:28] LABS: BronchAsperGalactomannan Index 0.14
[2018-07-29 00:59] LABS: Influenza A PCR Body Fluid NOT DETECTED; Influenza B PCR Body Fluid NOT DETECTED; RVP Body Fluid Source BAL
[2018-07-29 01:00] LABS: Influenza A PCR Body Fluid NOT DETECTED; Influenza B PCR Body Fluid NOT DETECTED; RVP Body Fluid Source BAL
[2018-07-29 10:31] LABS: RSV PCR Body Fluid NOT DETECTED
[2018-07-29 10:32] LABS: RSV PCR Body Fluid NOT DETECTED
[2018-07-29 16:12] LABS: HSV Source BAL
[2018-07-29 16:13] LABS: HSV Source BAL
== END 2018-07-26 16:35 | disposition short-term general hospital (02) | DRG 163 ==
LOC: EMEROOARM 16:10 → 3BNU 16:10 → SUATTDRO 22:40 → ICNU 07-13 14:34
PROVIDERS: ADMIT Internal Medicine Nephrology; ATTEND Internal Medicine